=== PATIENT | female | born 1970 | race Caucasian/White ===

== ENCOUNTER → 2018-12-14 08:58 | Outpatient (CLI) | payer OTHER, SELFPAY ==
--- NOTE | 2018-12-14 08:59 | US_ITS ---
US transvaginal HISTORY: Dysfunctional uterine bleeding, heavy cycles, cervix cysts ITS.REASON: DUB ORDERING PHYSICIAN: Alvaro Rowell MD PATIENT AGE: 48 years Comparison: None Last menstrual period 11/29/2018 FINDINGS: The uterus is retroverted and enlarged at 11 x 5 x 6 cm. Combined endometrial thickness is 11 mm. Small amount of fluid is present within the endocervical canal. There is a 3 cm fibroid in the fundal portion of the uterus. There are a few small nabothian cysts. The right ovary is 3.9 x 3 cm. There is a 1.5 cm and a 1 cm right ovarian cyst.. The left ovary is 2.8 x 2.5 cm and has an unremarkable appearance. No cul-de-sac fluid is evident. IMPRESSION: 1. Enlarged retroverted uterus containing a 3 cm fibroid 2. Endometrial thickness upper limits of normal at 11 mm
== END ==
PROVIDERS: PCP Family Medicine; Visit Provider Obstetrics & Gynecology
DX: D25.9 Leiomyoma of uterus, unspecified (principal)
CPT/HCPCS: 76830

== ENCOUNTER 2021-11-22 11:23 | Emergency (ER) | payer OTHER, SELFPAY ==
[2021-11-22 11:24] VITALS: BP 149/91; PULSE 81; RESP 18; TEMP 36.7; O2SAT 96; BMI 40.2
[2021-11-22 11:36] VITALS: BP 149/91; PULSE 70; RESP 16; O2SAT 97
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
[2021-11-22 12:02] VITALS: BP 129/79; PULSE 83; RESP 16; O2SAT 99
[2021-11-22 12:34] VITALS: BMI 40.2
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
[2021-11-22 13:01] LABS: Microscopic, Urine URINE MICROSCOPIC (MICROSCOPIC)
[2021-11-22 13:08] LABS: Appearance,Urine CLEAR (Clear); Bilirubin,Urine Negative (Negative); Blood, Urine TRACE-L (Negative); Color,Urine YELLOW (Yellow); Glucose,Urine (UA) Negative (Negative); Ketones,Urine Negative (Negative); Leukocyte Esterase,Urine Negative (Negative); Nitrate,Urine Negative (Negative); Protein,Urine Negative (Negative); Urobilinogen,Urine 0.2 EU/dl (0.2)
[2021-11-22 13:10] LABS: Urine Pregnancy, HCG Qual. Negative (Negative)
[2021-11-22 13:21] LABS: Bacteria,Urine 1+ /lpf; Squamous Epithelial Cell,Urine Occasional #/hpf (0-5); WBC,Urine Occasional #/hpf (0-3)
[2021-11-22 13:52] VITALS: BP 125/78; PULSE 78; RESP 98; TEMP 36.6
[2021-11-23 10:10] LABS: Hepatitis C Antibody 1.6 s/co ratio (0.0-0.9)
[2021-11-23 21:38] LABS: Neisseria gonorrhoeae, NAA Negative (Negative)
[2021-11-25 16:11] LABS: HIV 1 RNA, Real time PCR <20 copies/mL (.)
== END 2021-11-22 13:53 | disposition home or self-care (01) ==
PROVIDERS: Emergency Provider Emergency Medicine; PCP Nurse Practitioner Family
DX: Z04.41 Encounter for examination and observation following alleged adult rape (principal); J45.909 Unspecified asthma, uncomplicated; I10 Essential (primary) hypertension; F17.210 Nicotine dependence, cigarettes, uncomplicated; Z88.0 Allergy status to penicillin; Z88.8 Allergy status to other drugs, medicaments and biological substances
CPT/HCPCS: 81001; 81025; 87380; 87491; 87536; 87591; 96372; 99282; J0696

== ENCOUNTER 2023-12-27 17:53 | Emergency (ER) | payer OTHER, SELFPAY ==
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
--- NOTE | 2023-12-27 18:09 | ED_ITS ---
Discharge Plan Disposition Patient Disposition: Home, Self-Care Prescriptions Prescriptions: New albuterol sulfate 90 mcg/actuation HFA aerosol inhaler 4 inh inhalation Q4H PRN (Reason: shortness of breath or wheezing) Qty: 8.5 0RF Rx Instructions: 4 puffs every 4 hours for 48 hours then as needed for shortness of breath or wheezing following azithromycin 250 mg tablet 250 mg PO DAILY 4 Days Qty: 4 0RF Rx Instructions: start on day 2 of therapy (day after ED visit) benzonatate 100 mg capsule 100 mg PO TID PRN (Reason: cough) 5 Days Qty: 20 0RF amoxicillin-pot clavulanate 875-125 mg tablet 1 tab PO BID 7 Days Qty: 14 0RF No Action ranitidine HCl [Zantac] 150 mg tablet 150 mg PO DAILY aspirin [Adult Low Dose Aspirin] 81 mg tablet,delayed release (DR/EC) 81 mg PO DAILY Referrals Follow up/Referrals: Provider,Referral, MD [Primary Care Provider] - See instructions Activity Restrictions/Add. Instructions Additional Instructions/Restrictions: Please return with any worsening shortness of breath or other concerns. Clinical Impressions Clinical Impression: CAP (community acquired pneumonia), Acute viral syndrome, Acute exacerbation of chronic obstructive pulmonary disease, Influenza A Discharge ED Provider: Jan Randle General Adult HPI General Chief complaint: Upper Respiratory Infection Stated complaint: SOA,runny nose , body aches Time Seen by Provider: 12/27/23 18:04 History of Present Illness HPI narrative: Patient is a 53-year-old female with a history of COPD presents today with bodyaches fever at home cough headache diarrhea. She is also nauseated. Denies any significant abdominal pain denies any chest pain. Has had increased sputum production and wheezing and is mildly short of breath. Symptoms have been ongoing for 3 days at this point. Related Data Home Medications Medication Instructions Recorded Confirmed aspirin 81 mg tablet,delayed 81 mg PO DAILY 09/27/18 11/27/18 release (Adult Low Dose Aspirin) ranitidine HCl 150 mg tablet 150 mg PO DAILY 09/27/18 11/27/18 (Zantac) Previous Rx's Medication Instructions Recorded albuterol sulfate 90 mcg/actuation 4 inh inhalation Q4H PRN shortness 12/27/23 aerosol inhaler of breath or wheezing #8.5 grams amoxicillin 875 mg-potassium 1 tab PO BID 7 days #14 tabs 12/27/23 clavulanate 125 mg tablet azithromycin 250 mg tablet 250 mg PO DAILY 4 days #4 tabs 12/27/23 benzonatate 100 mg capsule 100 mg PO TID PRN cough 5 days #20 12/27/23 caps Allergies Allergy/AdvReac Type Severity Reaction Status Date / Time lisinopril Allergy Mild Verified 12/27/23 18:16 PCN (PENICILLIN) Allergy Unknown Uncoded 11/27/18 10:08 [facility] Disclaimer: The information contained in this section may have been updated after the patient was seen, as this information can be updated by other users. Social History Smoking Status: Current every day smoker alcohol intake: never substance use type: denies use current occupational status: other Travel in the last 8 weeks: None ROS Obtained: Yes All systems reviewed & no additional complaints except as documented Physical Exam General General appearance: alert Respiratory Respiratory exam: Present other (Mildly tachypneic but no significant respiratory distress accessory muscle use etc. she is satting normally on room air has still faint wheezing and prolonged expiratory phase) Cardiovascular Cardiovascular exam: Present regular rate and normal rhythm Neurological Exam Neurological exam: Present alert Medical Decision Making Zurdo Inquiry Pt receiving controlled substance: No Vital Signs: 12/27/23 18:12 Temperature 99.3 F Temperature Source Oral Pulse Rate [Left] 91 H Respiratory Rate 20 Blood Pressure [Right Arm] 129/78 Blood Pressure Mean [Right Arm] 95 Blood Pressure Source [Right Arm] Automatic Cuff Blood Pressure Position [Right Arm] Sitting 02 Sat by Pulse Oximetry 96 Oxygen Delivery Method Room Air Lab Data Lab results reviewed: Yes I reviewed the patient's lab results. Lab Results 12/27/23 18:00: SARS-CoV-2 (PCR) Not detected, Influenza A Untype (PCR) Detected A, Influenza Type B (PCR) Not detected 12/27/23 18:18: WBC 7.2, RBC 4.66, Hgb 14.1, Hct 41.4, MCV 88.8, MCH 30.3, MCHC 34.1, RDW 13.4, Plt Count 145, MPV 7.8, Neut % (Auto) 76.3, Lymph % (Auto) 17.0, Ector % (Auto) 5.1, Eos % (Auto) 1.0, Baso % (Auto) 0.6, Neut # (Auto) 5.5, Lymph # (Auto) 1.2, Ector # (Auto) 0.4, Eos # (Auto) 0.1, Baso # (Auto) 0.0, Sodium 134 L, Potassium 3.5, Chloride 96 L, Carbon Dioxide 35 H, Anion Gap 6.5, BUN 11, Creatinine 0.60, Estimated Creat Clear 159, Estimated GFR 105, Est GFR ( Amer) 127, Glucose 103 H, Calcium 9.0, Total Bilirubin 0.4, AST 52 H, ALT 58, Alkaline Phosphatase 68, Total Protein 6.6, Albumin 3.9, Globulin 2.7, Albumin/Globulin Ratio 1.4 12/27/23 18:18 12/27/23 18:18 Orders (Tests/Meds): ED MEDICATIONS Discontinued Medications Generic Name Dose Route Start Last Admin Trade Name Freq PRN Reason Stop Dose Admin Acetaminophen 1,000 mg 12/27/23 18:07 12/27/23 18:23 Acetaminophen 1,000mg/100ml Vial IV 12/27/23 18:08 1,000 mg ONCE ONE Administration Albuterol/Ipratropium 3 ml 12/27/23 18:07 12/27/23 18:23 Ipratropium/Albuterol 3 Ml Neb IH 12/27/23 18:08 3 ml ONCE ONE Administration Amoxicillin/Clavulanate Potassium 1 each 12/27/23 18:41 12/27/23 18:55 Amoxicillin/Clavulanate Potassium 875/125mg Tablet PO 12/27/23 18:42 1 each ONCE ONE Administration Azithromycin 500 mg 12/27/23 18:41 12/27/23 18:55 Azithromycin 250mg Tablet PO 12/27/23 18:42 500 mg ONCE ONE Administration Dexamethasone Sodium Phosphate 10 mg 12/27/23 18:07 12/27/23 18:23 Dexamethasone 4mg/Ml 1ml Vial IV 12/27/23 18:08 10 mg ONCE ONE Administration Lactated Ringer's 1,000 mls @ 999 mls/hr 12/27/23 18:15 12/27/23 18:23 Lactated Ringer's 1000 Ml Bag IV 12/27/23 19:15 999 mls/hr .Q1H1M ALMA Administration Ondansetron HCl 4 mg 12/27/23 18:07 12/27/23 18:23 Ondansetron 4mg/2ml Vial IV 12/27/23 18:08 4 mg ONCE ONE Administration ORDERS Category Date Time Status CXR --portable [XR chest portable] Stat Exams 12/27/23 18:07 Completed CBC w/Auto Diff [Complete Blood Count Auto Diff] Stat Lab 12/27/23 18:18 Completed CMP [Comprehensive Metabolic Panel] Stat Lab 12/27/23 18:18 Completed Rapid PCR Covid and Flu A/B Stat Lab 12/27/23 18:00 Completed Medical Decision Narrative: 53-year-old female here with some shortness of breath cough wheezing increase pedal production consistent with COPD exacerbation she is also febrile at home I rechecked her temperature here is 100.3 will check for pneumonia with a chest x- ray. COVID and flu will be ordered as well. She is outside of the window for treatment with Tamiflu. Nebs and steroids will be administered as well. IV Tyl enol IV fluids and Zofran also be administered for symptomatic improvement. I will reassess after these initial tests are performed. X-ray performed which I first interpreted shows bibasilar consolidations concerning for possible commune acquired pneumonia. FLU a positive as stated above patient is outside of any window for treatment this was discussed with the patient. Reassessment feeling much better respiratory exam improved no distress upon being discharged. Patient was advised that she has some consolidations when of seeing his possibly atelectasis versus consolidations associated with influenza. She has not had any biphasic reaction or worsening of her symptoms I do not suspect that this is staph in nature. However given the fact that there are focal consolidations will treat for possible bacterial community-acquired pneumonia especially in the setting of COPD. Augmentin and azithromycin have been prescribed for that reason and first dose were given in the emergency depar tment. She is also given a prescription of benzonatate and albuterol to go home with return precautions emphasized patient comfortable with being discharged and will return with any worsening symptoms. Critical Care Critical Care Time Critical Care Time: Yes Attestation: On 12/27/23, the high probability of a clinically significant, sudden or life threatening deterioration of the following system(s) required my full and direct attention, intervention and personal management. The time I documented below is in addition to time spent performing reported procedures but includes the following listed in this critical care notation. Total Time Total Critical Care Time: 35
[2023-12-27 18:12] VITALS: BP 129/78; PULSE 91; RESP 20; TEMP 37.4; O2SAT 96; BMI 38.3
[2023-12-27] MEDS: ONDANSETRON 4MG/2ML VIAL 4 MG IV (18:23)
[2023-12-27] MEDS: ACETAMINOPHEN 1,000MG/100ML VIAL 1000 MG IV (18:23)
[2023-12-27] MEDS: LACTATED RINGERS 1000ML 1,000 ML 999 ML IV (18:23)
[2023-12-27] MEDS: DEXAMETHASONE 4MG/ML 1ML VIAL 10 MG IV (18:23)
[2023-12-27] MEDS: IPRATROPIUM/ALBUTEROL 3 ML NEB IH (18:23)
[2023-12-27 18:28] LABS: Coronavirus 19, PCR Not Detected (NotDetected); Influenza B, PCR Not Detected (NotDetected)
[2023-12-27 18:35] LABS: Basophils % 0.6 % (0.1-2.0); Eosinophils # 0.1 K/mm3 (0.0-0.4); Hematocrit 41.4 % (37.0-47.0); Hemoglobin 14.1 g/dL (12.2-16.2); Lymphocytes # 1.2 K/mm3 (0.7-4.5); Mean Corpuscular HGB Conc 34.1 g/dL (31.8-35.4); Mean Corpuscular Hemoglobin 30.3 pg (27.0-31.2); Mean Corpuscular Volume 88.8 fl (81-99); Mean Platelet Volume 7.8 fl (7.4-10.4); Monocytes # 0.4 K/mm3 (0.1-1.0); Monocytes % 5.1 % (1.7-9.3); Neutrophils # 5.5 K/mm3 (1.8-7.8); Neutrophils % 76.3 % (37.0-80.0); Platelet Count 145 K/mm3 (142-424); Red Blood Count 4.66 M/mm3 (4.20-5.40); Red Cell Distribution Width 13.4 % (11.5-17.5); White Blood Count 7.2 K/mm3 (4.8-10.8)
[2023-12-27 18:44] LABS: Alanine Aminotransferase 58 U/L (12-78); Albumin Level 3.9 g/dl (3.5-5.0); Albumin/Globulin Ratio 1.4 (1.1-1.8); Alkaline Phosphatase 68 U/L (38-126); Anion Gap 6.5 mEq/L (5-15); Aspartate Amino Transferase 52 U/L (14-36); Bilirubin,Total 0.4 mg/dl (0.2-1.3); Blood Urea Nitrogen 11 mg/dl (7-17); Carbon Dioxide 35 mmol/L (22.0-30.0); Chloride 96 mmol/L (98-107); Creatinine Clearance Estimated 159 mL/min (50-200); Estimated Glomerular Filt Rate 105 ml/min (>60); GFR (African American) 127 ML/MIN (>60); Globulin 2.7 g/dL (1.3-3.2); Glucose 103 mg/dl (74-100); Potassium 3.5 mmoL/L (3.5-5.1); Sodium 134 mmol/L (136-145); Total Protein,Serum 6.6 g/dl (6.3-8.2)
[2023-12-27] MEDS: AZITHROMYCIN 250MG TABLET 500 MG PO (18:55)
[2023-12-27] MEDS: AMOXICILLIN/CLAVULANATE POTASSIUM 875/125MG TABLET 1 EACH PO (18:55)
[2023-12-27 19:03] LABS: Influenza A, PCR Detected (NotDetected)
[2023-12-27 19:54] VITALS: BP 108/67; PULSE 86; RESP 18; TEMP 36.9; O2SAT 96
== END 2023-12-27 19:55 | disposition home or self-care (01) ==
PROVIDERS: Emergency Provider Student in an Organized Health Care Education/Training Program
DX: J44.1 Chronic obstructive pulmonary disease with (acute) exacerbation (principal); J18.9 Pneumonia, unspecified organism; J10.1 Influenza due to other identified influenza virus with other respiratory manifestations; J10.2 Influenza due to other identified influenza virus with gastrointestinal manifestations; R50.9 Fever, unspecified; R05.9 Cough, unspecified; R51.9 Headache, unspecified; R19.7 Diarrhea, unspecified; R11.0 Nausea; F17.200 Nicotine dependence, unspecified, uncomplicated
CPT/HCPCS: 71045; 80053; 85025; 87636; 96361; 96374; 96375; 99285; J0131; J2405

== ENCOUNTER 2024-02-25 21:30 | Emergency (ER) | payer OTHER, SELFPAY ==
[2024-02-25 21:35] VITALS: BP 126/75; PULSE 101; O2SAT 95
--- NOTE | 2024-02-25 21:40 | ED_ITS ---
<Statement entered by Jan Randle MD - 02/25/24 23:00> I was consulted by the GALA, and we discussed the complexity of the problems being addressed. I approved the treatment and management plan for this patient's care in the emergency department, thus performing a substantive portion of the medical decision making. Jan Randle MD, JOHNNIE, FACEP Discharge Plan Disposition Patient Disposition: Home, Self-Care Condition: Good Prescriptions Prescriptions: New prednisone 50 mg tablet 50 mg PO DAILY 5 Days Qty: 5 0RF doxycycline hyclate 100 mg capsule 100 mg PO BID 10 Days Qty: 20 0RF albuterol sulfate 0.63 mg/3 mL solution for nebulization 0.63 mg inhalation Q4H PRN (Reason: bronchospasm) Qty: 90 0RF No Action ranitidine HCl [Zantac] 150 mg tablet 150 mg PO DAILY aspirin [Adult Low Dose Aspirin] 81 mg tablet,delayed release (DR/EC) 81 mg PO DAILY albuterol sulfate 90 mcg/actuation HFA aerosol inhaler 4 inh inhalation Q4H PRN (Reason: shortness of breath or wheezing) Qty: 8.5 0RF Rx Instructions: 4 puffs every 4 hours for 48 hours then as needed for shortness of breath or wheezing following azithromycin 250 mg tablet 250 mg PO DAILY 4 Days Qty: 4 0RF Rx Instructions: start on day 2 of therapy (day after ED visit) benzonatate 100 mg capsule 100 mg PO TID PRN (Reason: cough) 5 Days Qty: 20 0RF amoxicillin-pot clavulanate 875-125 mg tablet 1 tab PO BID 7 Days Qty: 14 0RF Referrals Follow up/Referrals: Shaun Guzman APRN [Primary Care Provider] - See instructions Activity Restrictions/Add. Instructions Additional Instructions/Restrictions: Follow-up with your PCP this week for reassessment. Please take antibiotics as directed. Please consider a smoking vacation if not cessation altogether. Return to ER for any worsening signs or symptoms as needed. Clinical Impressions Clinical Impression: Acute exacerbation of chronic obstructive pulmonary disease, Acute lower respiratory tract infection Discharge ED Provider: Jan Randle [facility] <CHERI Wilder - Last Filed: 02/25/24 22:54> General Chief Complaint: Shortness of Breath/Dyspnea Stated Complaint: SOA, cough, painful breathing Time Seen by Provider: 02/25/24 21:36 History of Present Illness HPI narrative: Patient presents for evaluation of chest pain and shortness of breath. Patient reports constitutional symptoms for 3 days of cough increasing wheezing and malaise runny nose. However today patient reports that she began having chest pain that occurred with her coughing and she states that the pain radiates to her mid back. Patient currently rates her pain a 5 out of 10. She does have a history of COPD and ongoing tobaccoism but does not require oxygen at baseline. Patient does have a rescue inhaler and has used it 3 times a day with no improvement in her symptoms. Denies nausea vomiting chills hemoptysis hematochezia melena. Related Data Home Medications Medication Instructions Recorded Confirmed aspirin 81 mg tablet,delayed 81 mg PO DAILY 09/27/18 11/27/18 release (Adult Low Dose Aspirin) ranitidine HCl 150 mg tablet 150 mg PO DAILY 09/27/18 11/27/18 (Zantac) Previous Rx's Medication Instructions Recorded albuterol sulfate 90 mcg/actuation 4 inh inhalation Q4H PRN shortness 12/27/23 aerosol inhaler of breath or wheezing #8.5 grams amoxicillin 875 mg-potassium 1 tab PO BID 7 days #14 tabs 12/27/23 clavulanate 125 mg tablet azithromycin 250 mg tablet 250 mg PO DAILY 4 days #4 tabs 12/27/23 benzonatate 100 mg capsule 100 mg PO TID PRN cough 5 days #20 12/27/23 caps albuterol sulfate 0.63 mg/3 mL 0.63 mg (3 mL) inhalation Q4H PRN 02/25/24 solution for nebulization bronchospasm #90 mL doxycycline hyclate 100 mg capsule 100 mg PO BID 10 days #20 caps 02/25/24 prednisone 50 mg tablet 50 mg PO DAILY 5 days #5 tabs 02/25/24 Allergies Allergy/AdvReac Type Severity Reaction Status Date / Time lisinopril Allergy Mild Verified 12/27/23 18:16 PCN (PENICILLIN) Allergy Unknown Uncoded 11/27/18 10:08 [facility] <CHERI Wilder - Last Filed: 02/25/24 22:54> [facility] Disclaimer: The information contained in this section may have been updated after the patient was seen, as this information can be updated by other users. Social History (Updated 12/27/23 @ 19:41 by Jan Randle MD) Smoking Status: Current every day smoker alcohol intake: never substance use type: denies use current occupational status: other Travel in the last 8 weeks: None <CHERI Wilder - Last Filed: 02/25/24 22:54> ROS Obtained: Yes Systems reviewed as appropriate & no additional complaints except as documented Physical Exam <CHERI Wilder - Last Filed: 02/25/24 22:54> General General appearance: alert and in no apparent distress Head Head exam: atraumatic and normal inspection Eye Eye exam: Present normal appearance and PERRL ENT ENT exam: Present normal exam, normal oropharynx and mucous membranes moist Chest Chest inspection: Present normal inspection and symmetric chest wall rise Respiratory Respiratory exam: Present wheezes (Patient has bilateral end expiratory wheezes in all 4 ann); Absent respiratory distress, stridor or accessory muscle use Cardiovascular Cardiovascular exam: Present regular rate, normal rhythm and normal heart sounds Extremities Exam Extremities exam: Present normal inspection and full ROM Neurological Exam Neurological exam: Present alert, oriented X3 and CN II-XII intact Psychiatric Psychiatric exam: Present normal affect and normal mood Skin Skin exam: Present warm, dry and normal color Lymphatic Lymphatic Findings: no adenopathy HEART Score <CHERI Wilder Last Filed: 02/25/24 22:54> HEART Score HEART Score assessment performed?: Yes History (anamnesis): Slightly suspicious ECG: Normal Age: 45-65 years Risk factors: 1-2 risk factors Troponin: </= normal limit HEART Score: 2 Critical Care <CHERI Wilder Last Filed: 02/25/24 22:54> Critical Care Time Critical Care Time: No Medical Decision Making <CHERI Wilder Last Filed: 02/25/24 22:54> Medical Records Medical records reviewed: Yes I reviewed the patient's medical records. [place] Inquiry Pt receiving controlled substance: No Vital Signs Vital Signs: 02/25/24 21:35 02/25/24 21:43 02/25/24 22:00 Temperature 98.8 F Temperature Source Oral Pulse Rate 101 H 86 Pulse Rate [Left Radial] 92 H Respiratory Rate 22 Blood Pressure 126/75 102/69 L Blood Pressure [Right Arm] 126/75 Blood Pressure Mean [Right Arm] 92 Blood Pressure Source [Right Arm] Automatic Cuff 02 Sat by Pulse Oximetry 95 90 L 97 Oxygen Delivery Method Room Air 02/25/24 22:42 Temperature Temperature Source Pulse Rate 93 H Pulse Rate [Left Radial] Respiratory Rate Blood Pressure Blood Pressure [Right Arm] Blood Pressure Mean [Right Arm] Blood Pressure Source [Right Arm] 02 Sat by Pulse Oximetry Oxygen Delivery Method Lab Data Lab results reviewed: Yes I reviewed the patient's lab results. Labs: Lab Results 02/25/24 21:40: VBG pH 7.34, VBG pCO2 56.7 H, VBG pO2 36.0, VBG HCO3 30.2 H, VBG Total CO2 31.9 H, VBG O2 Saturation 69.7, VBG Base Excess 4.5 H, VBG Lactic Acid 1.5 02/25/24 21:44: WBC 5.8, RBC 5.34, Hgb 15.9, Hct 48.5 H, MCV 90.9, MCH 29.9, MCHC 32.9, RDW 14.0, Plt Count 197, MPV 7.9, Neut % (Auto) 69.6, Lymph % (Auto) 17.3, [place] % (Auto) 8.3, Eos % (Auto) 2.3, Baso % (Auto) 2.4 H, Neut # (Auto) 4.0, Lymph # (Auto) 1.0, [place] # (Auto) 0.5, Eos # (Auto) 0.1, Baso # (Auto) 0.1, D-Dimer 0.39, Sodium 139, Potassium 3.6, Chloride 99, Carbon Dioxide 34 H, Anion Gap 9.6, BUN 20 H, Creatinine 0.60, Estimated Creat Clear 157, Estimated GFR 105, Est GFR ( Amer) 127, Glucose 84, Calcium 9.9, Magnesium 2.0, Total Bilirubin 0.5, AST 44 H, ALT 34, Alkaline Phosphatase 64, Troponin I < 0.01, NT-Pro-B Natriuret Pep < 20.0, Total Protein 7.6, Albumin 4.5, Globulin 3.1, Albumin/Globulin Ratio 1.5 02/25/24 22:00: SARS-CoV-2 (PCR) Not detected, Influenza A Untype (PCR) Not detected, Influenza Type B (PCR) Not detected 02/25/24 21:44 02/25/24 21:44 Response Orders (Tests/Meds): ED MEDICATIONS Discontinued Medications Generic Name Dose Route Start Last Admin Trade Name Barb PRN Reason Stop Dose Admin Acetaminophen 1,000 mg 02/25/24 21:40 02/25/24 21:59 Acetaminophen 1,000mg/100ml Vial IV 02/25/24 21:41 1,000 mg ONCE ONE Administration Albuterol/Ipratropium 3 ml 02/25/24 21:40 02/25/24 21:41 Ipratropium/Albuterol 3 Ml Neb IH 02/25/24 21:41 3 ml ONCE ONE Administration Dexamethasone Sodium Phosphate 10 mg 02/25/24 21:40 02/25/24 22:00 Dexamethasone 4mg/Ml 1ml Vial IV 02/25/24 21:41 10 mg ONCE ONE Administration Ketorolac Tromethamine 15 mg 02/25/24 21:40 02/25/24 21:59 Ketorolac 30mg/Ml Vial IV 02/25/24 21:41 15 mg ONCE ONE Administration ORDERS Category Date Time Status Chest XR -- portable [XR chest portable] Stat Exams 02/25/24 21:41 Taken BNP [NT Pro Brain Natriuretic Pep.] Stat Lab 02/25/24 21:44 Completed CBC w/Auto Diff [Complete Blood Count Auto Diff] Stat Lab 02/25/24 21:44 Completed CMP [Comprehensive Metabolic Panel] Stat Lab 02/25/24 21:44 Completed D-Dimer Stat Lab 02/25/24 21:44 Completed Magnesium Stat Lab 02/25/24 21:44 Completed Rapid PCR Covid and Flu A/B Stat Lab 02/25/24 22:00 Completed Trop I [Troponin I] Stat Lab 02/25/24 21:44 Completed Troponin I Q3H Lab 02/26/24 00:45 Ordered Troponin I Q3H Lab 02/26/24 03:45 Ordered Venous Blood Gas Stat RT 02/25/24 21:40 Completed MDM Narrative Medical Decision Narrative: In summary patient is a 4-year-old female who presents to the emergency department for evaluation of redness of breath and chest pain. Patient is hemodynamically stable upon arrival, afebrile. Physical exam is remarkable for end expiratory wheezes in all 4 ann but breath sounds heard to the bases in all 4 ann. Patient has no pain with palpation. EKG appears to be normal sinus rhythm on the bedside monitor.. Differential diagnosis includes COPD exacerbation versus pneumonia versus ACS versus PE etc. Initial workup will be conducted with lead EKG plain film chest x-ray hematologic labs. Initial interventions include DuoNeb, Decadron, Toradol Tylenol. Initial workup reviewed by me shows her labs are nonactionable including negative dimer negative troponin -12 EKG and nonactionable other hematologic labs. Upon repeat evaluation is no longer wheezing still has a nonproductive cough but feels no chest pain either. Given this appropriate for discharge with close follow-up with her PCP and a prescription for prednisone and doxycycline called into her pharmacy <Jan Randle MD - Last Filed: 02/25/24 21:45> Vital Signs Vital Signs: 02/25/24 21:35 02/25/24 21:43 02/25/24 22:00 Temperature 98.8 F Temperature Source Oral Pulse Rate 101 H 86 Pulse Rate [Left Radial] 92 H Respiratory Rate 22 Blood Pressure 126/75 102/69 L Blood Pressure [Right Arm] 126/75 Blood Pressure Mean [Right Arm] 92 Blood Pressure Source [Right Arm] Automatic Cuff 02 Sat by Pulse Oximetry 95 90 L 97 Oxygen Delivery Method Room Air 02/25/24 22:42 Temperature Temperature Source Pulse Rate 93 H Pulse Rate [Left Radial] Respiratory Rate Blood Pressure Blood Pressure [Right Arm] Blood Pressure Mean [Right Arm] Blood Pressure Source [Right Arm] 02 Sat by Pulse Oximetry Oxygen Delivery Method Lab Data Labs: Lab Results 02/25/24 21:40: VBG pH 7.34, VBG pCO2 56.7 H, VBG pO2 36.0, VBG HCO3 30.2 H, VBG Total CO2 31.9 H, VBG O2 Saturation 69.7, VBG Base Excess 4.5 H, VBG Lactic Acid 1.5 02/25/24 21:44: WBC 5.8, RBC 5.34, Hgb 15.9, Hct 48.5 H, MCV 90.9, MCH 29.9, MCHC 32.9, RDW 14.0, Plt Count 197, MPV 7.9, Neut % (Auto) 69.6, Lymph % (Auto) 17.3, [place] % (Auto) 8.3, Eos % (Auto) 2.3, Baso % (Auto) 2.4 H, Neut # (Auto) 4.0, Lymph # (Auto) 1.0, [place] # (Auto) 0.5, Eos # (Auto) 0.1, Baso # (Auto) 0.1, D-Dimer 0.39, Sodium 139, Potassium 3.6, Chloride 99, Carbon Dioxide 34 H, Anion Gap 9.6, BUN 20 H, Creatinine 0.60, Estimated Creat Clear 157, Estimated GFR 105, Est GFR ( Amer) 127, Glucose 84, Calcium 9.9, Magnesium 2.0, Total Bilirubin 0.5, AST 44 H, ALT 34, Alkaline Phosphatase 64, Troponin I < 0.01, NT-Pro-B Natriuret Pep < 20.0, Total Protein 7.6, Albumin 4.5, Globulin 3.1, Albumin/Globulin Ratio 1.5 02/25/24 22:00: SARS-CoV-2 (PCR) Not detected, Influenza A Untype (PCR) Not detected, Influenza Type B (PCR) Not detected Response Orders (Tests/Meds): ED MEDICATIONS Discontinued Medications Generic Name Dose Route Start Last Admin Trade Name Freq PRN Reason Stop Dose Admin Acetaminophen 1,000 mg 02/25/24 21:40 02/25/24 21:59 Acetaminophen 1,000mg/100ml Vial IV 02/25/24 21:41 1,000 mg ONCE ONE Administration Albuterol/Ipratropium 3 ml 02/25/24 21:40 02/25/24 21:41 Ipratropium/Albuterol 3 Ml [facility] 02/25/24 21:41 3 ml ONCE ONE Administration Dexamethasone Sodium Phosphate 10 mg 02/25/24 21:40 02/25/24 22:00 Dexamethasone 4mg/Ml 1ml Vial IV 02/25/24 21:41 10 mg ONCE ONE Administration Ketorolac Tromethamine 15 mg 02/25/24 21:40 02/25/24 21:59 Ketorolac 30mg/Ml Vial IV 02/25/24 21:41 15 mg ONCE ONE Administration ORDERS Category Date Time Status Chest XR -- portable [XR chest portable] Stat Exams 02/25/24 21:41 Taken BNP [NT Pro Brain Natriuretic Pep.] Stat Lab 02/25/24 21:44 Completed CBC w/Auto Diff [Complete Blood Count Auto Diff] Stat Lab 02/25/24 21:44 Completed CMP [Comprehensive Metabolic Panel] Stat Lab 02/25/24 21:44 Completed D-Dimer Stat Lab 02/25/24 21:44 Completed Magnesium Stat Lab 02/25/24 21:44 Completed Rapid PCR Covid and Flu A/B Stat Lab 02/25/24 22:00 Completed Trop I [Troponin I] Stat Lab 02/25/24 21:44 Completed Troponin I Q3H Lab 02/26/24 00:45 Ordered Troponin I Q3H Lab 02/26/24 03:45 Ordered Venous Blood Gas Stat RT 02/25/24 21:40 Completed ECG Data Tracing #1: Attestation: I reviewed this ECG and interpreted as documented below: ECG Narrative: Ventricular rate of 97 no acute ischemic changes noted there is normal axis nondiagnostic EKG
[2024-02-25] MEDS: IPRATROPIUM/ALBUTEROL 3 ML NEB IH (21:41)
--- NOTE | 2024-02-25 21:41 | XR_ITS ---
PROCEDURE INFORMATION: Exam: XR Chest Exam date and time: 02/25/2024 9:44 PM Age: 54 years old Clinical indication: Pain; Chest pressure; Additional info: Dyspnea, chest pain TECHNIQUE: Imaging protocol: Radiologic exam of the chest. Views: 1 view. COMPARISON: CR XR CHEST PORTABLE 12/27/2023 6:20 PM FINDINGS: Lungs: Unremarkable. No consolidation. Pleural spaces: Unremarkable. No pleural effusion. No pneumothorax. Heart/Mediastinum: Unremarkable. No cardiomegaly. Bones/joints: Unremarkable. IMPRESSION: No acute findings.
[2024-02-25 21:43] VITALS: BP 126/75; PULSE 92; RESP 22; TEMP 37.1; O2SAT 90; BMI 38.1
[2024-02-25 21:55] LABS: Basophils # 0.1 K/mm3 (0-0.2); Basophils % 2.4 % (0.1-2.0); Eosinophils # 0.1 K/mm3 (0.0-0.4); Eosinophils % 2.3 % (0.1-12.0); Hematocrit 48.5 % (37.0-47.0); Hemoglobin 15.9 g/dL (12.2-16.2); Lymphocytes % 17.3 % (10-50); Mean Corpuscular HGB Conc 32.9 g/dL (31.8-35.4); Mean Corpuscular Hemoglobin 29.9 pg (27.0-31.2); Mean Corpuscular Volume 90.9 fl (81-99); Mean Platelet Volume 7.9 fl (7.4-10.4); Monocytes # 0.5 K/mm3 (0.1-1.0); Monocytes % 8.3 % (1.7-9.3); Neutrophils % 69.6 % (37.0-80.0); Platelet Count 197 K/mm3 (142-424); Red Blood Count 5.34 M/mm3 (4.20-5.40); White Blood Count 5.8 K/mm3 (4.8-10.8)
--- NOTE | 2024-02-25 21:55 | ECG_ITS ---
APPROVED REPORT Exam: Resting ECG HR:97 bpm ECG Measurements Heart Rate 97 AXES VT 200 P 78 QRSd 93 QRS 88 QT 337 T 76 QTc 391 Conclusion SINUS RHYTHM POSSIBLE RIGHT VENTRICULAR CONDUCTION DELAY [RSR (QR) IN V1/V2] Electronically signed by : ALLISON AKBAR, 02/26/2024 07:14:12
[2024-02-25] MEDS: ACETAMINOPHEN 1,000MG/100ML VIAL 1000 MG IV (21:59)
[2024-02-25] MEDS: KETOROLAC 30MG/ML VIAL 15 MG IV (21:59)
[2024-02-25 22:00] VITALS: BP 102/69; PULSE 86; O2SAT 97
[2024-02-25] MEDS: DEXAMETHASONE 4MG/ML 1ML VIAL 10 MG IV (22:00)
[2024-02-25 22:01] LABS: Lactate Venous 1.5 mmol/L (0.4-2.0); VBG Base Excess 4.5 mmol/L (-2.4-2.3); VBG HCO3 30.2 mmol/L (23-30); VBG Oxygen Saturation 69.7 % (50-70); VBG PH 7.34 mmol/L (7.31-7.41); VBG Total CO2 31.9 mmol/L (23-27)
[2024-02-25 22:02] LABS: VBG PCO2 56.7 mmol/L (35-51)
[2024-02-25 22:05] LABS: Alanine Aminotransferase 34 U/L (12-78); Albumin Level 4.5 g/dl (3.5-5.0); Albumin/Globulin Ratio 1.5 (1.1-1.8); Alkaline Phosphatase 64 U/L (38-126); Anion Gap 9.6 mEq/L (5-15); Aspartate Amino Transferase 44 U/L (14-36); Bilirubin,Total 0.5 mg/dl (0.2-1.3); Blood Urea Nitrogen 20 mg/dl (7-17); Calcium 9.9 mg/dl (8.4-10.2); Carbon Dioxide 34 mmol/L (22.0-30.0); Chloride 99 mmol/L (98-107); Creatinine Clearance Estimated 157 mL/min (50-200); Estimated Glomerular Filt Rate 105 ml/min (>60); GFR (African American) 127 ML/MIN (>60); Globulin 3.1 g/dL (1.3-3.2); Glucose 84 mg/dl (74-100); Potassium 3.6 mmoL/L (3.5-5.1); Sodium 139 mmol/L (136-145); Total Protein,Serum 7.6 g/dl (6.3-8.2)
[2024-02-25 22:11] LABS: D-Dimer 0.39 ug/mL (0.0-0.5)
--- NOTE | 2024-02-25 22:15 | PC.NURSE ---
covid/flu swab sent to lab
[2024-02-25 22:17] LABS: NT Pro Brain Natriuretic Pep. < 20.0 pg/mL (0-125)
[2024-02-25 22:20] LABS: Coronavirus 19, PCR Not Detected (NotDetected); Influenza A, PCR Not Detected (NotDetected); Influenza B, PCR Not Detected (NotDetected)
[2024-02-25 22:20] LABS: Troponin I < 0.01 ng/ml (0.00-0.034)
--- NOTE | 2024-02-25 22:20 | PC.NURSE ---
pt got duoneb per RT
[2024-02-25 22:42] VITALS: PULSE 93
[2024-02-25 23:00] VITALS: BP 117/63; PULSE 79; RESP 20; TEMP 36.7; O2SAT 90
== END 2024-02-25 23:08 | disposition home or self-care (01) ==
PROVIDERS: Physician Assistant; Emergency Provider Student in an Organized Health Care Education/Training Program; PCP Nurse Practitioner Family
DX: J44.1 Chronic obstructive pulmonary disease with (acute) exacerbation (principal); R07.1 Chest pain on breathing; R05.9 Cough, unspecified; F17.210 Nicotine dependence, cigarettes, uncomplicated
CPT/HCPCS: 71045; 80053; 82803; 83735; 83880; 84484; 85025; 85378; 87636; 93005; 96374; 96375; 99285; J0131

== ENCOUNTER 2025-02-22 01:25 | Emergency (ER) | payer OTHER, SELFPAY ==
[2025-02-22] VITALS (12 sets, daily range): BP systolic 118–146; BP diastolic 71–91; PULSE 94–114; RESP 16–20; TEMP 37.2–37.6; O2SAT 90–97; BMI 39.9
[2025-02-22 01:40] LABS: Bilirubin,Urine Negative (Negative); Blood, Urine Negative (Negative)
[2025-02-22 01:41] LABS: Appearance,Urine Cloudy (Clear); Color,Urine Orange (Yellow); Glucose,Urine (UA) 1+ (Negative); Ketones,Urine TRACE (Negative); Nitrate,Urine POSITIVE (Negative); Protein,Urine 3+ (Negative)
[2025-02-22 01:42] LABS: Leukocyte Esterase,Urine 1+ (Negative); Microscopic, Urine URINE MICROSCOPIC (MICROSCOPIC); Urobilinogen,Urine >=8.0 EU/dl (0.2)
[2025-02-22 01:43] LABS: Urine Pregnancy, HCG Qual. Negative (Negative)
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
[2025-02-22 01:51] LABS: Bacteria,Urine 1+ /lpf; Mucus,Urine Trace /lpf
--- NOTE | 2025-02-22 01:57 | CT_ITS ---
PROCEDURE INFORMATION: Exam: CT Abdomen And Pelvis With Contrast Exam date and time: 02/22/2025 2:24 AM Age: 55 years old Clinical indication: Abdominal pain; Generalized; Additional info: Low abd pain, urinary discomfort, ua equivocal TECHNIQUE: Imaging protocol: Computed tomography of the abdomen and pelvis with contrast. Radiation optimization: All CT scans at this facility use at least one of these dose optimization techniques: automated exposure control; mA and/or kV adjustment per patient size (includes targeted exams where dose is matched to clinical indication); or iterative reconstruction. Contrast material: ISOVUE; Contrast volume: 75 ml; Contrast route: IV; COMPARISON: TRANVAG US transvaginal 12/14/2018 9:01 AM FINDINGS: Liver: Mild fatty infiltration. No mass. Gallbladder and biliary ducts: Gallstones without wall thickening. Pancreas: Normal. No ductal dilation. Spleen: Normal. No splenomegaly. Adrenal glands: Normal. No mass. Kidneys and ureters: Normal. No hydronephrosis. Stomach and bowel: Mid to distal sigmoid colonic wall thickening with pericolonic fat stranding in segment with diverticula. Tiny, contained extraluminal fluid collection measuring 1.9 x 2.2 cm. Nonobstructive pattern. Appendix: No evidence of appendicitis. Intraperitoneal space: No free fluid. No free air. Vasculature: Unremarkable. No abdominal aortic aneurysm. Lymph nodes: Shotty reactive retroperitoneal/mesenteric lymph nodes without lymphadenopathy. Urinary bladder: Unremarkable as visualized. Reproductive: Unremarkable as visualized. Bones/joints: Unremarkable. No acute fracture. Soft tissues: Unremarkable. IMPRESSION: 1. Mid to distal acute sigmoid colonic diverticulitis with contained diverticular micro perforation. 2. Cholelithiasis. 3. Mild fatty liver infiltration.
[2025-02-22 02:15] LABS: Basophils % 0.3 % (0.1-2.0); Eosinophils # 0.1 K/mm3 (0.0-0.4); Eosinophils % 0.7 % (0.1-12.0); Hematocrit 46.4 % (37.0-47.0); Hemoglobin 15.2 g/dL (12.2-16.2); Lymphocytes # 1.3 K/mm3 (0.7-4.5); Lymphocytes % 8.5 % (10-50); Mean Corpuscular HGB Conc 32.8 g/dL (31.8-35.4); Mean Corpuscular Hemoglobin 28.6 pg (27.0-31.2); Mean Corpuscular Volume 87.4 fl (81-99); Mean Platelet Volume 9.6 fl (7.4-10.4); Monocytes # 1.3 K/mm3 (0.1-1.0); Monocytes % 8.7 % (1.7-9.3); Neutrophils # 11.9 K/mm3 (1.8-7.8); Neutrophils % 81.3 % (37.0-80.0); Platelet Count 225 K/mm3 (142-424); Red Blood Count 5.31 M/mm3 (4.20-5.40); Red Cell Distribution Width 14.2 % (11.5-17.5); White Blood Count 14.7 K/mm3 (4.8-10.8)
[2025-02-22 02:21] LABS: Alanine Aminotransferase 67 U/L (12-78); Albumin Level 4.1 g/dl (3.5-5.0); Albumin/Globulin Ratio 1.2 (1.1-1.8); Alkaline Phosphatase 101 U/L (38-126); Anion Gap 8.6 mEq/L (5-15); Aspartate Amino Transferase 54 U/L (14-36); Bilirubin,Total 0.9 mg/dl (0.2-1.3); Blood Urea Nitrogen 21 mg/dl (7-17); Carbon Dioxide 35 mmol/L (22.0-30.0); Chloride 94 mmol/L (98-107); Creatinine Clearance Estimated 139 mL/min (50-200); Estimated Glomerular Filt Rate 87 ml/min (>60); GFR (African American) 106 ML/MIN (>60); Globulin 3.5 g/dL (1.3-3.2); Glucose 133 mg/dl (74-100); Potassium 3.6 mmoL/L (3.5-5.1); Sodium 134 mmol/L (136-145); Total Protein,Serum 7.6 g/dl (6.3-8.2)
[2025-02-22] MEDS: LACTATED RINGERS 1000ML 1,000 ML 999 ML IV ×2 (02:26→04:24)
[2025-02-22] MEDS: ACETAMINOPHEN 500MG TAB 1000 MG PO (02:26)
[2025-02-22] MEDS: IOPAMIDOL-370 (76%);100ML BOTTLE 75 ML IV (02:31)
[2025-02-22] MEDS: SODIUM CHLORIDE 0.9% 10ML SYR (RAD ONLY) 10 ML IV (02:31)
[2025-02-22] MEDS: PIPERACILLIN/TAZO 4.5 GM in 0.9 % SODIUM CHLORIDE 100 ML IV (04:11)
--- OUTSIDE RECORDS SUMMARY | 2025-02-27 19:45 | XMS_ITS | Data Portability ---
Author Organization [facility] and [facility] [place] Address [address] [place] [address] Care Team Providers Care Lemon Grower Name Role Phone KATALINA VICTOR Primary Care Provider Assessment No assessment recorded. Plan of Treatment Reminders Order Date Submit Date Provider Last Modified By Organization Details Last Modified Time Details Appointments HFU 30 2024 12:00P Monae VICTOR NP Not available Not available Not available Lab influenza virus A + B + SARS-CoV- 2 (COVID19) Ag panel, rapid IA, upper respirato ry specimen 2024 025 [facility], [address] [place], [address], 12/27/2024 17:05:03 HbA1c (hemoglob in A1c), blood 2023 024 [facility] ([facility]atory[facility] [place], [address], 10/15/2024 13:11:54 CMP, serum or plasma 2023 024 [facility] [place], [address], 10/15/2024 13:15:11 TSH + free T4, serum 2023 024 [facility] (Laboratory), [place], [address], 10/22/2024 07:57:12 TSH + free T4, serum 2023 024 [email or web address] [facility] (Laboratory), [address] [place], [address], 06/17/2024 08:15:54 CMP, serum or plasma 2023 024 [facility]), [address] [place], [address], 06/10/2024 17:09:39 HbA1c (hemoglob in A1c), blood 2023 024 [facility]), [address] [place], [address], 06/10/2024 16:51:59 Referral None recorded. Procedures None recorded. Surgeries None recorded. Imaging XR, chest, 2 view 2024 025 [facility] (Scheduling), [address] [place], [address], 2025 14:26:25 MAMMO, diagnosti c, digital, bilateral [address] [place] [address] (Scheduling), [address] [place], [address], 2025 12:28:29 US, breast, bilateral [address] [place] [address] (Scheduling), [address] [place], [address], 2025 12:28:30 XR, chest, 2 view [address] [place] [address] (Scheduling), [address] [place], [address], 2025 12:28:30 LDCT, chest, for lung cancer screening 2024 025 [email or web address] [facility] ([facility]), [address] , [place], [address], 01/17/2025 08:24:11 Medication Orders prednison e 5 mg tablets in a dose pack 2024 [facility][id number], [address], [place], [id number], 2025 12:01:58 doxycycli ne hyclate 100 mg capsule 2024 025 [facility] #15925, [address], [place], [id number], 2025 12:01:56 Ventolin HFA 90 mcg/actua tion aerosol inhaler 2023 024 [facility] #49001, [address], [place], [id number], 10/15/2024 11:09:19 Medrol (Adam) 4 mg tablets in a dose pack 2023 025 [facility] #51785, [address], [place], [id number], 12/27/2024 15:53:49 azithromy mulu 250 mg tablet 2023 025 [facility] #61815, [address], [place], [id number], 12/27/2024 15:53:37 losartan 100 mg-hydroc hlorothia zide 25 mg tablet 2023 024 [facility] #85722, [address], [place], [id number], 10/15/2024 11:09:20 metoprolo l succinate ER 50 mg tablet,ex tended release 24 hr 2023 024 [facility] #89068, [address] [place], [id number], 10/15/2024 11:09:20 Vraylar 1.5 mg capsule 2023 024 [facility]15578, [address], [id number], 10/15/2024 11:09:22 azithromy mulu 250 mg tablet 2023 024 [email or web address]44809, [address], [id number], 12/27/2024 15:53:06 Patient TargetsNo targets recorded. Patient Instructions Encounter Date Encounter Id Patient Instructions Last Modified By Organization Details Last Modified Time 12/27/2024 [id number] complete PFT w/ post bronchodilator spirometry* [email or web address] Not available 01/24/2025 08:15:57 Reason for Referral None Reported. Results Created Date Observation Date Name Description Value Unit Range Abnormal Flag Note LastModifiedBy Organization Detail LastModifiedTime 05/01/20 24 05/01/2024 B-TYP E NATRI URETI C PEPTI DE BNP B-type natriuretic peptide BNP <5.0 pg/mL 0.0-10 0 Non-C HF: Less than 100 pg/mL Class I: Great er than 100 pg/mL - Patie nts have no limit ation s of physi quinton activ ity and have no sympt oms with ordin nathan physi quinton activ ity. Class II: Great er than 221 pg/mL - Patie nts have a sligh t limit ation of physi quinton activ ity and have sympt oms with ordin nathan physi quinton activ ity. Class III: Great er than 459 pg/mL - Patie nts have a marke d limit ation of physi quinton activ ity and have sympt oms with less than ordin nathan physi quinton activ ity, but not at rest. Class IV : Great er than 1006 pg/mL -Niharika ents are unabl e to perfo rm any physi quinton activ ity witho ut disco mfort . Not Available [facility] (Lab Registration) [address] [place], [address], 05/01/2024 13:27:20 05/01/20 24 05/01/2024 B-TYP E NATRI URETI C PEPTI DE BNP note Unles s other george noted testi ng perfo rmed at: [facility] [address] [place] [address] [phone] Deandre villegas MD CLIA: [id number] Not Available [facility] (Lab Registration) [address] [place], [address], 05/01/2024 13:27:20 05/01/20 24 05/01/2024 THYRO ID STIMU LATIN G HORMO NE thyroid stimulating hormone 3.67 mIU/m L 0.34-4 .80 Not Available [facility] (Lab Registration) [address] [place], [address], 05/01/2024 13:36:24 05/01/20 24 05/01/2024 THYRO ID STIMU LATIN G HORMO NE note Unles s other george noted testi ng perfo rmed at: [facility] [address] [place] [address] [phone] Deandre villegas MD CLIA: [id number] Not Available [facility] (Lab Registration) [address] [place], [address], 05/01/2024 13:36:24 05/01/20 24 05/01/2024 COMP METAB OLIC PANEL sodium 139 mmol/ L 136-14 5 Not Available [facility] (Lab Registration) [address] [place], [address], 05/01/2024 13:36:26 05/01/20 24 05/01/2024 COMP METAB OLIC PANEL potassium 4.1 mmol/ L 3.5-5. 1 Not Available [facility] (Lab Registration) [address] [place], [address], 05/01/2024 13:36:26 05/01/20 24 05/01/2024 COMP METAB OLIC PANEL chloride 101 mmol/ L 98-107 Not Available [facility] (Lab Registration) [address] [place], [address], 05/01/2024 13:36:26 05/01/20 24 05/01/2024 COMP METAB OLIC PANEL carbon dioxide 32 mmol/ L 21-32 Not Available [facility] (Lab Registration) [address] [place], [address], 05/01/2024 13:36:26 05/01/20 24 05/01/2024 COMP METAB OLIC PANEL anion gap 6.0 Not Available [facility] (Lab Registration) [address] [place], [address], 05/01/2024 13:36:26 05/01/20 24 05/01/2024 COMP METAB OLIC PANEL glucose 104 mg/dL 70-110 Not Available [facility] (Lab Registration) [address] [place], [address], 05/01/2024 13:36:26 05/01/20 24 05/01/2024 COMP METAB OLIC PANEL blood urea nitrogen 24 mg/dL 7-18 high Not Available [facility] (Lab Registration) [address] [place], [address], 05/01/2024 13:36:26 05/01/20 24 05/01/2024 COMP METAB OLIC PANEL creatinine 0.8 mg/dL 0.6-1. 0 Not Available [facility] (Lab Registration) [address] [place], [address], 05/01/2024 13:36:26 05/01/20 24 05/01/2024 COMP METAB OLIC PANEL BUN/creatini ne ratio 30.0 ratio 9-21 high Not Available [facility] (Lab Registration) [address] [place], [address], 05/01/2024 13:36:26 05/01/20 24 05/01/2024 COMP METAB OLIC PANEL estimated glom filtration rate 88 mL/mi n >60- Not Available [facility] (Lab Registration) [address] [place], [address], 05/01/2024 13:36:26 05/01/20 24 05/01/2024 COMP METAB OLIC PANEL total protein 7.2 g/dL 6.4-8. 2 Not Available [facility] (Lab Registration) [address] [place], [address], 05/01/2024 13:36:26 05/01/20 24 05/01/2024 COMP METAB OLIC PANEL albumin 3.9 g/dL 3.4-5. 0 Not Available [facility] (Lab Registration) [address] [place], [address], 05/01/2024 13:36:26 05/01/20 24 05/01/2024 COMP METAB OLIC PANEL calcium 9.7 mg/dL 8.5-10 .1 Not Available [facility] (Lab Registration) [address] [place], [address], 05/01/2024 13:36:26 05/01/20 24 05/01/2024 COMP METAB OLIC PANEL corrected calcium 9.8 mg/dL 8.5-10 .1 Not Available [facility] (Lab Registration) [address] [place], [address], 05/01/2024 13:36:26 05/01/20 24 05/01/2024 COMP METAB OLIC PANEL bilirubin total 0.4 mg/dL 0.4-1. 5 Not Available [facility] (Lab Registration) [address] [place], [address], 05/01/2024 13:36:26 05/01/20 24 05/01/2024 COMP METAB OLIC PANEL AST (SGOT) 15 U/L 15-37 Not Available [facility] (Lab Registration) [address] [place], [address], 05/01/2024 13:36:26 05/01/20 24 05/01/2024 COMP METAB OLIC PANEL ALT (SGPT) 42 U/L 12-78 Not Available [facility] (Lab Registration) [address] [place], [address], 05/01/2024 13:36:26 05/01/20 24 05/01/2024 COMP METAB OLIC PANEL alk phosphatase 83 U/L 50-120 Not Available [facility] (Lab Registration) [address] [place], [address], 05/01/2024 13:36:26 05/01/20 24 05/01/2024 COMP METAB OLIC PANEL note Unles s other george noted testi ng perfo rmed at: [facility] [place] [place] [address] [phone] Deandre villegas MD CLIA: [id number] Not Available [facility] (Lab Registration) [address] [place], [address], 05/01/2024 13:36:26 05/01/20 24 05/01/2024 LIPID PANEL triglyceride 85 mg/dL 20-200 The [employer] [employer] (NCEP ) has set the follo wing guide lines for Fasti ng Trigl yceri guillermo: EDIE L: <150 mg/dL BORDE RLINE HIGH: 150 - 199 mg/dL HIGH: 200 - 499 mg/dL VERY HIGH: > or =500 mg/dL Not Available [facility] (Lab Registration) [address] [place], [address], 05/01/2024 13:36:28 05/01/20 24 05/01/2024 LIPID PANEL cholesterol 178 mg/dL 0-200 [facility] [employer] [facility] [employer] am (NCEP ) has set the follo wing guide lines for Fasti ng Brenda stero l: CECIL ABLE: <200 mg/dL BORDE RLINE HIGH: 200 - 239 mg/dL HIGH: > or =240 mg/dL Not Available [facility] (Lab Registration) [address], [place], [address], 05/01/2024 13:36:28 05/01/20 24 05/01/2024 LIPID PANEL HDL cholesterol 65 mg/dL 60- The [employer] am (IAEP ) has set the follo wing guide lines for Fasti ng HDL Brenda stero l: LOW HDL: <40 mg/dL EDIE L: 40 - 60 mg/dL CECIL ABLE: >60 mg/dL Not Available [facility] (Lab Registration) [address] [place], [address], 05/01/2024 13:36:28 05/01/20 24 05/01/2024 LIPID PANEL LDL calculated 96 mg/dL 100- low [facility] [employer] am ([facility] ) has set the follo wing guide lines for Fasti ng LDL Brenda stero l: OPTIM AL: < 100 mg/dL LOW RISK: 100 - 129 mg/dL BORDE RLINE HIGH: 130 - 159 mg/dL HIGH: 160 - 189 mg/dL VERY HIGH: > or = 190 mg/dL Not Available [facility] (Lab Registration) [address], [place], [address], 05/01/2024 13:36:28 05/01/20 24 05/01/2024 LIPID PANEL chol/HDL ratio 3 ratio -5 Not Available [facility] (Lab Registration) [address] [place], [address], 05/01/2024 13:36:28 05/01/20 24 05/01/2024 LIPID PANEL note Unles s other george noted testi ng perfo rmed at: [facility] [address] [place] [address] [phone] Deandre villegas MD CLIA: [id number] Not Available [facility] (Lab Registration) [address], [place], [address], 05/01/2024 13:36:28 06/10/20 24 06/10/2024 HEMOG LOBIN A1C glycosylated hemoglobin A1C 5.8 % 4.5-6. 2 Not Available [facility] (Lab Registration) [address] [place], [address], 06/10/2024 16:51:59 06/10/20 24 06/10/2024 HEMOG LOBIN A1C estimated average glucose 120 mg/dL 82-131 Not Available [facility] (Lab Registration) [address], [place], [address], 06/10/2024 16:51:59 06/10/20 24 06/10/2024 HEMOG LOBIN A1C note Renee malone george noted testi ng perfo rmed at: [facility] [address] [place] [phone] Deandre villegas MD CLIA: [id number] Not Available [facility] (Lab Registration) [address] [place], [address], 06/10/2024 16:51:59 06/10/20 24 06/10/2024 THYRO ID STIMU LATIN G HORMO NE thyroid stimulating hormone 6.29 mIU/m L 0.34-4 .80 high Not Available [facility] (Lab Registration) [address] [place], [address], 06/10/2024 17:09:37 06/10/20 24 06/10/2024 THYRO ID STIMU LATIN G HORMO NE note Renee malone george noted testi ng perfo rmed at: [facility] [address] [place] [phone] Deandre villegas MD CLIA: [id number] Not Available [facility] (Lab Registration) [address] [place], [address], 06/10/2024 17:09:37 06/10/20 24 06/10/2024 T4 FREE T4,free 0.94 NG/dL 0.76-1 .46 Effec tive today 013 new Refer ence Range . Not Available [facility] (Lab Registration) [address], [place], [address], 06/10/2024 17:09:38 06/10/20 24 06/10/2024 T4 FREE note Unles s other george noted testi ng perfo rmed at: [facility] [address] [facility] [place] [address] [phone] Deandre villegas MD CLIA: [id number] Not Available [facility] (Lab Registration) [address] [place], [address], 06/10/2024 17:09:38 06/10/20 24 06/10/2024 COMP METAB OLIC PANEL sodium 143 mmol/ L 136-14 5 Not Available [facility] (Lab Registration) [address] [place], [address], 06/10/2024 17:09:39 06/10/20 24 06/10/2024 COMP METAB OLIC PANEL potassium 4.1 mmol/ L 3.5-5. 1 Not Available [facility] (Lab Registration) [address] [place], [address], 06/10/2024 17:09:39 06/10/20 24 06/10/2024 COMP METAB OLIC PANEL chloride 104 mmol/ L 98-107 Not Available [facility] (Lab Registration) [address] [place], [address], 06/10/2024 17:09:39 06/10/20 24 06/10/2024 COMP METAB OLIC PANEL carbon dioxide 35 mmol/ L 21-32 high Not Available [facility] (Lab Registration) [address] [place], [address], 06/10/2024 17:09:39 06/10/20 24 06/10/2024 COMP METAB OLIC PANEL anion gap 4.0 Not Available [facility] (Lab Registration) [address] [place], [address], 06/10/2024 17:09:39 06/10/20 24 06/10/2024 COMP METAB OLIC PANEL glucose 85 mg/dL 70-110 Not Available [facility] (Lab Registration) [address] [place], [address], 06/10/2024 17:09:39 06/10/20 24 06/10/2024 COMP METAB OLIC PANEL blood urea nitrogen 17 mg/dL 7-18 Not Available [facility] (Lab Registration) [address] [place], [address], 06/10/2024 17:09:39 06/10/20 24 06/10/2024 COMP METAB OLIC PANEL creatinine 0.9 mg/dL 0.6-1. 0 Not Available [facility] (Lab Registration) [address] [place], [address], 06/10/2024 17:09:39 06/10/20 24 06/10/2024 COMP METAB OLIC PANEL BUN/creatini ne ratio 18.9 ratio 9-21 Not Available [facility] (Lab Registration) [address] [place], [address], 06/10/2024 17:09:39 06/10/20 24 06/10/2024 COMP METAB OLIC PANEL estimated glom filtration rate 76 mL/mi n >60- Not Available [facility] (Lab Registration) [address] [place], [address], 06/10/2024 17:09:39 06/10/20 24 06/10/2024 COMP METAB OLIC PANEL total protein 6.6 g/dL 6.4-8. 2 Not Available [facility] (Lab Registration) [address] [place], [address], 06/10/2024 17:09:39 06/10/20 24 06/10/2024 COMP METAB OLIC PANEL albumin 3.7 g/dL 3.4-5. 0 Not Available [facility] (Lab Registration) [address] [place], [address], 06/10/2024 17:09:39 06/10/20 24 06/10/2024 COMP METAB OLIC PANEL calcium 9.6 mg/dL 8.5-10 .1 Not Available [facility] (Lab Registration) [address] [place], [address], 06/10/2024 17:09:39 06/10/20 24 06/10/2024 COMP METAB OLIC PANEL corrected calcium 9.8 mg/dL 8.5-10 .1 Not Available [facility] (Lab Registration) [address] [place], [address], 06/10/2024 17:09:39 06/10/20 24 06/10/2024 COMP METAB OLIC PANEL bilirubin total 0.3 mg/dL 0.4-1. 5 low Not Available [facility] (Lab Registration) [address] [place], [address], 06/10/2024 17:09:39 06/10/20 24 06/10/2024 COMP METAB OLIC PANEL AST (SGOT) 18 U/L 15-37 Not Available [facility] (Lab Registration) [address] [place], [address], 06/10/2024 17:09:39 06/10/20 24 06/10/2024 COMP METAB OLIC PANEL ALT (SGPT) 34 U/L 12-78 Not Available [facility] (Lab Registration) [address] [place], [address], 06/10/2024 17:09:39 06/10/20 24 06/10/2024 COMP METAB OLIC PANEL alk phosphatase 83 U/L 50-120 Not Available [facility] (Lab Registration) [address] [place], [address], 06/10/2024 17:09:39 06/10/20 24 06/10/2024 COMP METAB OLIC PANEL note Unles s other george noted testi ng perfo rmed at: [facility] [address] [place] [address] [phone] Deandre villegas MD CLIA: [id number] Not Available [facility] (Lab Registration) [address] [place], [address], 06/10/2024 17:09:39 10/15/20 24 10/15/2024 HEMOG LOBIN A1C glycosylated hemoglobin A1C 5.6 % 4.5-6. 2 Not Available [facility] (Lab Registration) [address] [place], [address], 10/15/2024 13:11:53 10/15/20 24 10/15/2024 HEMOG LOBIN A1C estimated average glucose 114 mg/dL 82-131 Not Available [facility] (Lab Registration) [address] [place], [address], 10/15/2024 13:11:53 10/15/20 24 10/15/2024 HEMOG LOBIN A1C note Unles s other george noted testi ng perfo rmed at: [facility] [address] [place] [address] [phone] Deandre villegas MD CLIA: [id number] Not Available [facility] (Lab Registration) [address] [place], [address], 10/15/2024 13:11:53 10/15/20 24 10/15/2024 THYRO ID STIMU LATIN G HORMO NE thyroid stimulating hormone 4.22 mIU/m L 0.34-4 .80 Not Available [facility] (Lab Registration) [address], [place], [address], 10/15/2024 13:15:08 10/15/20 24 10/15/2024 THYRO ID STIMU LATIN G HORMO NE note Unles s other george noted testi ng perfo rmed at: [facility] [address] [place] [address] [phone] Deandre villegas MD CLIA: [id number] Not Available [facility] (Lab Registration) [address] [place], [address], 10/15/2024 13:15:08 10/15/20 24 10/15/2024 T4 FREE T4,free 0.92 NG/dL 0.76-1 .46 Effec tive today 013 new Refer ence Range . Not Available [facility] (Lab Registration) [address], [place], [address], 10/15/2024 13:15:10 10/15/20 24 10/15/2024 T4 FREE note Unles s other george noted testi ng perfo rmed at: [facility] [address] [place] [address] [phone] Deandre villegas MD CLIA: [id number] Not Available [facility] (Lab Registration) [address] [place], [address], 10/15/2024 13:15:10 10/15/20 24 10/15/2024 COMP METAB OLIC PANEL sodium 142 mmol/ L 136-14 5 Not Available [facility] (Lab Registration) [address] [place], [address], 10/15/2024 13:15:11 10/15/20 24 10/15/2024 COMP METAB OLIC PANEL potassium 3.9 mmol/ L 3.5-5. 1 Not Available [facility] (Lab Registration) [address] [place], [address], 10/15/2024 13:15:11 10/15/20 24 10/15/2024 COMP METAB OLIC PANEL chloride 102 mmol/ L 98-107 Not Available [facility] (Lab Registration) [address] [place], [address], 10/15/2024 13:15:11 10/15/20 24 10/15/2024 COMP METAB OLIC PANEL carbon dioxide 32 mmol/ L 21-32 Not Available [facility] (Lab Registration) [address] [place], [address], 10/15/2024 13:15:11 10/15/20 24 10/15/2024 COMP METAB OLIC PANEL anion gap 8.0 Not Available [facility] (Lab Registration) [address] [place], [address], 10/15/2024 13:15:11 10/15/20 24 10/15/2024 COMP METAB OLIC PANEL glucose 95 mg/dL 70-110 Not Available [facility] (Lab Registration) [address] [place], [address], 10/15/2024 13:15:11 10/15/20 24 10/15/2024 COMP METAB OLIC PANEL blood urea nitrogen 20 mg/dL 7-18 high Not Available [facility] (Lab Registration) [address] [place], [address], 10/15/2024 13:15:11 10/15/20 24 10/15/2024 COMP METAB OLIC PANEL creatinine 0.9 mg/dL 0.6-1. 0 Not Available [facility] (Lab Registration) [address] [place], [address], 10/15/2024 13:15:11 10/15/20 24 10/15/2024 COMP METAB OLIC PANEL BUN/creatini ne ratio 22.2 9-21 high Not Available [facility] (Lab Registration) [address] [place], [address], 10/15/2024 13:15:11 10/15/20 24 10/15/2024 COMP METAB OLIC PANEL estimated glom filtration rate 76 mL/mi n >60- GFR LIMIT ATION : The eGFR equat ion CKD-E PI 2020 is not appli cable for pedia tric patie nts or great er than 90 years of age. The follo wing condi tions may alter the GFR resul t: extre mes in body size, malnu triti on or obesi ty, skele janae muscl e disea se, parap legia or quadr ipleg ia, veget bhavesh diet or rapid ly staley ing kiney funct ion. Not Available [facility] (Lab Registration) [address], [place], [address], 10/15/2024 13:15:11 10/15/20 24 10/15/2024 COMP METAB OLIC PANEL total protein 7.3 g/dL 6.4-8. 2 Not Available [facility] (Lab Registration) [address] [place], [address], 10/15/2024 13:15:11 10/15/20 24 10/15/2024 COMP METAB OLIC PANEL albumin 3.9 g/dL 3.4-5. 0 Not Available [facility] (Lab Registration) [address] [place], [address], 10/15/2024 13:15:11 10/15/20 24 10/15/2024 COMP METAB OLIC PANEL calcium 9.9 mg/dL 8.5-10 .1 Not Available [facility] (Lab Registration) [address] [place], [address], 10/15/2024 13:15:11 10/15/20 24 10/15/2024 COMP METAB OLIC PANEL corrected calcium 10.0 mg/dL 8.5-10 .1 Not Available [facility] (Lab Registration) [address] [place], [address], 10/15/2024 13:15:11 10/15/20 24 10/15/2024 COMP METAB OLIC PANEL bilirubin total 0.4 mg/dL 0.4-1. 5 Not Available [facility] (Lab Registration) [address] [place], [address], 10/15/2024 13:15:11 10/15/20 24 10/15/2024 COMP METAB OLIC PANEL AST (SGOT) 21 U/L 15-37 Not Available [facility] (Lab Registration) [address] [place], [address], 10/15/2024 13:15:11 10/15/20 24 10/15/2024 COMP METAB OLIC PANEL ALT (SGPT) 33 U/L 12-78 Not Available [facility] (Lab Registration) [address] [place], [address], 10/15/2024 13:15:11 10/15/20 24 10/15/2024 COMP METAB OLIC PANEL alk phosphatase 93 U/L 50-120 Not Available [facility] (Lab Registration) [address] [place], [address], 10/15/2024 13:15:11 10/15/20 24 10/15/2024 COMP METAB OLIC PANEL note Unles s other george noted testi ng perfo [facility]: [facility] [address] [place] [address] [phone] Deandre villegas MD CLIA: [id number] Not Available [facility] (Lab Registration) [address] [place], [address], 10/15/2024 13:15:11 12/27/19 25 12/27/2024 influ ki virus A + B + SARS- CoV-2 (COVI D19) Ag panel , rapid IA, upper respi rator y speci men FLU A negati ve Not Available [facility] [address] [facility], [address], 12/27/2024 15:52:29 12/27/19 25 12/27/2024 influ ki virus A + B + SARS- CoV-2 (COVI D19) Ag panel , rapid IA, upper respi rator y speci men FLU B negati ve Not Available [address] [place], [address], 12/27/2024 15:52:29 12/27/19 25 12/27/2024 influ ki virus A + B + SARS- CoV-2 (COVI D19) Ag panel , rapid IA, upper respi rator y speci men SARS COV + SARS OV 2 negati ve Not Available [address] [place], [address], 12/27/2024 15:52:29 04/26/20 24 04/26/2024 elect rocar diogr am No observ ation record ed. [address] [place], [place], [address], 04/26/2024 08:44:48 04/26/20 24 04/22/2024 elect rocar diogr am No observ ation record ed. [address] [place], [place], [address], 04/26/2024 08:44:17 05/01/20 24 05/01/2024 US, jean x, ethan s, [facility] mity, compl ete [facility] [place] [address] Phone: Fax: Name: STEVAN CORTES Exam Date: 024 : 971 Age 54 years Gender : F Access ion: [id number] Physic hilda: ABENA LUCAS ty: [facility] Facili ty HSV: Outpat ient Exam: VENOUS DUPLEX LOWER BILATE RAL DUPLEX VENOUS SONOGR APHY OF THE LEFT LOWER EXTREM ITY HISTOR Y: Left leg pain and swelli ng FINDIN GS: Multip le transv erse and longit udinal scans were perfor med of the femoro poplit eal deep venous system , with augmen tation and compre ssion maneuv ers. Normal phasic flow was noted in the visual ized deep venous system . No intral uminal increa sed echoge nicity is noted to sugges t thromb us. There is normal compre ssion and augmen tation of the venous struct ures. No abnorm al venous collat erals are seen. IMPRES PALMIRA: No eviden ce of deep venous thromb osis of the left lower extrem ity. DUPLEX VENOUS SONOGR APHY OF THE RIGHT LOWER EXTREM ITY HISTOR Y: Right leg pain and swelli ng FINDIN GS: Multip le transv erse and longit udinal scans were perfor med of the femoro poplit eal deep venous system , with augmen tation and compre ssion maneuv ers. Normal phasic flow was noted in the visual ized deep venous system . No intral uminal increa sed echoge nicity is noted to sugges t thromb us. There is normal compre ssion and augmen tation of the venous struct ures. No abnorm al venous collat erals are seen. IMPRES PALMIRA: No eviden ce of deep venous thromb osis of the right lower extrem ity. Dictat ed By: Erum torres Transc ribed By: Erum torres Transc ribed On: 9:22 AM Electr onical ly signed by: Erum torres 024 Thank you for referr ing STEVAN CORTES IE to [facility] Hospit [facility]. Legall y authen ticate d by CAMPBELL Lau MD 2023-05-01 09:22: 23 CC'ed Logic: Orderi ng Provid er: CAMPBELL CARRINGTON Attend ing Provid er: TEVIN Stephenson Referr ing Provid er: TEVIN Stephenson Admitt ing Provid er: TEVIN [facility]son [facility] [address] [place], [address], 05/06/2024 11:12:06 05/01/20 24 05/01/2024 vein extre m lwr bilat duplx [facility] [address] [place] [address] Phone: Fax: Name: STEVAN CORTES Exam Date: 024 : 971 Age 54 years Gender : F Access ion: [id number] Physic hilda: ABENA LUCAS Facili ty: [facility] Facili ty HSV: Outpat ient Exam: VENOUS DUPLEX LOWER BILATE RAL DUPLEX VENOUS SONOGR APHY OF THE LEFT LOWER EXTREM ITY HISTOR Y: Left leg pain and swelli ng FINDIN GS: Multip le transv erse and longit udinal scans were perfor med of the femoro poplit eal deep venous system , with augmen tation and compre ssion maneuv ers. Normal phasic flow was noted in the visual ized deep venous system . No intral uminal increa sed echoge nicity is noted to sugges t thromb us. There is normal compre ssion and augmen tation of the venous struct ures. No abnorm al venous collat erals are seen. IMPRES PALMIRA: No eviden ce of deep venous thromb osis of the left lower extrem ity. DUPLEX VENOUS SONOGR APHY OF THE RIGHT LOWER EXTREM ITY HISTOR Y: Right leg pain and swelli ng FINDIN GS: Multip le transv erse and longit udinal scans were perfor med of the femoro poplit eal deep venous system , with augmen tation and compre ssion maneuv ers. Normal phasic flow was noted in the visual ized deep venous system . No intral uminal increa sed echoge nicity is noted to sugges t thromb us. There is normal compre ssion and augmen tation of the venous struct ures. No abnorm al venous collat erals are seen. IMPRES PALMIRA: No eviden ce of deep venous thromb osis of the right lower extrem ity. Dictat ed By: Erum torres Transc ribed By: Erum torres Transc ribed On: 024 9:22 AM Electr onical ly signed by: Erum torres 024 [facility] you [facility] Legall y authen ticate d by CAMPBELL Lau MD 05-01 09:22: 23 CC'ed Logic: Orderi ng Provid er: TEVIN Stephenson CC Provid er: AMBURG NII SWIFT Y Attend ing Provid er: TEVIN Stephenson Referr ing Provid er: TEVIN Stephenson Admitt ing Provid er: TEVIN Stephenson [email or web address] [facility] (Radiology) [address] [place], [address], 05/03/2024 09:26:32 05/21/20 24 05/20/2024 US, echoc ardio gram, trans thora cic, compl ete, w/ color flow [facility] mi 9 [facility] [place] [place] [address] Phone: Fax: Name: STEVAN CORTES Exam Date: 05/20/20 24 : 9[birth year] Age 54 years Gender : F Access ion: [id number] Physic hilda: ABENA LUCAS Facili ty: [facility] Facili ty HSV: Outpat ient Exam: ECHOCA RDIOGR AM Conclu sions: 1. Normal LV size and functi on. 2. Normal left ventri cular systol ic functi on. 3. Estima aidan left ventri cular ejecti on fracti on is 60-65% . 4. Normal left ventri cular diasto lic functi on. 5. There is no signif icant valvul ar stenos is or regurg itatio n by Dopple r flow analys is. Findin gs: Left Ventri demetria:No rmal LV size and functi on. Normal left ventri cular dimens ion. Normal left ventri cular systol ic functi on. Normal global wall motion . No region al wall motion abnorm alitie s. Normal left ventri cular diasto lic functi on. Right Ventri demetria:Angel rderli ne right ventri cular dilata tion. Left Atrium :Edie l left atrial size. Right Atrium :Edie l right atrial size. Mitral Valve: Normal mitral valve struct ure and functi on. Trace mitral valve regurg itatio n. Tricus pid Valve: There is physio logic tricus pid valve regurg itatio n. Normal tricus pid valve struct ure and functi on. Aortic Valve: Normal aortic valve struct ure and functi on. No aortic valve stenos is. No aortic valve regurg itatio n. Pulmon ic Valve: The pulmon ic valve is poorly seen. Perica rdium: No perica rdial effusi on. Normal perica rdium. Electr onical ly signed ABENA DAUGHERTY MD 05/20/24 8:54 PM Study Data 2D Measur ements RVIDd: 2.47 (1.9-2 .6) cm LVIDd: 4.69 (4.2-5 .9) cm LVIDs: 2.81 (2.1-4 .0) cm IVSDd: 0.76 (0.6-1 .0) cm LVPWd: 1.1 (0.6-1 .0) cm EF:70. 59 (>=55) % FS:39. 96 (25-43 ) % SV:71. 78 (70-10 0) ml EDV:10 1.69 (67-15 5) ml ESV:29 .91 (22-58 ) ml LA Volume :39.7 (18-58 ) ml LVOT Diam:1 .94 (1.8-2 .4) cm M-MODE Measur ements Aortic Root:3 .44 (2.0-3 .7) cm LA/AR Ratio: 1.04 Mitral Valve Peak E:0.89 (0.6-1 .3) m/s Peak A:0.83 (<=.7) m/s E/A Ratio: 1.08 (.75-1 .5) PHT:66 .25 ms MVA by PHT:3. 32 (4-6) cm2 DS:390 .68 cm/s2 DT:228 .45 (<=200 ) ms Tricus pid Valve Legall y authen ticate d by TEVIN Stephenson MD 05-21 06:32: 09 Aortic Valve Peak:1 .44 (<=2.5 ) m/s Peak Grad:8 .27 (<=16) mmHg Mean:0 .89 m/s Mean Grad:3 .8 (<=5) mmHg AV VTI:34 .72 cm LVOT PV:1.3 (0.7-1 .1) m/s LVOT P.7 7 mmHg Pulmon ic Valve Report for STEVAN Zhou [id number] on 05/20/24 Dictat ed By: ABENA LUCAS Transc ribed By: Michelle Moore Transc ribed On: 05/21/20 6:29 AM Electr onical ly signed by: ABENA LUCAS 05/21/20 Thank you for referr STEVAN Farmer to [facility]y Hospit al. Legall y authen ticate d by TEVIN Stephenson MD 05-21 06:32: 09 CC'ed Logic: Orderi ng Provid er: TEVIN Stephenson CC Provid er: MAURICIO SWIFT Y Attend ing Provid er: TEVIN Stephenson Referr ing Provid er: TEVIN Stephenson Admitt ing Provid er: TEVIN Stephenson [facility] ([facility]) [address] [place], [address], 05/21/2024 12:33:35 05/22/20 24 05/20/2024 pharm acolo gic nucle ar stres s test [facility] [address] [place] 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 INDICA TION: The bernadine zhou is a 54-yea r-old female with a past medica l histor y of hypert ension , chroni c smoker , sent for evalua tion of chest pain at rest. She had a heart rate of 72 beats per minute . Restin g EKG was normal sinus rhythm . Restin g blood pressu re was 156/98 mmHg. At rest, her O2 satura tion was 96%. At rest, she receiv ed 10.42 millic uries IV inject ion of Cardio lite, and then 40 minute s later, the rest images were done. Then, the bernadine zhou receiv ed 0.4 mg IV inject ion of Lexisc an over 10 second s and 20 second s later was follow ed by 35 millic uries IV inject ion of Cardio lite, and then 40 minute s later, the stress and gated images with the polar maps were done. After the Lexisc an inject ion, the bernadine zhou was monito red up to 10 minute s. Her restin g heart rate of 72 beats per minute raheem to a maximu m heart rate of 93 beats per minute that repres ents approp riate respon se of the heart rate to Lexisc an inject ion. Her restin g blood pressu re of 156/98 mmHg went up to 164/96 mmHg during the monito ring. The patien t did not have any ST or T-wave change s sugges tive of ischem ia. There was no arrhyt hmia. She denied any chest pain or shortn ess of breath , and at the end of monito ring period , her hemody namics return ed back to her [facility]. Test was comple aidan. No compli cation . The patien t tolera aidan the stress test well. FINDIN GS: Showed that the qualit y of the study was good. There was no signif icant attenu ation artifa ct. LV cavity during stress was normal . TID was 1.04. Right ventri demetria was also normal . No lung activi ty seen. SPECT images showed normal homoge neous tracer distri bution throug hout the myocar dium with no fixed or revers ible defect s seen. No ischem ia demons trated . Summed differ ence score was 2. Gated SPECT images showed normal wall thicke thuy and motion throug hout the myocar dium with a calcul ated ejecti on fracti on of 66% which is normal . In conclu palmira, normal Lexisc an nuclea r stress test. No Lexisc an induce d ischem ia demons trated on the perfus ion imagin g. Normal ejecti on fracti on. Legall y authen ticate d by TEVIN Stephenson MD 05-22 07:58: 01 DICTAT ED BY: ABENA DAUGHERTY MD Dictat ed By: ABENA LUCAS Transc ribed By: KEI BENAVIDES Transc ribed On: 05/22/20 7:57 AM Electr onical ly signed by: ABENA LUCAS 05/22/20 Thank you for referr STEVAN Farmer to [facility]. Legall y authen ticate d by TEVIN Stephenson MD 05-22 07:58: 01 CC'ed Logic: Orderi ng Provid er: TEVIN Stephenson CC Provid er: AMBURG EY TAFFAN Y Attend ing Provid er: TEVIN Stephenson Referr ing Provid er: TEVIN Stephenson Admitt ing Provid er: TEVIN Stephenson [facility] ([facility]) [address] [place], [address], 05/22/2024 13:14:29 06/18/20 24 06/18/2024 US, thyro id [place] [facility] [place] [address] Phone: Fax: Name: STEVAN CORTES IE Exam Date: 024 : 971 Age 54 years Gender : F Access ion: [id number] Physic hilda: AMBURG EY, TAFFAN Y Facili ty: [facility] Facili ty HSV: Outpat ient Exam: US THYROI D PROCED URE: US THYROI D. HISTOR Y: Bernadine zhou is a 54 year old female with goiter . Weight gain. Abnorm al thyroi d labs. COMPAR AMARIS: None availa ble. TECHNI QUE: Two-di mensio nal graysc amada ultras ound imagin g of the thyroi d and adjace nt soft tissue s was perfor med. Color flow imagin g was also perfor med. FINDIN GS: The right lobe of the thyroi d measur es 4.0 x 1.6 x 1.3 cm and demons trates a homoge neous echote xture. The left lobe of the thyroi d measur es 4.0 x 1.3 x 1.3 cm and demons trates a homoge neous echote xture. The isthmu s measur es 0.3 cm. There is a subcen timete r nodule identi fied within the right lobe. IMPRES PALMIRA: Solita ry subcen timete r thyroi d nodule within the right lobe requir es no furthe r follow -up based on ACR criter ia. Thank you for debbiei lauren us to assist in the care of this bernadine lyn Electr onical ly signed by: Joel Lima MD 2023 11:14 PM EDT RP Workst ation: [id number] Dictat ed By: Joel Lima Transc ribed By: Transc ribed On: 3:06 PM Electr onical ly signed by: Joel Lima Thank you for referr ing STEVAN CORTES IE to [facility]. Legall y authen ticate d by SYDNIE MAC MD 06-18 15:06: 59 CC'ed Logic: Orderi ng Provid er: AMBURG EY TAFFAN Y CC Provid er: AMBURG EY TAFFAN Y Attend ing Provid er: AMBURG EY TAFFAN Y Referr ing Provid er: AMBURG EY TAFFAN Y Admitt ing Provid er: AMBURG EY TAFFAN Y [facility] (Radiology) [address] [place], [address], 06/24/2024 08:47:27 01/14/20 25 2025 XR, chest , 2 view [facility] [address] [facility] [place] [address] Phone: Fax: Name: STEVAN CORTES Exam Date: : 971 Age 55 years Gender : F Access ion: [id number] Physic hilda: AMBURG EY, TAFFAN Y Facili ty: [facility] Facili ty HSV: Outpat ient Exam: CHEST PA ^ LAT XR CHEST 2 VIEWS Reason For Study: . Cough COMPAR AMARIS:C T chest 05/22/20 23, 022, 06/22/20 20 TECHNI QUE: PA and latera l views of the chest were obtain ed. FINDIN GS PA and latera l views of the chest demons trate clear lungs. The heart size is normal . The bony thorax is intact . Mild DJD in spine. Mild chroni c inters titial change . 5 mm granul mauricio left base. COPD. IMPRES PALMIRA: No acute cardio pulmon nathan proces s. Electr onical ly signed by: Pablo Wilson MD 2024 02:21 PM EST RP Workst ation: [id number] Dictat ed By: PABLO WILSON Transc ribed By: Transc ribed On: 025 12:50 PM Electr onical ly signed by: PABLO WILSON 025 Thank you for referr ing STEVAN CORTES IE to [facility] Hospit al. Legall y authen ticate d by GURPREET SHAH MD 01-14 12:50: 00 CC'ed Logic: Orderi ng Provid er: AMBURG EY TAFFAN Y CC Provid er: AMBURG EY TAFFAN Y Attend ing Provid er: AMBURG EY TAFFAN Y Referr ing Provid er: AMBURG EY TAFFAN Y Admitt ing Provid er: AMBURG EY TAFFAN Y [email or web address] [facility] (Radiology) [address] [place], [address], 01/16/2025 09:39:56 01/23/20 25 01/22/2025 US, breantoni t, unila teral , limit ed [facility] Hospit [facility] 9 [facility] [place] [place] [address] Phone: Fax: Name: DENICE Zhou STEVAN TRIMBLE Exam Date: 01/23/20 : 9[birth year] Age 55 years Gender : F Access ion: [id number] Physic hilda: AMBURG EY, TAFFAN Y Facili ty: [facility] Facili ty HSV: Outpat ient Exam: US BREAST LIMITE D RT Exam: 1.Bila teral 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 Compar amaris: Exams to 2008 TECHNI QUE: Diagno stic Bilate ral 2D mammog jeffrey and 3D (tomos ynthes is) imagin g were perfor med.Ta rgeted ultras ound assess ing concepcion-s naa and color flow perfor med. BREAST DENSIT Y:Ther e are scatte red areas of fibrog landul ar densit y. FINDIN GS: Mammog jeffrey: A radiop aque marker denote s the area of palpab le concer n in the centra l inner right breast . Subjac ent to the marker , there is no suspic ious adjace nt findin gs. No suspic ious masses or calcif icatio ns bilate rally Ultras ound: Right breast , 3:00, 4 cm from nipple in the area of concer n is benign tissue IMPRES PALMIRA: No suspic ious findin gs in the area of concer n in the right breast . No eviden ce of breast malign elsy Recomm endati on: Routin e screen ing recomm ended in one year The result s of this report will be report ed to the patien t by letter in layman 's terms. ACR BI-RAD S:1- Negati ve Mammog gloria Mammog jeffrey does not detect approx imatel y 10-15% of breast cancer s. A normal mammog gloria does not exclud e breast cancer in a patien t with palpab le mass or abnorm al findin gs on physic al examin ation. These patien ts may need biopsi es and when clinic ally indica aidan a biopsy should not be postpo chauncey becaus e of a normal mammog gloria. If the patien t has breast surger y or biopsy , FDA/MQ [place] Regula tory Guidel ric mandat e that this facili ty receiv e pathol ogic result s for follow -up correl ation. Electr onical ly signed by: Stevan Dunn MD 2024 02:37 PM EST RP Workst ation: [id number] Dictat ed By: Stevan Dunn Transc ribed By: Transc ribed On: 01/23/20 2:30 PM Legall y authen ticate d by ROSE MEDINA MD 01-22 14:30: 00 Electr onical ly signed by: Stevan Dunn 01/23/20 Thank you for referr STEVAN Farmer to [facility] Hospit al. Legall y authen ticate d by ROSE MEDINA MD 01-22 14:30: 00 CC'ed Logic: Orderi ng Provid er: AMBURG EY TAFFAN Y CC Provid er: AMBURG EY TAFFAN Y Attend ing Provid er: AMBURG EY TAFFAN Y Referr ing Provid er: AMBURG EY TAFFAN Y Admitt ing Provid er: AMBURG EY TAFFAN Y [id number] [facility] (Radiology) [address] [place], [address], 01/23/2025 12:13:44 01/23/2001/22/2025 MAMMO , diagn ostic , digit al, bilat eral [facility] [place] [address] Phone: Fax: Name: STEVAN CORTES Exam Date: 01/23/20 : 9[birth year] Age 55 years Gender : F Access ion: [id number] Physic hilda: AMBURG EY, TAFFAN Y Facili ty: [facility] Facili ty HSV: Outpat ient Exam: RAYO DIAG MAMMO W CAD BILAT Exam: 1.Bila teral 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 Compar amaris: Exams to 2008 TECHNI QUE: Diagno stic Bilate ral 2D mammog jeffrey and 3D (tomos ynthes is) imagin g were perfor med.Ta rgeted ultras ound assess ing concepcion-s naa and color flow perfor med. BREAST DENSIT Y:Ther e are scatte red areas of fibrog landul ar densit y. FINDIN GS: Mammog jeffrey: A radiop aque marker denote s the area of palpab le concer n in the centra l inner right breast . Subjac ent to the marker , there is no suspic ious adjace nt findin gs. No suspic ious masses or calcif icatio ns bilate rally Ultras ound: Right breast , 3:00, 4 cm from nipple in the area of concer n is benign tissue IMPRES PALMIRA: No suspic ious findin gs in the area of concer n in the right breast . No eviden ce of breast malign elsy Recomm endati on: Routin e screen ing recomm ended in one year The result s of this report will be report ed to the patien t by letter in layman 's terms. ACR BI-RAD S:1- Negati ve Mammog gloria Mammog jeffrey does not detect approx imatel y 10-15% of breast cancer s. A normal mammog gloria does not exclud e breast cancer in a patien t with palpab le mass or abnorm al findin gs on physic al examin ation. These patien ts may need biopsi es and when clinic ally indica aidan a biopsy should not be postpo chauncey becaus e of a normal mammog gloria. If the patien t has breast surger y or biopsy , FDA/ [place] Regula tory Guidel ric mandat e that this facili ty receiv e pathol ogic result s for follow -up correl ation. Electr onical ly signed by: Stevan Dunn MD 2024 02:37 PM EST RP Workst ation: [id number] Dictat ed By: Stevan Dunn Transc ribed By: Transc ribed On: 01/23/20 1:55 PM Legall y authen ticate d by ROSE MEDINA MD 01-22 13:55: 00 Electr onical ly signed by: Stevan Dunn 01/23/20 Thank you for referr ing STEVAN CORTES to [facility] Hospit al. Legall y authen ticate d by ROSE MEDINA MD 01-22 13:55: 00 CC'ed Logic: Orderi ng Provid er: AMBURG EY TAFFAN Y CC Provid er: AMBURG EY TAFFAN Y Attend ing Provid er: AMBURG EY TAFFAN Y Referr ing Provid er: AMBURG EY TAFFAN Y Admitt ing Provid er: AMBURG EY TAFFAN Y [id number] [facility] (Radiology) [address], [place], [address], 01/23/2025 12:13:38 01/23/20 25 01/22/2025 XR, chest , 2 view [facility] [address] [place] [address] Phone: Fax: Name: SLADESTEVAN DOUGLAS IE Exam Date: 01/23/20 : 9[birth year] Age 55 years Gender : F Access ion: [id number] Physic hilda: AMBURG EY, TAFFAN Y Facili ty: [facility] Facili ty HSV: Outpat ient Exam: CHEST PA ^ LAT EXAM DESCRI PTION: CHEST PA ^ LAT CLINIC AL HISTOR Y: 55 years Female , . COMPAR AMARIS: 025 TECHNI QUE: 2 views FINDIN GS: The cardia c medias tinal silhou ette and pulmon nathan vascul ature are unrema rkable . Pulmon nathan calcif icatio ns consis tent with old granul omatou s diseas e. No lung consol idatio n or pleura l diseas e is seen. IMPRES PALMIRA: No acute cardio pulmon nathan proces s identi fied. Electr onical ly signed by: Neelam Randle MD 2024 03:44 PM EST RP Workst ation: [id number] Dictat ed By: Neelam Randle Transc ribed By: Transc ribed On: 01/23/20 2:49 PM Electr onical ly signed by: Neelam Randle as 01/23/20 Thank you for referr ing STEVAN CORTES IE [facility] Legall y authen ticate d by THONY DUENAS MD 01-22 14:49: 00 CC'ed Logic: Orderi ng Provid er: AMBURG EY TAFFAN Y CC Provid er: AMBURG EY TAFFAN Y Attend ing Provid er: AMBURG EY TAFFAN Y Referr ing Provid er: AMBURG EY TAFFAN Y Admitt ing Provid er: AMBURG EY TAFFAN Y [id number] [facility] (Radiology) [address] [place], [address], 01/23/2025 12:13:38 01/24/20 25 01/22/2025 LDCT, chest , [facility] lung [facility]ce r [facility] Hospit mi 9 [facility] [place] [address] Phone: Fax: Name: STEVAN CORTES IE Exam Date: 01/23/20 : 9[birth year] Age 55 years Gender : F Access ion: [id number] Physic hilda: MAURICIO BALES, TAFLONDON Y Facili ty: [facility] Facili ty HSV: Outpat ient Exam: CT CHEST LOW DOSE CT CHEST WITHOU T IV CONTRA [facility] AL: 55-yea r-old Female patien t curren tly meetin g criter ia for enroll ment into the low-do se lung cancer CT screen ing progra m. COMPAR AMARIS: 05/22/20 23 TECHNI QUE: Contig uous unenha nced axial imagin g of the thorax was perfor med with the patien t in the supine positi on utiliz ing the low-do se lung cancer CT screen ing protoc ol. Akhtar l and sagitt al two-di mensio nal maximu m intens ity and multip lanar image recons tructi on was perfor med. All CT studie s perfor med at this facili ty are perfor med using dose optimi zation techni que as approp riate includ ing at least one of the follow ing: - Automa aidan exposu re contro l - Adjust ment of the kV and/or mA accord ing to patien t size - Use of iterat tramaine recons tructi on techni que FINDIN GS: There is a 7 mm calcif ied left lower lobe pulmon nathan nodule , benign . Subseg mental atelec tasis and/or scarri ng is presen t in both lung bases. Calcif icatio n is presen t at the left hilum, within the medias tinum, and in the spleen , consis tent with old granul omatou s diseas e. No lung consol idatio n or pleura l diseas e is identi fied. A limite d view of the extrem e upper abdome n shows no additi onal signif icant abnorm ality. Bone window s show thorac ic degene rative disc diseas e. IMPRES PALMIRA: Lung-R ADS Catego ry / Lung-R ADS Manage ment: * Lung-R ADS Catego ry 1 (Negat tramaine). * Manage ment: Contin ued screen ing LDCT in 12 months . * No suspic ious pulmon nathan nodule or mass. Electr onical ly signed by: Neelam Randle MD 2024 08:41 AM EST RP Workst ation: [id number] Dictat ed By: Neelam Randle Transc ribed By: Transc ribed On: 01/23/20 2:21 PM Electr onical ly signed by: Neelam Randle as 01/23/20 Thank you for referr ing STEVAN CORTES IE to [facility]. Legall y authen ticate d by THONY DUENAS MD 01-22 14:21: 06 CC'ed Logic: Orderi ng Provid er: AMBURG EY TAFFAN Y CC Provid er: AMBURG EY TAFFAN Y Attend ing Provid er: AMBURG EY TAFFAN Y Referr ing Provid er: AMBURG EY TAFFAN Y Admitt ing Provid er: AMBURG EY TAFFAN Y tpardini [facility] (Radiology) [address] [place], [address], 01/24/2025 14:51:37 02/05/20 25 01/22/2025 compl ete PFT w/ post [facility] [place] hodil ator ventura metry * No observ ation record ed. [facility] (Sleep Lab) [address] [place], [address], 02/04/2025 16:50:57 02/23/20 25 02/22/2025 imagi ng inter preta tion No observ ation record ed. [email or web address] [facility] [address], [place], [address], 02/24/2025 08:26:14 02/23/20 25 02/22/2025 imagi ng inter preta tion No observ ation record ed. [address], [place], [address], 02/24/2025 08:26:03 02/23/20 25 02/22/2025 imagi ng inter preta tion No observ ation record ed. [address], [place], [address], 02/24/2025 08:26:00 Result Notes None recorded. Problems Name Problem SNOMED Code Status Onset Date Resolution Date Notes Provider Name and Address Organization Details Recorded Time Essential hypertension 67754101 Active 2021 Caesar Gurrola null, [place] - [facility] - [place] 4 15:37:50 Drug abuse 57495140 Active 2021 Caesar Gurrola [place] [facility] [place] 4 15:37:47 Asthma 957477705 Active 2021 Caesar Gurrola null, [place] [facility] [place] 4 15:37:43 Heart murmur 98697727 Active 2021 Caesar Gurrola null, [place] [facility] [place] 4 15:37:52 Problem Notes None recorded. Procedures Surgical History Date Name Laterality Status Provider Name and Address Organization Details Recorded Time 02/12/20 24 Feces-based colorectal cancer DNA screening completed Nadia Garcia [place] [facility] [place] 08/05/2024 13:24:58 07/05/20 23 Date of Last Pap Smear completed Jerry Navarro [place] - [facility] [place] 10/18/2023 15:23:12 01/25/20 23 completed KATALINA VICTOR NP [address] [place] [address], [address], [place] [facility] [place] 06/21/2023 14:24:27 11/20/18 75 Tonsillectomy/ Adenoidectomy completed KATALINA VICTOR NP [address] [facility], [place], [address], [place] [facility] [place] 06/21/2023 14:24:34 Cancer Surgery completed KATALINA VICTOR NP [address] [facility], [place], [address], [place] [facility] [place] 03/28/2023 10:33:23 section completed Caroline Hebert [place] - [facility] & [place] 09/07/2022 07:13:02 Imaging Results Imaging Date Name Status LastModified by Organization Details LastModified Time 04/26/2024 electrocardiogram completed [facility] [address], [place], [address], 04/26/2024 08:44:48 04/22/2024 electrocardiogram completed [facility] [address], [place], [address], 04/26/2024 08:44:17 05/01/2024 US, duplex, venous, lower extremity, complete completed [facility] (Scheduling) [address] [place], [address], 05/06/2024 11:12:06 05/01/2024 vein extrem lwr bilat duplx US completed [email or web address] (Radiology) [address] [place], [address], 05/03/2024 09:26:32 05/20/2024 US, echocardiogram, transthoracic, complete, w/ color flow completed [facility] (Scheduling) [address] [place], [address], 05/21/2024 12:33:35 05/20/2024 pharmacologic nuclear stress test active [facility] (Scheduling) [address] [place], [address], 05/22/2024 13:14:29 06/18/2024 US, thyroid completed [facility] (Radiology) [address] [place], [address], 06/24/2024 08:47:27 2025 XR, chest, 2 view completed [address] (Radiology) [address] [place], [address], 01/16/2025 09:39:56 01/22/2025 US, breast, unilateral, limited completed [address] (Radiology) [address] [place], [address], 01/23/2025 12:13:44 01/22/2025 MAMMO, diagnostic, digital, bilateral completed [address] (Radiology) [address] [place], [address], 01/23/2025 12:13:38 01/22/2025 XR, chest, [address] view completed [address] (Radiology) [address] [place], [address], 01/23/2025 12:13:38 01/22/2025 LDCT, chest, for lung cancer screening completed [facility] (Radiology) [address] [place], [address], 01/24/2025 14:51:37 01/22/2025 complete PFT w/ post bronchodilator spirometry* completed [facility] (Sleep Lab) [address] [place], [address], 02/04/2025 16:50:57 02/22/2025 imaging interpretation completed [address], [place], [address], 02/24/2025 08:26:14 02/22/2025 imaging interpretation completed [address], [place], [address], 02/24/2025 08:26:03 02/22/2025 imaging interpretation completed [email or web address] [facility] [address], [place], [address], 02/24/2025 08:26:00 Procedure Notes None recorded. Medical Equipment None Reported. Allergies Allergen ID Allergen Name Allergen Category Reaction Reaction Severity Criticality Documentation Date Start Date Code Code System Note Provider Name and Address Organization Details Recorded Time 71031 Product containin g penicilli n (product) medicatio n rash Not available Not available 09/07/2022 35239 8001 SNOMED Caroline Emilee taylor [facility] & [place] 2 07:11:27 78896 lisinopri l medicatio n swelling Not available Not available 09/07/2022 39131 RxNorm Caroline taylor [facility] & [place] 2 07:11:37 17427 penicilli n G Not available flushing rash moderate moderate Not available 09/10/2022 7980 RxNorm KATALINA VICTOR NP [address] [place] [address], [phone] [place] [address] & [place] 2 22:12:08 Medications Name Sig Start Date Stop Date Status Note LastModified by Organization Details LastModified Time losartan 50 mg tablet Take 1 tablet every day by oral route for 90 days. 03/28 completed Not Available Not Available Not Available methocarbam ol 500 mg tablet TAKE 1 TABLET BY MOUTH TWICE DAILY NEEDED 10/15 completed Not Available Not Available Not Available albuterol sulfate 0.63 mg/3 mL solution for nebulizatio n 03/20 completed Not Available Not Available Not Available nystatin 100,000 unit/mL oral suspension 10/22 completed Not Available Not Available Not Available doxycycline hyclate 100 mg capsule Take 1 capsule twice a day by oral route for 7 days. 01/14 completed Not Available Not Available Not Available nicotine 14 mg/24 hr daily transdermal patch APPLY 1 PATCH TOPICALLY TO THE SKIN EVERY DAY 01/25 completed Not Available Not Available Not Available albuterol sulfate 2.5 mg/3 mL (0.083 %) solution for nebulizatio n Inhale 3 mL 3 times a day by nebulizat ion route as needed for 10 days. 03/20 completed Not Available Not Available Not Available cetirizine 10 mg tablet TAKE 1 TABLET BY MOUTH EVERY DAY 03/20 completed Not Available Not Available Not Available azithromyci n 250 mg tablet TAKE 2 TABLETS (500 MG) BY ORAL ROUTE ONCE DAILY FOR 1 DAY THEN 1 TABLET (250 MG) BY ORAL ROUTE ONCE DAILY FOR 4 DAYS 12/27 completed Not Available Not Available Not Available ibuprofen 800 mg tablet TAKE 1 TABLET BY MOUTH EVERY DAY WITH FOOD OR MILK NEEDED 03/28 completed Not Available Not Available Not Available fluconazole 150 mg tablet 10/22 completed Not Available Not Available Not Available metoprolol succinate ER 50 mg tablet,exte nded release 24 hr TAKE 1 TABLET BY MOUTH EVERY DAY active Not Available Not Available No t Available meloxicam 15 mg tablet 10/25 completed Not Available Not Available Not Available metronidazo le 500 mg tablet TAKE ONE TABLET BY MOUTH THREE TIMES DAILY FOR 3 DAYS -- FINISH ALL MEDICINE -- --AVOID ANY PRODUCT(S ) CONTAININ G ALCOHOL WHILE TAKING THIS MEDICATIO N-- active Not Available Not Available No t Available doxycycline monohydrate 100 mg tablet 10/15 completed Not Available Not Available Not Available Kenalog 40 mg/mL suspension for injection 40 mg injected today in clinic IM 03/28 completed Not Available Not Available Not Available losartan 100 mg-hydrochl orothiazide 25 mg tablet Take 1 tablet every day by oral route for 90 days. active Not Available Not Available No t Available famotidine 20 mg tablet TAKE 1 TABLET BY MOUTH EVERY DAY AT BEDTIME NEEDED 10/15 completed Not Available Not Available Not Available trazodone 100 mg tablet TAKE 1 TABLET BY MOUTH EVERY DAY AT BEDTIME active Not Available Not Available No t Available dicyclomine 20 mg tablet 10/22 completed Not Available Not Available Not Available benzonatate 100 mg capsule Take 1 capsule every day by oral route as needed for 3 days, for cough. 04/22 completed Not Available Not Available Not Available pantoprazol e 40 mg tablet,gabriel sheehand release 10/22 completed Not Available Not Available Not Available oseltamivir 75 mg capsule Take 1 capsule twice a day by oral route. 03/20 completed Not Available Not Available Not Available prednisone 50 mg tablet 03/20 completed Not Available Not Available Not Available bupropion HCl 75 mg tablet TAKE 1 TABLET BY MOUTH TWICE DAILY 04/14 completed Not Available Not Available Not Available nicotine 21 mg/24 hr daily transdermal patch 10/25 completed Not Available Not Available Not Available diclofenac sodium 75 mg tablet,gabriel yed release Take 1 tablet twice a day by oral route for 90 days. 06/18 completed Not Available Not Available Not Available montelukast 10 mg tablet TAKE 1 TABLET BY MOUTH EVERY DAY AT BEDTIME 10/15 completed Not Available Not Available Not Available hydrochloro thiazide 25 mg tablet TAKE 1 TABLET BY MOUTH EVERY DAY IN THE MORNING 01/22 completed Not Available Not Available Not Available dexamethaso ne sodium phosphate 4 mg/mL injection solution 4 mg injected today in clinic IM 03/28 completed Not Available Not Available Not Available prednisone 5 mg tablets in a dose pack per pack 01/14 completed Not Available Not Available Not Available levofloxaci n 750 mg tablet TAKE ONE TABLET BY MOUTH ONCE DAILY AT 1100am FOR 3 DAYS -- FINISH ALL MEDICINE -- active Not Available Not Available No t Available methylpredn isolone 4 mg tablets in a dose pack Take by oral route per pack 12/27 completed Not Available Not Available Not Available albuterol sulfate HFA 90 mcg/actuati on aerosol inhaler Inhale 2 puffs every 4 hours by inhalatio n route as needed for 90 days. 2024 active Not Available Not Available Not Avai lable ferrous sulfate 325 mg (65 mg iron) tablet,gabriel yed release 10/22 completed Not Available Not Available Not Available losartan 50 mg-hydrochl orothiazide 12.5 mg tablet TAKE 1 TABLET BY MOUTH EVERY DAY IN THE MORNING 06/18 completed Not Available Not Available Not Available cefdinir 300 mg capsule 10/22 completed Not Available Not Available Not Available amoxicillin 875 mg-potassiu m clavulanate 125 mg tablet 01/09 completed Not Available Not Available Not Available nicotine 7 mg/24 hr daily transdermal patch APPLY 1 PATCH TOPICALLY TO THE SKIN EVERY DAY 01/25 completed Not Available Not Available Not Available melatonin 5 mg every evening 10/25 completed Not Available Not Available Not Available levocetiriz ine 5 mg tablet TAKE 1 TABLET BY MOUTH EVERY DAY IN THE EVENING 10/15 completed Not Available Not Available Not Available levocetiriz ine 10/18 completed Not Available Not Available Not Available melatonin 5 mg tablet TAKE 1 TABLET BY MOUTH EVERY EVENING active Not Available Not Available No t Available cholecalcif cheri (vitamin D3) 50 mcg (2,000 unit) capsule Take 1 capsule every day by oral route for 90 days. 02/09 completed Not Available Not Available Not Available buprenorphi ne 4 mg-naloxone 1 mg sublingual film DISSOLVE 1-2 films UNDER THE TONGUE EVERY DAY DIRECTED active Not Available Not Available No t Available fluticasone furoate 100 mcg-vilante rol 25 mcg/dose inhalation powder INHALE 1 PUFF BY MOUTH EVERY DAY 10/31 completed Not Available Not Available Not Available Vraylar 1.5 mg capsule TAKE 1 CAPSULE BY MOUTH EVERY DAY active Not Available Not Available No t Available Trelegy Ellipta 100 mcg-62.5 mcg-25 mcg powder for inhalation 2024 active Not Available Not Available Not Vinod Richardson COVID-19 Ag Self Test kit 10/25 completed Not Available Not Available Not Available Vitals Date Recorded Body height Body mass index (BMI) Body weight Oxygen saturation Oxygen saturation in Arterial blood by Pulse oximetry Heart rate Systolic blood pressure Diastolic blood pressure Provider Name and Address Organization Details Last Updated DateTime 4 154.94 cm 40.3 kg/m2 26255.8 9 g 95 % 95 % 91 /min 108 mm[Hg] 72 mm[Hg] Tosha KELLY [facility] & [place] 4 14:55:42 Date Recorded Body height Body mass index (BMI) Body weight Body temperature Oxygen saturation Oxygen saturation in Arterial blood by Pulse oximetry Heart rate Systolic blood pressure Diastolic blood pressure Provider Name and Address Organization Details Last Updated DateTime 4 154.94 cm 41.4 kg/m2 94358.7 3 g 97.5 [degF] 91 % 91 % 79 /min 105 mm[Hg] 55 mm[Hg] Jerrycasimiro Benavidez flavia [place] [facility] & [place] 4 15:00:06 Date Recorded Body height Body mass index (BMI) Body weight Body temperature Oxygen saturation Oxygen saturation in Arterial blood by Pulse oximetry Heart rate Respiratory rate Systolic blood pressure Diastolic blood pressure Provider Name and Address Organization Details Last Updated DateTime 4 154.94 cm 40.4 kg/m2 40551.7 7 g 97.1 [degF] 95 % 95 % 85 /min 18 /min 115 mm[Hg] 82 mm[Hg] Caesar Gurrola [place] [facility] & [place] 4 10:53:46 Date Recorded Body height Body mass index (BMI) Body weight Body temperature Oxygen saturation Oxygen saturation in Arterial blood by Pulse oximetry Heart rate Respiratory rate Systolic blood pressure Diastolic blood pressure Provider Name and Address Organization Details Last Updated DateTime 5 154.94 cm 39.5 kg/m2 52581.8 1 g 98.3 [degF] 93 % 93 % 104 /min 18 /min 122 mm[Hg] 81 mm[Hg] Caesar Gurrola [place] [facility] & [place] 5 15:52:36 Date Recorded Body height Body mass index (BMI) Body weight Body temperature Oxygen saturation Oxygen saturation in Arterial blood by Pulse oximetry Heart rate Systolic blood pressure Diastolic blood pressure Provider Name and Address Organization Details Last Updated DateTime 5 154.94 cm 39.7 kg/m2 01298.4 g 97.2 [degF] 93 % 93 % 71 /min 126 mm[Hg] 82 mm[Hg] Jerry Benavidez flavia [place] [facility]man [facility] & [place] 5 12:01:24 Social History Question Answer Notes LastModified by Organizat ion Details LastModified Time Tobacco Smoking Status Current Every Day Smoker KATALINA VICTOR NP [address] [place] [address], [phone] [place] 09/10/2022 22:12:22 Do You Have An Advance Directive? Yes Information not available 03/28/2023 What Is Your Level Of Alcohol Consumption? Occasional Information not available 06/21/2023 Do You Wear A Helmet When Biking? Yes [email or web address] Information not available 04/16/2024 Are You Blind Or Do You Have Difficulty Seeing? Yes Information not available 09/10/2022 What Is Your Level Of Caffeine Consumption? Moderate [email or web address] Information not available 01/09/2024 In The 14 Days Before Symptom Onset, Have You Had Close Contact With A Laboratory-confir med COVID-19 While That Case Was Ill? No [email or web address] Information not available 04/16/2024 In The 14 Days Before Symptom Onset, Have You Had Close Contact With A Person Who Is Under Investigation For COVID-19 While That Person Was Ill? No [email or web address] Information not available 04/16/2024 Have You Been To An Area Known To Be High Risk For COVID-19? No [email or web address] Information not available 04/16/2024 Are You Currently Employed? Yes [email or web address] Information not available 04/16/2024 Are You Deaf Or Do You Have Serious Difficulty Hearing? No [email or web address] Information not available 04/16/2024 What Type Of Diet Are You Following? REGULAR [email or web address] Information not available 10/15/2024 Have You Processed Blood Or Body Fluids From An Ebola Virus Disease Patient Without Appropriate PPE? No [email or web address] Information not available 04/16/2024 Do You Reside In Or Have You Traveled To An Area Where Ebola Virus Transmission Is Active? No [email or web address] Information not available 04/16/2024 Do You Or Have You Ever Used E-cigarettes Or Vape? 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 No [email or web address] Information no t available 04/16/2024 What Is The Fluoride Status Of Your Home? Unknown Information not available 04/16/2024 Are There Any Guns Present In Your Home? No [email or web address] Information not available 04/16/2024 Have You Recently Or Are You Planning To Travel To An Area With Zika Virus? No [email or web address] Information not available 04/16/2024 Do You Use Insect Repellent Routinely? Yes [email or web address] Information not available 04/16/2024 Do You Feel Safe At Home? Yes [email or web address] Information not available 04/16/2024 Do You Have A Medical Power Of Rn Procedure? Yes [email or web address] Information not available 04/16/2024 What Was The Date Of Your Most Recent Tobacco Screening? 2025 [email or web address] Information not available 2025 Do You Have Any Pets? No [email or web address] Information not available 04/16/2024 Do You Use Your Seat Belt Or Car Seat Routinely? Yes Information not available 04/16/2024 Do You Have Smoke And Carbon Monoxide Detectors In Your Home? Yes [email or web address] Information not available 04/16/2024 At What Age Did You Start Smoking Tobacco? 19 Information not available 01/09/2024 Are You Passively Exposed To Smoke? Yes Information no t available 09/10/2022 Do You Or Have You Ever Used Smokeless Tobacco? Never Used Smokeless Tobacco Information not available 09/10/2022 How Much Tobacco Do You Smoke? 1 PPD Information not available 03/28/2023 Do You Feel Stressed (tense, Restless, Nervous, Or Anxious, Or Unable To Sleep At Night)? [id number] [email or web address] Information not available 10/18/2023 Do You Use Any Illicit Or Recreational Drugs? No Information not available 09/07/2022 Do You Use Sunscreen Routinely? Yes [email or web address] Information not available 04/16/2024 Has Tobacco Cessation Counseling Been Provided? Yes [email or web address] Information not available 04/16/2024 On What Date Was Tobacco Cessation Counseling Provided? 2025 [email or web address] Information not available 2025 How Many Years Have You Smoked Tobacco? 35 Information not available 03/28/2023 Are You Currently In School? No [email or web address] Information not available 04/16/2024 Do You Or Have You Ever Used Any Other Forms Of Tobacco Or Nicotine? Yes [email or web address] Information not available 01/09/2024 Sex: Female Functional Status Question Answer Note LastModified by Organizat ion Details LastModified Time Do you have difficulty walking or climbing stairs? No [email or web address] Information not available 04/16/2024 Do you have transportation difficulties? No [email or web address] Information not available 04/16/2024 Are you able to walk? YESWOREST [email or web address] Information not available 04/16/2024 Do you have difficulty doing errands alone? No [email or web address] Information not available 04/16/2024 Are you able to care for yourself? Yes [email or web address] Information n ot available 04/16/2024 Do you have difficulty dressing or bathing? No [email or web address] Information not available 04/16/2024 What is your exercise level? Occasional Information not available 01/25/2023 Mental Status Question Answer Note LastModified by Organization D etails LastModified Time Do you have difficulty concentrating, remembering or making decisions? No [email or web address] Information no t available 04/16/2024 Family History Relationship Description Onset Age of this Age Resolved Age Notes LastModified by Organization Details LastModified Time Mother Chronic obstructive pulmonary disease pt. added direct ly (10/22) [email or web address] Not available 10/22/2022 17:05:55 Mother Hypertensive disorder pt. added direct ly (01/22) [email or web address] Not available 01/22/2023 14:45:54 Mother Allergy pt. added direct ly (01/22) [email or web address] Not available 01/22/2023 14:46:43 Mother Autoimmune disease pt. added direct ly (01/22) [email or web address] Not available 01/22/2023 14:46:58 Brother Chronic obstructive pulmonary disease pt. added direct ly (10/22) [email or web address] Not available 10/22/2022 17:05:55 Brother Hypertensive disorder pt. added direct ly (01/22) [email or web address] Not available 01/22/2023 14:45:54 Brother Allergy pt. added direct ly (01/22) [email or web address] Not available 01/22/2023 14:46:43 Father Hypertensive disorder pt. added direct ly (01/22) [email or web address] Not available 01/22/2023 14:45:54 Father Heart disease pt. added direct ly (01/22) [email or web address] Not available 01/22/2023 14:46:31 Paternal Grandfather Hypertensive disorder pt. added direct ly (01/22) [email or web address] Not available 01/22/2023 14:45:54 Paternal Aunt Hypertensive disorder pt. added direct ly (01/22) [email or web address] Not available 01/22/2023 14:45:54 Maternal Uncle Hypertensive disorder pt. added direct ly (01/22) [email or web address] Not available 01/22/2023 14:45:54 Maternal Aunt Heart disease lsidwell Not available 2023 15:06:47 Medical History Condition Response Obesity Y Vision or Eye Problems Y Arthritis Y Ear or Hearing Problems Y Back Problems Y COPD Y Asthma Y Substance Abuse Y Anemia Y Reflux/GERD Y Obstructive Sleep Apnea Y Hypertension Y Gynecological History Statement/Question Response Abnormal Pap N 01/24/2023 Flow Heavy Date of LMP 02/06/2022 Sexually Active? Y Menses Monthly N Duration of Flow (days) 7-10 days Date of Last Pap Smear 07/05/2023 Current Control Method Tubal Ligat ion Age at Menarche 52 Obstetrics History GPAL:G 0 P 0 0 0 0 Immunizations Vaccine Type Date Status Note Provider Nam e and Address Organization Details Recorded Time COVID-19, mRNA, LNP-S, PF, 100 mcg/0.5mL dose or 50 mcg/0.25mL dose 1 yuri VICTOR NP [address] [place] [address], [phone], [facility] - [facility] & [place] 09/10/2022 22:12:32 Td (adult), 2 Lf tetanus toxoid, preservative free, adsorbed 1 completed KATALINA VICTOR NP [address] [place] [address], [phone], [place] - [facility] & [place] 09/10/2022 22:12:32 Hep A, adult 8 completed KATALINA VICTOR NP [address] [place] [address], [phone], [facility] - [facility]NT [facility] & [place] 09/10/2022 22:12:32 COVID-19, mRNA, LNP-S, PF, 100 mcg/0.5mL dose or 50 mcg/0.25mL dose 1 completed KATALINA VICTOR NP [address] [facility], [place], [address], [place] [facility] - [place] & [place] 09/10/2022 22:12:32 Hep A, adult 9 completed KATALINA VICTOR NP [address] [place], [place], [address] [place] [address], [place] [facility] [place] 09/10/2022 22:12:32 COVID-19, mRNA, LNP-S, PF, 100 mcg/0.5mL dose or 50 mcg/0.25mL dose 1 completed KATALINA VICTOR NP [address] [place] [address], [address] [place] [address], [place] [facility] - [place] & [place] 09/10/2022 22:12:32 Past Encounters Encounter ID Performer Location Encounter Start Date Encounter Closed Date Diagnosis/Indication Diagnosis SNOMED-CT Code Diagnosis ICD10 Code Diagnosis Note [id number] [place] [id number] 1 09/07/2022 09:29:54 09/07/2022 11:20:31 Cough 01374156 R05.1 J45.21 medication s as prescribed stay well hydratedf/ u if symptoms persistER if any urgent signs or symptoms arise Essential hypertension 63940098 I10 educated on goal of less than 130/90advi sed low sodium diet, healthy lifestyle including exercise as ablecontin ue current medication regimenER if any symptoms such as chest pain, shortness of breath Asthma 880698521 J45.90 9 Cobalamin deficiency 190 612972 E53.8 recheck today Anemia [id number] D64.9 recheck lab work today Prediabetes 189779062 R7 3.03 awaiting tpft6lghag forced diet and lifestyle changes Mixed hyperlipidemia 267 496749 E78.2 [id number] [address] 10/25/2022 11:15:32 10/25/2022 11:52:45 Essential hypertension 09598539 I10 educated on goal of less than 130/90advi sed low sodium diet, healthy lifestyle including exercise as ablecontin ue current medication regimenER if any symptoms such as chest pain, shortness of breath Spasm of back muscles 20 5875194 M62.830 discussed limited use of NSAIDSpt requested refills Chronic ob structive pulmonary disease 75652951 J44.9 step up from breorinse mouth out after usesmoking cessation [id number] EVELINE MARINELLIz[address] [address] 01/25/2023 10:25:47 01/25/2023 17:00:39 Essential hypertension 08858466 I10 has been taking current RX twice a day so will increaseed ucated on goal of less than 130/90heal thy lifestyle including exercise as ablecontin ue current medication regimenER if any symptoms such as chest pain, shortness of breath Multiple joint pain 3567 8005 M25.50 awaiting lab work given today Crying ass ociated with mood 495337438 R45.89 continue with meseret ies alcohol or drug usedenies SI/HIverba lizes understand ing of making appt with therapist jessi [id number] EVELINE MARINELLIz[address] [address] 03/28/2023 10:14:18 03/28/2023 10:53:09 Essential hypertension 34313395 I10 educated on goal of less than 130/90meet in goaladvise d low sodium diet, healthy lifestyle including exercise as ablecontin ue current medication regimenER if any symptoms such as chest pain, shortness of breath Osteoarthritis 516556296 M19.90 avoid use of motrin, ibuprophen , aleve, naproxen with medication prescribed exercisewe ight Screening for malignant neoplasm of breast 691914239 Z12.39 Screening for malignant neoplasm of colon 376420154 Z12.11 [id number] KATALINA VICTOR NP [facility] [address] [facility] [place] [address] 06/21/2023 12:17:01 06/21/2023 15:09:16 Screening for malignant neoplasm of colon 424366975 Z12.11 Adult heal th examination 957880997 Z00.00 Patient presented to office today for their Annual Wellness Visit. Education was provided on healthy nutrition, including a diet rich in fruits and vegetables , minimizing simple carbohydra lizeth, salt, and saturated fats. Encouraged regular cardiovasc ular exercise such as walking at least 30 minutes daily, 5 times per week. Emphasized preventive health measures and educated pt on fall prevention and community- based lifestyle interventi ons to help reduce health risks and promote healthy living. Anemia 495136323 D64.9 recheck lab work todayfatig ue- sleep hygiene education Body mass index 30+ - obesity 514796955 Z68.30 lipid panel checked 08/2022 normal Essential hypertension 61490300 I10 educated on goal of less than 130/90meet ing goaladvise d low sodium diet, healthy lifestyle including exercise as ablecontin ue current medication regimenER if any symptoms such as chest pain, shortness of breath Hyperglycemia 51873765 R 73.9 awaiting gzyu6ybfwe forced diet and lifestyle changes Osteoarthritis 935486158 M19.90 diclofenac made sick Fatigue 76804107 R53.83 Advised good sleep habits and patterns to include: 1. Setting a goal for at least 7 to 8 hours of sleep time per day. 2. Using the bed mainly for sleep and to go to bed only when tired. If unable to fall asleep after 30 minutes, patient should get out of bed but should not engage in any activity that requires sustained mental alertness. 3. Maintainin g a regular bedtime and wake-up time even on weekends or days off of work. 4. Avoiding excessive naps during the daytime. If a nap is necessary, limit it to no more than 30minutes. 5. Minimizing environmen janae noise, bright lights, and extremes in bedroom temperatur e. 6. Avoiding alcohol, caffeinate d beverages, and nicotine products for at least 6 hours prior to bedtime. 7. Avoiding strenuous exercise and large meals for at least 4 hours prior to bedtime. Screening for malignant neoplasm of cervix 578474803 Z12.4 Vaginitis 87873227 N76.0 [id number] KATALINA VICTOR NP [facility] [address] [place] [address] 10/18/2023 15:05:32 10/18/2023 15:53:28 Fatigue 74319310 R53.83 awaiting lab worksleep hygienerec ommend therapylif estyle changes Mood disorder 25225804 F 40 denies SI/HIrecom mend therapy Mixed anxi ety and depressive disorder 750711900 F41.8 denies SI/HIstart wellbutrin to adjunct vraylar therapyver balizes understand ing of starting with twice daily then moving into extended release version if tolerates wellf/u in 4 weeks [id number] Dale Skinner MD [address] [place] [address] 10/31/2023 11:56:29 10/31/2023 12:31:32 Respiratory tract congestion and cough 825986091 R05.1 Influenza caused by Influenza B virus 30312013 J10.1 patient tested positive for influenza type B. Will treat with Tamiflu. I have discussed symptomati c relief. Patient expresses understand ing. [id number] KATALINA VICTOR NP [address] [place] [address] 01/09/2024 15:26:05 01/09/2024 15:54:28 Screening for malignant neoplasm of colon 415650850 Z12.11 Decreased renal function 93441832 R94.4 recheck lab work today, avoid NSAIDs, stay hydrated Weight gain 0992145 R63. 5 awaiting lab workreinfo rced lifestyle changes Body mass index 30+ - obesity 801473755 Z68.30 reinforced lifestyle changesdue to drug use, heart murmur not candidate for phentermin e Apnea 4711407 R06.81 witnessed apnea per her [id number] KATALINA VICTOR NP [address] [place] [address] 02/12/2024 15:25:25 02/12/2024 16:03:17 Allergic rhinitis 66044129 J30.9 Controlled refill provided Decreased renal function 52433937 R94.4 avoid NSAIDs, stay hydrated Body mass index 30+ - obesity 404679549 Z68.39 reinforced lifestyle changesdue to drug use, heart murmur not candidate for phentermin e [id number] SIMON HANCOCK DO [facility] [place] - [address] [place] [address], [address] [place] [address] 03/20/2024 14:31:33 03/20/2024 15:07:35 Cholelithiasis without obstruction 65219274 K80.80 - Discussed signs and symptoms of symptomati c cholelithi asis, acute cholecysti tis, and choledocho lithiasis- patient is currently asymptomat ic from her gallstones - discussed indication s for surgical interventi on- discussed signs and symptoms worsening gallbladde r disease and when to present to the emergency department or back to the office-pat ient would like to defer surgical interventi on at this time as she is asymptomat ic. [id number] KATALINA VICTOR NP [facility] [address] [place] [address] 04/16/2024 15:30:27 04/16/2024 15:46:57 Dyspnea on exertion 35191287 R06.09 awaiting chest xrayER if any changes/ur gent signs or symptoms arise Heart murmur 02117285 R0 1.1 referral to cardiology has been at least 2 yrs since seen by cardiologi Acute exac erbation of chronic obstructive pulmonary disease 983531694 J44.1 smoking cessationr escue vs maintenanc e inhaler educationu se of inhalers Swelling o f bilateral lower limbs 409477650 M79.89 comes and goescompre ssion sockseleva tionsalt intake discussedt aking HCTZ [id number] Daja Norton MD [address] [place] [address] 04/22/2024 14:57:36 04/22/2024 15:25:26 Swelling of bilateral lower limbs 486069408 M79.89 worsening for the last two weeks, follow up venous US of the lower extremitie s and echocardio gram with blood work. she is on HCTZ, will switch to Lasix after the work up if needed. Dyspnea on exertion 6084 5006 R06.09 follow up echocardio grma. Likely COPD. Cigarette smoker 5953568 7 F17.210 strongly encouraged to quit. and offered help. Hyperlipid emia screening 623090916 Z13.220 follow up fasting lipid profile. Chest discomfort 5173441 09 R07.89 chest discomfort with exertion in patient with mutliple risk factors, follow up stress test. Obesity 866560214 E66.9 BMI Sleep apnea 53379953 G47 .30 on CPAP. [id number] KATALINA VICTOR NP [address] [place] [address] 05/01/2024 09:15:11 05/03/2024 03:56:43 Mixed hyperlipidemia 966037365 E78.2 [id number] Daja Norton MD [address] [place] [address] 05/07/2024 14:48:31 05/07/2024 15:24:49 Swelling of bilateral lower limbs 640016179 M79.89 Improved since the last visit venous ultrasound showed no DVT. Blood work was discussed with the patient. We will continue same medical treatment for now.Follow up echocardio gram. Dyspnea on exertion 6084 5006 R06.09 follow up echocardio graphy. Likely COPD. Cigarette smoker 3776448 7 F17.210 strongly encouraged to quit. and offered help. Hyperlipid emia screening 362025515 Z13.220 Controlled continue medication s. Chest discomfort 6264154 09 R07.89 chest discomfort with exertion in patient with mutliple risk factors, follow up stress test. Obesity 597255590 E66.9 BMI 40.3. Recommend weight loss. Sleep apnea 71883837 G47 .30 on CPAP. [id number] KATALINA VICTOR NP [address] [place] [address] 06/10/2024 14:49:21 06/10/2024 16:47:44 Prediabetes 432528583 R73.03 awaiting irpz1cpkme forced diet and lifestyle changes Weight gain 0542379 R63. 5 awaiting lab workreinfo rced lifestyle changes Acute pharyngitis 313952 003 J02.9 warm salt water garglescha nge toothbrush hydrations ymptomatic management f/u if symptoms persist or worsen [id number] KATALINA VICTOR NP [address] [place] [address] 10/15/2024 10:46:33 10/15/2024 12:28:23 Thyroid stimulating hormone level above reference range 178262378 R94.6 Repeat thyroid lab work today Prediabetes 618767845 R7 3.03 awaiting oanq0ywfgp forced diet and lifestyle changes Essential hypertension 28526058 I10 educated on goal of less than 130/90meet ing goaladvise d low sodium diet, healthy lifestyle including exercise as ablecontin ue current medication regimenER if any symptoms such as chest pain, shortness of breathrefi lls provided Acute exac erbation of chronic obstructive pulmonary disease 446779781 J44.1 smoking cessationr escue vs maintenanc e inhaler educationu se of inhalers Moderate r ecurrent major depression 48267340 F33.1 denies SI/ HI, controlled Mood disorder 42645922 F 39 denies SI/HIrecom mend therapy [id number] KATALINA VICTOR NP [facility] [address] [facility] [place] [address] 12/27/2024 15:34:46 01/10/2025 09:04:53 Cough 00239400 R05.1 medication s as prescribed stay well hydratedf/ u if symptoms persistER if any urgent signs or symptoms arise Wheeze - rhonchi 0907890 1 R09.89 Discuss chest x-ray medication s as prescribed , ER if any urgent signs or symptoms arise. When symptoms are improved she needs updated pulmonary function test and low-dose CT screening Mastodynia of bilateral breasts 7898826805 4050871 N64.4 awaiting imaging Mild inter mittent asthma 268294101 J45.20 needs updated PFT; no current maintenanc e inhaleruse s rescue inhaler as needed, usually doesnt have to use unless sick; has been increased use over the past 2 weeks Tobacco de pendence caused by cigarettes 8350056551 2039256 F17.750 [id number] KATALINA VICTOR NP [facility] [address] [place] [address] 2025 11:56:03 2025 12:27:31 Dyspnea on exertion 76459666 R06.09 awaiting chest xrayER if any changes/ur gent signs or symptoms arise Asthma 091078687 J45.90 9 Poor historian, last office visit pulmonary function test was ordered to get more accurate diagnosis of asthma versus COPD, smoking sensation, has albuterol inhaler, likely needs pulmonary referral, make sure she gets imaging done that was sent last office visit Health Concerns Section Related Observation LastModified by Organization Detai ls LastModified Time None Recorded Concern Status LastModified by Organization Details LastModified Time None Recorded Advance Directives Directive Y: Payers Encounter Date Sequence Insurance Name Policy Number Policy Natarajan Covered Member ID Natarajan Member ID Guarantor Name 05/07/2024 1 [employer] [place]AC[place] - [place]) Angella Dony [id number] Angella Dony 06/10/2024 1 [employer] [place] Angella Dony [id number] Angella Dony 10/15/2024 1 [employer] [place] - [place]) Angella Dony [id number] Angella Dony 12/27/2024 1 [employer] [place] - [place]) Angella Dony [id number] Angella Dony 2025 1 [employer] [place] - [place]) Angella Dony [id number] Angella Dony Notes Date Note Type Note Provider Name and Address Organization Details Recorded Time 05/07/2024 text/html 54 year old femshai rangel with past medical history significant for hypertension, chronic smoker, COPD, sleep apnea, on CPAP, Obesity.Patient was sent for cardiovascular consultation for worsening bilateral leg swelling that has been bothering her for few months, but became worse in the last two weeks, and worse at the end of the day, she denied orthopnea, or PND, but has exertional shortness of breath on mild exertion with chest discomfort. patient complains of cough and sputum no hemoptysis.EKG done today and results were discussed with the patient. I reviewed and discussed with the patient the results of blood work done December 2023 including A1c, TSH, CMP.Patient came today to follow up the results of the blood work on venous ultrasound that we ordered in the last visit. Her stress test and echocardiogram still not done. Results of the blood work on venous ultrasound were discussed with the patient. She notes significant improvement in her leg swelling. EK04/22/24 Normal sinus rhythm, incomplete RBBB. borderline EKG. Daja Norton MD [address] [place], [address], [facility] & [place] 05/08/2024 10:30:57 06/10/2024 text/html 54-year-old bertram rangel who presents with complaints of persistent weight gain. Has decreased what she is eating but continues to gain weight. 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 He also complains of sore throat. Denies any fever, chills, nausea, vomiting. Sore throat started within the past couple days. Denies any known exposure to illness. KATALINA VICTOR NP [address] [place], [address], [facility] & [place] 06/10/2024 15:23:52 10/15/2024 text/html 53-year-old bertram rangel who presents for follow-up on lab work. Needs to have her thyroid recheck today. Denies any hair loss. Denies any constipation. Reports mood is controlled with her Vraylar therapy. Blood pressure is controlled. Denies any chest pain shortness of breath or swelling. She has had a cough and wheezing the past 2 nights she has had to use her nebulizer. Has not had any fevers chills. No known exposure to illness. KATALINA VICTOR NP [address] [place], [address], [facility] [place] 10/16/2024 19:18:43 12/27/2024 text/html 54-year-old bertram rangel who presents for follow-up reports breast lump need repeat imaging. Has been having left lung congestion for approximately 2 weeks. She also has fatigue no appetite possible fever. She reports cough is tight, some wheezing, unable to really get productive mucus. KATALINA VICTOR NP [address] [place], [address], [facility] [place] 01/10/2025 09:00:16 2025 text/html 55-year-old bertram rangel who presents for follow-up. Has not completed imaging or pulmonary function test that was sent with last office visit. Reports wheezing and coughing often. She uses Ventolin inhaler. Taking all of her medications as prescribed. Reports mood is controlled. Blood pressure is normal. She does smoke. Cigarettes. KATALINA VICTOR NP [address] [facility], [place], [address], [facility] & [place] 01/16/2025 09:58:51 OBGyn Episode No OBEpisode recorded.
--- OUTSIDE RECORDS SUMMARY | 2025-02-27 19:45 | XMS_ITS | Continuity of Care Document ---
Author Organization [facility] Address [address] [place] [address] Care Team Providers Care Child Attendant Name Role Phone KATALINA VICTOR Primary Care Provider [phone] Assessment No assessment recorded. Plan of Treatment Reminders Order Date Submit Date Provider Last Modified By Organization Details Last Modified Time Details Appointments HFU 30 12:00PM KATALINA VICTOR NP Not available Not available Not available Lab None record ed. Referral None record ed. Procedures None record ed. Surgeries None record ed. Imaging XR, chest, 2 view 01/14/20 [facility] ([facility]), [address] [place], [address], 2025 14:26:25 Medication Orders None record ed. Patient TargetsNo targets recorded. Patient InstructionsNo instructions recorded. Reason for Referral None Reported. Results Created Date Observation Date Name Description Value Unit Range Abnormal Flag Note LastModifiedBy Organization Detail LastModifiedTime 01/14/2001/14/2025 XR, chest , 2 view [facility] [address] [place] [address] Phone: Fax: Name: STEVAN CORTES IE Exam Date: : 971 Age 55 years Gender : F Access ion: [id number] Physic hilda: JAMISON ESPAÑA Facili ty: [facility] Facili ty HSV: Outpat ient Exam: CHEST PA ^ LAT XR CHEST 2 VIEWS Reason For Study: . Cough COMPAR LIZZETH:C T chest 05/22/20 23, 022, 06/22/20 20 [...] mm granul mauricio left base. COPD. IMPRES PRIYA: No acute cardio pulmon nathan proces s. Electr onical ly signed by: Pablo Wilson MD 2024 02:21 PM EST RP Workst ation: [id number] Dictat ed By: PABLO WILSON Transc ribed By: Transc ribed On: 12:50 PM Electr onical ly signed by: PABLO WILSON Thank you for referr ing STEVAN CORTES to [facility]. Legall y authen ticate d by GURPREET SHAH MD 01-14 12:50: 00 CC'ed Logic: Orderi ng Provid er: MAURICIO SWIFT Y CC Provid er: MAURICIO SWIFT Y Attend ing Provid er: MAURICIO SWIFT Y Referr ing Provid er: MAURICIO SWIFT Y Admitt ing Provid er: MAURICIO SWIFT Y [email or web address] [place] [address] (Radiology) [address] [place], [address], 01/16/2025 09:39:56 01/23/20 25 01/22/2025 US, alex bang , limit ed [facility] [address] [place] 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 Compar lizzeth: Exams to 2008 TECHNI QUE: Diagno stic [...] of concer n is benign tissue IMPRES PRIYA: No suspic ious findin gs in the [...] for referr ing STEVAN CORTES IE to [facility]. Legall y authen ticate d by ROSE MEDINA MD 01-22 14:30: 00 CC'ed Logic: Orderi ng Provid er: AMBURG EY TAFFAN Y CC Provid er: AMBURG EY TAFFAN Y Attend ing Provid er: AMBURG EY TAFFAN Y Referr ing Provid er: AMBURG EY TAFFAN Y Admitt ing Provid er: AMBURG EY TAFFAN Y [email or web address] [facility] (Radiology) [address] [place], [address], 01/23/2025 12:13:44 01/23/2001/22/2025 MAMMO , diagn ostic , digit al, bilat eral [facility] [address] [place] [address] [place] [address] Phone: Fax: Name: DENICE Lyons STEVAN TRIMBLE Exam Date: 01/23/20 : 9[birth year] Age 55 years Gender : F Access ion: [id number] Physic hilda: AMBURG EY, TAFFAN Y Facili ty[place] Fac[place] ty HSV: Outpat ient Exam: RAYO DIAG MAMMO W CAD BILAT Exam: 1.Bila teral 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 Compar lizzeth: Exams to 2008 TECHNI QUE: Diagno stic [...] of concer n is benign tissue IMPRES PRIYA: No suspic ious findin gs in the [...] authen ticate d by ROSE MEDINA MD 2024-01-22 13:55: 00 Electr onical ly signed by: Stevan Dunn 01/23/20 Thank you for referr STEVAN Farmer to [facility]. Legall y authen ticate d by ROSE MEDINA MD 01-22 13:55: 00 CC'ed Logic: Orderi ng Provid er: AMBURG EY TAFFAN Y CC Provid er: AMBURG EY TAFFAN Y Attend ing Provid er: AMBURG EY TAFFAN Y Referr ing Provid er: AMBURG EY TAFFAN Y Admitt ing Provid er: AMBURG EY TAFFAN Y [facility] (Radiology) [address] [place], [address], 01/23/2025 12:13:38 01/23/2001/22/2025 XR, chest , 2 view [facility] [address] [facility] [place] [address] Phone: Fax: Name: STEVAN CORTES Exam Date: 01/23/20 : [birth year] Age 55 years Gender : F Access ion: [id number] Physic hilda: AMBURG EY, TAFFAN Y Facili ty: [facility] Facili ty HSV: Outpat ient Exam: CHEST PA ^ LAT EXAM DESCRI PTION: CHEST PA ^ LAT CLINIC AL HISTOR Y: 55 years Female , . COMPAR LIZZETH: 025 TECHNI QUE: 2 views FINDIN GS: The cardia c medias tinal silhou ette and pulmon nathan vascul ature are unrema rkable . Pulmon nathan calcif icatio ns consis tent with old granul omatou s diseas e. No lung consol idatio n or pleura l diseas e is seen. IMPRES PRIYA: No acute cardio pulmon nathan proces s identi fied. Electr onical ly signed by: Neelam Randle MD 2024 03:44 PM EST RP Workst ation: [id number] Dictat ed By: Neelam Randle Transc ribed By: Transc ribed On: 01/23/20 2:49 PM Electr onical ly signed by: Neelam Randle 01/23/20 Thank you [facility] Legall y authen ticate d by THONY DUENAS MD 01-22 14:49: 00 CC'ed Logic: Orderi ng Provid er: AMBURG EY TAFFAN Y CC Provid er: AMBURG EY TAFFAN Y Attend ing Provid er: AMBURG EY TAFFAN Y Referr ing Provid er: AMBURG EY TAFFAN Y Admitt ing Provid er: AMBURG EY TAFFAN Y [email or web address] [facility] (Radiology) [address] [place], [address], 01/23/2025 12:13:38 01/24/2001/22/2025 LDCT, chest , for lung cance r ady daley [facility] fl [address] [facility] [place] [address] Phone: Fax: Name: STEVAN CORTES Exam Date: 01/23/20 : 9[birth year] Age 55 years Gender : F Access ion: [id number] Physic hilda: JAMISON ESPAÑA Y Facili ty: [facility] Facili ty HSV: Outpat ient Exam: CT CHEST LOW DOSE CT CHEST WITHOU T IV CONTRA [facility] AL: 55-yea r-old Female patien t curren tly meetin g criter ia for enroll ment into the low-do se lung cancer CT screen ing progra m. COMPAR LIZZETH: 05/22/20 23 TECHNI QUE: Contig uous unenha [...] ic degene rative disc diseas e. IMPRES PRIYA: Lung-R ADS Catego ry / Lung-R ADS Manage ment: * Lung-R ADS Catego ry 1 (Negat tramaine). * Manage ment: Contin ued screen ing LDCT in 12 months . * No suspic ious pulmon nathan nodule or mass. Electr onical ly signed by: Neelam Randle MD 2024 08:41 AM EST RP Workst ation: [id number] Dictat ed By: Neelam Randle Transc ribed By: Transc ribed On: 01/23/20 2:21 PM Electr onical ly signed by: Neelam Randle as 01/23/20 Thank you for referr ing STEVAN CORTES IE to [facility]. Legall y authen ticate d by THONY DUENAS MD 2024-01-22 14:21: 06 CC'ed Logic: Orderi ng Provid er: AMBURG EY TAFFAN Y CC Provid er: AMBURG EY TAFFAN Y Attend ing Provid er: AMBURG EY TAFFAN Y Referr ing Provid er: AMBURG EY TAFFAN Y Admitt ing Provid er: AMBURG EY TAFFAN Y tpardini [facility] (Radiology) [address], [place], [address], 01/24/2025 14:51:37 02/05/20 25 01/22/2025 compl ete PFT w/ post [facility] hodil ator ventura metry * No observ ation record ed. [facility] (Sleep Lab) [address] [place], [address], 02/04/2025 16:50:57 02/23/20 25 02/22/2025 imagi ng inter preta tion No observ ation record ed. [address], [place], [address], 02/24/2025 08:26:14 02/23/20 25 02/22/2025 imagi ng inter preta tion No observ ation record ed. [address], [place], [address], 02/24/2025 08:26:03 02/23/20 25 02/22/2025 imagi ng inter preta tion No observ ation record ed. [address], [place], [address], 02/24/2025 08:26:00 Result Notes None recorded. Problems Name Problem SNOMED Code Status Onset Date Resolution Date Notes Provider Name and Address Organization Details Recorded Time Essential hypertension 32591536 Active 2021 Caesar Gurrol[place], [place] [facility] [place] 15:37:50 Drug abuse 05954357 Active 2021 Caesar [place] [facility] [place] 15:37:47 Asthma 154595160 Active 2021 Caesar [place] [facility] [place] 4 15:37:43 Heart murmur 24178981 Active 2021 Caesar Gurrol[place] [facility] [place] 4 15:37:52 Problem Notes None recorded. Procedures Surgical History Date Name Laterality Status Provider Name and Address Organization Details Recorded Time 02/12/20 24 Feces-based colorectal cancer DNA screening completed Nadia KELLY - [facility] & [place] 08/05/2024 13:24:58 07/05/20 23 Date of Last Pap Smear completed Jerry KELLY - [facility] & [place] 10/18/2023 15:23:12 01/25/20 23 completed KATALINA VICTOR NP [address], [place], [address] [place] [address], [place] [facility] & [place] 06/21/2023 14:24:27 11/20/18 75 Tonsillectomy/ Adenoidectomy completed KATALINA VICTOR NP [address], [place], [address] [place] [address], [place] [facility] [place] 06/21/2023 14:24:34 Cancer Surgery completed KATALINA VICTOR NP [address], [place], [address] [place] [address], [place] - [facility] & [place] 03/28/2023 10:33:23 section completed Caroline Hebert [place] - [facility] & [place] 09/07/2022 07:13:02 Imaging Results None recorded. Procedure Notes None recorded. Medical Equipment None Reported. Allergies Allergen ID Allergen Name Allergen Category Reaction Reaction Severity Criticality Documentation Date Start Date Code Code System Note Provider Name and Address Organization Details Recorded Time 12357 Product containin g penicilli n (product) medicatio n rash Not available Not available 09/07/2022 19569 8001 SNOMED Caroline taylor [place] - [facility] & [place] 2 07:11:27 76899 lisinopri l medicatio n swelling Not available Not available 09/07/2022 96317 RxNorm Caroline taylor [place] - [facility] & [place] 2 07:11:37 69223 penicilli n G Not available flushing rash moderate moderate Not available 09/10/2022 7980 RxNorm KATALINA VICTOR NP [address], [place], [address] [place] [address], [place] [facility] & [place] 2 22:12:08 Medications Name Sig Start Date [...] Not Available pantoprazol e 40 mg tablet,gabriel yed release 10/22 completed Not Available [...] Not Available Not Available Not Avai lable BinaxNOW COVID-19 Ag Self Test kit 10/25 completed Not Available Not Available Not Available Vitals Date Recorded Body height Body mass index (BMI) Body weight Body temperature Oxygen saturation Oxygen saturation in Arterial blood by Pulse oximetry Heart rate Systolic blood pressure Diastolic blood pressure Provider Name and Address Organization Details Last Updated DateTime 5 154.94 cm 39.7 kg/m2 91463.4 g 97.2 [degF] 93 % 93 % 71 /min 126 mm[Hg] 82 mm[Hg] Jerry alejandro [facility] & [place] 5 12:01:24 Social History Question Answer Notes LastModified by Organizat ion Details LastModified Time Tobacco Smoking Status Current Every Day Smoker KATALINA VICTOR NP [address] [place] [address], [address] & [place] 09/10/2022 22:12:22 Do You Have An Advance Directive? Yes Information not available 03/28/2023 What Is Your Level Of Alcohol Consumption? Occasional Information not available 06/21/2023 Do You Wear A Helmet When Biking? Yes [email or web address] Information not available 04/16/2024 Are You Blind Or Do You Have Difficulty Seeing? Yes Information not available 09/10/2022 What Is Your Level Of Caffeine Consumption? Moderate [email or web address] Information not available 01/09/2024 In The 14 Days Before Symptom Onset, Have You Had Close Contact With A Laboratory-confir med COVID-19 While That Case Was Ill? No [email or web address] Information not available 04/16/2024 In The 14 Days Before Symptom Onset, Have You Had Close Contact With A Person Who Is Under Investigation For COVID-19 While That Person Was Ill? No [email or web address] Information not available 04/16/2024 Have You Been To An Area Known To Be High Risk For COVID-19? No [email or web address] Information not available 04/16/2024 Are You Currently Employed? Yes Information not available 04/16/2024 Are You Deaf Or Do You Have Serious Difficulty Hearing? No [email or web address] Information not available 04/16/2024 What Type Of Diet Are You Following? REGULAR Information not available 10/15/2024 Have You Processed Blood Or Body Fluids From An Ebola Virus Disease Patient Without Appropriate PPE? No [email or web address] Information not available 04/16/2024 Do You Reside In Or Have You Traveled To An Area Where Ebola Virus Transmission Is Active? No [email or web address] Information not available 04/16/2024 Do You Or Have You Ever Used E-cigarettes Or Vape? 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 No [email or web address] Information no t available 04/16/2024 What Is The Fluoride Status Of Your Home? Unknown Information not available 04/16/2024 Are There Any Guns Present In Your Home? No [email or web address] Information not available 04/16/2024 Have You Recently Or Are You Planning To Travel To An Area With Zika Virus? No [email or web address] Information not available 04/16/2024 Do You Use Insect Repellent Routinely? Yes [email or web address] Information not available 04/16/2024 Do You Feel Safe At Home? Yes Information not available 04/16/2024 Do You Have A Medical Power Of Carder Blankets? Yes [email or web address] Information not available 04/16/2024 What Was The Date Of Your Most Recent Tobacco Screening? 2025 [email or web address] Information not available 2025 Do You Have Any Pets? No [email or web address] Information not available 04/16/2024 Do You Use Your Seat Belt Or Car Seat Routinely? Yes [email or web address] Information not available 04/16/2024 Do You Have Smoke And Carbon Monoxide Detectors In Your Home? Yes [email or web address] Information not available 04/16/2024 At What Age Did You Start Smoking Tobacco? 19 [email or web address] Information not available 01/09/2024 Are You Passively Exposed To Smoke? Yes Information no t available 09/10/2022 Do You Or Have You Ever Used Smokeless Tobacco? Never Used Smokeless Tobacco Information not available 09/10/2022 How Much Tobacco Do You Smoke? 1 PPD Information not available 03/28/2023 Do You Feel Stressed (tense, Restless, Nervous, Or Anxious, Or Unable To Sleep At Night)? [id number] [email or web address] Information not available 10/18/2023 Do You Use Any Illicit Or Recreational Drugs? No Information not available 09/07/2022 Do You Use Sunscreen Routinely? Yes [email or web address] Information not available 04/16/2024 Has Tobacco Cessation Counseling Been Provided? Yes [email or web address] Information not available 04/16/2024 On What Date Was Tobacco Cessation Counseling Provided? 2025 [email or web address] Information not available 2025 How Many Years Have You Smoked Tobacco? 35 Information not available 03/28/2023 Are You Currently In School? No [email or web address] Information not available 04/16/2024 Do You Or Have You Ever Used Any Other Forms Of Tobacco Or Nicotine? Yes [email or web address] Information not available 01/09/2024 Sex: Female Functional Status Question Answer Note LastModified by Organizat ion Details LastModified Time Do you have difficulty walking or climbing stairs? No [email or web address] Information not available 04/16/2024 Do you have transportation difficulties? No [email or web address] Information not available 04/16/2024 Are you able to walk? YESWOREST [email or web address] Information not available 04/16/2024 Do you have difficulty doing errands alone? No Information not available 04/16/2024 Are you able to care for yourself? Yes [email or web address] Information n ot available 04/16/2024 Do you have difficulty dressing or bathing? No [email or web address] Information not available 04/16/2024 What is your exercise level? Occasional Information not available 01/25/2023 Mental Status Question Answer Note LastModified by Organization D etails LastModified Time Do you have difficulty concentrating, remembering or making decisions? No [email or web address] Information no t available 04/16/2024 Family History [...] available 2023 15:06:47 Medical History Condition Response COPD Y Obstructive Sleep Apnea Y Obesity Y Vision or Eye Problems Y Arthritis Y Ear or Hearing Problems Y Anemia Y Back Problems Y Asthma Y Substance Abuse Y Reflux/GERD Y Hypertension Y Gynecological History Statement/Question Response [...] mcg/0.25mL dose 1 completed KATALINA VICTOR NP [address] [place] [address], [address], [place] [facility] [place] 09/10/2022 22:12:32 Td (adult), 2 Lf tetanus toxoid, preservative free, adsorbed 1 completed KATALINA VICTOR NP [address] [place] [address], [place] [facility] [place] 09/10/2022 22:12:32 Hep A, adult 8 completed KATALINA VICTOR NP [address] [place] [address], [place] [facility] & [place] 09/10/2022 22:12:32 COVID-19, mRNA, LNP-S, PF, 100 mcg/0.5mL dose or 50 mcg/0.25mL dose 1 yuri VICTOR NP [address] [place] [address], [address], [place] [facility] [place] 09/10/2022 22:12:32 Hep A, adult 9 completed KATALINA VICTOR NP [address] [place] [address], [address], [place] [facility] & [place] 09/10/2022 22:12:32 COVID-19, mRNA, LNP-S, PF, 100 mcg/0.5mL dose or 50 mcg/0.25mL dose 1 yuri VICTOR NP [address] [place] [address], [address], [place] [facility] & [place] 09/10/2022 22:12:32 Past Encounters Encounter ID Performer Location Encounter Start Date Encounter Closed Date Diagnosis/Indication Diagnosis SNOMED-CT Code Diagnosis ICD10 Code Diagnosis Note [id number] KATALINA VICTOR NP [facility] [address] [facility] [place] [address] 12/27/2024 15:34:46 01/10/2025 09:04:53 Cough 80571490 R05.1 medication s as prescribed stay well hydratedf/ u if symptoms persistER if any urgent signs or symptoms arise Wheeze - rhonchi 8152108 1 R09.89 Discuss chest x-ray medication s as prescribed , ER if any urgent signs or symptoms arise. When symptoms are improved she needs updated pulmonary function test and low-dose CT screening Mastodynia of bilateral breasts [id number] 6176791 N64.4 awaiting imaging Mild inter mittent asthma 790799236 J45.20 needs updated PFT; no current maintenanc e inhaleruse s rescue inhaler as needed, usually doesnt have to use unless sick; has been increased use over the past 2 weeks Tobacco de pendence caused by cigarettes [id number] 8709165 F17.849 [id number] KATALINA VICTOR NP [facility] [address] [facility] [place] [address] 2025 11:56:03 2025 12:27:31 Dyspnea on exertion 59479924 R06.09 awaiting chest xrayER if any changes/ur gent signs or symptoms arise Asthma 986054676 J45.90 9 Poor historian, last office visit [...] by Organization Details LastModified Time None Recorded Payers Encounter Date Sequence Insurance Name Policy Number Policy Natarajan Covered Member ID Natarajan Member ID Guarantor Name [id number] 1 [facility] (MEDICAID REPLACEMENT - HMO) Angella Napoles [id number] Angella Napoles Notes Date Note Type Note Provider Name and Address Organization Details Recorded Time 2025 text/html 55-year-old bertram rangel who presents for follow-up. Has not completed imaging or pulmonary function test that was sent with last office visit. Reports wheezing and coughing often. She uses Ventolin inhaler. Taking all of her medications as prescribed. Reports mood is controlled. Blood pressure is normal. She does smoke. Cigarettes. KATALINA VICTOR NP [address] [facility], [place], [address], [facility] & [place] 01/16/2025 09:58:51 OBGyn Episode No OBEpisode recorded.
== END 2025-02-22 05:37 | disposition left against medical advice (07) ==
PROVIDERS: Emergency Provider Emergency Medicine; PCP Nurse Practitioner Family
DX: A41.9 Sepsis, unspecified organism (principal); K57.20 Diverticulitis of large intestine with perforation and abscess without bleeding; R10.30 Lower abdominal pain, unspecified; R33.9 Retention of urine, unspecified; R30.9 Painful micturition, unspecified; R35.0 Frequency of micturition; R10.2 Pelvic and perineal pain; F19.20 Other psychoactive substance dependence, uncomplicated; E66.01 Morbid (severe) obesity due to excess calories; I10 Essential (primary) hypertension; J44.9 Chronic obstructive pulmonary disease, unspecified; Z72.0 Tobacco use; Z53.20 Procedure and treatment not carried out because of patient's decision for unspecified reasons
CPT/HCPCS: 74177; 80053; 81001; 81025; 85025; 87040; 87086; 96361; 96365; 99291; J2543; J7120; Q9967

== ENCOUNTER 2025-02-22 18:22 | Inpatient (IN) | payer OTHER, SELFPAY ==
[2025-02-22] VITALS (7 sets, daily range): BP systolic 88–124; BP diastolic 57–73; PULSE 84–114; RESP 18; TEMP 36.9–37.2; O2SAT 95–97; BMI 39.9; BMI 40.1
[2025-02-22 19:04] LABS: Basophils % 0.3 % (0.1-2.0); Eosinophils # 0.1 K/mm3 (0.0-0.4); Eosinophils % 0.3 % (0.1-12.0); Hematocrit 43.8 % (37.0-47.0); Hemoglobin 14.2 g/dL (12.2-16.2); Lymphocytes # 1.5 K/mm3 (0.7-4.5); Lymphocytes % 10.1 % (10-50); Mean Corpuscular HGB Conc 32.4 g/dL (31.8-35.4); Mean Corpuscular Hemoglobin 28.2 pg (27.0-31.2); Mean Corpuscular Volume 87.1 fl (81-99); Mean Platelet Volume 9.7 fl (7.4-10.4); Monocytes # 0.7 K/mm3 (0.1-1.0); Monocytes % 4.6 % (1.7-9.3); Neutrophils # 12.1 K/mm3 (1.8-7.8); Neutrophils % 84.2 % (37.0-80.0); Platelet Count 237 K/mm3 (142-424); Red Blood Count 5.03 M/mm3 (4.20-5.40); Red Cell Distribution Width 14.1 % (11.5-17.5); White Blood Count 14.4 K/mm3 (4.8-10.8)
[2025-02-22 19:12] LABS: Lactate Venous 1.6 mmol/L (0.4-2.0); VBG Base Excess 6.1 mmol/L (-2.4-2.3); VBG HCO3 31.9 mmol/L (23-30); VBG Oxygen Saturation 70.9 % (50-70); VBG PH 7.34 mmol/L (7.31-7.41); VBG PO2 33.2 mmol/L (28-40); VBG Total CO2 33.7 mmol/L (23-27)
[2025-02-22 19:15] LABS: VBG PCO2 60.7 mmol/L (35-51)
[2025-02-22 19:16] LABS: Albumin Level 3.8 g/dl (3.5-5.0); Chloride 95 mmol/L (98-107); Potassium 3.4 mmoL/L (3.5-5.1); Sodium 134 mmol/L (136-145)
--- NOTE | 2025-02-22 19:16 | ED_ITS ---
Discharge Plan Disposition Patient Disposition: Admitted Chief Complaint: Abdominal Pain Clinical Impressions Clinical Impression: Diverticulitis of colon with perforation Discharge ED Provider: Efren Santos General Adult HPI General Chief complaint: Abdominal Pain Stated complaint: diverticulitis w/torn colon Time Seen by Provider: 02/22/25 18:32 Mode of Arrival: Ambulatory Description of Symptoms (Recalled from ER Triage Doc. by RN): PT REPORTS LOWER ABDOMINAL PAIN THAT PT PRESENTED TO ED LAST NIGHT FOR URINARY SYMPTOMS. DIAGNOSED WITH DIVERTICULITIS, PERFORATION AND SEPSIS. PT LEFT AMA. RETURNED TODAY FOR TREATMENT. REPORTS POSSIBLE FEVER, DENIES BM TODAY. PT REPORTS USING COCAINE AND SNORTING PERCOCET TODAY History of Present Illness HPI narrative: Please note that above description of symptoms, in this electronic medical record under categorization of recalled from ER triage doctor by RN are reflective of an initial nursing assessment, however, is not reflective of my full history and physical exam that was personally taken and clarified. Consequentially, this preceding description of symptoms, which may include the patient's categorized chief complaint in the EMR, do not reflect my personal clinical impression, and the ultimate description of history of present illness and patient stated complaints should be deferred to this section of the note. Unless stated otherwise or congruent with this section of the note, additional signs, symptoms, or incongruence should be interpreted as inaccurate with my clinical impression. Related Data Home Medications ?Medication ?Instructions ?Recorded ?Confirmed aspirin 81 mg tablet,delayed 81 mg PO DAILY 09/27/18 11/27/18 release (Adult Low Dose Aspirin) ranitidine HCl 150 mg tablet 150 mg PO DAILY 09/27/18 11/27/18 (Zantac) Previous Rx's ?Medication ?Instructions ?Recorded albuterol sulfate 90 mcg/actuation 4 inh inhalation Q4H PRN shortness 12/27/23 aerosol inhaler of breath or wheezing #8.5 grams amoxicillin 875 mg-potassium 1 tab PO BID 7 days #14 tabs 12/27/23 clavulanate 125 mg tablet azithromycin 250 mg tablet 250 mg PO DAILY 4 days #4 tabs 12/27/23 benzonatate 100 mg capsule 100 mg PO TID PRN cough 5 days #20 12/27/23 caps albuterol sulfate 0.63 mg/3 mL 0.63 mg (3 mL) inhalation Q4H PRN 02/25/24 solution for nebulization bronchospasm #90 mL doxycycline hyclate 100 mg capsule 100 mg PO BID 10 days #20 caps 02/25/24 prednisone 50 mg tablet 50 mg PO DAILY 5 days #5 tabs 02/25/24 amoxicillin 875 mg-potassium 1 tab PO BID #20 tabs 02/22/25 clavulanate 125 mg tablet Allergies Allergy/AdvReac Type Severity Reaction Status Date / Time lisinopril Allergy Mild Verified 12/27/23 18:16 PCN (PENICILLIN) Allergy Unknown Uncoded 11/27/18 10:08 [facility] Disclaimer: The information contained in this section may have been updated after the patient was seen, as this information can be updated by other users. Social History (Updated 12/27/23 @ 19:41 by Jan Randle MD) Smoking Status: Current every day smoker alcohol intake: never substance use type: denies use current occupational status: other Travel in the last 8 weeks: None Have you lived/traveled outside [place] in past 30 days?: No Contact w/someone who lives/traveled outside US past 30 days?: No Exposure to someone with infectious disease in past 14 days?: No Do you have a fever (greater than 100.4 F or 38 C)?: No Have you tested positive for COVID-19: No Exposed to someone with COVID-19 in past 14 days?: No Do you have a sore throat?: No Do you have a cough?: No Do you have any weakness?: No Do you have any diarrhea?: No Are you experiencing any unusual bleeding?: No Do you have any muscle aches/pain?: No Do you have any abdominal pain?: No Are you experiencing loss of taste or smell?: No Other Medical History Have you received the Flu Vaccine for this season: No Have you received the Pneumonia Vaccine: No ROS Obtained: Yes All systems reviewed & no additional complaints except as documented Physical Exam General General appearance: alert Head Head exam: atraumatic and normocephalic Eye Eye exam: Present normal appearance, PERRL and EOMI Neck Neck exam: Present normal inspection, full ROM and trachea midline Respiratory Respiratory exam: Absent respiratory distress, wheezes, stridor, accessory muscle use or prolonged expiratory phase Cardiovascular Cardiovascular exam: Present normal rhythm, tachycardia and other (Pulses equal symmetric in upper and lower extremities) Abdominal Exam Abdominal exam: Present soft and tenderness; Absent distention, guarding, rebound, rigidity or pulsatile mass Abdominal tenderness: Present LLQ, suprapubic and mild Extremities Exam Extremities exam: Absent edema Neurological Exam Neurological exam: Present alert, oriented X3 and CN II-XII intact; Absent motor sensory deficit Skin Skin exam: Present warm and dry; Absent diaphoresis or erythema Medical Decision Making Medical Records Medical records reviewed: Yes I reviewed the patient's medical records. Screening: Per USPSTF and CDC recommendations, given the prevalence of disease in our region, it is our hospital?s policy to screen for HIV and viral Hepatitis for all patients aged 18 and over and those with ongoing risk factors. [place] Inquiry Pt receiving controlled substance: No [place] was queried for this patient: No Vital Signs: 02/22/25 18:30 02/22/25 18:34 02/22/25 19:01 Temperature 99.0 F Temperature Source Oral Pulse Rate 102 H 111 H Pulse Rate [Radial] 114 H Respiratory Rate 18 Blood Pressure 124/65 88/60 L Blood Pressure [Right Arm] 124/65 Blood Pressure Mean [Right Arm] 84 Blood Pressure Source [Right Arm] Automatic Cuff Blood Pressure Position [Right Arm] Sitting 02 Sat by Pulse Oximetry 95 95 97 Oxygen Delivery Method Room Air Room Air 02/22/25 20:48 02/22/25 21:00 Temperature Temperature Source Pulse Rate 106 H 84 Pulse Rate [Radial] Respiratory Rate Blood Pressure 110/61 112/57 L Blood Pressure [Right Arm] Blood Pressure Mean [Right Arm] Blood Pressure Source [Right Arm] Blood Pressure Position [Right Arm] 02 Sat by Pulse Oximetry 95 95 Oxygen Delivery Method Lab Data Lab Results 02/22/25 18:41: WBC 14.4 H, RBC 5.03, Hgb 14.2, Hct 43.8, MCV 87.1, MCH 28.2, MCHC 32.4, RDW 14.1, Plt Count 237, MPV 9.7, Neut % (Auto) 84.2 H, Lymph % (Auto) 10.1, [place] % (Auto) 4.6, Eos % (Auto) 0.3, Baso % (Auto) 0.3, Neut # (Auto) 12.1 H, Lymph # (Auto) 1.5, [place] # (Auto) 0.7, Eos # (Auto) 0.1, Baso # (Auto) 0.0, Sodium 134 L, Potassium 3.4 L, Chloride 95 L, Carbon Dioxide 35 H, Anion Gap 7.4, BUN 15 D, Creatinine 0.60, Estimated Creat Clear 162, Estimated GFR 104, Est GFR ( Amer) 126, Glucose 156 H, Calcium 9.4, Total Bilirubin 0.9, AST 66 H, ALT 78, Alkaline Phosphatase 120, Total Protein 7.0, Albumin 3.8, Globulin 3.2, Albumin/Globulin Ratio 1.2 02/22/25 18:54: VBG pH 7.34, VBG pCO2 60.7 H, VBG pO2 33.2, VBG HCO3 31.9 H, VBG Total CO2 33.7 H, VBG O2 Saturation 70.9 H, VBG Base Excess 6.1 H, VBG Lactic Acid 1.6 02/22/25 19:29: Urine Color [place], Urine Appearance Slightly cloudy, Urine pH 5.5, Ur Specific [place] 1.025, Urine Protein 2+ A, Urine Glucose (UA) Negative, Urine Ketones Trace, Urine Blood Negative, Urine Nitrate Positive A, Urine Bilirubin 3+ A, Urine Urobilinogen 2.0, Ur Leukocyte Esterase Negative, Urine RBC None, Urine WBC 5-10, Ur Squamous Epith Cells 5-10, Urine Bacteria 2+, Urine Mucus Trace 02/22/25 18:41 02/22/25 18:41 Orders (Tests/Meds): ED MEDICATIONS Generic Name Dose Route Start Last Admin Trade Name Freq PRN Reason Stop Dose Admin Acetaminophen 650 mg 02/22/25 21:55 Acetaminophen 325mg Tab PO 03/24/25 21:54 Q4HP PRN Fever or Mild Pain (1-3) Sodium Chloride 1,000 mls @ 125 mls/hr 02/22/25 22:00 Sod Chlor 0.9% 1000ml Bag IV 02/23/25 05:59 .Q8H ALMA Cefepime HCl 2 gm/ Sodium 100 mls @ 200 mls/hr 02/23/25 10:00 Chloride IV 03/05/25 09:59 Q12H ALMA Metronidazole 500 mg in 100 mls @ 100 mls/hr 02/23/25 09:00 Flagyl 500mg/100ml Ivpb IV 03/05/25 08:59 Q12 ALMA Morphine Sulfate 2 mg 02/22/25 21:55 Morphine 2mg/Ml Syringe IV 03/24/25 21:54 Q4HP PRN Severe Pain (7-10) Sodium Chloride 10 ml 02/22/25 20:40 02/22/25 20:41 Sodium Chloride 0.9% 10ml Syr (Rad Only) IV 03/24/25 20:39 10 ml NEEDED PRN Administration Maintain IV Site Sodium Chloride 10 ml 02/22/25 21:55 Sodium Chloride 0.9% 10ml Flush Syringe IV 03/24/25 21:54 NEEDED PRN Maintain IV Site Discontinued Medications Generic Name Dose Route Start Last Admin Trade Name Freq PRN Reason Stop Dose Admin Sodium Chloride 1,430 mls @ 715 mls/hr 02/22/25 18:54 02/22/25 19:29 Sod Chlor 0.9% 1000ml Bag 30 ml/kg infuse over 2 hr (1430 ml) 02/22/25 20:53 715 mls/hr IV Administration .Q2H ONE Cefepime HCl 2 gm/ Sodium 100 mls @ 200 mls/hr 02/22/25 18:54 02/22/25 19:29 Chloride IV 02/22/25 19:23 200 mls/hr ONCE ONE Administration Metronidazole 500 mg in 100 mls @ 100 mls/hr 02/22/25 18:54 02/22/25 19:28 Flagyl 500mg/100ml Ivpb IV 02/22/25 19:53 100 mls/hr ONCE ONE Administration Iopamidol 75 ml 02/22/25 20:40 02/22/25 20:41 Iopamidol-370 (76%);100ml Bottle IV 02/22/25 20:41 75 ml ONCE ONE Administration ORDERS Category Date Time Status CT abdomen pelvis w con Stat Cat Scan 02/22/25 20:17 Completed Consult Rug Touch Up Painter [CONS] Routine Cons 02/22/25 18:43 Active General Surgery Consult [Consult to General Surgery] [ Cons 02/22/25 21:30 Ordered CONS] Stat CBC w/Auto Diff [Complete Blood Count Auto Diff] Stat Lab 02/22/25 18:41 Completed CMP [Comprehensive Metabolic Panel] Stat Lab 02/22/25 18:41 Completed UA [Urinalysis and Microscopic] Stat Lab 02/22/25 19:29 Completed Blood Culture Stat Micro 02/22/25 19:20 Received VBG [Venous Blood Gas] Stat RT 02/22/25 18:54 Completed Medical Decision Narrative: 55-year-old female presenting with abdominal pain. She was here yesterday evening and saw information strategist. Patient had perforated diverticulitis, but left AMA. She states she had things to do at home and came back for further evaluation because she is now having worsening pain. No fevers, vomiting, diarrhea, urinary symptoms, etc. Pain is currently moderate in intensity, suprapubic, does not radiate history was obtained via conversation with patient. On arrival, patient hemodynamically stable, alert, oriented x4, appropriate, GCS 15, moving all extremities spontaneously, pupils equal and reactive to light. Full physical exam performed and significant for sleeping on initial evaluation. Tachycardic. Abdomen is soft, minimally tender in the lower abdomen and suprapubic and left lower quadrant. No flank tenderness. No overlying skin changes. No signs of peritonitis. Differential includes perforation, intra- abdominal sepsis, bacteremia, among others. Patient placed on continuous cardiac monitoring and continuous pulse ox with initial blood pressure 124/65, heart rate 102, saturation 95% on room air. Patient was given fluid sepsis bolus and empiric antibiotics with cefepime and Flagyl for symptomatic management and correction of underlying abnormalities. Workup independently interpreted and significant for leukocytosis stable from yesterday, lactate negative. Urinalysis with urinary tract infection and nonactionable chemistry. On independent interpretation of imaging, patient has worsening phlegmon versus abscess with microperforation in the abdomen at the sigmoid:. See radiology read for full review of final results. On reevaluation, patient's pain minimal and she is actually sleeping on my evaluation. Tissue perfusion reassessment performed within 3 hours, patient mentating, following commands, good capillary refill and hemodynamically stable. General surgery was contacted and case was discussed at length and formal consultation, will see patient in the morning, agreeable to hospitalist admission. Hospitalist was contacted and case was discussed at length, agreeable to admission given patient presentation, workup, history, this most likely represents microperforation of diverticulum of the sigmoid colon with localized phlegmon. Because patient high risk for clinical decompensation, deemed appropriate for inpatient admission. Results were relayed to patient who voiced understanding and patient was agreeable to inpatient admission and management. Patient was admitted to the hospital for further definitive management. Chemical Supervisor disclaimer Much of this encounter note is an electronic fingerprint clerk spoken language to printed text. Electronic fingerprint clerk of the spoken language may permit errors. Although I have reviewed the note, some errors may still exist. Critical Care Critical Care Time Critical Care Time: Yes (GI) Attestation: On 02/22/25, the high probability of a clinically significant, sudden or life threatening deterioration of the following system(s) required my full and direct attention, intervention and personal management. The time I documented below is in addition to time spent performing reported procedures but includes the following listed in this critical care notation. Total Time Total Critical Care Time: 35
[2025-02-22 19:18] LABS: Blood Urea Nitrogen 15 mg/dl (7-17); Creatinine Clearance Estimated 162 mL/min (50-200); Estimated Glomerular Filt Rate 104 ml/min (>60); GFR (African American) 126 ML/MIN (>60)
--- NOTE | 2025-02-22 19:18 | PC.NURSE ---
VBG citical called aware
[2025-02-22 19:19] LABS: Alanine Aminotransferase 78 U/L (12-78); Albumin/Globulin Ratio 1.2 (1.1-1.8); Alkaline Phosphatase 120 U/L (38-126); Anion Gap 7.4 mEq/L (5-15); Aspartate Amino Transferase 66 U/L (14-36); Bilirubin,Total 0.9 mg/dl (0.2-1.3); Calcium 9.4 mg/dl (8.4-10.2); Carbon Dioxide 35 mmol/L (22.0-30.0); Globulin 3.2 g/dL (1.3-3.2); Glucose 156 mg/dl (74-100)
[2025-02-22] MEDS: METRONIDAZ/SOD CHL 500 MG/100 ML PIGGYBACK 100 MG IV (19:28)
[2025-02-22] MEDS: 0.9 % SODIUM CHLORIDE 1000ML 1,430 ML 715 ML IV (19:29)
[2025-02-22] MEDS: CEFEPIME HCL 2 GM in 0.9 % SODIUM CHLORIDE 100 ML IV (19:29)
[2025-02-22 19:38] LABS: Microscopic, Urine URINE MICROSCOPIC (MICROSCOPIC)
[2025-02-22 19:39] LABS: Blood, Urine Negative (Negative); Glucose,Urine (UA) Negative (Negative); Ketones,Urine TRACE (Negative); Leukocyte Esterase,Urine Negative (Negative); Nitrate,Urine POSITIVE (Negative); PH,Urine 5.5 (5.0-8.5); Protein,Urine 2+ (Negative); Specific Gravity, Urine 1.025 (1.005-1.030)
[2025-02-22 19:43] LABS: Appearance,Urine Slightly Cloudy (Clear); Bilirubin,Urine 3+ (Negative); Color,Urine Orange (Yellow)
[2025-02-22 19:51] LABS: Bacteria,Urine 2+ /lpf; Mucus,Urine Trace /lpf
--- NOTE | 2025-02-22 20:17 | CT_ITS ---
PROCEDURE INFORMATION: Exam: CT Abdomen And Pelvis With Contrast Exam date and time: 02/22/2025 8:37 PM Age: 55 years old Clinical indication: Abdominal pain; Additional info: Recent perf and left ama TECHNIQUE: Imaging protocol: Computed tomography of the abdomen and pelvis with contrast. Radiation optimization: All CT scans at this facility use at least one of these dose optimization techniques: automated exposure control; mA and/or kV adjustment per patient size (includes targeted exams where dose is matched to clinical indication); or iterative reconstruction. Contrast material: ISOVUE; Contrast volume: 75 ml; Contrast route: IV; COMPARISON: CT ABDOMEN PELVIS W CON 02/22/2025 2:24 AM FINDINGS: Lungs: Left lung calcified granuloma is benign. Linear atelectasis in the lung bases. Liver: Liver is enlarged measuring 18 cm. Diffuse decrease in hepatic parenchymal density, consistent with fatty infiltration. The liver is otherwise unremarkable. Gallbladder and biliary ducts: Multiple calcified gallstones are present. There is no wall thickening or pericholecystic fluid to suggest cholecystitis. There is no evidence of biliary ductal dilation. Pancreas: The pancreas is normal. Spleen: The spleen demonstrates punctate calcifications, consistent with remote granulomatous organism exposure. The spleen is otherwise unremarkable. Adrenal glands: Adrenal glands are normal. Kidneys and ureters: Stable chronic appearing mild right pelviectasis. Consider nonemergent follow-up ultrasound. Bilateral extrarenal pelvises, normal variant. The kidneys are otherwise unremarkable. No hydroureter. Stomach and bowel: Diffuse colonic diverticulosis. Severe constipation. Known contained perforation due to severe sigmoid diverticulitis has slightly enlarged and I am concerned that it has begun to loculate into a non drainable collection/early phlegmon with intraluminal air foci which currently measures 5 x 3.3 cm. The volume of pericolonic inflammatory changes at the contained perforation site has also slightly increased. No new bowel wall thickening. No bowel obstruction. The stomach is normal. Duodenum is unremarkable. Appendix: A normal appendix is identified. Intraperitoneal space: There is no free intraperitoneal air. Vasculature: Mild atherosclerotic calcification of the arterial vasculature. No aortic aneurysm. Portal venous system is patent. Lymph nodes: There is no evidence of lymphadenopathy. Urinary bladder: Bladder is decompressed and difficult to evaluate. Reproductive: Reproductive organs are unremarkable as visualized. Bones/joints: Mild multilevel degenerative changes of the spine. No acute skeletal abnormality or aggressive osseous lesion. Soft tissues: No acute soft tissue findings. IMPRESSION: 1. Known contained perforation due to severe sigmoid diverticulitis has slightly enlarged and I am concerned that it has begun to loculate into a non drainable collection/early phlegmon with intraluminal air foci which currently measures 5 x 3.3 cm. Previously, the area of perforation did not seen as well-defined. Very close follow-up is recommended. 2. The volume of pericolonic inflammatory changes at the contained perforation site has also slightly increased.
[2025-02-22] MEDS: SODIUM CHLORIDE 0.9% 10ML SYR (RAD ONLY) 10 ML IV (20:41)
[2025-02-22] MEDS: IOPAMIDOL-370 (76%);100ML BOTTLE 75 ML IV (20:41)
--- NOTE | 2025-02-22 21:19 | PC.NURSE ---
administered 3 L NC on pt
--- NOTE | 2025-02-22 22:11 | P.HP_ITS ---
<Statement entered by Joel Stewart MD - 02/23/25 07:56> Rounded on patient after nurse practitioner. Personally examined and interviewed patient. Agree with exam findings and care plan as documented. History of Present Illness *Admission Date: 02/22/25 *Reason for visit:: Abdominal pain *History of present illness: This is a 55-year-old female with a past medical history of significant substance abuse, chronic obstructive pulmonary disease who is a return ER patient for abdominal pain. Patient presented the emergency department last night for abdominal pain. Stated that her pain was lower in her abdomen and felt it was her bladder. States that she has had difficulty with urination for approximately 1 week. She denies any fever, nausea, vomiting or diarrhea. Workup yesterday noted mild to distal acute diverticulitis with contained microperforation. She had a white count of 14 yesterday. She ultimately signed out AMA due to life stressors at home despite ER's adamant attempts to admit her to the hospital. She presents back today with similar complaints. States that she has had continued pressure. On arrival today she was noted to be hypotensive and tachycardic. White count stable at 14. Repeat imaging today notable for contained perforation due to severe sigmoid diverticulitis within large area that could be loculated drainable collection, not present on prior CT. Slightly increased pericolonic inflammation noted as well. Urinalysis also notable for nitrite positive urine with white cells and +2 bacteria. Today patient is in agreements with hospitalization. White count is stable at 14. Blood pressure and heart rate improved with IV fluid administration. Case was discussed with Dr. Dong by ER provider and will see patient in AM given patient's stable condition. Continue to treat with broad-spectrum coverage, clear liquid diet IV fluids and sepsis protocol. [facility] Disclaimer: The information contained in this section may have been updated after the patient was seen, as this information can be updated by other users. Social History (Updated 12/27/23 @ 19:41 by Jan Randle MD) Smoking Status: Current every day smoker alcohol intake: never substance use type: denies use current occupational status: other Travel in the last 8 weeks: None Have you lived/traveled outside US in past 30 days?: No Contact w/someone who lives/traveled outside US past 30 days?: No Exposure to someone with infectious disease in past 14 days?: No Do you have a fever (greater than 100.4 F or 38 C)?: No Have you tested positive for COVID-19: No Exposed to someone with COVID-19 in past 14 days?: No Do you have a sore throat?: No Do you have a cough?: No Do you have any weakness?: No Do you have any diarrhea?: No Are you experiencing any unusual bleeding?: No Do you have any muscle aches/pain?: No Do you have any abdominal pain?: No Are you experiencing loss of taste or smell?: No Other Medical History Have you received the Flu Vaccine for this season: No Have you received the Pneumonia Vaccine: No Review of Systems Review of Systems Review of systems:: pertinent systems reviewed and negative unless documented below Review of systems (narrative): Negative except for HPI Meds Home Medications and Allergies Home Medications ?Medication ?Instructions ?Recorded ?Confirmed ?Type aspirin 81 mg tablet,delayed 81 mg PO DAILY 09/27/18 11/27/18 History release (Adult Low Dose Aspirin) ranitidine HCl 150 mg tablet 150 mg PO DAILY 09/27/18 11/27/18 History (Zantac) albuterol sulfate 90 mcg/actuation 4 inh inhalation Q4H PRN shortness 12/27/23 Rx aerosol inhaler of breath or wheezing #8.5 grams amoxicillin 875 mg-potassium 1 tab PO BID 7 days #14 tabs 12/27/23 Rx clavulanate 125 mg tablet azithromycin 250 mg tablet 250 mg PO DAILY 4 days #4 tabs 12/27/23 Rx benzonatate 100 mg capsule 100 mg PO TID PRN cough 5 days #20 12/27/23 Rx caps albuterol sulfate 0.63 mg/3 mL 0.63 mg (3 mL) inhalation Q4H PRN 02/25/24 Rx solution for nebulization bronchospasm #90 mL doxycycline hyclate 100 mg capsule 100 mg PO BID 10 days #20 caps 02/25/24 Rx prednisone 50 mg tablet 50 mg PO DAILY 5 days #5 tabs 02/25/24 Rx amoxicillin 875 mg-potassium 1 tab PO BID #20 tabs 02/22/25 Rx clavulanate 125 mg tablet New Prescriptions to Start Prescriptions: Allergies Allergy/AdvReac Type Severity Reaction Status Date / Time lisinopril Allergy Mild Verified 12/27/23 18:16 PCN (PENICILLIN) Allergy Unknown Uncoded 11/27/18 10:08 Exam Data for Last 24 hours Vital signs and Labs for Last 24 Hours: Temp Pulse Resp BP Pulse Ox O2 Del Method 99.0 F 84 18 112/57 L 95 Room Air 02/22/25 18:34 02/22/25 21:00 02/22/25 18:34 02/22/25 21:00 02/22/25 21:00 02/22/25 18:34 Laboratory Results - last 24 hr 02/22/25 18:41: WBC 14.4 H, RBC 5.03, Hgb 14.2, Hct 43.8, MCV 87.1, MCH 28.2, MCHC 32.4, RDW 14.1, Plt Count 237, MPV 9.7, Neut % (Auto) 84.2 H, Lymph % (Auto) 10.1, [place] % (Auto) 4.6, Eos % (Auto) 0.3, Baso % (Auto) 0.3, Neut # (Auto) 12.1 H, Lymph # (Auto) 1.5, [place] # (Auto) 0.7, Eos # (Auto) 0.1, Baso # (Auto) 0.0, Sodium 134 L, Potassium 3.4 L, Chloride 95 L, Carbon Dioxide 35 H, Anion Gap 7.4, BUN 15 D, Creatinine 0.60, Estimated Creat Clear 162, Estimated GFR 104, Est GFR ( Amer) 126, Glucose 156 H, Calcium 9.4, Total Bilirubin 0.9, AST 66 H, ALT 78, Alkaline Phosphatase 120, Total Protein 7.0, Albumin 3.8, Globulin 3.2, Albumin/Globulin Ratio 1.2 02/22/25 18:54: VBG pH 7.34, VBG pCO2 60.7 H, VBG pO2 33.2, VBG HCO3 31.9 H, VBG Total CO2 33.7 H, VBG O2 Saturation 70.9 H, VBG Base Excess 6.1 H, VBG Lactic Acid 1.6 02/22/25 19:29: Urine Color [place], Urine Appearance Slightly cloudy, Urine pH 5.5, Ur Specific [place] 1.025, Urine Protein 2+ A, Urine Glucose (UA) Negative, Urine Ketones Trace, Urine Blood Negative, Urine Nitrate Positive A, Urine Bilirubin 3+ A, Urine Urobilinogen 2.0, Ur Leukocyte Esterase Negative, Urine RBC None, Urine WBC 5-10, Ur Squamous Epith Cells 5-10, Urine Bacteria 2+, Urine Mucus Trace I & O for Last 24 hours: Intake & Output 02/19/25 02/20/25 02/21/25 02/22/25 23:59 23:59 23:59 23:59 Weight 95.708 kg Constitutional Constitutional: no acute distress *Routine HEENT Exam Head: Present normocephalic Eye: Present EOMI and PERRL ENT: Present mucous membranes moist *Routine Neck Exam Neck: Present supple; Absent lymphadenopathy *Routine Respiratory Exam Respiratory: Present CTA bilaterally *Routine Cardiovascular Exam Cardiovascular: Present RRR *Routine Abdominal Exam Abdominal: Present tenderness Comments: Hypoactive bowel sounds noted throughout all 4 quadrants. Abdomen mildly distended but compressible. *Routine Rectal Exam Rectal:: deferred *Routine Genitalia Exam Genitalia:: deferred *Routine Extremities Exam Extremities: Absent cyanosis, clubbing or edema *Routine Skin Exam Skin: Present warm; Absent rash *Routine Neurological Exam Neurological: Present alert and oriented X3 Assessment and Plan *Assessment and plan (1) Diverticulitis of colon with perforation: Status: Acute Category: Medical Code(s): K57.20 - Diverticulitis of large intestine with perforation and abscess without bleeding (2) Sepsis: Status: Acute Category: Medical Code(s): A41.9 - Sepsis, unspecified organism (3) Acute cystitis: Status: Acute Category: Medical Code(s): N30.00 - Acute cystitis without hematuria Plan #Sepsis without septic shock Meets criteria for tachycardia, initial hypotension and leukocytosis with known acute abdomen Also has positive urinalysis Responded well to 30 mg/kg of IV fluid bolus. Hemodynamically stable at this time. Will continue broad-spectrum antibiotic coverage with cefepime and Flagyl Follow-up blood cultures Follow-up urine culture #Diverticulitis of colon with perforation Dr. Kaufman consulted and will see patient in AM. Per his direction, can continue clear liquid diet Continue abdominal exam Continue maintenance IV fluids and broad-spectrum antibiotic coverage with cefepime and Flagyl #Toxic encephalopathy Patient is slow to respond to questions likely secondary to chronic drug use including snorting Percocet pills. Maintaining airway, will wake up and answer questions Continue to monitor neurostatus #Substance abuse Patient admits to multiple different types of substance abuse including snorting Percocet 30 mg daily as well as crack cocaine. Hold all sedating meds except for as needed pain medication for acute abdomen
[2025-02-22] MEDS: 0.9 % SODIUM CHLORIDE 1000ML 1,000 ML 125 ML IV (23:08)
[2025-02-22] MEDS: NICOTINE 21MG/24HR PATCH 21 MG TD (23:34)
[2025-02-23] VITALS (12 sets, daily range): BP systolic 135–172; BP diastolic 60–90; PULSE 88–117; RESP 16–31; TEMP 36.5–37.8; O2SAT 90–98; BMI 40.1
[2025-02-23] MEDS: ACETAMINOPHEN 1,000MG/100ML VIAL 1000 MG IV (02:04)
--- NOTE | 2025-02-23 04:25 | PC.NURSE ---
Pt. was admitted overnight from the ED with Diverticulitis with contained microperferation. Pt. is alert and orientated x4. Pt. c/o difficulty with urination for about 1 week, alco c/o low abd. pain. Pt. was seen in the ED 02/21/25 with Dx. Diverticulitits and signed out AMA. Returned to ED 03/24/25 with continued symptoms of low abd. pain and bladder pressure. When pt. returned to ED she was hypotensive and tachycardic. Sepsis criteria met and was initiated. When awake pt. was on room air. when she fell asleep her O2 sats were 90%, 2 liters of N/C oxygen was placed on patient. Repeat CT of abd. done in the ED with some changes from yesterday. Dr. Dong was consulted and will see her today. Pt. has had no c/o pain except when voiding. C/o burning with urine. Pt. has a chronic history of drug abuse. Pt. did have a temp of 100.1. and was hypertensive and tachycardia. Tylenol IV was given. Post Tylenol temp. decreased , BP and HR improved. Pt. on a clear liquid diet, tolerating well. Personal items and call marcano in reach.
--- NOTE | 2025-02-23 04:39 | EXP.SEPSISRE ---
H Tissue Perfusion Eval Sepsis Re-Evaluation Performed: Yes Date Performed: 02/23/25 Time Performed: 02:00
[2025-02-23 07:54] LABS: Basophils % 0.3 % (0.1-2.0); Eosinophils # 0.1 K/mm3 (0.0-0.4); Eosinophils % 0.9 % (0.1-12.0); Hematocrit 44.3 % (37.0-47.0); Lymphocytes # 1.4 K/mm3 (0.7-4.5); Mean Corpuscular HGB Conc 31.6 g/dL (31.8-35.4); Mean Corpuscular Hemoglobin 28.1 pg (27.0-31.2); Mean Platelet Volume 9.8 fl (7.4-10.4); Monocytes # 1.2 K/mm3 (0.1-1.0); Monocytes % 10.3 % (1.7-9.3); Neutrophils % 76.1 % (37.0-80.0); Platelet Count 216 K/mm3 (142-424); Red Blood Count 4.98 M/mm3 (4.20-5.40); Red Cell Distribution Width 14.2 % (11.5-17.5); White Blood Count 11.8 K/mm3 (4.8-10.8)
[2025-02-23 08:10] LABS: Chloride 103 mmol/L (98-107); Potassium 3.3 mmoL/L (3.5-5.1); Sodium 141 mmol/L (136-145)
[2025-02-23 08:13] LABS: Anion Gap 6.3 mEq/L (5-15); Blood Urea Nitrogen 7 mg/dl (7-17); Calcium 9.3 mg/dl (8.4-10.2); Carbon Dioxide 35 mmol/L (22.0-30.0); Creatinine Clearance Estimated 196 mL/min (50-200); Estimated Glomerular Filt Rate 129 ml/min (>60); GFR (African American) 156 ML/MIN (>60); Glucose 110 mg/dl (74-100)
--- NOTE | 2025-02-23 08:22 | EXP.SURG.CON ---
History of Present Illness *Admission Date: 02/22/25 *Reason for visit:: Diverticulitis *History of present illness: This is a 55-year-old female seen in consultation from the primary service after presenting to the emergency department with increasing abdominal pain. Emergency department evaluation reviewed Admission H&P reviewed (HPI forwarded below) She states that she does not really hurt right now . She is very upset about being in the hospital and very upset about not being able to smoke . Forwarded from admission H&P: This is a 55-year-old female with a past medical history of significant substance abuse, chronic obstructive pulmonary disease who is a return ER patient for abdominal pain. Patient presented the emergency department last night for abdominal pain. Stated that her pain was lower in her abdomen and felt it was her bladder. States that she has had difficulty with urination for approximately 1 week. She denies any fever, nausea, vomiting or diarrhea. Workup yesterday noted mild to distal acute diverticulitis with contained microperforation. She had a white count of 14 yesterday. She ultimately signed out AMA due to life stressors at home despite ER's adamant attempts to admit her to the hospital. She presents back today with similar complaints. States that she has had continued pressure. On arrival today she was noted to be hypotensive and tachycardic. White count stable at 14. Repeat imaging today notable for contained perforation due to severe sigmoid diverticulitis within large area that could be loculated drainable collection, not present on prior CT. Slightly increased pericolonic inflammation noted as well. Urinalysis also notable for nitrite positive urine with white cells and +2 bacteria. Today patient is in agreements with hospitalization. White count is stable at 14. Blood pressure and heart rate improved with IV fluid administration. Case was discussed with Dr. Dong by ER provider and will see patient in AM given patient's stable condition. Continue to treat with broad-spectrum coverage, clear liquid diet IV fluids and sepsis protocol. [facility] Disclaimer: The information contained in this section may have been updated after the patient was seen, as this information can be updated by other users. Social History (Updated 02/22/25 @ 22:43 by Aletha Huynh RN) Smoking Status: Current every day smoker alcohol intake: never substance use type: denies use current occupational status: other Travel in the last 8 weeks: None Have you lived/traveled outside US in past 30 days?: No Contact w/someone who lives/traveled outside US past 30 days?: No Exposure to someone with infectious disease in past 14 days?: No Do you have a fever (greater than 100.4 F or 38 C)?: No Have you tested positive for COVID-19: No Exposed to someone with COVID-19 in past 14 days?: No Do you have a sore throat?: No Do you have a cough?: No Do you have any weakness?: No Are you experiencing any nausea/vomitting?: No Do you have any diarrhea?: No Are you experiencing any unusual bleeding?: No Do you have any muscle aches/pain?: No Do you have any abdominal pain?: No Are you experiencing loss of taste or smell?: No Meds Home Medications and Allergies Home Medications ?Medication ?Instructions ?Recorded ?Confirmed ?Type albuterol sulfate 90 mcg/actuation 4 inh inhalation Q4H PRN shortness 12/27/23 02/22/25 Rx aerosol inhaler of breath or wheezing #8.5 grams cariprazine 1.5 mg capsule 1.5 mg PO DAILY 02/22/25 02/22/25 History (Vraylar) losartan 100 1 tab PO DAILY 02/22/25 02/22/25 History mg-hydrochlorothiazide 25 mg tablet melatonin 5 mg tablet 5 mg PO HS PRN Sleep 02/22/25 02/22/25 History metoprolol succinate 50 mg 50 mg PO DAILY 02/22/25 02/22/25 History tablet,extended release 24 hr trazodone 100 mg tablet 100 mg PO HS 02/22/25 02/22/25 History New Prescriptions to Start Prescriptions: Allergies Allergy/AdvReac Type Severity Reaction Status Date / Time lisinopril Allergy Mild Verified 12/27/23 18:16 PCN (PENICILLIN) Allergy Unknown Uncoded 11/27/18 10:08 Exam (Inpt) Vital signs and Labs for Last 24 Hours: Temp Pulse Resp BP Pulse Ox O2 Del Method O2 Flow Rate 97.7 F 98 H 24 150/80 H 94 L Room Air 2 02/23/25 04:00 02/23/25 04:00 02/23/25 04:00 02/23/25 04:00 02/23/25 04:00 02/23/25 06:42 02/23/25 04:00 Laboratory Results - last 24 hr 02/22/25 18:41: WBC 14.4 H, RBC 5.03, Hgb 14.2, Hct 43.8, MCV 87.1, MCH 28.2, MCHC 32.4, RDW 14.1, Plt Count 237, MPV 9.7, Neut % (Auto) 84.2 H, Lymph % (Auto) 10.1, [place] % (Auto) 4.6, Eos % (Auto) 0.3, Baso % (Auto) 0.3, Neut # (Auto) 12.1 H, Lymph # (Auto) 1.5, [place] # (Auto) 0.7, Eos # (Auto) 0.1, Baso # (Auto) 0.0, Sodium 134 L, Potassium 3.4 L, Chloride 95 L, Carbon Dioxide 35 H, Anion Gap 7.4, BUN 15 D, Creatinine 0.60, Estimated Creat Clear 162, Estimated GFR 104, Est GFR ( Amer) 126, Glucose 156 H, Calcium 9.4, Total Bilirubin 0.9, AST 66 H, ALT 78, Alkaline Phosphatase 120, Total Protein 7.0, Albumin 3.8, Globulin 3.2, Albumin/Globulin Ratio 1.2 02/22/25 18:54: VBG pH 7.34, VBG pCO2 60.7 H, VBG pO2 33.2, VBG HCO3 31.9 H, VBG Total CO2 33.7 H, VBG O2 Saturation 70.9 H, VBG Base Excess 6.1 H, VBG Lactic Acid 1.6 02/22/25 19:29: Urine Color [place], Urine Appearance Slightly cloudy, Urine pH 5.5, Ur Specific [place] 1.025, Urine Protein 2+ A, Urine Glucose (UA) Negative, Urine Ketones Trace, Urine Blood Negative, Urine Nitrate Positive A, Urine Bilirubin 3+ A, Urine Urobilinogen 2.0, Ur Leukocyte Esterase Negative, Urine RBC None, Urine WBC 5-10, Ur Squamous Epith Cells 5-10, Urine Bacteria 2+, Urine Mucus Trace 02/23/25 07:00: WBC 11.8 H, RBC 4.98, Hgb 14.0, Hct 44.3, MCV 89.0, MCH 28.1, MCHC 31.6 L, RDW 14.2, Plt Count 216, MPV 9.8, Neut % (Auto) 76.1, Lymph % (Auto) 12.0, [place] % (Auto) 10.3 H, Eos % (Auto) 0.9, Baso % (Auto) 0.3, Neut # (Auto) 9.0 H, Lymph # (Auto) 1.4, [place] # (Auto) 1.2 H, Eos # (Auto) 0.1, Baso # (Auto) 0.0, Sodium 141, Potassium 3.3 L, Chloride 103, Carbon Dioxide 35 H, Anion Gap 6.3, BUN 7 D, Creatinine 0.50 L, Estimated Creat Clear 196, Estimated GFR 129, Est GFR ( Amer) 156 D, Glucose 110 H D, Calcium 9.3 I & O for Labs for Last 24 Hours: Intake & Output 02/20/25 02/21/25 02/22/25 02/23/25 11:59 11:59 11:59 11:59 Intake Total 2747 / 2747 Output Total 0 / 0 Balance 2747 / 2747 Weight 212 lb 4.812 oz Constitutional: agitated Respiratory: Absent respiratory distress Cardiac: Present Tachycardia (Minimal) GI: Present soft Results Labs 02/23/25 07:00 02/23/25 07:00 Labs: Laboratory Results - last 24 hr 02/22/25 18:41: WBC 14.4 H, RBC 5.03, Hgb 14.2, Hct 43.8, MCV 87.1, MCH 28.2, MCHC 32.4, RDW 14.1, Plt Count 237, MPV 9.7, Neut % (Auto) 84.2 H, Lymph % (Auto) 10.1, [place] % (Auto) 4.6, Eos % (Auto) 0.3, Baso % (Auto) 0.3, Neut # (Auto) 12.1 H, Lymph # (Auto) 1.5, [place] # (Auto) 0.7, Eos # (Auto) 0.1, Baso # (Auto) 0.0, Sodium 134 L, Potassium 3.4 L, Chloride 95 L, Carbon Dioxide 35 H, Anion Gap 7.4, BUN 15 D, Creatinine 0.60, Estimated Creat Clear 162, Estimated GFR 104, Est GFR ( Amer) 126, Glucose 156 H, Calcium 9.4, Total Bilirubin 0.9, AST 66 H, ALT 78, Alkaline Phosphatase 120, Total Protein 7.0, Albumin 3.8, Globulin 3.2, Albumin/Globulin Ratio 1.2 02/22/25 18:54: VBG pH 7.34, VBG pCO2 60.7 H, VBG pO2 33.2, VBG HCO3 31.9 H, VBG Total CO2 33.7 H, VBG O2 Saturation 70.9 H, VBG Base Excess 6.1 H, VBG Lactic Acid 1.6 02/22/25 19:29: Urine Color [place], Urine Appearance Slightly cloudy, Urine pH 5.5, Ur Specific [place] 1.025, Urine Protein 2+ A, Urine Glucose (UA) Negative, Urine Ketones Trace, Urine Blood Negative, Urine Nitrate Positive A, Urine Bilirubin 3+ A, Urine Urobilinogen 2.0, Ur Leukocyte Esterase Negative, Urine RBC None, Urine WBC 5-10, Ur Squamous Epith Cells 5-10, Urine Bacteria 2+, Urine Mucus Trace 02/23/25 07:00: WBC 11.8 H, RBC 4.98, Hgb 14.0, Hct 44.3, MCV 89.0, MCH 28.1, MCHC 31.6 L, RDW 14.2, Plt Count 216, MPV 9.8, Neut % (Auto) 76.1, Lymph % (Auto) 12.0, [place] % (Auto) 10.3 H, Eos % (Auto) 0.9, Baso % (Auto) 0.3, Neut # (Auto) 9.0 H, Lymph # (Auto) 1.4, [place] # (Auto) 1.2 H, Eos # (Auto) 0.1, Baso # (Auto) 0.0, Sodium 141, Potassium 3.3 L, Chloride 103, Carbon Dioxide 35 H, Anion Gap 6.3, BUN 7 D, Creatinine 0.50 L, Estimated Creat Clear 196, Estimated GFR 129, Est GFR ( Amer) 156 D, Glucose 110 H D, Calcium 9.[address] scan - abdomen: report reviewed and image reviewed CT scan - pelvis: report reviewed and image reviewed Assessment and Plan *Assessment and plan (1) Diverticulitis of colon with perforation: Status: Acute Category: Medical Code(s): K57.20 - Diverticulitis of large intestine with perforation and abscess without bleeding Plan: Likely contained perforation with appropriate initial response to antibiotics. I have had a long conversation with the patient concerning their importance of close ongoing evaluation/IV antibiotics. Continue overall medical management (additional comorbid medical conditions, psychosocial aspects, etc.) as per the primary service Continue IV antibiotics Continue serial abdominal exams
[2025-02-23] MEDS: METRONIDAZ/SOD CHL 500 MG/100 ML PIGGYBACK 100 MG IV ×2 (09:39→20:55)
--- NOTE | 2025-02-23 09:48 | HMH.PHAINT1 ---
Pharmacy Intervention Comments: MEDICATION RECONCILIATION COMPLETE USING EXTERNAL PHARMACY FILL HISTORY.
[2025-02-23] MEDS: NICOTINE 21MG/24HR PATCH 21 MG TD (10:17)
--- NOTE | 2025-02-23 10:34 | PC.NURSE ---
patient able to walk to bathroom then to the window before walking back to bed
[2025-02-23] MEDS: CEFEPIME HCL 2 GM in 0.9 % SODIUM CHLORIDE 100 ML IV ×2 (10:40→21:33)
[2025-02-23] MEDS: KETOROLAC 30MG/ML VIAL 30 MG IV ×2 (11:13→17:30)
[2025-02-23] MEDS: VRAYLAR 1.5 MG 1 EACH PO (14:51)
--- NOTE | 2025-02-23 16:18 | EXP.ACUTE.PN ---
Subjective *Date: 02/23/25 *Time: 18:37 Interval history: Patient irritable this morning on rounds. Very tearful about life stressors. Complaining of lower abdominal pain. No nausea or vomiting. Is quite fatigued. Pupils pinpoint. Concern for oversedated however when I discussed potentially needing to give her Narcan, she woke up and was very adamant that she did not need Narcan. Answered questions appropriately. States she has not taken anything since yesterday. Takes meth and Percocets daily. Is fatigued because she does not have her drugs. Stable on room air at time of evaluation. Afebrile. Medical Exam Vital signs and Labs for Last 24 Hours: Vital Signs Temp Pulse Pulse Resp BP BP Pulse Ox 02/23/25 14:00 02/23/25 13:00 02/23/25 12:00 90 02/23/25 12:00 98 H 22 161/84 H 90 L 02/23/25 11:00 88 28 H 154/90 H 96 02/23/25 11:00 02/23/25 09:00 02/23/25 08:00 100 H 02/23/25 08:00 98 F 111 H 18 155/86 H 96 02/23/25 06:42 02/23/25 05:00 02/23/25 04:00 100 H 02/23/25 04:00 97.7 F 98 H 24 150/80 H 94 L 02/23/25 03:00 02/23/25 01:00 110 H 02/23/25 01:00 02/23/25 00:00 100.1 F H 106 H 16 172/81 H 90 L 02/22/25 23:05 98.5 F 103 H 18 120/73 96 02/22/25 23:00 02/22/25 23:00 02/22/25 22:14 99.0 F 84 18 112/57 L 02/22/25 21:00 84 112/57 L 95 02/22/25 20:48 106 H 110/61 95 02/22/25 19:01 111 H 88/60 L 97 02/22/25 18:34 99.0 F 114 H 18 124/65 95 02/22/25 18:30 102 H 124/65 95 O2 Del Method O2 Flow Rate 02/23/25 14:00 Nasal Cannula 1 02/23/25 13:00 Room Air 02/23/25 12:00 02/23/25 12:00 Nasal Cannula 1 02/23/25 11:00 Nasal Cannula 1 02/23/25 11:00 Nasal Cannula 1 02/23/25 09:00 Nasal Cannula 2 02/23/25 08:00 02/23/25 08:00 Room Air 02/23/25 06:42 Room Air 02/23/25 05:00 Room Air 02/23/25 04:00 02/23/25 04:00 Nasal Cannula 2 02/23/25 03:00 Nasal Cannula 2 02/23/25 01:00 02/23/25 01:00 Nasal Cannula 2 02/23/25 00:00 Room Air 02/22/25 23:05 Room Air 02/22/25 23:00 Room Air 02/22/25 23:00 Room Air 02/22/25 22:14 Nasal Cannula 2 02/22/25 21:00 02/22/25 20:48 02/22/25 19:01 02/22/25 18:34 Room Air 02/22/25 18:30 Room Air Intake and Output 02/23/25 02/23/25 02/23/25 07:59 15:59 23:59 Intake Total 2747 / 2847 100 / 2847 Output Total 0 / 250 250 / 250 Balance 2747 / 2597 -150 / 2597 Intake: Intake, Total IV Amount 2747 / 2847 100 / 2847 0.9 % Sodium Chloride 1000ML 1, 1117 / 1117 000 ml @ 125 mls/hr IV .Q8H [facility] Rx#:[id number] 0.9 % Sodium Chloride 1000ML 1, 1430 / 1430 430 ml @ 715 mls/hr IV .Q2H [facility] Rx#:[id number] Cefepime HCl 2 gm In 0.9 % 100 / 100 Sodium Chloride 100 ml @ 200 mls/hr IV ONCE ONE Rx#:[id number] Cefepime HCl 2 gm In 0.9 % 0 / 0 Sodium Chloride 100 ml @ 200 mls/hr IV Q12H [facility] Rx#:[id number] Metronidaz/Sod Chl 500 mg In 100 / 100 100 ml @ 100 mls/hr IV ONCE ONE Rx#:[id number] Metronidaz/Sod Chl 500 mg In 0 / 100 100 / 100 100 ml @ 100 mls/hr IV Q12 [facility] Rx#:[id number] Output: Output, Urine Amount 0 / 250 250 / 250 Other: Number of Unmeasured Voids 1 1 Weight 96.298 kg Patient Weight 02/23/25 23:59 Weight 96.298 kg Laboratory Results - last 24 hr 02/22/25 18:41: WBC 14.4 H, RBC 5.03, Hgb 14.2, Hct 43.8, MCV 87.1, MCH 28.2, MCHC 32.4, RDW 14.1, Plt Count 237, MPV 9.7, Neut % (Auto) 84.2 H, Lymph % (Auto) 10.1, [place] % (Auto) 4.6, Eos % (Auto) 0.3, Baso % (Auto) 0.3, Neut # (Auto) 12.1 H, Lymph # (Auto) 1.5, [place] # (Auto) 0.7, Eos # (Auto) 0.1, Baso # (Auto) 0.0, Sodium 134 L, Potassium 3.4 L, Chloride 95 L, Carbon Dioxide 35 H, Anion Gap 7.4, BUN 15 D, Creatinine 0.60, Estimated Creat Clear 162, Estimated GFR 104, Est GFR ( Amer) 126, Glucose 156 H, Calcium 9.4, Total Bilirubin 0.9, AST 66 H, ALT 78, Alkaline Phosphatase 120, Total Protein 7.0, Albumin 3.8, Globulin 3.2, Albumin/Globulin Ratio 1.2 02/22/25 18:54: VBG pH 7.34, VBG pCO2 60.7 H, VBG pO2 33.2, VBG HCO3 31.9 H, VBG Total CO2 33.7 H, VBG O2 Saturation 70.9 H, VBG Base Excess 6.1 H, VBG Lactic Acid 1.6 02/22/25 19:29: Urine Color [place], Urine Appearance Slightly cloudy, Urine pH 5.5, Ur Specific [place] 1.025, Urine Protein 2+ A, Urine Glucose (UA) Negative, Urine Ketones Trace, Urine Blood Negative, Urine Nitrate Positive A, Urine Bilirubin 3+ A, Urine Urobilinogen 2.0, Ur Leukocyte Esterase Negative, Urine RBC None, Urine WBC 5-10, Ur Squamous Epith Cells 5-10, Urine Bacteria 2+, Urine Mucus Trace 02/23/25 07:00: WBC 11.8 H, RBC 4.98, Hgb 14.0, Hct 44.3, MCV 89.0, MCH 28.1, MCHC 31.6 L, RDW 14.2, Plt Count 216, MPV 9.8, Neut % (Auto) 76.1, Lymph % (Auto) 12.0, [place] % (Auto) 10.3 H, Eos % (Auto) 0.9, Baso % (Auto) 0.3, Neut # (Auto) 9.0 H, Lymph # (Auto) 1.4, [place] # (Auto) 1.2 H, Eos # (Auto) 0.1, Baso # (Auto) 0.0, Sodium 141, Potassium 3.3 L, Chloride 103, Carbon Dioxide 35 H, Anion Gap 6.3, BUN 7 D, Creatinine 0.50 L, Estimated Creat Clear 196, Estimated GFR 129, Est GFR ( Amer) 156 D, Glucose 110 H D, Calcium 9.3 I & O for Labs for Last 24 Hours: Intake & Output 02/20/25 02/21/25 02/22/25 02/23/25 23:59 23:59 23:59 23:59 Intake Total 2847 / 2847 Output Total 250 / 250 Balance 2597 / 2597 Weight 96.298 kg 96.298 kg Constitutional: Present no acute distress, morbidly obese, chronically ill appearing and agitated Head: Present atraumatic and normocephalic ENT: Present normal exam Comment:: Pupils pinpoint Respiratory: Present normal respiratory effort; Absent rhonchi, wheezes or crackles Cardiac: Present Reg Rate and Rhythm GI: Present soft, tenderness (Lower abdomen) and normal bowel sounds; Absent distention, guarding or rebound Extremities: Present normal inspection and full ROM Skin: Present intact; Absent erythema Neuro: Present Grossly Intact, alert, awake, oriented x 3 and moves all extremities Comment:: Falls asleep easily, awoke to answer questions however. Assessment and Plan *Assessment and plan (1) Diverticulitis of colon with perforation: Status: Acute Category: Medical Code(s): K57.20 - Diverticulitis of large intestine with perforation and abscess without bleeding (2) Sepsis: Status: Acute Category: Medical Code(s): A41.9 - Sepsis, unspecified organism (3) Acute cystitis: Status: Acute Category: Medical Code(s): N30.00 - Acute cystitis without hematuria (4) Morbid obesity: Status: Acute Category: Medical Code(s): E66.01 - Morbid (severe) obesity due to excess calories (5) Substance dependence: Status: Acute Category: Medical Code(s): F19.20 - Other psychoactive substance dependence, uncomplicated Plan 55-year-old female who initially presented with abdominal pain, was diagnosed with perforated diverticulum. Left the ER AMA. Repossessed due to worsening symptoms. Case discussed with ER physician, request admission for management of sepsis and perforated diverticulitis. Medicine agreed to admit. Initiated on broad-spectrum antibiotics. Surgery assisting with care. Medically managing for now. Seeing some improvement in labs with decrease in white count. Continues to require patient management. Problems addressed as follows: #Sepsis without septic shock #Diverticulitis of colon with perforation -CT per my review with small perforation of diverticulum. Inflammation around the colon consistent with diverticulitis. Continue broad-spectrum antibiotics with cefepime and Flagyl IV due to penicillin allergy -Surgery consulted, discussed case this morning. Continue with serial exams and IV antibiotics. Monitor for need for possible intervention over the coming days if symptoms worsen. No daniel peritonitis at this time. -Okay to continue with clear liquid diet for now. -Due to patient's substance dependence, with difficulty with pain control. Morphine 4 mg IV every 4 hours as needed for severe breakthrough pain, monitor for toxicity as well as opiate withdrawal given patient's Percocet use illicitly. Continue Toradol 30 mg IV every 6 hours for moderate to severe pain. #Toxic encephalopathy Patient is slow to respond to questions likely secondary to chronic drug use including snorting Percocet pills. Maintaining airway, will wake up and answer questions Continue to monitor neurostatus #Substance abuse Patient admits to multiple different types of substance abuse including snorting Percocet 30 mg daily as well as crack cocaine. Hold all sedating meds except for as needed pain medication for acute abdomen COPD: Continue home Trelegy. Will consider DuoNebs every 6 hours as needed if develops respiratory symptoms Hypertension: Irbesartan 150mg HS as formulary conversion. Continue metoprolol succinate 50 mg daily Mood disorder: Continue Vraylar 1.5 mg daily Obesity complicates all aspects of her care Full code Clear liquid diet Holding anticoagulation in anticipation of potential surgery
[2025-02-23] MEDS: IRBESARTAN 150MG TAB 150 MG PO (20:54)
[2025-02-24] VITALS (15 sets, daily range): BP systolic 124–164; BP diastolic 65–90; PULSE 77–120; RESP 16–27; TEMP 36.9–38.1; O2SAT 93–100; BMI 39.6
[2025-02-24] MEDS: MORPHINE 2MG/ML SYRINGE 4 MG IV ×2 (00:06→08:25)
[2025-02-24] MEDS: ACETAMINOPHEN 325MG TAB 650 MG PO (00:11)
[2025-02-24 06:03] LABS: Basophils % 0.2 % (0.1-2.0); Eosinophils # 0.1 K/mm3 (0.0-0.4); Eosinophils % 1.3 % (0.1-12.0); Hematocrit 43.6 % (37.0-47.0); Hemoglobin 13.9 g/dL (12.2-16.2); Lymphocytes # 1.2 K/mm3 (0.7-4.5); Lymphocytes % 10.5 % (10-50); Mean Corpuscular HGB Conc 31.9 g/dL (31.8-35.4); Mean Corpuscular Hemoglobin 28.1 pg (27.0-31.2); Mean Corpuscular Volume 88.1 fl (81-99); Mean Platelet Volume 9.7 fl (7.4-10.4); Monocytes # 1.1 K/mm3 (0.1-1.0); Monocytes % 9.9 % (1.7-9.3); Neutrophils # 8.6 K/mm3 (1.8-7.8); Neutrophils % 77.6 % (37.0-80.0); Platelet Count 206 K/mm3 (142-424); Red Blood Count 4.95 M/mm3 (4.20-5.40); Red Cell Distribution Width 13.6 % (11.5-17.5); White Blood Count 11.1 K/mm3 (4.8-10.8)
[2025-02-24 06:09] LABS: Albumin Level 3.1 g/dl (3.5-5.0); Chloride 103 mmol/L (98-107); Potassium 3.5 mmoL/L (3.5-5.1); Sodium 140 mmol/L (136-145)
[2025-02-24 06:12] LABS: Alanine Aminotransferase 53 U/L (12-78); Alkaline Phosphatase 123 U/L (38-126); Anion Gap 6.5 mEq/L (5-15); Aspartate Amino Transferase 34 U/L (14-36); Bilirubin,Total 0.6 mg/dl (0.2-1.3); Blood Urea Nitrogen 6 mg/dl (7-17); Calcium 9.3 mg/dl (8.4-10.2); Carbon Dioxide 34 mmol/L (22.0-30.0); Creatinine Clearance Estimated 242 mL/min (50-200); Estimated Glomerular Filt Rate 166 ml/min (>60); GFR (African American) 201 ML/MIN (>60); Glucose 108 mg/dl (74-100); Total Protein,Serum 6.1 g/dl (6.3-8.2)
--- NOTE | 2025-02-24 08:00 | P.PN_ITS ---
Subjective Patient reports: diarrhea Narrative: She reports crampy abdominal pain and loose stools. She states that she is not tender to palpation. Exam Data for Last 24 hours Vital signs and Labs for Last 24 Hours: Temp Pulse Resp BP Pulse Ox O2 Del Method O2 Flow Rate 100.6 F H 77 18 157/74 H 96 Room Air 2 02/24/25 00:38 02/24/25 06:41 02/24/25 06:41 02/24/25 06:41 02/24/25 07:54 02/24/25 07:54 02/24/25 06:41 Laboratory Results - last 24 hr 02/23/25 07:00: Sodium 141, Potassium 3.3 L, Chloride 103, Carbon Dioxide 35 H, Anion Gap 6.3, BUN 7 D, Creatinine 0.50 L, Estimated Creat Clear 196, Estimated GFR 129, Est GFR ( Amer) 156 D, Glucose 110 H D, Calcium 9.3 02/24/25 05:24: WBC 11.1 H, RBC 4.95, Hgb 13.9, Hct 43.6, MCV 88.1, MCH 28.1, MCHC 31.9, RDW 13.6, Plt Count 206, MPV 9.7, Neut % (Auto) 77.6, Lymph % (Auto) 10.5, [place] % (Auto) 9.9 H, Eos % (Auto) 1.3, Baso % (Auto) 0.2, Neut # (Auto) 8 .6 H, Lymph # (Auto) 1.2, [place] # (Auto) 1.1 H, Eos # (Auto) 0.1, Baso # (Auto) 0.0, Sodium 140, Potassium 3.5, Chloride 103, Carbon Dioxide 34 H, Anion Gap 6.5, BUN 6 L, Creatinine 0.40 L, Estimated Creat Clear 242, Estimated GFR 166, Est GFR ( Amer) 201 D, Glucose 108 H, Calcium 9.3, Magnesium 2.0, Total Bilirubin 0.6, AST 34 D, ALT 53 D, Alkaline Phosphatase 123, Total Protein 6.1 L, Albumin 3.1 L D, Globulin 3.0, Albumin/Globulin Ratio 1.0 L I & O for Last 24 hours: Intake & Output 02/21/25 02/22/25 02/23/25 02/24/25 11:59 11:59 11:59 11:59 Intake Total 2847 / 2847 210 / 210 Output Total 250 / 250 200 / 200 Balance 2597 / 2597 Weight 212 lb 4.812 oz 209 lb 14.081 oz Microbiology Reports for the Last 24 Hours: Microbiology 02/22/25 19:20 Blood Blood Culture - Preliminary NO GROWTH AFTER 24 HOURS 02/22/25 19:12 Blood Blood Culture - Preliminary NO GROWTH AFTER 24 HOURS Constitutional Constitutional: no acute distress *Routine Respiratory Exam Respiratory: Absent respiratory distress *Routine Abdominal Exam Abdominal: Present soft Comments: No significant tenderness to mild/moderate palpation. Progress Note: A&P Assessment and plan (1) Diverticulitis of colon with perforation: Status: Acute Assessment and plan: Improving on antibiotics. Continuing IV antibiotics for course completion is not likely a viable option secondary to psychosocial factors. Okay from surgical standpoint to convert to PO Levaquin/Flagyl with close ongoing observation Repeat CBC in a.m. (2) Acute cystitis: Status: Acute (3) Substance dependence: Status: Acute
[2025-02-24] MEDS: NICOTINE 21MG/24HR PATCH 21 MG TD (08:25)
[2025-02-24] MEDS: ENOXAPARIN 40MG/0.4ML SYRINGE 40 MG SUBCUT (08:25)
[2025-02-24] MEDS: VRAYLAR 1.5 MG 1 EACH PO (08:26)
[2025-02-24] MEDS: metroNIDAZOLE 500 MG TABLET PO ×3 (08:38→20:10)
[2025-02-24] MEDS: METOPROLOL SUCCINATE XL 50MG TABLET 50 MG PO (08:41)
--- NOTE | 2025-02-24 09:00 | P.PN_ITS ---
Subjective *Date: 02/24/25 *Time: 21:53 Interval history: Having some improvement in her pain this morning. Denies chest pain or shortness of breath. Did have some diarrhea overnight. No nausea or vomiting. Stable on room air, Afebrile Medical Exam Vital signs and Labs for Last 24 Hours: Vital Signs Temp Pulse Pulse Resp BP Pulse Ox O2 Del Method 02/24/25 08:52 Room Air 02/24/25 08:00 98.4 F 117 H 20 156/74 H 93 L Room Air 02/24/25 07:54 96 Room Air 02/24/25 06:41 77 18 157/74 H 98 Nasal Cannula 02/24/25 06:05 Nasal Cannula 02/24/25 06:00 103 H 16 153/80 H 99 Nasal Cannula 02/24/25 05:04 99 H 27 H 164/90 H 100 Nasal Cannula 02/24/25 04:11 Nasal Cannula 02/24/25 04:00 100 H 02/24/25 03:52 102 H 23 142/83 H 99 Nasal Cannula 02/24/25 03:00 Nasal Cannula 02/24/25 02:47 98 H 25 H 129/65 98 Nasal Cannula 02/24/25 02:00 Nasal Cannula 02/24/25 00:38 100.6 F H 110 H 20 124/70 97 Nasal Cannula 02/24/25 00:27 Nasal Cannula 02/24/25 00:00 102 H 02/23/25 23:23 117 H 29 H 171/90 H 94 L Nasal Cannula 02/23/25 21:59 Nasal Cannula 02/23/25 21:44 98.6 F 98 H 31 H 155/87 H 96 Nasal Cannula 02/23/25 20:04 Room Air 02/23/25 20:00 100 H 02/23/25 20:00 96 Nasal Cannula 02/23/25 19:58 91 H 30 H 141/60 H 95 Room Air 02/23/25 18:40 Nasal Cannula 02/23/25 18:00 109 H 26 H 135/67 98 Nasal Cannula 02/23/25 17:00 Nasal Cannula 02/23/25 16:00 97 H 22 163/83 H 96 Nasal Cannula 02/23/25 16:00 90 02/23/25 15:00 Nasal Cannula 02/23/25 14:00 Nasal Cannula 02/23/25 13:00 Room Air 02/23/25 12:00 90 02/23/25 12:00 98 H 22 161/84 H 90 L Nasal Cannula 02/23/25 11:00 88 28 H 154/90 H 96 Nasal Cannula 02/23/25 11:00 Nasal Cannula O2 Flow Rate 02/24/25 08:52 02/24/25 08:00 02/24/25 07:54 02/24/25 06:41 2 02/24/25 06:05 2 02/24/25 06:00 2 02/24/25 05:04 2.0 02/24/25 04:11 2 02/24/25 04:00 02/24/25 03:52 2 02/24/25 03:00 2.5 02/24/25 02:47 2.5 02/24/25 02:00 2.5 02/24/25 00:38 2.5 02/24/25 00:27 2.5 02/24/25 00:00 02/23/25 23:23 2.5 02/23/25 21:59 2 02/23/25 21:44 2 02/23/25 20:04 02/23/25 20:00 02/23/25 20:00 2 02/23/25 19:58 02/23/25 18:40 2 02/23/25 18:00 2 02/23/25 17:00 2 02/23/25 16:00 2 02/23/25 16:00 02/23/25 15:00 2 02/23/25 14:00 1 02/23/25 13:00 02/23/25 12:00 02/23/25 12:00 1 02/23/25 11:00 1 02/23/25 11:00 1 Intake and Output 02/23/25 02/24/25 02/24/25 23:59 07:59 15:59 Intake Total 210 / 3057 335 / 335 Output Total 0 / 250 200 / 500 300 / 500 Balance 210 / 2807 -200 / -165 35 / -165 Intake: Intake, Oral Amount 335 / 335 Intake, Total IV Amount 200 / 3047 Cefepime HCl 2 gm In 0.9 % 100 / 100 Sodium Chloride 100 ml @ 200 mls/hr IV Q12H [facility] Rx#:[id number] Metronidaz/Sod Chl 500 mg In 100 / 200 100 ml @ 100 mls/hr IV Q12 [facility] Rx#:[id number] Output: Output, Urine Amount 0 / 250 200 / 500 300 / 500 Other: Number of Voids 1 Number of Unmeasured Voids 1 1 Number of Bowel Movements 1 1 Weight 95.2 kg Patient Weight 02/24/25 23:59 Weight 95.2 kg Laboratory Results - last 24 hr 02/24/25 05:24: WBC 11.1 H, RBC 4.95, Hgb 13.9, Hct 43.6, MCV 88.1, MCH 28.1, MCHC 31.9, RDW 13.6, Plt Count 206, MPV 9.7, Neut % (Auto) 77.6, Lymph % (Auto) 10.5, [place] % (Auto) 9.9 H, Eos % (Auto) 1.3, Baso % (Auto) 0.2, Neut # (Auto) 8.6 H, Lymph # (Auto) 1.2, [place] # (Auto) 1.1 H, Eos # (Auto) 0.1, Baso # (Auto) 0.0, Sodium 140, Potassium 3.5, Chloride 103, Carbon Dioxide 34 H, Anion Gap 6.5, BUN 6 L, Creatinine 0.40 L, Estimated Creat Clear 242, Estimated GFR 166, Est GFR ( Amer) 201 D, Glucose 108 H, Calcium 9.3, Magnesium 2.0, Total Bilirubin 0.6, AST 34 D, ALT 53 D, Alkaline Phosphatase 123, Total Protein 6.1 L, Albumin 3.1 L D, Globulin 3.0, Albumin/Globulin Ratio 1.0 L I & O for Labs for Last 24 Hours: Intake & Output 02/21/25 02/22/25 02/23/25 02/24/25 23:59 23:59 23:59 23:59 Intake Total 3057 / 3057 335 / 335 Output Total 250 / 250 500 / 500 Balance 2807 / 2807 -165 / -165 Weight 96.298 kg 96.298 kg 95.2 kg Microbiology Reports for the Last 24 Hours: Microbiology 02/22/25 19:20 Blood Blood Culture - Preliminary NO GROWTH AFTER 24 HOURS 02/22/25 19:12 Blood Blood Culture - Preliminary NO GROWTH AFTER 24 HOURS Constitutional: Present no acute distress, morbidly obese, chronically ill appe aring and agitated Head: Present atraumatic and normocephalic ENT: Present normal exam Respiratory: Present normal respiratory effort; Absent rhonchi, wheezes or crackles Cardiac: Present Reg Rate and Rhythm GI: Present soft, tenderness (Improved, minimal in lower abdomen) and normal bowel sounds; Absent distention, guarding or rebound Extremities: Present normal inspection and full ROM Skin: Present intact; Absent erythema Neuro: Present Grossly Intact, alert, awake, oriented x 3 and moves all extremities Comment:: Falls asleep easily, awoke to answer questions however. Assessment and Plan *Assessment and plan (1) Diverticulitis of colon with perforation: Status: Acute Category: Medical Code(s): K57.20 - Diverticulitis of large intestine with perforation and abscess without bleeding (2) Sepsis: Status: Acute Category: Medical Code(s): A41.9 - Sepsis, unspecified organism (3) Acute cystitis: Status: Acute Category: Medical Code(s): N30.00 - Acute cystitis without hematuria (4) Morbid obesity: Status: Acute Category: Medical Code(s): E66.01 - Morbid (severe) obesity due to excess calories (5) Substance dependence: Status: Acute Category: Medical Code(s): F19.20 - Other psychoactive substance dependence, uncomplicated Plan 55-year-old female who initially presented with abdominal pain, was diagnosed with perforated diverticulum. Left the ER AMA. Repossessed due to worsening symptoms. Case discussed with ER physician, request admission for management of sepsis and perforated diverticulitis. Medicine agreed to admit. Initiated on broad-spectrum antibiotics. Surgery assisting with care. Medically managing for now. Seeing some improvement in labs with decrease in white count. Continues to require patient management. Problems addressed as follows: #Sepsis without septic shock #Diverticulitis of colon with perforation -Improvement on exam today. Transition to oral antibiotics after discussion with surgery. Will initiate Levaquin 750 mg daily and continue Flagyl 500 mg p.o. 3 times a day. If abdomen doing better in the morning, anticipate discharge home with close management/follow-up as an outpatient. -White count improved to 11. Repeat CBC, CMP, magnesium ordered for the morning -Kidney function stable with BUN 6, creatinine 0.4. Potassium 3.5 with magnesium 2.0 -Continue with full liquid diet -Due to patient's substance dependence, with difficulty with pain control. Morphine 4 mg IV every 4 hours as needed for severe breakthrough pain, monitor for toxicity as well as opiate withdrawal given patient's Percocet use illicitly. Continue Toradol 30 mg IV every 6 hours for moderate to severe pain. #Toxic encephalopathy -Improved today. Monitoring after she has visitors #Substance abuse Patient admits to multiple different types of substance abuse including snorting Percocet 30 mg daily as well as crack cocaine. Hold all sedating meds except for as needed pain medication for acute abdomen COPD: Continue home Trelegy. Will consider DuoNebs every 6 hours as needed if d evelops respiratory symptoms Hypertension: Irbesartan 150mg HS as formulary conversion. Continue metoprolol succinate 50 mg daily Mood disorder: Continue Vraylar 1.5 mg daily Obesity complicates all aspects of her care Full code Full liquid diet Prophylaxis Lovenox 40 mg daily
[2025-02-24] MEDS: FLUTICASONE/UMECLIDIN/VILANTER 100/62.5/25MCG INHALER 1 PUFF IH (10:52)
[2025-02-24] MEDS: levoFLOXacin 750 MG TABLET PO (11:21)
--- NOTE | 2025-02-24 16:49 | PC.NURSE ---
No acute events. Pt independent w/ ADL's. Showered and received linen change. Peer support has been to visit w/ pt multiple times throughout shift. Pt perceptive and pleasant. C/o pain once this shift, medicated per JAN w/ favorable results. Ambulated in hallway w/ standby assist of staff, no safety concerns. Call marcano w/in reach. POC ongoing.
--- NOTE | 2025-02-24 17:10 | PEERSUPPORT ---
Peer Support Note Patient Information Patient Information: DOS: 02/24/2025 ? Drug(s) of Choice: Cocaine (crack) , Percocet, Meth ? Use Hx: Began using at 19, THC that led to harder drugs: opiates, cocaine, crack cocaine. Legal and family consequences from drug use. ? Previous MAT/MOUD: None ? Current MAT/MOUD: None ? Desire for MAT/MOUD: Pt is interested in inpatient treatment ? Previous Treatment: No treatment, she had a plan to go to inpatient treatment at one time by choice of her own, did not end up going. ? Longest Length of Sobriety: ?3 years while incarcerated 6 [address] on [address] streets after being released. ? Support System: Son, father ?? ? Legal Issues: Court dates coming up March 12, civil charges. ? Current stressors: -Beeping noises of the monitors -Restlessness but tired -Concerns of her dogs at her home ? Potential Barriers: -Lack of connection to recovery support or treatment -Lack of education of Substance use disorder and underlying issues -Pets to care for at her home without anyone reliable to help. ? Harm reduction: -Connection to [facility] peer support -Awareness to treatment available -Treatment options ? ? Motivation for Change: Pt stated she has never been offered treatment through the court system when she would have any drug charges in the past. She felt as if they saw her only fit for [facility] or long-term. She stated she would go to treatment but not from the hospital, as she has two dogs at home she loves and would need to arrange some where they can go. ? Pt is receptive to ps, and agrees to follow ups. ? Plan of Action: -Focus on physical wellbeing while admitted without leaving AMA. -Rest, allowing others to care for her medically. -Healthy communication
[2025-02-24] MEDS: IRBESARTAN 150MG TAB 150 MG PO (20:10)
--- NOTE | 2025-02-25 03:55 | PC.NURSE ---
Patient is alert and oriented x4. She was observed to have eyes closed, respirations even/unlabored on room air, and no apparent distress throughout the majority of the night. She has not had any complaints of abdominal pain this shift. Abdomen was soft, non-tender, and non-distended upon palpation. Bowel sounds active. Upon auscultation of her lungs, expiratory wheezing was heard in both bases, and diminished sounds were heard bilaterally throughout. Heart rate has been slightly elevated (100s bpm) this shift. Patient has been tolerating a full liquid diet well; vanilla pudding cups and chicken broth were given at bedtime. Scheduled medications administered as appropriately per JAN. She ambulates independently in her room/to the bathroom without difficulties. At this time, the patient is resting in bed without any further complaints. Smoking policy reiterated to the patient. No acute changes noted thus far. Call light within reach.
[2025-02-25 04:00] VITALS: BP 154/77; PULSE 97; RESP 16; TEMP 36.1; O2SAT 96; BMI 40.5
[2025-02-25] MEDS: FLUTICASONE/UMECLIDIN/VILANTER 100/62.5/25MCG INHALER 1 PUFF IH (05:58)
[2025-02-25 06:49] LABS: Eosinophils # 0.1 K/mm3 (0.0-0.4); Eosinophils % 0.8 % (0.1-12.0); Lymphocytes # 1.8 K/mm3 (0.7-4.5); Mean Corpuscular HGB Conc 32.7 g/dL (31.8-35.4); Mean Corpuscular Hemoglobin 27.8 pg (27.0-31.2); Mean Platelet Volume 9.5 fl (7.4-10.4); Monocytes # 0.9 K/mm3 (0.1-1.0); Neutrophils # 7.7 K/mm3 (1.8-7.8); Red Cell Distribution Width 13.5 % (11.5-17.5); White Blood Count 10.6 K/mm3 (4.8-10.8)
[2025-02-25 07:03] LABS: Albumin Level 3.3 g/dl (3.5-5.0); Chloride 104 mmol/L (98-107)
[2025-02-25 07:04] LABS: Potassium 3.3 mmoL/L (3.5-5.1); Sodium 138 mmol/L (136-145)
[2025-02-25 07:06] LABS: Blood Urea Nitrogen 4 mg/dl (7-17); Creatinine Clearance Estimated 193 mL/min (50-200); Estimated Glomerular Filt Rate 129 ml/min (>60); GFR (African American) 156 ML/MIN (>60)
[2025-02-25 07:07] LABS: Alanine Aminotransferase 37 U/L (12-78); Alkaline Phosphatase 115 U/L (38-126); Anion Gap 9.3 mEq/L (5-15); Aspartate Amino Transferase 21 U/L (14-36); Bilirubin,Total 0.5 mg/dl (0.2-1.3); Calcium 9.4 mg/dl (8.4-10.2); Carbon Dioxide 28 mmol/L (22.0-30.0); Globulin 3.2 g/dL (1.3-3.2); Glucose 107 mg/dl (74-100); Total Protein,Serum 6.5 g/dl (6.3-8.2)
[2025-02-25 07:08] LABS: Basophils % 0.4 % (0.1-2.0); Hematocrit 42.5 % (37.0-47.0); Hemoglobin 13.9 g/dL (12.2-16.2); Monocytes % 8.7 % (1.7-9.3); Neutrophils % 72.5 % (37.0-80.0); Platelet Count 259 K/mm3 (142-424)
--- NOTE | 2025-02-25 07:08 | EXP.SURG.PN ---
Subjective Narrative: She states that she feels better overall . She is hopeful that she will be discharged later today. She does have some crampiness . She states that her pain is otherwise gone . Exam Data for Last 24 hours Vital signs and Labs for Last 24 Hours: Temp Pulse Resp BP Pulse Ox O2 Del Method O2 Flow Rate 97 F L 97 H 16 154/77 H 96 Room Air 2 02/25/25 04:00 02/25/25 04:00 02/25/25 04:00 02/25/25 04:00 02/25/25 04:00 02/25/25 06:35 02/24/25 06:41 I & O for Last 24 hours: Intake & Output 02/22/25 02/23/25 02/24/25 02/25/25 11:59 11:59 11:59 11:59 Intake Total 2847 / 2847 545 / 545 1338 / 1338 Output Total 250 / 250 500 / 500 0 / 0 Balance 2597 / 2597 45 / 45 1338 / 1338 Weight 212 lb 4.812 oz 209 lb 14.081 oz 209 lb 5 oz Microbiology Reports for the Last 24 Hours: Microbiology 02/22/25 19:20 Blood Blood Culture - Preliminary NO GROWTH AFTER 48 HOURS 02/22/25 19:12 Blood Blood Culture - Preliminary NO GROWTH AFTER 48 HOURS Constitutional Constitutional: no acute distress *Routine Respiratory Exam Respiratory: Absent respiratory distress *Routine Abdominal Exam Abdominal: Present soft Comments: No significant tenderness to mild/moderate palpation. Progress Note: A&P Assessment and plan (1) Diverticulitis of colon with perforation: Status: Acute Assessment and plan: Improving on antibiotics. Currently on PO antibiotics. IV antibiotics for course completion is not likely a viable option secondary to psychosocial factors. Follow-up a.m. labs Possible discharge home with plan to complete course of antibiotics Close outpatient follow-up (2) Sepsis: Status: Acute (3) Acute cystitis: Status: Acute (4) Morbid obesity: Status: Acute (5) Substance dependence: Status: Acute
[2025-02-25 07:55] LABS: Magnesium 1.8 mg/dl (1.6-2.3)
[2025-02-25 08:00] VITALS: BP 155/93; PULSE 107; RESP 20; TEMP 36.8; O2SAT 97
[2025-02-25 08:45] VITALS: PULSE 107; RESP 18; O2SAT 97
[2025-02-25] MEDS: METOPROLOL SUCCINATE XL 50MG TABLET 50 MG PO (08:47)
[2025-02-25] MEDS: metroNIDAZOLE 500 MG TABLET PO ×2 (08:47→12:07)
[2025-02-25] MEDS: VRAYLAR 1.5 MG 1 EACH PO (08:47)
[2025-02-25] MEDS: NICOTINE 21MG/24HR PATCH 21 MG TD (08:47)
[2025-02-25] MEDS: ENOXAPARIN 40MG/0.4ML SYRINGE 40 MG SUBCUT (08:47)
[2025-02-25 12:00] VITALS: BP 130/98; PULSE 108; RESP 20; TEMP 36.4; O2SAT 97
[2025-02-25] MEDS: levoFLOXacin 750 MG TABLET PO (12:07)
--- NOTE | 2025-02-25 12:52 | EXP.DC.SUM ---
General Admission date:: 02/22/25 HPI HPI HPI: This is a 55-year-old female seen in consultation from the primary service after presenting to the emergency department with increasing abdominal pain. Emergency department evaluation reviewed Admission H&P reviewed (HPI forwarded below) She states that she does not really hurt right now . She is very upset about being in the hospital and very upset about not being able to smoke . Forwarded from admission H&P: This is a 55-year-old female with a past medical history of significant substance abuse, chronic obstructive pulmonary disease who is a return ER patient for abdominal pain. Patient presented the emergency department last night for abdominal pain. Stated that her pain was lower in her abdomen and felt it was her bladder. States that she has had difficulty with urination for approximately 1 week. She denies any fever, nausea, vomiting or diarrhea. Workup yesterday noted mild to distal acute diverticulitis with contained microperforation. She had a white count of 14 yesterday. She ultimately signed out AMA due to life stressors at home despite ER's adamant attempts to admit her to the hospital. She presents back today with similar complaints. States that she has had continued pressure. On arrival today she was noted to be hypotensive and tachycardic. White count stable at 14. Repeat imaging today notable for contained perforation due to severe sigmoid diverticulitis within large area that could be loculated drainable collection, not present on prior CT. Slightly increased pericolonic inflammation noted as well. Urinalysis also notable for nitrite positive urine with white cells and +2 bacteria. Today patient is in agreements with hospitalization. White count is stable at 14. Blood pressure and heart rate improved with IV fluid administration. Case was discussed with Dr. Dong by ER provider and will see patient in AM given patient's stable condition. Continue to treat with broad-spectrum coverage, clear liquid diet IV fluids and sepsis protocol. Hospital Course Hospital Course Hospital Course: Ofelia Napoles is a 55-year-old female who initially presented with abdominal pain, was diagnosed with perforated diverticulum. Left the ER AMA. Returned due to worsening symptoms. Case discussed with ER physician, request admission for management of sepsis and perforated diverticulitis. Medicine agreed to admit. Initiated on broad-spectrum antibiotics. Surgery assisting with care. Medically managed. #Sepsis without septic shock #Diverticulitis of colon with perforation ? CT abdomen/pelvis revealed diverticulitis with perforation. Initial WBC 14.7, improved to 10.6. ? General Surgery consulted, clinically improved with IV Zosyn.transitioned to levofloxacin 750 mg and metronidazole 500 mg 3 times daily for 3 more days. ? Advanced diet to low residue, tolerated well without nausea/vomiting/abdominal pain. Having bowel movements. ? Advised to follow-up with general surgery within 1 week. #Opioid use disorder #Substance use disorder ? Patient admits to multiple different types of substance abuse including snorting Percocet 30 mg daily as well as crack cocaine. ? Patient tearful on exam, very motivated to detox. Has had 3 family passing's in the last year. ? Discussed with firearms specialist Leonarda, patient will follow-up with [facility] detox clinic within 1 week. Discharged with Suboxone 8/2 mg daily. COPD: Continue home Trelegy. Hypertension: Continue losartan, hydrochlorothiazide. Mood disorder: Continue Vraylar 1.5 mg daily Obesity complicates all aspects of her care Total time spent on discharge: 40 minutes on chart review, counseling, documentation, and direct care with patient. Exam Data for Last 24 hours Vital signs and Labs for Last 24 Hours: Temp Pulse Resp BP Pulse Ox O2 Del Method O2 Flow Rate 98.2 F 107 H 18 155/93 H 97 Room Air 2 02/25/25 08:00 02/25/25 08:45 02/25/25 08:45 02/25/25 08:00 02/25/25 08:45 02/25/25 11:12 02/24/25 06:41 Laboratory Results - last 24 hr 02/25/25 06:12: WBC 10.6, RBC 5.00, Hgb 13.9, Hct 42.5, MCV 85.0, MCH 27.8, MCHC 32.7, RDW 13.5, Plt Count 259 D, MPV 9.5, Neut % (Auto) 72.5, Lymph % (Auto) 17.0, [place] % (Auto) 8.7, Eos % (Auto) 0.8, Baso % (Auto) 0.4, Neut # (Auto) 7.7, Lymph # (Auto) 1.8, [place] # (Auto) 0.9, Eos # (Auto) 0.1, Baso # (Auto) 0.0, Sodium 138, Potassium 3.3 L, Chloride 104, Carbon Dioxide 28, Anion Gap 9.3, BUN 4 L D, Creatinine 0.50 L D, Estimated Creat Clear 193, Estimated GFR 129, Est GFR ( Amer) 156 D, Glucose 107 H, Calcium 9.4, Magnesium 1.8, Total Bilirubin 0.5, AST 21 D, ALT 37 D, Alkaline Phosphatase 115, Total Protein 6.5, Albumin 3.3 L, Globulin 3.2, Albumin/Globulin Ratio 1.0 L I & O for Last 24 hours: Intake & Output 02/22/25 02/23/25 02/24/25 02/25/25 23:59 23:59 23:59 23:59 Intake Total 3057 / 3057 1355 / 1673 558 / 558 Output Total 250 / 250 500 / 500 Balance 2807 / 2807 855 / 1173 558 / 558 Weight 96.298 kg 96.298 kg 95.2 kg 94.943 kg Microbiology Reports for the Last 24 Hours: Microbiology 02/22/25 19:20 Blood Blood Culture - Preliminary NO GROWTH AFTER 48 HOURS 02/22/25 19:12 Blood Blood Culture - Preliminary NO GROWTH AFTER 48 HOURS Constitutional Constitutional: no acute distress and obese *Routine HEENT Exam Head: Present normocephalic Eye: Present EOMI and PERRL ENT: Present mucous membranes moist *Routine Neck Exam Neck: Present supple; Absent lymphadenopathy *Routine Respiratory Exam Respiratory: Present CTA bilaterally *Routine Cardiovascular Exam Cardiovascular: Present RRR *Routine Abdominal Exam Abdominal: Present soft and normoactive bowel sounds; Absent tenderness *Routine Extremities Exam Extremities: Absent cyanosis, clubbing or edema *Routine Skin Exam Skin: Present warm; Absent rash *Routine Neurological Exam Neurological: Present alert and oriented X3 Results Data Completed and Pending Labs on day of discharge: Labs from last 24 hours 02/25/25 06:12 WBC 10.6 RBC 5.00 Hgb 13.9 Hct 42.5 MCV 85.0 MCH 27.8 MCHC 32.7 RDW 13.5 Plt Count 259 D MPV 9.5 Neut % (Auto) 72.5 Lymph % (Auto) 17.0 [place] % (Auto) 8.7 Eos % (Auto) 0.8 Baso % (Auto) 0.4 Neut # (Auto) 7.7 Lymph # (Auto) 1.8 [place] # (Auto) 0.9 Eos # (Auto) 0.1 Baso # (Auto) 0.0 Sodium 138 Potassium 3.3 L Chloride 104 Carbon Dioxide 28 Anion Gap 9.3 BUN 4 L D Creatinine 0.50 L D Estimated Creat Clear 193 Estimated GFR 129 Est GFR ( Amer) 156 D Glucose 107 H Calcium 9.4 Magnesium 1.8 Total Bilirubin 0.5 AST 21 D ALT 37 D Alkaline Phosphatase 115 Total Protein 6.5 Albumin 3.3 L Globulin 3.2 Albumin/Globulin Ratio 1.0 L Preliminary micro results at discharge 02/22/25 19:20 Blood Culture - Preliminary Blood NO GROWTH AFTER 48 HOURS 02/22/25 19:12 Blood Culture - Preliminary Blood NO GROWTH AFTER 48 HOURS DS: Diagnosis Discharge Diagnosis (1) Diverticulitis of colon with perforation: Status: Acute Code(s): K57.20 - Diverticulitis of large intestine with perforation and abscess without bleeding (2) Sepsis: Status: Acute Code(s): A41.9 - Sepsis, unspecified organism (3) Acute cystitis: Status: Acute Code(s): N30.00 - Acute cystitis without hematuria (4) Morbid obesity: Status: Acute Code(s): E66.01 - Morbid (severe) obesity due to excess calories (5) Substance dependence: Status: Acute Code(s): F19.20 - Other psychoactive substance dependence, uncomplicated Meds Home Medications and Allergies Home Medications ?Medication ?Instructions ?Recorded ?Confirmed ?Type cariprazine 1.5 mg capsule 1.5 mg PO DAILY 02/22/25 02/23/25 History (Vraylar) losartan 100 1 tab PO DAILY 02/22/25 02/23/25 History mg-hydrochlorothiazide 25 mg tablet melatonin 5 mg tablet 5 mg PO HSP PRN Sleep 02/22/25 02/23/25 History metoprolol succinate 50 mg 50 mg PO DAILY 02/22/25 02/23/25 History tablet,extended release 24 hr albuterol sulfate 90 mcg/actuation 4 inh inhalation Q4HP PRN 02/23/25 02/23/25 History aerosol inhaler shortness of breath or wheezing fluticasone fur. 100 mcg-umeclid 1 inh inhalation DAILY 02/23/25 02/23/25 History 62.5 mcg-vilant 25 mcg inhalat.powder (Trelegy Ellipta) buprenorphine 4 mg-naloxone 1 mg See Rx Instructions .Route 02/25/25 Rx sublingual film (Suboxone) .COMPLEX #20 ea levofloxacin 750 mg tablet 750 mg PO 1100 3 days #3 tabs 02/25/25 Rx metronidazole 500 mg tablet 500 mg PO TID 3 days #9 tabs 02/25/25 Rx New Prescriptions to Start Prescriptions: buprenorphine-naloxone [Suboxone] Samm Rivas levofloxacin Samm Rivas metronidazole Samm Rivas Allergies Allergy/AdvReac Type Severity Reaction Status Date / Time lisinopril Allergy Mild Verified 12/27/23 18:16 PCN (PENICILLIN) Allergy Unknown Uncoded 11/27/18 10:08 Discharge Plan Disposition Patient Disposition: Home, Self-Care Condition: Fair Discharge Order Discharge Orders: Discharge Order (Routine); Ordered 02/25/25 Ordered By: Samm Rivas Follow up Plan Follow up with: Shaun Guzman APRN [Primary Care Provider] - Enter time for follow up Musa Kaufman MD [Staff Physician] - 03/05/25 2:00 pm Prescriptions/Medication Reconciliation: New metronidazole 500 mg Tablet 500 mg PO TID 3 Days Qty: 9 0RF levofloxacin 750 mg Tablet 750 mg PO 1100 3 Days Qty: 3 0RF buprenorphine-naloxone [Suboxone] 4-1 mg film See Rx Instructions .ROUTE .COMPLEX Qty: 20 0RF Rx Instructions: place 1-2 strip/tab under (each) side of tongue Continued metoprolol succinate 50 mg tablet extended release 24 hr 50 mg PO DAILY losartan-hydrochlorothiazide 100-25 mg tablet 1 tab PO DAILY melatonin 5 mg tablet 5 mg PO HSP PRN (Reason: Sleep) Vraylar 1.5 mg capsule 1.5 mg PO DAILY Trelegy Ellipta 100-62.5-25 mcg blister with device 1 inh INHALATION DAILY albuterol sulfate 90 mcg/actuation HFA aerosol inhaler 4 inh inhalation Q4HP PRN (Reason: shortness of breath or wheezing) Problem Reconciliation Problems Reviewed?: Yes Patient Discharge Instructions Patient Instructions: DI for Acute Cystitis, DI for Sepsis -- Adult, DI for Colon Perforation Print Language: Thai Providers Primary Care Provider: Shaun Guzman Admit Provider: Joel Stewart Attending Provider: Joel Stewart
[2025-02-25] MEDS: BUPRENORPHINE/NALOXONE 8MG/2MG ODT 1 EACH SL (13:01)
--- NOTE | 2025-02-26 10:08 | SW/DCPLANNER ---
Spoke with patient on the phone. Patient stated that she is doing well. Patient stated that she is aware of her upcoming appointments. Patient stated that she was able to car pick up driver her new medicine from clinic pharmacy. Patient had a question of her urine being dark yellow and having a a dulce maria her belly about the size of a pea. Patient stated that the dulce maria isnt tender or sore when she pushes on it. I suggested that the patient follow up with her primary care provider and that if things get worse to follow up in the er. Tiara Jacob
== END 2025-02-25 13:42 | disposition home or self-care (01) | DRG 391 ==
LOC: ER 18:35 → 2ND 22:05
PROVIDERS: Nurse Practitioner Acute Care; Surgery; Admitting Provider Internal Medicine Adolescent Medicine; Emergency Provider Emergency Medicine; PCP Nurse Practitioner Family; Visit Provider Internal Medicine Adolescent Medicine
DX: K57.20 Diverticulitis of large intestine with perforation and abscess without bleeding (principal); A41.9 Sepsis, unspecified organism; Z68.41 Body mass index [BMI] 40.0-44.9, adult; F11.20 Opioid dependence, uncomplicated; I95.9 Hypotension, unspecified; F17.210 Nicotine dependence, cigarettes, uncomplicated; D72.829 Elevated white blood cell count, unspecified; J44.9 Chronic obstructive pulmonary disease, unspecified; R00.0 Tachycardia, unspecified; R19.7 Diarrhea, unspecified; F15.10 Other stimulant abuse, uncomplicated; F39 Unspecified mood [affective] disorder; E66.01 Morbid (severe) obesity due to excess calories; R10.30 Lower abdominal pain, unspecified; F14.10 Cocaine abuse, uncomplicated; Z88.0 Allergy status to penicillin; Z88.8 Allergy status to other drugs, medicaments and biological substances; Z79.51 Long term (current) use of inhaled steroids; Z79.899 Other long term (current) drug therapy; Z79.82 Long term (current) use of aspirin; Z71.51 Drug abuse counseling and surveillance of drug abuser
CPT/HCPCS: 36415; 74177; 80048; 80053; 81001; 82803; 83735; 85025; 87040; 87086; 94640; 99291; G0378; J0131; J0574; J1650; J1885; J2270; J7030; Q9967

== ENCOUNTER 2025-03-05 14:32 | Outpatient (CLI) | payer OTHER, SELFPAY ==
--- OUTSIDE RECORDS SUMMARY | 2025-03-05 14:35 | XMS_ITS | Data Portability ---
Author Organization [facility] [place] Address [address] [place] [address] Care Team Providers Care Crystal Grinder Name Role Phone KATALINA VICTOR Primary Care Provider Assessment No assessment recorded. Plan of Treatment Reminders Order Date Submit Date Provider Last Modified By Organization Details Last Modified Time Details Appointments FOLLOW UP 30 2024 03:00P Monae VICTOR NP Not available Not available Not available Lab culture, urine 2024 025 [facility] (Laboratory), [address] [place], [address], 03/04/2025 07:03:40 urinalysi s, dipstick [address] [facility], [address] [place], [address], 03/03/2025 09:47:00 CBC w/ auto diff 2024 025 [facility] (Laboratory), [address] [place], [address], 03/03/2025 13:24:46 CMP, serum or plasma 2024 025 [facility] (Laboratory), [address] [place], [address], 03/03/2025 13:32:14 influenza virus A + B + SARS-CoV- 2 (COVID19) Ag panel, rapid IA, upper respirato ry specimen 2024 025 [facility], [address] [place], [address], 12/27/2024 17:05:03 HbA1c (hemoglob in A1c), blood 2023 024 [facility] (Laboratory), [address] [place], [address], 10/15/2024 13:11:54 CMP, serum or plasma 2023 024 [facility] (Laboratory), [address] [place], [address], 10/15/2024 13:15:11 TSH + free T4, serum 2023 024 [email or web address] [facility] (Laboratory), [address] [place], [address], 10/22/2024 07:57:12 TSH + free T4, serum 2023 024 [email or web address] [facility] (Laboratory), [address] [place], [address], 06/17/2024 08:15:54 CMP, serum or plasma 2023 024 [facility] (Laboratory), [address] [place], [address], 06/10/2024 17:09:39 HbA1c (hemoglob in A1c), blood 2023 024 [facility] (Laboratory), [address] [place], [address], 06/10/2024 16:51:59 Referral None recorded. Procedures None recorded. Surgeries None recorded. Imaging CT, abdomen + pelvis, w/o contrast 2024 025 [facility] [place] [address] (Scheduling), [address] [place], [address], 03/05/2025 09:15:35 XR, chest, 2 view 2024 [facility] (Scheduling), [address] [place], [address], 2025 14:26:25 MAMMO, diagnosti c, digital, bilateral [address] [place] [address] (Scheduling), [address] [place], [address], 2025 12:28:29 US, breast, bilateral [address] [place] [address] (Scheduling), [address] [place], [address], 2025 12:28:30 XR, chest, 2 view [address] [place] [address] (Scheduling), [address] [place], [address], 2025 12:28:30 LDCT, chest, for lung cancer screening [address] [place] [address] (Scheduling), [address] [place], [address], 01/17/2025 08:24:11 Medication Orders Miralax 17 gram/dose oral powder 2024 [facility]98219, [address], [place], [id number], 03/03/2025 09:41:32 Citrucel [address] [facility]86756, [address], [place], [id number], 03/03/2025 09:41:33 senna 8.6 mg capsule 2024 [facility] #41986, [address], [place], [id number], 03/03/2025 09:41:31 prednison e 5 mg tablets in a dose pack 2024 025 [facility] #80213, [address] [place], [id number], 2025 12:01:58 doxycycli ne hyclate 100 mg capsule 2024 025 [facility] #50315, [address], [place], [id number], 2025 12:01:56 Ventolin HFA 90 mcg/actua tion aerosol inhaler 2023 024 [facility] #86374, [address] [place], [id number], 10/15/2024 11:09:19 Medrol (Adam) 4 mg tablets in a dose pack 2023 025 [facility] #03240, [address] [place], [id number], 12/27/2024 15:53:49 azithromy mulu 250 mg tablet 2023 025 [facility] #16047, [address] [place], [id number], 12/27/2024 15:53:37 losartan 100 mg-hydroc hlorothia zide 25 mg tablet 2023 024 [facility] #83114, [address] [place], [id number], 10/15/2024 11:09:20 metoprolo l succinate ER 50 mg tablet,ex tended release 24 hr 2023 024 [facility] #91073, [address] [place], [id number], 10/15/2024 11:09:20 Vraylar 1.5 mg capsule 2023 024 [facility] #66772, [address] [place], [id number], 10/15/2024 11:09:22 azithromy mulu 250 mg tablet 2023 024 [email or web address] [facility] #48754, [address], [id number], 12/27/2024 15:53:06 Patient TargetsNo targets recorded. Patient Instructions Encounter Date Encounter Id Patient Instructions Last Modified By Organization Details Last Modified Time 12/27/2024 [id number] complete PFT w/ post bronchodilator spirometry* [email or web address] Not available 01/24/2025 08:15:57 Reason for Referral None Reported. Results Created Date Observation Date Name Description Value Unit Range Abnormal Flag Note LastModifiedBy Organization Detail LastModifiedTime 06/10/20 24 06/10/2024 HEMOG LOBIN A1C glycosylated hemoglobin A1C 5.8 % 4.5-6. 2 Not Available [facility] (Lab Registration) [address], [place], [address], 06/10/2024 16:51:59 06/10/20 24 06/10/2024 HEMOG LOBIN A1C estimated average glucose 120 mg/dL 82-131 Not Available [facility] (Lab Registration) [address] [place], [address], 06/10/2024 16:51:59 06/10/20 24 06/10/2024 HEMOG LOBIN A1C note Renee s other george noted testi ng perfo rmed at: [facility] [address] [place] [address] [phone] Deandre villegas MD CLIA: [id number] Not Available [facility] (Lab Registration) [address], [place], [address], 06/10/2024 16:51:59 06/10/20 24 06/10/2024 THYRO ID STIMU LATIN G HORMO NE thyroid stimulating hormone 6.29 mIU/m L 0.34-4 .80 high Not Available [facility] (Lab Registration) [address] [place], [address], 06/10/2024 17:09:37 06/10/20 24 06/10/2024 THYRO ID STIMU LATIN G HORMO NE note Unles s other george noted testi ng perfo rmed at: [facility] [address] [facility] [place] [address] [phone] Deandre villegas MD CLIA: [id number] Not Available [facility] (Lab Registration) [address] [place], [address], 06/10/2024 17:09:37 06/10/20 24 06/10/2024 T4 FREE T4,free 0.94 NG/dL 0.76-1 .46 Effec tive today 013 new Refer ence Range . Not Available [facility] (Lab Registration) [address] [place], [address], 06/10/2024 17:09:38 06/10/20 24 06/10/2024 T4 FREE note Unles s other george noted testi ng perfo rmed at: [facility] [address] [place] [address] [phone] Deandre villegas MD CLIA: [id number] Not Available [facility] (Lab Registration) [address] [place], [address], 06/10/2024 17:09:38 06/10/20 24 06/10/2024 COMP METAB OLIC PANEL sodium 143 mmol/ L 136-14 5 Not Available [facility] (Lab Registration) [address] [place], [address], 06/10/2024 17:09:39 06/10/20 24 06/10/2024 COMP METAB OLIC PANEL potassium 4.1 mmol/ L 3.5-5. 1 Not Available [facility] (Lab Registration) [address] [place], [address], 06/10/2024 17:09:39 06/10/20 24 06/10/2024 COMP METAB OLIC PANEL chloride 104 mmol/ L 98-107 Not Available [facility] (Lab Registration) [address] [place], [address], 06/10/2024 17:09:39 06/10/20 24 06/10/2024 COMP METAB OLIC PANEL carbon dioxide 35 mmol/ L 21-32 high Not Available [facility] (Lab Registration) [address] [place], [address], 06/10/2024 17:09:39 06/10/20 24 06/10/2024 COMP METAB OLIC PANEL anion gap 4.0 Not Available [facility] (Lab Registration) [address] [place], [address], 06/10/2024 17:09:39 06/10/20 24 06/10/2024 COMP METAB OLIC PANEL glucose 85 mg/dL 70-110 Not Available [facility] (Lab Registration) [address] [place], [address], 06/10/2024 17:09:39 06/10/20 24 06/10/2024 COMP METAB OLIC PANEL blood urea nitrogen 17 mg/dL 7-18 Not Available [facility] (Lab Registration) [address] [place], [address], 06/10/2024 17:09:39 06/10/20 24 06/10/2024 COMP METAB OLIC PANEL creatinine 0.9 mg/dL 0.6-1. 0 Not Available [facility] (Lab Registration) [address] [place], [address], 06/10/2024 17:09:39 06/10/20 24 06/10/2024 COMP METAB OLIC PANEL BUN/creatini ne ratio 18.9 ratio 9-21 Not Available [facility] (Lab Registration) [address] [place], [address], 06/10/2024 17:09:39 06/10/20 24 06/10/2024 COMP METAB OLIC PANEL estimated glom filtration rate 76 mL/mi n >60- Not Available [facility] (Lab Registration) [address] [place], [address], 06/10/2024 17:09:39 06/10/20 24 06/10/2024 COMP METAB OLIC PANEL total protein 6.6 g/dL 6.4-8. 2 Not Available [facility] (Lab Registration) [address] [place], [address], 06/10/2024 17:09:39 06/10/20 24 06/10/2024 COMP METAB OLIC PANEL albumin 3.7 g/dL 3.4-5. 0 Not Available [facility] (Lab Registration) [address] [place], [address], 06/10/2024 17:09:39 06/10/20 24 06/10/2024 COMP METAB OLIC PANEL calcium 9.6 mg/dL 8.5-10 .1 Not Available [facility] (Lab Registration) [address] [place], [address], 06/10/2024 17:09:39 06/10/20 24 06/10/2024 COMP METAB OLIC PANEL corrected calcium 9.8 mg/dL 8.5-10 .1 Not Available [facility] (Lab Registration) [address] [place], [address], 06/10/2024 17:09:39 06/10/20 24 06/10/2024 COMP METAB OLIC PANEL bilirubin total 0.3 mg/dL 0.4-1. 5 low Not Available [facility] (Lab Registration) [address] [place], [address], 06/10/2024 17:09:39 06/10/20 24 06/10/2024 COMP METAB OLIC PANEL AST (SGOT) 18 U/L 15-37 Not Available [facility] (Lab Registration) [address] [place], [address], 06/10/2024 17:09:39 06/10/20 24 06/10/2024 COMP METAB OLIC PANEL ALT (SGPT) 34 U/L 12-78 Not Available [facility] (Lab Registration) [address] [place], [address], 06/10/2024 17:09:39 06/10/20 24 06/10/2024 COMP METAB OLIC PANEL alk phosphatase 83 U/L 50-120 Not Available [facility] (Lab Registration) [address] [place], [address], 06/10/2024 17:09:39 06/10/20 24 06/10/2024 COMP METAB OLIC PANEL note Unles s other george noted testi ng perfo rmed at: [facility] [address] [place] [address] [phone] Deandre villegas MD CLIA: [id number] Not Available [facility] (Lab Registration) [address] [place], [address], 06/10/2024 17:09:39 10/15/20 24 10/15/2024 HEMOG LOBIN A1C glycosylated hemoglobin A1C 5.6 % 4.5-6. 2 Not Available [facility] (Lab Registration) [address] [place], [address], 10/15/2024 13:11:53 10/15/20 24 10/15/2024 HEMOG LOBIN A1C estimated average glucose 114 mg/dL 82-131 Not Available [facility] (Lab Registration) [address] [place], [address], 10/15/2024 13:11:53 10/15/20 24 10/15/2024 HEMOG LOBIN A1C note Renee malone george noted testi ng perfo rmed at: [facility] [address] [place] [address] [phone] Deandre villegas MD CLIA: [id number] Not Available [facility] (Lab Registration) [address] [place], [address], 10/15/2024 13:11:53 10/15/20 24 10/15/2024 THYRO ID STIMU LATIN G HORMO NE thyroid stimulating hormone 4.22 mIU/m L 0.34-4 .80 Not Available [facility] (Lab Registration) [address] [place], [address], 10/15/2024 13:15:08 10/15/20 24 10/15/2024 THYRO ID STIMU LATIN G HORMO NE note Renee george noted testi ng perfo rmed at: [facility] [address] [place] [address] [phone] Deandre villegas MD CLIA: [id number] Not Available [facility] (Lab Registration) [address] [place], [address], 10/15/2024 13:15:08 10/15/20 24 10/15/2024 T4 FREE T4,free 0.92 NG/dL 0.76-1 .46 Effec tive today 013 new Refer ence Range . Not Available [facility] (Lab Registration) [address] [place], [address], 10/15/2024 13:15:10 10/15/20 24 10/15/2024 T4 FREE note Renee malone george noted testi ng perfo rmed at: [facility] [address] [place] [address] [phone] Deandre villegas MD CLIA: [id number] Not Available [facility] (Lab Registration) [address], [place], [address], 10/15/2024 13:15:10 10/15/20 24 10/15/2024 COMP METAB OLIC PANEL sodium 142 mmol/ L 136-14 5 Not Available [facility] (Lab Registration) [address] [place], [address], 10/15/2024 13:15:11 10/15/2010/15/2024 COMP METAB OLIC PANEL potassium 3.9 mmol/ L 3.5-5. 1 Not Available [facility] (Lab Registration) [address] [place], [address], 10/15/2024 13:15:11 10/15/20 24 10/15/2024 COMP METAB OLIC PANEL chloride 102 mmol/ L 98-107 Not Available [facility] (Lab Registration) [address] [place], [address], 10/15/2024 13:15:11 10/15/20 24 10/15/2024 COMP METAB OLIC PANEL carbon dioxide 32 mmol/ L 21-32 Not Available [facility] (Lab Registration) [address] [place], [address], 10/15/2024 13:15:11 10/15/20 24 10/15/2024 COMP METAB OLIC PANEL anion gap 8.0 Not Available [facility] (Lab Registration) [address] [place], [address], 10/15/2024 13:15:11 10/15/20 24 10/15/2024 COMP METAB OLIC PANEL glucose 95 mg/dL 70-110 Not Available [facility] (Lab Registration) [address] [place], [address], 10/15/2024 13:15:11 10/15/20 24 10/15/2024 COMP METAB OLIC PANEL blood urea nitrogen 20 mg/dL 7-18 high Not Available [facility] (Lab Registration) [address], [place], [address], 10/15/2024 13:15:11 10/15/20 24 10/15/2024 COMP METAB OLIC PANEL creatinine 0.9 mg/dL 0.6-1. 0 Not Available [facility] (Lab Registration) [address], [place], [address], 10/15/2024 13:15:11 10/15/2010/15/2024 COMP METAB OLIC PANEL BUN/creatini ne ratio 22.2 9-21 high Not Available [facility] (Lab Registration) [address], [place], [address], 10/15/2024 13:15:11 10/15/20 24 10/15/2024 COMP METAB [...] staley ing kiney funct ion. Not Available [facility] (Lab Registration) [address] [place], [address], 10/15/2024 13:15:11 10/15/20 24 10/15/2024 COMP METAB OLIC PANEL total protein 7.3 g/dL 6.4-8. 2 Not Available [facility] (Lab Registration) [address] [place], [address], 10/15/2024 13:15:11 10/15/20 24 10/15/2024 COMP METAB OLIC PANEL albumin 3.9 g/dL 3.4-5. 0 Not Available [facility] (Lab Registration) [address] [place], [address], 10/15/2024 13:15:11 10/15/2010/15/2024 COMP METAB OLIC PANEL calcium 9.9 mg/dL 8.5-10 .1 Not Available [facility] (Lab Registration) [address] [place], [address], 10/15/2024 13:15:11 10/15/20 24 10/15/2024 COMP METAB OLIC PANEL corrected calcium 10.0 mg/dL 8.5-10 .1 Not Available [facility] (Lab Registration) [address] [place], [address], 10/15/2024 13:15:11 10/15/20 24 10/15/2024 COMP METAB OLIC PANEL bilirubin total 0.4 mg/dL 0.4-1. 5 Not Available [facility] (Lab Registration) [address] [place], [address], 10/15/2024 13:15:11 10/15/20 24 10/15/2024 COMP METAB OLIC PANEL AST (SGOT) 21 U/L 15-37 Not Available [facility] (Lab Registration) [address] [place], [address], 10/15/2024 13:15:11 10/15/20 24 10/15/2024 COMP METAB OLIC PANEL ALT (SGPT) 33 U/L 12-78 Not Available [facility] (Lab Registration) [address] [place], [address], 10/15/2024 13:15:11 10/15/20 24 10/15/2024 COMP METAB OLIC PANEL alk phosphatase 93 U/L 50-120 Not Available [facility] (Lab Registration) [address] [place], [address], 10/15/2024 13:15:11 10/15/20 24 10/15/2024 COMP METAB OLIC PANEL note Unles s other george noted testi ng perfo rmed at: [facility] [address] [place] [address] [phone] Deandre villegas MD CLIA: [id number] Not Available [facility] (Lab Registration) [address] [place], [address], 10/15/2024 13:15:11 12/27/19 25 12/27/2024 influ ki virus A + B + SARS- CoV-2 (COVI D19) Ag panel , rapid IA, upper respi rator y speci men FLU A negati ve Not Available [address] [place], [address], 12/27/2024 15:52:29 12/27/19 25 12/27/2024 influ ki virus A + B + SARS- CoV-2 (COVI D19) Ag panel , rapid IA, upper respi rator y speci men FLU B negati ve Not Available [address] [place], [address], 12/27/2024 15:52:29 12/27/19 25 12/27/2024 influ ki virus A + B + SARS- CoV-2 (COVI D19) Ag panel , rapid IA, upper respi rator y speci men SARS COV + SARS OV 2 negati ve Not Available [place] [address] [place], [address], 12/27/2024 15:52:29 03/03/20 25 03/03/2025 CBC AUTO W DIFF WBC 13.5 10 4.5-11 .5 high Not Available [facility] (Lab Registration) [address] [place], [address], 03/03/2025 13:24:46 03/03/20 25 03/03/2025 CBC AUTO W DIFF RBC 5.44 10 4.25-5 .57 Not Available [facility] (Lab Registration) [address] [place], [address], 03/03/2025 13:24:46 03/03/20 25 03/03/2025 CBC AUTO W DIFF HGB 15.2 g/dL 12.0-1 5.7 Not Available [facility] (Lab Registration) [address] [place], [address], 03/03/2025 13:24:46 03/03/20 25 03/03/2025 CBC AUTO W DIFF HCT 47.8 % 36.0-4 7.0 high Not Available [facility] (Lab Registration) [address] [place], [address], 03/03/2025 13:24:46 03/03/20 25 03/03/2025 CBC AUTO W DIFF MCV 87.9 fL 80-95 Not Available [facility] (Lab Registration) [address] [place], [address], 03/03/2025 13:24:46 03/03/20 25 03/03/2025 CBC AUTO W DIFF MCH 27.9 pg 27.0-3 4.0 Not Available [facility] (Lab Registration) [address] [place], [address], 03/03/2025 13:24:46 03/03/20 25 03/03/2025 CBC AUTO W DIFF MCHC 31.8 g/dL 32.0-3 6.0 low Not Available [facility] (Lab Registration) [address] [place], [address], 03/03/2025 13:24:46 03/03/20 25 03/03/2025 CBC AUTO W DIFF platelet count 348 10 150-45 0 Not Available [facility] (Lab Registration) [address] [place], [address], 03/03/2025 13:24:46 03/03/20 25 03/03/2025 CBC AUTO W DIFF RDW 14.0 % 12.3-1 5.1 Not Available [facility] (Lab Registration) [address] [place], [address], 03/03/2025 13:24:46 03/03/20 25 03/03/2025 CBC AUTO W DIFF MPV 9.5 fL 7.4-10 .4 Not Available [facility] (Lab Registration) [address] [place], [address], 03/03/2025 13:24:46 03/03/20 25 03/03/2025 CBC AUTO W DIFF granulocyte% 70.5 % 40-75 Not Available [facility] (Lab Registration) [address] [place], [address], 03/03/2025 13:24:46 03/03/20 25 03/03/2025 CBC AUTO W DIFF lymphocyte% 19.9 % 15-57 Not Available [facility] (Lab Registration) [address] [place], [address], 03/03/2025 13:24:46 03/03/20 25 03/03/2025 CBC AUTO W DIFF monocyte% 7.2 % 4.0-12 .0 Not Available [facility] (Lab Registration) [address] [place], [address], 03/03/2025 13:24:46 03/03/20 25 03/03/2025 CBC AUTO W DIFF eosinophil% 1.2 % 0.0-4. 0 Not Available [facility] (Lab Registration) [address] [place], [address], 03/03/2025 13:24:46 03/03/20 25 03/03/2025 CBC AUTO W DIFF basophil% 0.2 % 0.0-1. 0 Not Available [facility] (Lab Registration) [address] [place], [address], 03/03/2025 13:24:46 03/03/20 25 03/03/2025 CBC AUTO W DIFF immature granulocytes % 1.0 % 0.0-0. 8 high Not Available [facility] (Lab Registration) [address], [place], [address], 03/03/2025 13:24:46 03/03/20 25 03/03/2025 CBC AUTO W DIFF granulocyte# 9.52 10 Not Available [facility] (Lab Registration) [address], [place], [address], 03/03/2025 13:24:46 03/03/20 25 03/03/2025 CBC AUTO W DIFF lymphocyte# 2.69 10 Not Available [facility] (Lab Registration) [address] [place], [address], 03/03/2025 13:24:46 03/03/20 25 03/03/2025 CBC AUTO W DIFF monocyte# 0.97 10 Not Available [facility] (Lab Registration) [address] [place], [address], 03/03/2025 13:24:46 03/03/20 25 03/03/2025 CBC AUTO W DIFF eosinophil# 0.16 10 Not Available [facility] (Lab Registration) [address] [place], [address], 03/03/2025 13:24:46 03/03/20 25 03/03/2025 CBC AUTO W DIFF basophil# 0.03 10 Not Available [facility] (Lab Registration) [address] [place], [address], 03/03/2025 13:24:46 03/03/20 25 03/03/2025 CBC AUTO W DIFF immature granulocytes # 0.13 10 Not Available [facility] (Lab Registration) [address] [place], [address], 03/03/2025 13:24:46 03/03/20 25 03/03/2025 CBC AUTO W DIFF manual differential NO Not Available [facility] (Lab Registration) [address], [place], [address], 03/03/2025 13:24:46 03/03/20 25 03/03/2025 CBC AUTO W DIFF note Unles s other george noted testi ng perfo rmed at: [facility] [address] [place] [address] [phone] Deandre villegas MD CLIA: [id number] Not Available [facility] (Lab Registration) [address], [place], [address], 03/03/2025 13:24:46 03/03/20 25 03/03/2025 COMP METAB OLIC PANEL sodium 133 mmol/ L 136-14 5 low Not Available [facility] (Lab Registration) [address] [place], [address], 03/03/2025 13:32:14 03/03/20 25 03/03/2025 COMP METAB OLIC PANEL potassium 4.3 mmol/ L 3.5-5. 1 Not Available [facility] (Lab Registration) [address], [place], [address], 03/03/2025 13:32:14 03/03/20 25 03/03/2025 COMP METAB OLIC PANEL chloride 95 mmol/ L 98-107 low Not Available [facility] (Lab Registration) [address] [place], [address], 03/03/2025 13:32:14 03/03/20 25 03/03/2025 COMP METAB OLIC PANEL carbon dioxide 31 mmol/ L 21-32 Not Available [facility] (Lab Registration) [address] [place], [address], 03/03/2025 13:32:14 03/03/20 25 03/03/2025 COMP METAB OLIC PANEL anion gap 7.0 Not Available [facility] (Lab Registration) [address], [place], [address], 03/03/2025 13:32:14 03/03/20 25 03/03/2025 COMP METAB OLIC PANEL glucose 85 mg/dL 70-110 Not Available [facility] (Lab Registration) [address], [place], [address], 03/03/2025 13:32:14 03/03/20 25 03/03/2025 COMP METAB OLIC PANEL blood urea nitrogen 19 mg/dL 7-18 high Not Available [facility] (Lab Registration) [address], [place], [address], 03/03/2025 13:32:14 03/03/20 25 03/03/2025 COMP METAB OLIC PANEL creatinine 0.6 mg/dL 0.6-1. 0 Not Available [facility] (Lab Registration) [address], [place], [address], 03/03/2025 13:32:14 03/03/20 25 03/03/2025 COMP METAB OLIC PANEL BUN/creatini ne ratio 31.7 9-21 high Not Available [facility] (Lab Registration) [address], [place], [address], 03/03/2025 13:32:14 03/03/20 25 03/03/2025 COMP METAB OLIC PANEL estimated glom filtration rate 107 mL/mi n >60- GFR LIMIT ATION : [...] staley ing kiney funct ion. Not Available [facility] (Lab Registration) [address], [place], [place], [address], 03/03/2025 13:32:14 03/03/20 25 03/03/2025 COMP METAB OLIC PANEL osmolality (calculated) 279 mOsm/ kg 275-30 1 OSMOL ALITY IS A CALCU LATIO N UTILI ZING THE SERUM /PLAS MA SODIU M, GLUCO SE AND UREA NITRO GEN (BUN) LEVEL S. FOR THE MOST ACCUR ATE RESUL T A MEASU RED SERUM OSMOL ALITY IS SUGGE STED. Not Available [facility] (Lab Registration) [address], [place], [address], 03/03/2025 13:32:14 03/03/20 25 03/03/2025 COMP METAB OLIC PANEL total protein 7.0 g/dL 6.4-8. 2 Not Available [facility] (Lab Registration) [address], [place], [address], 03/03/2025 13:32:14 03/03/20 25 03/03/2025 COMP METAB OLIC PANEL albumin 3.5 g/dL 3.4-5. 0 Not Available [facility] (Lab Registration) [address], [place], [address], 03/03/2025 13:32:14 03/03/20 25 03/03/2025 COMP METAB OLIC PANEL calcium 10.1 mg/dL 8.5-10 .1 Not Available [facility] (Lab Registration) [address], [place], [address], 03/03/2025 13:32:14 03/03/20 25 03/03/2025 COMP METAB OLIC PANEL corrected calcium 10.5 mg/dL 8.5-10 .1 high Not Available [facility] (Lab Registration) [address], [place], [address], 03/03/2025 13:32:14 03/03/20 25 03/03/2025 COMP METAB OLIC PANEL bilirubin total 0.1 mg/dL 0.4-1. 5 low Not Available [facility] (Lab Registration) [address], [place], [address], 03/03/2025 13:32:14 03/03/20 25 03/03/2025 COMP METAB OLIC PANEL AST (SGOT) 34 U/L 15-37 Not Available [facility] (Lab Registration) [address] [place], [address], 03/03/2025 13:32:14 03/03/20 25 03/03/2025 COMP METAB OLIC PANEL ALT (SGPT) 75 U/L 12-78 Not Available [facility] (Lab Registration) [address] [place], [address], 03/03/2025 13:32:14 03/03/20 25 03/03/2025 COMP METAB OLIC PANEL alk phosphatase 109 U/L 50-120 Not Available [facility] (Lab Registration) [address] [place], [address], 03/03/2025 13:32:14 03/03/20 25 03/03/2025 COMP METAB OLIC PANEL note Unles s other george noted testi ng perfo rmed at: [facility] [address] [place] [address] [phone] Deandre villegas MD CLIA: [id number] Not Available [facility] (Lab Registration) [address] [place], [address], 03/03/2025 13:32:14 03/03/20 25 03/03/2025 urina lysis , dipst ick Leukocytes (reference range) negati ve Not Available [address] [place], [address], 03/03/2025 09:37:42 03/03/20 25 03/03/2025 urina lysis , dipst ick Nitrite (reference range:) negati ve Not Available [address] [place], [address], 03/03/2025 09:37:42 03/03/20 25 03/03/2025 urina lysis , dipst ick Urobilinogen (reference range) 0.2 Not Available [address] [place], [address], 03/03/2025 09:37:42 03/03/20 25 03/03/2025 urina lysis , dipst ick Protein (reference range) negati ve Not Available [address] [place], [address], 03/03/2025 09:37:42 03/03/20 25 03/03/2025 urina lysis , dipst ick pH (reference range 5-8.5) 6.0 Not Available [address] [place], [address], 03/03/2025 09:37:42 03/03/20 25 03/03/2025 urina lysis , dipst ick Blood (reference range:) non-He molyze d: Trace Not Available [address] [place], [address], 03/03/2025 09:37:42 03/03/20 25 03/03/2025 urina lysis , dipst ick Specific [place] (reference range) 1.025 Not Available [address] [place], [address], 03/03/2025 09:37:42 03/03/20 25 03/03/2025 urina lysis , dipst ick Ketone (reference range) negati ve Not Available [address] [place], [address], 03/03/2025 09:37:42 03/03/20 25 03/03/2025 urina lysis , dipst ick Bilirubin (reference range) negati ve Not Available [address] [place], [address], 03/03/2025 09:37:42 03/03/20 25 03/03/2025 urina lysis , dipst ick Glucose (reference range) negati ve Not Available [address] [place], [address], 03/03/2025 09:37:42 03/03/20 25 03/03/2025 urina lysis , dipst ick Color (reference range: yellow-brown ) Yellow Not Available [address] [place], [address], 03/03/2025 09:37:42 05/21/20 24 05/20/2024 US, echoc ardio gram, trans thora cic, compl ete, w/ color flow [facility] [address] [place] [address] Phone: Fax: Name: STEVAN CORTES IE Exam Date: 05/20/20 24 : 9[birth year] Age 54 years Gender : F Access ion: [id number] Physic hilda: ABENA LUCAS Facili ty: [facility] Facili ty HSV: Outpat ient Exam: ECHOCA [...] Pulmon ic Valve Report for STEVAN Zhou [id number] on 05/20/24 Dictat ed By: ABENA LUCAS Transc ribed By: [facility] Michelle ibrahim Transc ribed On: 05/21/20 6:29 AM Electr onical ly signed by: ABENA LUCAS 05/21/20 Thank you for referr ing STEVAN CORTES IE to [facility]. Legall y authen ticate d by TEVIN Stephenson MD 05-21 06:32: 09 CC'ed Logic: Orderi ng Provid er: TEVIN Stephenson CC Provid er: AMBURG NII SWIFT Y Attend ing Provid er: TEVIN Stephenosn Referr ing Provid er: TEVIN Stephenson Admitt ing Provid er: TEVIN Stephenson [facility]) [address] [place], [address], 05/21/2024 12:33:35 05/22/20 24 05/20/2024 pharm acolo gic nucle ar stres s test [facility] [address] [place] 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 The bernadine zhou did not have any ST or T-wave change s sugges tive of ischem ia. There was no arrhyt hmia. She denied any chest pain or shortn ess of breath , and at the end of monito ring period , her hemody namics return ed back to her baseli ne. Test was comple aidan. No compli cation [...] ABENA LUCAS 05/22/20 Thank you for referr ing STEVAN CORTES IE to [facility]. Legall y authen ticate d by TEVIN Stephenson MD 05-22 07:58: 01 CC'ed Logic: Orderi ng Provid er: TEVIN Stephenson CC Provid er: MAURICIO SWIFT Y Attend ing Provid er: TEVIN Stephenson Referr ing Provid er: TEVIN Stephenson Admitt ing Provid er: TEVIN Stephenson [facility] ([facility]) [address] [place] [address] , [place], [address], 05/22/2024 13:14:29 06/18/20 24 06/18/2024 US, thyro id [facility] [address] [place], [place] [address] Phone: Fax: Name: STEVAN CORTES Exam Date: : [birth year] Age 54 years Gender : F Access ion: [id number] Physic hilda: AMBURG EY, TAFFAN Y [facility]ili [facility] Facili ty HSV: Outpat ient Exam: US [...] on ACR criter ia. Thank you for allowi ng us to assist in the care of this bernadine zhou. Electr onical ly signed by: Joel Lima MD 2023 11:14 PM EDT RP Workst ation: [id number] Dictat ed By: Joel Lima Transc ribed By: Transc ribed On: 3:06 PM Electr onical ly signed by: Joel Lima 7/30/2 024 Thank you for referr ing [facility] Legall y authen ticate d by SYDNIE MAC MD 06-18 15:06: 59 CC'ed Logic: Orderi ng Provid er: AMBURG EY JAMISON Y CC Provid er: AMBURG EY JAMISON Y Attend ing Provid er: AMBURG EY TAFLONDON Y Referr ing Provid er: AMBURG EY JAMISON Y Admitt ing Provid er: AMBURG EY TAFFAN Y [facility] (Radiology) [address] [place], [address], 06/24/2024 08:47:27 01/14/2001/14/2025 XR, chest , 2 view [facility] [place] [address] Phone: Fax: Name: STEVAN CORTES NAI Exam Date: : [birth year] Age 55 years Gender : F Access ion: [id number] Physic hilda: JAMISON ESPAÑA Y Facili ty: [facility] Facili ty HSV: Outpat ient Exam: [...] Electr onical ly signed by: PABLO WILSON 2/25/2 025 Thank you for referr ing [facility] Legall y authen ticate d by GURPREET SHAH MD 01-14 12:50: 00 CC'ed Logic: Orderi ng Provid er: AMBURG EY TAFLONDON Y CC Provid er: AMBURG EY TAFFAN Y Attend ing Provid er: AMBURG EY TAFFAN Y Referr ing Provid er: AMBURG EY TAFFAN Y Admitt ing Provid er: AMBURG EY TAFFAN Y [id number] [facility] (Radiology) [address] [place], [address], 01/16/2025 09:39:56 01/23/2001/22/2025 US, alex bang , limit ed [facility] [address] [facility] [place] [address] Phone: Fax: Name: DENICE Serena STEVAN TRIMBLE Exam Date: 01/23/20 : [birth year] Age 55 years Gender : F Access ion: [id number] Physic hilda: JAMISON ESPAÑA Y Facili ty: [facility] Facili ty HSV: Outpat ient Exam: US [...] 14:30: 00 Electr onical ly signed by: tSevan Dunn 01/23/20 Thank you for referr ing [facility] Legall y authen ticate d by ROSE MEDINA MD 01-22 14:30: 00 CC'ed Logic: Orderi ng Provid er: AMBURG EY TAFFAN Y CC Provid er: AMBURG EY TAFFAN Y Attend ing Provid er: AMBURG EY TAFFAN Y Referr ing Provid er: AMBURG EY TAFFAN Y Admitt ing Provid er: AMBURG EY TAFFAN Y [email or web address] [facility] (Radiology) [address] [place], [address], 01/23/2025 12:13:44 01/23/20 25 01/22/2025 MAMMO , diagn ostic , digit al, bilat eral [facility] 9 [facility] [place] [address] Phone: Fax: Name: STEVAN CORTES IE Exam Date: 01/23/20 : [birth year] Age 55 years Gender : F Access ion: [id number] Physic hilda: AMBJAMISON ABDULLAHI Y Facili ty: [facility] Facili ty HSV: Outpat ient Exam: RAYO [...] you for referr ing STEVAN CORTES to [facility]. Legall y authen ticate d by ROSE MEDINA MD 01-22 13:55: 00 CC'ed Logic: Orderi ng Provid er: AMBURG EY TAFFAN Y CC Provid er: AMBURG EY TAFFAN Y Attend ing Provid er: AMBURG EY TAFFAN Y Referr ing Provid er: AMBURG EY TAFFAN Y Admitt ing Provid er: AMBURG EY TAFFAN Y [email or web address] [facility] (Radiology) [address] [place], [address], 01/23/2025 12:13:38 01/23/20 25 01/22/2025 XR, chest , 2 view [facility] [address] [place] [address] Phone: Fax: Name: STEVAN CORTES Exam Date: 01/23/20 : 9[birth year] Age 55 years Gender : F Access ion: [id number] Physic hilda: MAURICIO BALES JAMISON Y Facili ty: [facility] Facili ty HSV: Outpat ient Exam: [...] 03:44 PM EST RP Workst ation: [id number] Dictat ed By: Neelam Randle Transc ribed By: Transc ribed On: 01/23/20 2:49 PM Electr onical ly signed by: Neelam Randle as 01/23/20 Thank you for referr ing STEVAN CORTES IE to [facility]. Legall y authen ticate d by THONY DUENAS MD 2024-0 01-22 14:49: 00 CC'ed Logic: Orderi ng Provid er: MAURICIO SWIFT Y CC Provid er: MAURICIO SWIFT Y Attend ing Provid er: MAURICIO NII JAMISON Y Referr ing Provid er: AMBURG EY JAMISON Y Admitt ing Provid er: MAURICIO SWIFT Y [email or web address] [facility] (Radiology) [address] [place], [address], 01/23/2025 12:13:38 01/24/20 25 01/22/2025 LDCT, chest , for lung cance r scree thuy [facility] [address] [place], [place] [address] [place] [address] Phone: Fax: Name: STEVAN CORTES IE Exam Date: 01/23/20 : [birth year] Age 55 years Gender : F Access ion: [id number] Physic hilda: AMBURG EY, TAFFAN Y Facili ty: [place] Facili ty HSV: Outpat ient Exam: CT CHEST LOW DOSE CT CHEST WITHOU T IV CONTRA [facility] AL: 55-yea r-old Female patien t curren [...] months . * No suspic ious pulmon ntahan nodule or mass. Electr onical ly signed by: Neelam Randle MD 2024 08:41 AM EST RP Workst ation: [id number] Dictat ed By: Neelam Randle Transc ribed By: Transc ribed On: 01/23/20 2:21 PM Electr onical ly signed by: Neelam Randle 01/23/20 Thank you for referr ing STEVAN CORTES IE to [facility]. Legall y authen ticate d by THONY DUENAS MD 2024-0 01-22 14:21: 06 CC'ed Logic: Orderi ng Provid er: AMBURG EY TAFFAN Y CC Provid er: AMBURG EY TAFFAN Y Attend ing Provid er: AMBURG EY TAFFAN Y Referr ing Provid er: AMBURG EY TAFFAN Y Admitt ing Provid er: AMBURG EY TAFFAN Y tpardini [facility] (Radiology) [address] , [place], [address], 01/24/2025 14:51:37 02/05/20 25 01/22/2025 compl ete PFT w/ post [facility] hodil ator ventura metry * No observ ation record ed. [facility] (Sleep Lab) [address] , [place], [address], 02/04/2025 16:50:57 02/23/20 25 02/22/2025 imagi ng inter preta tion No observ ation record ed. [email or web address], [place], [address], 02/24/2025 08:26:14 02/23/20 25 02/22/2025 imagi ng inter preta tion No observ ation record ed. [email or web address] [facility] [address], [place], [address], 02/24/2025 08:26:03 02/23/20 25 02/22/2025 imagi ng inter preta tion No observ ation record ed. [email or web address] [facility] [address], [place], [address], 02/24/2025 08:26:00 Result Notes None recorded. Problems Name Problem SNOMED Code Status Onset Date Resolution Date Notes Provider Name and Address Organization Details Recorded Time Essential hypertension 07620821 Active 2021 Caesar Gurrola null, [place] [facility] [place] [facility] [place] 4 15:37:50 Drug abuse 95813071 Active 2021 Caesar Gurrol[place] [facility] [place] [facility] [place] 4 15:37:47 Asthma 402156619 Active 2021 Caesar Gurrol[place] [facility] [place] [facility] [place] 4 15:37:43 Heart murmur 65818097 Active 2021 Caesar Gurrola [place] [facility] [place] [facility] [place] 4 15:37:52 Problem Notes None recorded. Procedures Surgical History Date Name Laterality Status Provider Name and Address Organization Details Recorded Time 02/12/20 24 Feces-based colorectal cancer DNA screening completed Nadia Garcia [place] [facility] [place] [facility] [place] 08/05/2024 13:24:58 07/05/20 23 Date of Last Pap Smear completed Jerry Navarro [place] [facility] [place] [facility] [place] 10/18/2023 15:23:12 01/25/20 23 completed KATALINA VICTOR NP [address] [place] [address], [address], [place] [facility] [place] 06/21/2023 14:24:27 11/20/18 75 Tonsillectomy/ Adenoidectomy completed KATALINA VICTOR NP [address] [place], [address], [place] [facility] [place] [facility] [place] 06/21/2023 14:24:34 Cancer Surgery completed KATALINA VICTOR NP [address] [place], [address], [place] [facility] [place] 03/28/2023 10:33:23 section completed Caroline Hebert [place] [facility] & [place] 09/07/2022 07:13:02 Imaging Results Imaging Date Name Status LastModified by Organization Details LastModified Time 05/20/2024 US, echocardiogram, transthoracic, complete, w/ color flow completed [facility] (Scheduling) [address] [place], [address], 05/21/2024 12:33:35 05/20/2024 pharmacologic nuclear stress test active [facility] (Scheduling) [address] [place], [address], 05/22/2024 13:14:29 06/18/2024 US, thyroid completed [facility] (Radiology) [address] [place], [address], 06/24/2024 08:47:27 2025 XR, chest, 2 view completed [address] (Radiology) [address] [place], [address], 01/16/2025 09:39:56 01/22/2025 US, breast, unilateral, limited completed [address] (Radiology) [address] [place], [address], 01/23/2025 12:13:44 01/22/2025 MAMMO, diagnostic, digital, bilateral completed [address] (Radiology) [address] [place], [address], 01/23/2025 12:13:38 01/22/2025 XR, chest, 2 view completed [address] (Radiology) [address] [place], [address], 01/23/2025 12:13:38 01/22/2025 LDCT, chest, for lung cancer screening completed [facility] (Radiology) [address] [place], [address], 01/24/2025 14:51:37 01/22/2025 complete PFT w/ post bronchodilator spirometry* completed [facility] (Sleep Lab) [address] [place], [address], 02/04/2025 16:50:57 02/22/2025 imaging interpretation completed [email or web address] [place] [address], [place], [address], 02/24/2025 08:26:14 02/22/2025 imaging interpretation completed [email or web address], [place], [address], 02/24/2025 08:26:03 02/22/2025 imaging interpretation completed [email or web address], [place], [address], 02/24/2025 08:26:00 Procedure Notes None recorded. Medical Equipment None Reported. Allergies Allergen ID Allergen Name Allergen Category Reaction Reaction Severity Criticality Documentation Date Start Date Code Code System Note Provider Name and Address Organization Details Recorded Time 966352 penicilli n V Not available rash Not available Not available 03/03/2025 7984 RxNorm Caesar taylor [facility] & [place] 5 09:24:21 25508 Product containin g penicilli n (product) medicatio n rash Not available Not available 09/07/2022 00476 8001 SNOMED Caroline taylor [facility] & [place] 2 07:11:27 85370 lisinopri l medicatio n Not available Not available Not available 09/07/2022 10928 RxNorm Other react ions and sever ities : 'Adve rse react ion to subst ance' . Caesar taylor [facility] & [place] 5 09:24:21 16240 penicilli n G Not available flushing rash moderate moderate Not available 09/10/2022 7980 RxNorm KATALINA VICTOR NP 22 [facility], [place], [address] [facility] [place] 22:12:08 Medications Name Sig Start Date Stop Date Status Note LastModified by Organization Details LastModified Time losartan 50 mg tablet Take 1 tablet every day by oral route for 90 days. 03/28 completed Not Available Not Available Not Available Miralax 17 gram/dose oral powder 1 capful in full beverage once daily in the morning with fiber 2024 active Not Available Not Available Not Avai lable methocarbam ol 500 mg tablet TAKE 1 [...] day by oral route for 90 days. 2024 active Not Available Not Available Not Avai lable famotidine 20 mg tablet TAKE 1 TABLET [...] completed Not Available Not Available Not Available Citrucel 500 mg tablet Take 2 tablets every day by oral route in the morning for 30 days, for with miralax. 2024 active Not Available Not Available Not Avai lable bupropion HCl 75 mg tablet TAKE 1 [...] completed Not Available Not Available Not Available senna 8.6 mg capsule Take 2 capsules every day by oral route in the evening for 90 days. 2024 active Not Available Not Available Not Avai lable melatonin 5 mg every evening 10/25 completed [...] 100 mcg-62.5 mcg-25 mcg powder for inhalation Inhale 1 puff every day by inhalatio n route for 90 days. 02/28 completed Not Available Not Available Not Available BinaxNOW COVID-19 Ag Self Test kit 10/25 completed Not Available Not Available Not Available Vitals Date Recorded Body height Body mass index (BMI) Body weight Body temperature Oxygen saturation Oxygen saturation in Arterial blood by Pulse oximetry Heart rate Systolic blood pressure Diastolic blood pressure Provider Name and Address Organization Details Last Updated DateTime 4 154.94 cm 41.4 kg/m2 16240.7 3 g 97.5 [degF] 91 % 91 % 79 /min 105 mm[Hg] 55 mm[Hg] Jerry alejandro [place] - [facility] 4 15:00:06 Date Recorded Body height Body mass index (BMI) Body weight Body temperature Oxygen saturation Oxygen saturation in Arterial blood by Pulse oximetry Heart rate Respiratory rate Systolic blood pressure Diastolic blood pressure Provider Name and Address Organization Details Last Updated DateTime 4 154.94 cm 40.4 kg/m2 20386.7 7 g 97.1 [degF] 95 % 95 % 85 /min 18 /min 115 mm[Hg] 82 mm[Hg] Caesar Gurrola [place] [facility] & [place] 4 10:53:46 Date Recorded Body height Body mass index (BMI) Body weight Body temperature Oxygen saturation Oxygen saturation in Arterial blood by Pulse oximetry Heart rate Respiratory rate Systolic blood pressure Diastolic blood pressure Provider Name and Address Organization Details Last Updated DateTime 5 154.94 cm 39.5 kg/m2 96573.8 1 g 98.3 [degF] 93 % 93 % 104 /min 18 /min 122 mm[Hg] 81 mm[Hg] Caesar Gurrola [facility] [place] 5 15:52:36 Date Recorded Body height Body mass index (BMI) Body weight Body temperature Oxygen saturation Oxygen saturation in Arterial blood by Pulse oximetry Heart rate Systolic blood pressure Diastolic blood pressure Provider Name and Address Organization Details Last Updated DateTime 5 154.94 cm 39.7 kg/m2 67991.4 g 97.2 [degF] 93 % 93 % 71 /min 126 mm[Hg] 82 mm[Hg] Jerry Benavidez flavia [facility] [place] 5 12:01:24 Date Recorded Body height Body mass index (BMI) Body weight Body temperature Oxygen saturation Oxygen saturation in Arterial blood by Pulse oximetry Heart rate Respiratory rate Systolic blood pressure Diastolic blood pressure Provider Name and Address Organization Details Last Updated DateTime 5 154.94 cm 39.7 kg/m2 90794.4 g 98.2 [degF] 94 % 94 % 82 /min 18 /min 117 mm[Hg] 83 mm[Hg] Caesar Gurrola [facility] & [place] 5 09:24:03 Social History Question Answer Notes LastModified by Organizat ion Details LastModified Time Tobacco Smoking Status Current Every Day Smoker KATALINA VICTOR NP [address] [place] [address], [address] & [place] 09/10/2022 22:12:22 Do You Have An Advance Directive? Yes Information not available 03/28/2023 What Is Your Level Of Alcohol Consumption? Occasional Information not available 06/21/2023 Do You Wear A Helmet When Biking? Yes [email or web address] Information not available 04/16/2024 Are You Blind Or Do You Have Difficulty Seeing? Yes Information not available 09/10/2022 What Is Your Level Of Caffeine Consumption? Moderate [email or web address] Information not available 01/09/2024 In The 14 Days Before Symptom Onset, Have You Had Close Contact With A Laboratory-confir med COVID-19 While That Case Was Ill? No [email or web address] Information not available 04/16/2024 In The 14 Days Before Symptom Onset, Have You Had Close Contact With A Person Who Is Under Investigation For COVID-19 While That Person Was Ill? No [email or web address] Information not available 04/16/2024 Have You Been To An Area Known To Be High Risk For COVID-19? No [email or web address] Information not available 04/16/2024 Are You Currently Employed? Yes [email or web address] Information not available 04/16/2024 Are You Deaf Or Do You Have Serious Difficulty Hearing? No [email or web address] Information not available 04/16/2024 What Type Of Diet Are You Following? REGULAR [email or web address] Information not available 10/15/2024 Have You Processed Blood Or Body Fluids From An Ebola Virus Disease Patient Without Appropriate PPE? No [email or web address] Information not available 04/16/2024 Do You Reside In Or Have You Traveled To An Area Where Ebola Virus Transmission Is Active? No [email or web address] Information not available 04/16/2024 Do You Or Have You Ever Used E-cigarettes Or Vape? 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 No Information no t available 04/16/2024 What Is The Fluoride Status Of Your Home? Unknown [email or web address] Information not available 04/16/2024 Are There Any Guns Present In Your Home? No [email or web address] Information not available 04/16/2024 Have You Recently Or Are You Planning To Travel To An Area With Zika Virus? No [email or web address] Information not available 04/16/2024 Do You Use Insect Repellent Routinely? Yes [email or web address] Information not available 04/16/2024 Do You Feel Safe At Home? Yes [email or web address] Information not available 04/16/2024 Do You Have A Medical Power Of Transmission Inspector? Yes [email or web address] Information not available 04/16/2024 What Was The Date Of Your Most Recent Tobacco Screening? 2025 [email or web address] Information not available 2025 Do You Have Any Pets? No [email or web address] Information not available 04/16/2024 Do You Use Your Seat Belt Or Car Seat Routinely? Yes [email or web address] Information not available 04/16/2024 Do You Have Smoke And Carbon Monoxide Detectors In Your Home? Yes [email or web address] Information not available 04/16/2024 At What Age [...] Anxious, Or Unable To Sleep At Night)? [id number] [email or web address] Information not available 10/18/2023 Do You Use Any Illicit Or Recreational Drugs? No Information not available 09/07/2022 Do You Use Sunscreen Routinely? Yes [email or web address] Information not available 04/16/2024 Has Tobacco Cessation Counseling Been Provided? Yes [email or web address] Information not available 04/16/2024 On What Date Was Tobacco Cessation Counseling Provided? 2025 [email or web address] Information not available 2025 How Many Years Have You Smoked Tobacco? 35 Information not available 03/28/2023 Are You Currently In School? No [email or web address] Information not available 04/16/2024 Do You Or Have You Ever Used Any Other Forms Of Tobacco Or Nicotine? Yes [email or web address] Information not available 01/09/2024 Sex: Female Functional Status Question Answer Note LastModified by Organizat ion Details LastModified Time Do you have difficulty walking or climbing stairs? No [email or web address] Information not available 04/16/2024 Do you have transportation difficulties? No [email or web address] Information not available 04/16/2024 Are you able to walk? YESWOREST [email or web address] Information not available 04/16/2024 Do you have difficulty doing errands alone? No [email or web address] Information not available 04/16/2024 Are you able to care for yourself? Yes [email or web address] Information n ot available 04/16/2024 Do you have difficulty dressing or bathing? No [email or web address] Information not available 04/16/2024 What is your exercise level? Occasional Information not available 01/25/2023 Mental Status Question Answer Note LastModified by Organization D etails LastModified Time Do you have difficulty concentrating, remembering or making decisions? No [email or web address] Information no t available 04/16/2024 Family History [...] mcg/0.25mL dose 1 completed KATALINA VICTOR NP [address] [place] [address], [address], [place] - [facility] [place] 09/10/2022 22:12:32 Td (adult), 2 Lf tetanus toxoid, preservative free, adsorbed 1 completed KATALINA VICTOR NP [address] [place], [place] [address], [place] - [facility] [place] 09/10/2022 22:12:32 Hep A, adult 8 completed KATALINA VICTOR NP [address] [place] [address], [address], [place] [facility] [place] 09/10/2022 22:12:32 COVID-19, mRNA, LNP-S, PF, 100 mcg/0.5mL dose or 50 mcg/0.25mL dose 1 yuri VICTOR NP [address] [place] [address], [address], [place] - [facility] [place] 09/10/2022 22:12:32 Hep A, adult 9 completed KATALINA VICTOR NP [address] [place] [address], [place] - [facility] [place] 09/10/2022 22:12:32 COVID-19, mRNA, LNP-S, PF, 100 mcg/0.5mL dose or 50 mcg/0.25mL dose 1 completed KATALINA VICTOR NP [address] [place] [address], [address], [facility] [place] 09/10/2022 22:12:32 Past Encounters Encounter ID Performer Location Encounter Start Date Encounter Closed Date Diagnosis/Indication Diagnosis SNOMED-CT Code Diagnosis ICD10 Code Diagnosis Note [id number] [address] 09/07/2022 09:29:54 09/07/2022 11:20:31 Cough 38147306 R05.1 J45.21 medication s as prescribed stay well hydratedf/ u if symptoms persistER if any urgent signs or symptoms arise Essential hypertension 72810171 I10 educated on goal of less than 130/90advi sed low sodium diet, healthy lifestyle including exercise as ablecontin ue current medication regimenER if any symptoms such as chest pain, shortness of breath Asthma 786154962 J45.90 9 Cobalamin deficiency 190 083644 E53.8 recheck today Anemia 568681799 D64.9 recheck lab work today Prediabetes 132884795 R7 3.03 awaiting uvwj9telhf forced diet and lifestyle changes Mixed hyperlipidemia 267 882516 E78.2 [id number] [address] 10/25/2022 11:15:32 10/25/2022 11:52:45 Essential hypertension 51098368 I10 educated on goal of less than 130/90advi sed low sodium diet, healthy lifestyle including exercise as ablecontin ue current medication regimenER if any symptoms such as chest pain, shortness of breath Spasm of back muscles 20 1798718 M62.830 discussed limited use of NSAIDSpt requested refills Chronic ob structive pulmonary disease 87454994 J44.9 step up from breorinse mouth out after usesmoking cessation [id number] EVELINE MARINELLI[address] [place] [address] 01/25/2023 10:25:47 01/25/2023 17:00:39 Essential hypertension 64087131 I10 has been taking current RX twice a day so will increaseed ucated on goal of less than 130/90heal thy lifestyle including exercise as ablecontin ue current medication regimenER if any symptoms such as chest pain, shortness of breath Multiple joint pain 3567 8005 M25.50 awaiting lab work given today Crying ass ociated with mood 519223625 R45.89 continue with vraylarden ies alcohol or drug usedenies SI/HIverba lizes understand ing of making appt with therapist jessi [id number] KATALINA VICTOR NP [facility] [address] [address] 03/28/2023 10:14:18 03/28/2023 10:53:09 Essential hypertension 13111713 I10 educated on goal of less than 130/90meet in goaladvise d low sodium diet, healthy lifestyle including exercise as ablecontin ue current medication regimenER if any symptoms such as chest pain, shortness of breath Osteoarthritis 826172048 M19.90 avoid use of motrin, ibuprophen , aleve, naproxen with medication prescribed exercisewe ight Screening for malignant neoplasm of breast 306449545 Z12.39 Screening for malignant neoplasm of colon 130456344 Z12.11 [id number] KATALINA VICTOR NP [facility] [address] [facility] [place] [address] 06/21/2023 12:17:01 06/21/2023 15:09:16 Screening for malignant neoplasm of colon 881402311 Z12.11 Adult heal th examination 617914960 Z00.00 Patient presented to office today for [...] health risks and promote healthy living. Anemia 070184319 D64.9 recheck lab work todayfatig ue- sleep hygiene education Body mass index 30+ - obesity 081528888 Z68.30 lipid panel checked 08/2022 normal Essential hypertension 26963222 I10 educated on goal of less than 130/90meet ing goaladvise d low sodium diet, healthy lifestyle including exercise as ablecontin ue current medication regimenER if any symptoms such as chest pain, shortness of breath Hyperglycemia 02962400 R 73.9 awaiting fuan6vvfpt forced diet and lifestyle changes Osteoarthritis 659588357 M19.90 diclofenac made sick Fatigue 76236031 R53.83 Advised good sleep habits and patterns [...] bedtime. Screening for malignant neoplasm of cervix 927415177 Z12.4 Vaginitis 04500789 N76.0 [id number] KATALINA VICTOR NP [facility] [address] [place], [place] [address] 10/18/2023 15:05:32 10/18/2023 15:53:28 Fatigue 21683641 R53.83 awaiting lab worksleep hygienerec ommend therapylif estyle changes Mood disorder 92228708 F 40 denies SI/HIrecom mend therapy Mixed anxi ety and depressive disorder 376713596 F41.8 denies SI/HIstart wellbutrin to adjunct vraylar therapyver balizes understand ing of starting with twice daily then moving into extended release version if tolerates wellf/u in 4 weeks [id number] Dale Skinner MD [address] [place] [address] 10/31/2023 11:56:29 10/31/2023 12:31:32 Respiratory tract congestion and cough 487881571 R05.1 Influenza caused by Influenza B virus 81313891 J10.1 patient tested positive for influenza type B. Will treat with Tamiflu. I have discussed symptomati c relief. Patient expresses understand ing. [id number] KATALINA VICTOR NP [address] [place] [address] 01/09/2024 15:26:05 01/09/2024 15:54:28 Screening for malignant neoplasm of colon 982697013 Z12.11 Decreased renal function 46848687 R94.4 recheck lab work today, avoid NSAIDs, stay hydrated Weight gain 3016067 R63. 5 awaiting lab workreinfo rced lifestyle changes Body mass index 30+ - obesity 730167440 Z68.30 reinforced lifestyle changesdue to drug use, heart murmur not candidate for phentermin e Apnea 8152054 R06.81 witnessed apnea per her [id number] KATALINA VICTOR NP [address] [place] [address] 02/12/2024 15:25:25 02/12/2024 16:03:17 Allergic rhinitis 35556104 J30.9 Controlled refill provided Decreased renal function 33285711 R94.4 avoid NSAIDs, stay hydrated Body mass index 30+ - obesity 526583648 Z68.39 reinforced lifestyle changesdue to drug use, heart murmur not candidate for phentermin e [id number] DO Mihir MEDELLIN [facility] [place] - [address], [address] [place] [address] 03/20/2024 14:31:33 03/20/2024 15:07:35 Cholelithiasis without obstruction 51350834 K80.80 - Discussed signs and symptoms of [...] this time as she is asymptomat ic. [id number] KATALINA VICTOR NP [facility] [address] [place] [address] 04/16/2024 15:30:27 04/16/2024 15:46:57 Dyspnea on exertion 31086928 R06.09 awaiting chest xrayER if any changes/ur gent signs or symptoms arise Heart murmur 46332404 R0 1.1 referral to cardiology has been at least 2 yrs since seen by cardiologi Acute exac erbation of chronic obstructive pulmonary disease 701587922 J44.1 smoking cessationr escue vs maintenanc e inhaler educationu se of inhalers Swelling o f bilateral lower limbs 366529841 M79.89 comes and goescompre ssion sockseleva tionsalt intake discussedt aking HCTZ [id number] Daja Norton MD [address] [place] [address] 04/22/2024 14:57:36 04/22/2024 15:25:26 Swelling of bilateral lower limbs 177885853 M79.89 worsening for the last two weeks, follow up venous US of the lower extremitie s and echocardio gram with blood work. she is on HCTZ, will switch to Lasix after the work up if needed. Dyspnea on exertion 6084 5006 R06.09 follow up echocardio grma. Likely COPD. Cigarette smoker 1553762 7 F17.210 strongly encouraged to quit. and offered help. Hyperlipid emia screening 616491787 Z13.220 follow up fasting lipid profile. Chest discomfort 5835193 09 R07.89 chest discomfort with exertion in patient with mutliple risk factors, follow up stress test. Obesity 898658725 E66.9 BMI Sleep apnea 38940269 G47 .30 on CPAP. [id number] KATALINA VICTOR NP [facility] [address] [place] [address] 05/01/2024 09:15:11 05/03/2024 03:56:43 Mixed hyperlipidemia 828695521 E78.2 [id number] Daja Norton MD [facility] [address] [place] [address] 05/07/2024 14:48:31 05/07/2024 15:24:49 Swelling of bilateral lower limbs 457415337 M79.89 Improved since the last visit venous ultrasound showed no DVT. Blood work was discussed with the patient. We will continue same medical treatment for now.Follow up echocardio gram. Dyspnea on exertion 6084 5006 R06.09 follow up echocardio graphy. Likely COPD. Cigarette smoker 9453586 7 F17.210 strongly encouraged to quit. and offered help. Hyperlipid emia screening 408532741 Z13.220 Controlled continue medication s. Chest discomfort 6143734 09 R07.89 chest discomfort with exertion in patient with mutliple risk factors, follow up stress test. Obesity 796032089 E66.9 BMI 40.3. Recommend weight loss. Sleep apnea 52578392 G47 .30 on CPAP. [id number] KATALINA VICTOR NP [facility] [address] [facility] [place] [address] 06/10/2024 14:49:21 06/10/2024 16:47:44 Prediabetes 922217209 R73.03 awaiting bgpf5lvalx forced diet and lifestyle changes Weight gain 2834092 R63. 5 awaiting lab workreinfo rced lifestyle changes Acute pharyngitis 625992 003 J02.9 warm salt water garglescha nge toothbrush hydrations ymptomatic management f/u if symptoms persist or worsen [id number] KATALINA VICTOR NP [facility] [address] [facility] [place] [address] 10/15/2024 10:46:33 10/15/2024 12:28:23 Thyroid stimulating hormone level above reference range 562857178 R94.6 Repeat thyroid lab work today Prediabetes 878402356 R7 3.03 awaiting duyz6bxlpz forced diet and lifestyle changes Essential hypertension 94681250 I10 educated on goal of less than 130/90meet ing goaladvise d low sodium diet, healthy lifestyle including exercise as ablecontin ue current medication regimenER if any symptoms such as chest pain, shortness of breathrefi lls provided Acute exac erbation of chronic obstructive pulmonary disease 113370917 J44.1 smoking cessationr escue vs maintenanc e inhaler educationu se of inhalers Moderate r ecurrent major depression 10689326 F33.1 denies SI/ HI, controlled Mood disorder 39495476 F 40 denies SI/HIrecom mend therapy [id number] KATALINA VICTOR NP [address] [place] [address] 12/27/2024 15:34:46 01/10/2025 09:04:53 Cough 56320847 R05.1 medication s as prescribed stay well hydratedf/ u if symptoms persistER if any urgent signs or symptoms arise Wheeze - rhonchi 9101257 1 R09.89 Discuss chest x-ray medication s as prescribed , ER if any urgent signs or symptoms arise. When symptoms are improved she needs updated pulmonary function test and low-dose CT screening Mastodynia of bilateral breasts 7400528621 3802842 N64.4 awaiting imaging Mild inter mittent asthma 577216460 J45.20 needs updated PFT; no current maintenanc e inhaleruse s rescue inhaler as needed, usually doesnt have to use unless sick; has been increased use over the past 2 weeks Tobacco de pendence caused by cigarettes 8363549357 2024270 F17.087 [id number] KATALINA VICTOR NP [address] [place] [address] 2025 11:56:03 2025 12:27:31 Dyspnea on exertion 52600338 R06.09 awaiting chest xrayER if any changes/ur gent signs or symptoms arise Asthma 510512996 J45.90 9 Poor historian, last office visit pulmonary function test was ordered to get more accurate diagnosis of asthma versus COPD, smoking sensation, has albuterol inhaler, likely needs pulmonary referral, make sure she gets imaging done that was sent last office visit [id number] [address] [place] [address] 03/03/2025 09:15:48 03/03/2025 10:39:40 Diverticular disease 485798213 K57.90 awaiting ER records to review her lab work and imagingdis cussed diverticul ar disease and what that meansrecom zaira MiraLax, fiber in a.m., discussed dosing and had to take and senna in PMShe has an appointmen t with GI on the .Advis ed ER if any urgent signs or symptoms ariseshe was prescribed levofloxac in and metronidaz ole during ER visit and she completed both of thoseshe is wearing jeans that her tight-fitt ing around her abdomen leaving sykes today, discussed wearing loose clothing, liquid diet today start medication s, CT scan ordered Dysuria 87921661 R30.0 urine sent for culture and office will call after culture received. Take all medicines prescribed for you for the allotted time period. Push fluids especially water. If no better in 48-72 hours or if you develop abdominal or back pain, with fever chills nausea or vomiting come back or go to the emergency room immediatel y Health Concerns Section Related Observation LastModified by Organization Detai ls LastModified Time None Recorded Concern Status LastModified by Organization Details LastModified Time None Recorded Advance Directives Directive Y: Payers Encounter Date Sequence Insurance Name Policy Number Policy Natarajan Covered Member ID Natarajan Member ID Guarantor Name 06/10/2024 1 [employer] [place]ICA[place]AC[place] - [place]) Angella Napoles [id number] Angella Napoles 10/15/2024 1 [employer] [place] - [place]) Angella Napoles [id number] Angella Dony 12/27/2024 1 [employer] [place] - [place]) Angella Napoles [id number] Angella Salinasgett 2025 1 [employer] [place]AC[place] - HMO) Angella Salinasgett [id number] Angella Salinasgett 03/03/2025 1 [employer] [place]AC[place] - HMO) Angella Napoels [id number] Angella Napoles Notes Date Note Type Note Provider Name and Address Organization Details Recorded Time 06/10/2024 text/html 54-year-old bertram rangel who presents with complaints of persistent weight gain. Has decreased what she is eating but continues to gain weight. 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 He also complains of sore throat. Denies any fever, chills, nausea, vomiting. Sore throat started within the past couple days. Denies any known exposure to illness. KATALINA VICTOR NP [address] [place], [address], [facility] 06/10/2024 15:23:52 10/15/2024 text/html 53-year-old bertram rangel [...] exposure to illness. KATALINA VICTOR NP [address] [place], [address], [facility] 10/16/2024 19:18:43 12/27/2024 text/html 54-year-old bertram rangel who presents for follow-up reports breast lump need repeat imaging. Has been having left lung congestion for approximately 2 weeks. She also has fatigue no appetite possible fever. She reports cough is tight, some wheezing, unable to really get productive mucus. KATALINA VICTOR NP [address] [place], [address], [facility] 01/10/2025 09:00:16 2025 text/html 55-year-old bertram rangel who presents for follow-up. Has not completed imaging or pulmonary function test that was sent with last office visit. Reports wheezing and coughing often. She uses Ventolin inhaler. Taking all of her medications as prescribed. Reports mood is controlled. Blood pressure is normal. She does smoke. Cigarettes. KATALINA VICTOR NP [address] [place], [address], [facility] 01/16/2025 09:58:51 03/03/2025 text/html 55-year-old bertram rangel who presents for ER follow-up. She went to the ER on the and was diagnosed with diverticulitis. She was prescribed levofloxacin and metronidazole. She originally went in for abdominal pain. She was not passing gas at the time. Reports she never has constipation. Has daily formed bowel movements. Denies any blood or mucus in stool. She finished her antibiotics. Has follow-up with GI on the . She does continue to have pain present mainly of lower abdomen KATALINA VICTOR NP [address] [facility], [place], [address], [facility] 03/03/2025 09:47:23 OBGyn Episode No OBEpisode recorded.
[2025-03-05 14:57] LABS: Basophils % 0.3 % (0.1-2.0); Eosinophils # 0.1 K/mm3 (0.0-0.4); Eosinophils % 1.1 % (0.1-12.0); Hematocrit 47.5 % (37.0-47.0); Hemoglobin 15.4 g/dL (12.2-16.2); Lymphocytes # 1.9 K/mm3 (0.7-4.5); Lymphocytes % 21.5 % (10-50); Mean Corpuscular HGB Conc 32.4 g/dL (31.8-35.4); Mean Corpuscular Hemoglobin 27.9 pg (27.0-31.2); Mean Corpuscular Volume 86.1 fl (81-99); Monocytes # 0.5 K/mm3 (0.1-1.0); Neutrophils # 6.3 K/mm3 (1.8-7.8); Neutrophils % 70.3 % (37.0-80.0); Nucleated Red Blood Cells # 0 10^3/uL; Nucleated Red Blood Cells % 0 %; Platelet Count 348 K/mm3 (142-424); Red Blood Count 5.52 M/mm3 (4.20-5.40); Red Cell Distribution Width 14.4 % (11.5-17.5); Red Cell Distribution Width-SD 45.5 fL; White Blood Count 8.9 K/mm3 (4.8-10.8)
== END 2025-03-05 23:59 | disposition home or self-care (01) ==
LOC: LAB 14:32
PROVIDERS: PCP Nurse Practitioner Family; Visit Provider Surgery
DX: N30.90 Cystitis, unspecified without hematuria (principal)
CPT/HCPCS: 36415; 85025

== ENCOUNTER 2025-03-19 14:18 | Outpatient (CLI) | payer MEDICAID, SELFPAY ==
--- OUTSIDE RECORDS SUMMARY | 2025-03-19 14:21 | XMS_ITS | Data Portability ---
Author Organization [facility] [place] Address [address] [place] [address] Care Team Providers Care Acute Coordinator Name Role Phone KATALINA VICTOR Primary Care Provider Assessment No assessment recorded. Plan of Treatment Reminders Order Date Submit Date Provider Last Modified By Organization Details Last Modified Time Details Appointments FOLLOW UP 30 2024 03:00P Monae VICTOR NP Not available Not available Not available Lab culture, urine 2024 025 [facility] (Laboratory), [address] [place], [address], 03/04/2025 07:03:40 urinalysi s, dipstick 2024 025 [facility], [address] [place], [address], 03/03/2025 09:47:00 CBC w/ auto diff 2024 025 [facility] (Laboratory), [address] [place], [address], 03/03/2025 13:24:46 CMP, serum or plasma 2024 025 [facility] (Laboratory), [address] [place], [address], 03/03/2025 13:32:14 influenza virus A + B + SARS-CoV- 2 (COVID19) Ag panel, rapid IA, upper respirato ry specimen 2024 025 [facility], [address] [place], [address], 12/27/2024 17:05:03 HbA1c (hemoglob in A1c), blood 2023 024 [facility] (Laboratory), [address] [place], [address], 10/15/2024 13:11:54 CMP, serum or plasma 2023 024 [facility] (Laboratory), [address] [place], [address], 10/15/2024 13:15:11 TSH + free T4, serum 2023 024 [facility] (Laboratory), [address] [place], [address], 10/22/2024 07:57:12 TSH + free T4, serum [address] [place] [address] (Laboratory), [address] [place], [address], 06/17/2024 08:15:54 CMP, serum or plasma 2023 024 [facility] (Laboratory), [address] [place], [address], 06/10/2024 17:09:39 HbA1c (hemoglob in A1c), blood 2023 024 [facility] (Laboratory), [address] [place], [address], 06/10/2024 16:51:59 Referral None recorded. Procedures None recorded. Surgeries None recorded. Imaging CT, abdomen + pelvis, w/o contrast 2024 025 [facility] (Scheduling), [address] [place], [address], 03/10/2025 16:58:14 XR, chest, 2 view 2024 [facility] (Scheduling), [address] [place], [address], 2025 14:26:25 MAMMO, diagnosti c, digital, bilateral [address] [place] [address] (Scheduling), [address] [place], [address], 2025 12:28:29 US, breast, bilateral [address] [place] [address] (Scheduling), [address] [place], [address], 2025 12:28:30 XR, chest, 2 view [address] [place] [address] (Scheduling), [address] [place], [address], 2025 12:28:30 LDCT, chest, for lung cancer screening [address] [place] [address] (Scheduling), [address] [place], [address], 01/17/2025 08:24:11 Medication Orders Miralax 17 gram/dose oral powder 2024 [facility], [address], [place], [id number], 03/03/2025 09:41:32 Citrucel 500 mg tablet 2024 [facility] #77958, [address], [place], [id number], 03/03/2025 09:41:33 senna 8.6 mg capsule 2024 [facility] #16586, [address], [place], [id number], 03/03/2025 09:41:31 prednison e 5 mg tablets in a dose pack 2024 [facility] #26483, [address], [place], [id number], 2025 12:01:58 doxycycli ne hyclate 100 mg capsule 2024 025 [facility] #76865, [address], [place], [id number], 2025 12:01:56 Ventolin HFA 90 mcg/actua tion aerosol inhaler 2023 024 [facility] #79368, [address], [place], [id number], 10/15/2024 11:09:19 Medrol (Adam) 4 mg tablets in a dose pack 2023 025 [facility] #66502, [address], [place], [id number], 12/27/2024 15:53:49 azithromy mulu 250 mg tablet 2023 025 [facility] #63402, [address] [place], [id number], 12/27/2024 15:53:37 losartan 100 mg-hydroc hlorothia zide 25 mg tablet 2023 024 [facility] #97933, [address] [place], [id number], 10/15/2024 11:09:20 metoprolo l succinate ER 50 mg tablet,ex tended release 24 hr 2023 024 [facility] #25894, [address], [id number], 10/15/2024 11:09:20 Vraylar 1.5 mg capsule 2023 024 [facility] #72158, [address] [place], [id number], 10/15/2024 11:09:22 azithromy mulu 250 mg tablet 2023 024 [email or web address] [facility] #13937, [address] [place], [id number], 12/27/2024 15:53:06 Patient TargetsNo targets recorded. Patient Instructions Encounter Date Encounter Id Patient Instructions Last Modified By Organization Details Last Modified Time 12/27/2024 [id number] complete PFT w/ post bronchodilator spirometry* [id number] Not available 01/24/2025 08:15:57 Reason for Referral None Reported. Results Created Date Observation Date Name Description Value Unit Range Abnormal Flag Note LastModifiedBy Organization Detail LastModifiedTime 06/10/20 24 06/10/2024 HEMOG LOBIN A1C glycosylated hemoglobin A1C 5.8 % 4.5-6. 2 Not Available [facility] (Lab Registration) [address] [place], [address], 06/10/2024 16:51:59 06/10/20 24 06/10/2024 HEMOG LOBIN A1C estimated average glucose 120 mg/dL 82-131 Not Available [facility] (Lab Registration) [address] [place], [address], 06/10/2024 16:51:59 06/10/20 24 06/10/2024 HEMOG LOBIN A1C note Unles s other george noted testi ng perfo rmed at: [facility] [address] [address] [phone] Deandre villegas MD CLIA: [id number] Not Available [facility] (Lab Registration) [address] [place], [address], 06/10/2024 16:51:59 06/10/20 24 06/10/2024 THYRO ID STIMU LATIN G HORMO NE thyroid stimulating hormone 6.29 mIU/m L 0.34-4 .80 high Not Available [facility] (Lab Registration) [address] [place], [address], 06/10/2024 17:09:37 06/10/20 24 06/10/2024 THYRO ID STIMU LATIN G HORMO NE note Unles s other george noted testi ng perfo rmed at: [facility] [address] [place] [address] [phone] Deandre villegas MD CLIA: [id number] Not Available [facility] (Lab Registration) [address], [place], [address], 06/10/2024 17:09:37 06/10/20 24 06/10/2024 T4 FREE T4,free 0.94 NG/dL 0.76-1 .46 Effec tive today 013 new Refer ence Range . Not Available [facility] (Lab Registration) [address] [place], [address], 06/10/2024 17:09:38 06/10/20 24 06/10/2024 T4 FREE note Unles s other george noted testi ng perfo rmed at: [facility] [address] [place] [address] [phone] Deandre villegas MD CLIA: [id number] Not Available [facility] (Lab Registration) [address] [place], [address], 06/10/2024 17:09:38 06/10/20 24 06/10/2024 COMP METAB OLIC PANEL sodium 143 mmol/ L 136-14 5 Not Available [facility] (Lab Registration) [address] [place], [address], 06/10/2024 17:09:39 06/10/20 24 06/10/2024 COMP METAB OLIC PANEL potassium 4.1 mmol/ L 3.5-5. 1 Not Available [facility] (Lab Registration) [address] [place], [address], 06/10/2024 17:09:39 06/10/20 24 06/10/2024 COMP METAB OLIC PANEL chloride 104 mmol/ L 98-107 Not Available [facility] (Lab Registration) [address] [place], [address], 06/10/2024 17:09:39 06/10/20 24 06/10/2024 COMP METAB OLIC PANEL carbon dioxide 35 mmol/ L 21-32 high Not Available [facility] (Lab Registration) [address] [place], [address], 06/10/2024 17:09:39 06/10/20 24 06/10/2024 COMP METAB OLIC PANEL anion gap 4.0 Not Available [facility] (Lab Registration) [address] [place], [address], 06/10/2024 17:09:39 06/10/20 24 06/10/2024 COMP METAB OLIC PANEL glucose 85 mg/dL 70-110 Not Available [facility] (Lab Registration) [address] [place], [address], 06/10/2024 17:09:39 06/10/20 24 06/10/2024 COMP METAB OLIC PANEL blood urea nitrogen 17 mg/dL 7-18 Not Available [facility] (Lab Registration) [address] [place], [address], 06/10/2024 17:09:39 06/10/20 24 06/10/2024 COMP METAB OLIC PANEL creatinine 0.9 mg/dL 0.6-1. 0 Not Available [facility] (Lab Registration) [address] [place], [address], 06/10/2024 17:09:39 06/10/20 24 06/10/2024 COMP METAB OLIC PANEL BUN/creatini ne ratio 18.9 ratio 9-21 Not Available [facility] (Lab Registration) [address] [place], [address], 06/10/2024 17:09:39 06/10/20 24 06/10/2024 COMP METAB OLIC PANEL estimated glom filtration rate 76 mL/mi n >60- Not Available [facility] (Lab Registration) [address] [place], [address], 06/10/2024 17:09:39 06/10/20 24 06/10/2024 COMP METAB OLIC PANEL total protein 6.6 g/dL 6.4-8. 2 Not Available [facility] (Lab Registration) [address] [place], [address], 06/10/2024 17:09:39 06/10/20 24 06/10/2024 COMP METAB OLIC PANEL albumin 3.7 g/dL 3.4-5. 0 Not Available [facility] (Lab Registration) [address] [place], [address], 06/10/2024 17:09:39 06/10/20 24 06/10/2024 COMP METAB OLIC PANEL calcium 9.6 mg/dL 8.5-10 .1 Not Available [facility] (Lab Registration) [address] [place], [address], 06/10/2024 17:09:39 06/10/20 24 06/10/2024 COMP METAB OLIC PANEL corrected calcium 9.8 mg/dL 8.5-10 .1 Not Available [facility] (Lab Registration) [address] [place], [address], 06/10/2024 17:09:39 06/10/20 24 06/10/2024 COMP METAB OLIC PANEL bilirubin total 0.3 mg/dL 0.4-1. 5 low Not Available [facility] (Lab Registration) [address] [place], [address], 06/10/2024 17:09:39 06/10/20 24 06/10/2024 COMP METAB OLIC PANEL AST (SGOT) 18 U/L 15-37 Not Available [facility] (Lab Registration) [address] [place], [address], 06/10/2024 17:09:39 06/10/20 24 06/10/2024 COMP METAB OLIC PANEL ALT (SGPT) 34 U/L 12-78 Not Available [facility] (Lab Registration) [address] [place], [address], 06/10/2024 17:09:39 06/10/20 24 06/10/2024 COMP METAB OLIC PANEL alk phosphatase 83 U/L 50-120 Not Available [facility] (Lab Registration) [address] [place], [address], 06/10/2024 17:09:39 06/10/20 24 06/10/2024 COMP METAB OLIC PANEL note Unles s other george noted testi ng perfo rmed at: [facility] [address] [place] [address] [phone] Deandre villegas MD CLIA: [id number] Not Available [facility] (Lab Registration) [address] [place], [address], 06/10/2024 17:09:39 10/15/20 24 10/15/2024 HEMOG LOBIN A1C glycosylated hemoglobin A1C 5.6 % 4.5-6. 2 Not Available [facility] (Lab Registration) [address] [place], [address], 10/15/2024 13:11:53 10/15/20 24 10/15/2024 HEMOG LOBIN A1C estimated average glucose 114 mg/dL 82-131 Not Available [facility] (Lab Registration) [address], [place], [address], 10/15/2024 13:11:53 10/15/20 24 10/15/2024 HEMOG LOBIN A1C note Judsones s other george noted testi ng perfo rmed at: [facility] [address] [place] [address] [phone] Deandre villegas MD CLIA: [id number] Not Available [facility] (Lab Registration) [address] [place], [address], 10/15/2024 13:11:53 10/15/20 24 10/15/2024 THYRO ID STIMU LATIN G HORMO NE thyroid stimulating hormone 4.22 mIU/m L 0.34-4 .80 Not Available [facility] (Lab Registration) [address], [place], [address], 10/15/2024 13:15:08 10/15/20 24 10/15/2024 THYRO ID STIMU LATIN G HORMO NE note Renee s other george noted testi ng perfo rmed at: [facility] [address] [place] [address] [phone] Deandre villegas MD CLIA: [id number] Not Available [facility] (Lab Registration) [address], [place], [address], 10/15/2024 13:15:08 10/15/20 24 10/15/2024 T4 FREE T4,free 0.92 NG/dL 0.76-1 .46 Effec tive today 013 new Refer ence Range . Not Available [facility] (Lab Registration) [address] [place], [address], 10/15/2024 13:15:10 10/15/20 24 10/15/2024 T4 FREE note Judsones s other george noted testi ng perfo rmed at: [facility] [address] [place] [address] [phone] Deandre villegas MD CLIA: [id number] Not Available [facility] (Lab Registration) [address], [place], [address], 10/15/2024 13:15:10 10/15/20 24 10/15/2024 COMP METAB OLIC PANEL sodium 142 mmol/ L 136-14 5 Not Available [facility] (Lab Registration) [address], [place], [address], 10/15/2024 13:15:11 10/15/2010/15/2024 COMP METAB OLIC PANEL potassium 3.9 mmol/ L 3.5-5. 1 Not Available [facility] (Lab Registration) [address] [place], [address], 10/15/2024 13:15:11 10/15/20 24 10/15/2024 COMP METAB OLIC PANEL chloride 102 mmol/ L 98-107 Not Available [facility] (Lab Registration) [address] [place], [address], 10/15/2024 13:15:11 10/15/20 24 10/15/2024 COMP METAB OLIC PANEL carbon dioxide 32 mmol/ L 21-32 Not Available [facility] (Lab Registration) [address] [place], [address], 10/15/2024 13:15:11 10/15/20 24 10/15/2024 COMP METAB OLIC PANEL anion gap 8.0 Not Available [facility] (Lab Registration) [address] [place], [address], 10/15/2024 13:15:11 10/15/20 24 10/15/2024 COMP METAB OLIC PANEL glucose 95 mg/dL 70-110 Not Available [facility] (Lab Registration) [address] [place], [address], 10/15/2024 13:15:11 10/15/20 24 10/15/2024 COMP METAB OLIC PANEL blood urea nitrogen 20 mg/dL 7-18 high Not Available [facility] (Lab Registration) [address], [place], [address], 10/15/2024 13:15:11 10/15/20 24 10/15/2024 COMP METAB OLIC PANEL creatinine 0.9 mg/dL 0.6-1. 0 Not Available [facility] (Lab Registration) [address], [place], [address], 10/15/2024 13:15:11 10/15/2010/15/2024 COMP METAB OLIC PANEL BUN/creatini ne ratio 22.2 9-21 high Not Available [facility] (Lab Registration) [address], [place], [address], 10/15/2024 13:15:11 10/15/20 24 10/15/2024 COMP METAB [...] staley ing kiney funct ion. Not Available [facility] (Lab Registration) [address], [place], [address], 10/15/2024 13:15:11 10/15/20 24 10/15/2024 COMP METAB OLIC PANEL total protein 7.3 g/dL 6.4-8. 2 Not Available [facility] (Lab Registration) [address] [place], [address], 10/15/2024 13:15:11 11/26/10/15/2024 COMP METAB OLIC PANEL albumin 3.9 g/dL 3.4-5. 0 Not Available [facility] (Lab Registration) [address] [place], [address], 10/15/2024 13:15:11 10/15/2010/15/2024 COMP METAB OLIC PANEL calcium 9.9 mg/dL 8.5-10 .1 Not Available [facility] (Lab Registration) [address] [place], [address], 10/15/2024 13:15:11 10/15/20 24 10/15/2024 COMP METAB OLIC PANEL corrected calcium 10.0 mg/dL 8.5-10 .1 Not Available [facility] (Lab Registration) [address] [place], [address], 10/15/2024 13:15:11 10/15/2010/15/2024 COMP METAB OLIC PANEL bilirubin total 0.4 mg/dL 0.4-1. 5 Not Available [facility] (Lab Registration) [address] [place], [address], 10/15/2024 13:15:11 10/15/20 24 10/15/2024 COMP METAB OLIC PANEL AST (SGOT) 21 U/L 15-37 Not Available [facility] (Lab Registration) [address] [place], [address], 10/15/2024 13:15:11 10/15/20 24 10/15/2024 COMP METAB OLIC PANEL ALT (SGPT) 33 U/L 12-78 Not Available [facility] (Lab Registration) [address] [place], [address], 10/15/2024 13:15:11 10/15/20 24 10/15/2024 COMP METAB OLIC PANEL alk phosphatase 93 U/L 50-120 Not Available [facility] (Lab Registration) [address] [place], [address], 10/15/2024 13:15:11 10/15/20 24 10/15/2024 COMP METAB OLIC PANEL note Unles s other george noted testi ng perfo rmed at: [facility] [address] [address] [phone] Deandre villegas MD CLIA: [id number] Not Available [facility] (Lab Registration) [address] [place], [address], 10/15/2024 13:15:11 12/27/19 25 12/27/2024 influ ki virus A + B + SARS- CoV-2 (COVI D19) Ag panel , rapid IA, upper respi rator y speci men FLU A negati ve Not Available [address] [place], [address], 12/27/2024 15:52:29 12/27/19 25 12/27/2024 influ ki virus A + B + SARS- CoV-2 (COVI D19) Ag panel , rapid IA, upper respi rator y speci men FLU B negati ve Not Available [address] [place], [address], 12/27/2024 15:52:29 12/27/19 25 12/27/2024 influ ki virus A + B + SARS- CoV-2 (COVI D19) Ag panel , rapid IA, upper respi rator y speci men SARS COV + SARS OV 2 negati ve Not Available [facility] [address] [place], [address], 12/27/2024 15:52:29 03/03/20 25 03/03/2025 CBC AUTO W DIFF WBC 13.5 10 4.5-11 .5 high Not Available [facility] (Lab Registration) [address] [place], [address], 03/03/2025 13:24:46 03/03/20 25 03/03/2025 CBC AUTO W DIFF RBC 5.44 10 4.25-5 .57 Not Available [facility] (Lab Registration) [address] [place], [address], 03/03/2025 13:24:46 03/03/20 25 03/03/2025 CBC AUTO W DIFF HGB 15.2 g/dL 12.0-1 5.7 Not Available [facility] (Lab Registration) [address] [place], [address], 03/03/2025 13:24:46 03/03/20 25 03/03/2025 CBC AUTO W DIFF HCT 47.8 % 36.0-4 7.0 high Not Available [facility] (Lab Registration) [address] [place], [address], 03/03/2025 13:24:46 03/03/20 25 03/03/2025 CBC AUTO W DIFF MCV 87.9 fL 80-95 Not Available [facility] (Lab Registration) [address] [place], [address], 03/03/2025 13:24:46 03/03/20 25 03/03/2025 CBC AUTO W DIFF MCH 27.9 pg 27.0-3 4.0 Not Available [facility] (Lab Registration) [address] [place], [address], 03/03/2025 13:24:46 03/03/20 25 03/03/2025 CBC AUTO W DIFF MCHC 31.8 g/dL 32.0-3 6.0 low Not Available [facility] (Lab Registration) [address] [place], [address], 03/03/2025 13:24:46 03/03/20 25 03/03/2025 CBC AUTO W DIFF platelet count 348 10 150-45 0 Not Available [facility] (Lab Registration) [address] [place], [address], 03/03/2025 13:24:46 03/03/20 25 03/03/2025 CBC AUTO W DIFF RDW 14.0 % 12.3-1 5.1 Not Available [facility] (Lab Registration) [address], [place], [address], 03/03/2025 13:24:46 03/03/20 25 03/03/2025 CBC AUTO W DIFF MPV 9.5 fL 7.4-10 .4 Not Available [facility] (Lab Registration) [address], [place], [address], 03/03/2025 13:24:46 03/03/20 25 03/03/2025 CBC AUTO W DIFF granulocyte% 70.5 % 40-75 Not Available [facility] (Lab Registration) [address] [place], [address], 03/03/2025 13:24:46 03/03/20 25 03/03/2025 CBC AUTO W DIFF lymphocyte% 19.9 % 15-57 Not Available [facility] (Lab Registration) [address] [place], [address], 03/03/2025 13:24:46 03/03/20 25 03/03/2025 CBC AUTO W DIFF monocyte% 7.2 % 4.0-12 .0 Not Available [facility] (Lab Registration) [address] [place], [address], 03/03/2025 13:24:46 03/03/20 25 03/03/2025 CBC AUTO W DIFF eosinophil% 1.2 % 0.0-4. 0 Not Available [facility] (Lab Registration) [address] [place], [address], 03/03/2025 13:24:46 03/03/20 25 03/03/2025 CBC AUTO W DIFF basophil% 0.2 % 0.0-1. 0 Not Available [facility] (Lab Registration) [address] [place], [address], 03/03/2025 13:24:46 03/03/20 25 03/03/2025 CBC AUTO W DIFF immature granulocytes % 1.0 % 0.0-0. 8 high Not Available [facility] (Lab Registration) [address], [place], [address], 03/03/2025 13:24:46 03/03/20 25 03/03/2025 CBC AUTO W DIFF granulocyte# 9.52 10 Not Available [facility] (Lab Registration) [address] [place], [address], 03/03/2025 13:24:46 03/03/20 25 03/03/2025 CBC AUTO W DIFF lymphocyte# 2.69 10 Not Available [facility] (Lab Registration) [address] [place], [address], 03/03/2025 13:24:46 03/03/20 25 03/03/2025 CBC AUTO W DIFF monocyte# 0.97 10 Not Available [facility] (Lab Registration) [address] [place], [address], 03/03/2025 13:24:46 03/03/20 25 03/03/2025 CBC AUTO W DIFF eosinophil# 0.16 10 Not Available [facility] (Lab Registration) [address] [place], [address], 03/03/2025 13:24:46 03/03/20 25 03/03/2025 CBC AUTO W DIFF basophil# 0.03 10 Not Available [facility] (Lab Registration) [address] [place], [address], 03/03/2025 13:24:46 03/03/20 25 03/03/2025 CBC AUTO W DIFF immature granulocytes # 0.13 10 Not Available [facility] (Lab Registration) [address] [place], [address], 03/03/2025 13:24:46 03/03/20 25 03/03/2025 CBC AUTO W DIFF manual differential NO Not Available [facility] (Lab Registration) [address], [place], [address], 03/03/2025 13:24:46 03/03/20 25 03/03/2025 CBC AUTO W DIFF note Unles s other george noted testi ng perfo rmed at: [facility] [address] [facility] [employer] [place] [address] [phone] Deandre villegas MD CLIA: [id number] Not Available [facility] (Lab Registration) [address], [place], [address], 03/03/2025 13:24:46 03/03/20 25 03/03/2025 COMP METAB OLIC PANEL sodium 133 mmol/ L 136-14 5 low Not Available [facility] (Lab Registration) [address] [place], [address], 03/03/2025 13:32:14 03/03/20 25 03/03/2025 COMP METAB OLIC PANEL potassium 4.3 mmol/ L 3.5-5. 1 Not Available [facility] (Lab Registration) [address], [place], [address], 03/03/2025 13:32:14 03/03/20 25 03/03/2025 COMP METAB OLIC PANEL chloride 95 mmol/ L 98-107 low Not Available [facility] (Lab Registration) [address] [place], [address], 03/03/2025 13:32:14 03/03/20 25 03/03/2025 COMP METAB OLIC PANEL carbon dioxide 31 mmol/ L 21-32 Not Available [facility] (Lab Registration) [address] [place], [address], 03/03/2025 13:32:14 03/03/20 25 03/03/2025 COMP METAB OLIC PANEL anion gap 7.0 Not Available [facility] (Lab Registration) [address], [place], [address], 03/03/2025 13:32:14 03/03/20 25 03/03/2025 COMP METAB OLIC PANEL glucose 85 mg/dL 70-110 Not Available [facility] (Lab Registration) [address], [place], [address], 03/03/2025 13:32:14 03/03/20 25 03/03/2025 COMP METAB OLIC PANEL blood urea nitrogen 19 mg/dL 7-18 high Not Available [facility] (Lab Registration) [address], [place], [address], 03/03/2025 13:32:14 03/03/20 25 03/03/2025 COMP METAB OLIC PANEL creatinine 0.6 mg/dL 0.6-1. 0 Not Available [facility] (Lab Registration) [address], [place], [address], 03/03/2025 13:32:14 03/03/20 25 03/03/2025 COMP METAB OLIC PANEL BUN/creatini ne ratio 31.7 9-21 high Not Available [facility] (Lab Registration) [address], [place], [address], 03/03/2025 13:32:14 03/03/20 25 03/03/2025 COMP METAB [...] staley ing kiney funct ion. Not Available [facility] (Lab Registration) [address], [place], [address], 03/03/2025 13:32:14 04/14/20 25 03/03/2025 COMP METAB OLIC PANEL osmolality (calculated) 279 mOsm/ kg 275-30 1 OSMOL ALITY IS A CALCU LATIO N UTILI ZING THE SERUM /PLAS MA SODIU M, GLUCO SE AND UREA NITRO GEN (BUN) LEVEL S. FOR THE MOST ACCUR ATE RESUL T A MEASU RED SERUM OSMOL ALITY IS SUGGE STED. Not Available [facility] (Lab Registration) [address], [place], [address], 03/03/2025 13:32:14 03/03/20 25 03/03/2025 COMP METAB OLIC PANEL total protein 7.0 g/dL 6.4-8. 2 Not Available [facility] (Lab Registration) [address], [place], [address], 03/03/2025 13:32:14 03/03/20 25 03/03/2025 COMP METAB OLIC PANEL albumin 3.5 g/dL 3.4-5. 0 Not Available [facility] (Lab Registration) [address], [place], [address], 03/03/2025 13:32:14 03/03/20 25 03/03/2025 COMP METAB OLIC PANEL calcium 10.1 mg/dL 8.5-10 .1 Not Available [facility] (Lab Registration) [address] [place], [address], 03/03/2025 13:32:14 03/03/20 25 03/03/2025 COMP METAB OLIC PANEL corrected calcium 10.5 mg/dL 8.5-10 .1 high Not Available [facility] (Lab Registration) [address] [place], [address], 03/03/2025 13:32:14 03/03/20 25 03/03/2025 COMP METAB OLIC PANEL bilirubin total 0.1 mg/dL 0.4-1. 5 low Not Available [facility] (Lab Registration) [address] [place], [address], 03/03/2025 13:32:14 03/03/20 25 03/03/2025 COMP METAB OLIC PANEL AST (SGOT) 34 U/L 15-37 Not Available [facility] (Lab Registration) [address], [place], [address], 03/03/2025 13:32:14 03/03/20 25 03/03/2025 COMP METAB OLIC PANEL ALT (SGPT) 75 U/L 12-78 Not Available [facility] (Lab Registration) [address] [place], [address], 03/03/2025 13:32:14 03/03/20 25 03/03/2025 COMP METAB OLIC PANEL alk phosphatase 109 U/L 50-120 Not Available [facility] (Lab Registration) [address] [place], [address], 03/03/2025 13:32:14 03/03/20 25 03/03/2025 COMP METAB OLIC PANEL note Unles s other george noted testi ng perfo rmed at: [facility] [address] [place] [address] [phone] Deandre villegas MD CLIA: [id number] Not Available [facility] (Lab Registration) [address] [place], [address], 03/03/2025 13:32:14 03/03/20 25 03/03/2025 CULTU RE URINE results [facility] 03-04 702 No Signi figan t Growt h at Day 1 [facility] 03-05 715 No Signi fican t Growt h at Day 2 Not Available [facility] (Lab Registration) [address] [place], [address], 03/05/2025 07:16:48 03/03/20 25 03/03/2025 CULTU RE URINE note Unles s other george noted testi ng perfo rmed at: [facility] [place] [address] [phone] Deandre villegas MD CLIA: [id number] Not Available [facility] (Lab Registration) [address] [place], [address], 03/05/2025 07:16:48 03/03/20 25 03/03/2025 urina lysis , dipst ick Leukocytes (reference range) negati ve Not Available [address] [place], [address], 03/03/2025 09:37:42 03/03/20 25 03/03/2025 urina lysis , dipst ick Nitrite (reference range:) negati ve Not Available [address] [place], [address], 03/03/2025 09:37:42 03/03/20 25 03/03/2025 urina lysis , dipst ick Urobilinogen (reference range) 0.2 Not Available [address] [place], [address], 03/03/2025 09:37:42 03/03/20 25 03/03/2025 urina lysis , dipst ick Protein (reference range) negati ve Not Available [address] [place], [address], 03/03/2025 09:37:42 03/03/20 25 03/03/2025 urina lysis , dipst ick pH (reference range 5-8.5) 6.0 Not Available [address] [place], [address], 03/03/2025 09:37:42 03/03/20 25 03/03/2025 urina lysis , dipst ick Blood (reference range:) non-He molyze d: Trace Not Available [address] [place], [address], 03/03/2025 09:37:42 03/03/20 25 03/03/2025 urina lysis , dipst ick Specific [place] (reference range) 1.025 Not Available [address] [place], [address], 03/03/2025 09:37:42 03/03/20 25 03/03/2025 urina lysis , dipst ick Ketone (reference range) negati ve Not Available [address] [place], [address], 03/03/2025 09:37:42 03/03/20 25 03/03/2025 urina lysis , dipst ick Bilirubin (reference range) negati ve Not Available [address] [place], [address], 03/03/2025 09:37:42 03/03/20 25 03/03/2025 urina lysis , dipst ick Glucose (reference range) negati ve Not Available [address] [place], [address], 03/03/2025 09:37:42 03/03/20 25 03/03/2025 urina lysis , dipst ick Color (reference range: yellow-brown ) Yellow Not Available [address] [place], [address], 03/03/2025 09:37:42 05/21/20 24 05/20/2024 US, echoc ardio gram, trans thora cic, compl ete, w/ color flow [facility] [address] [place] [address] Phone: Fax: Name: STEVAN CORTES NAI Exam Date: 05/20/20 24 : [birth year] Age 54 years Gender : F Access ion: [id number] Physic hilda: ABENA LUCAS Facili ty: [facility] Facili ty HSV: Outpat [...] Pulmon ic Valve Report for STEVAN Zhou [id number] on 05/20/24 Dictat ed By: ABENA LUCAS Transc ribed By: [facility] Michelle ibrahim Transc ribed On: 05/21/20 6:29 AM Electr onical ly signed by: ABENA LUCAS 05/21/20 Thank you for referr STEVAN Farmer to [facility] al. Legall y authen jey d by TEVIN Stephenson MD 05-21 06:32: 09 CC'ed Logic: Orderi ng Provid er: TEVIN Stephenson CC Provid er: AMBURG EY TAFFAN Y Attend ing Provid er: TEVIN Stephenson Referr ing Provid er: TEVIN Stephenson Admitt ing Provid er: TEVIN Stephenson [facility] ([facility]) [address] [place], [address], 05/21/2024 12:33:35 05/22/20 24 05/20/2024 pharm acolo gic nucle ar stres s test [facility] [address] [place] [address] Phone: Fax: Name: STEVAN CORTES IE Exam Date: 05/20/20 24 : 9[birth year] Age 54 years Gender : F Access ion: [id number] Physic hilda: ABENA LUCAS Facili ty: [facility] Facili ty HSV: Outpat ient Exam: NM MYOCAR D SPEC WM/EF ACTIVITIES AIDE STRESS TEST Bernadine zhou Name: STEVAN CORTES NAI D Admit Date: 2023 Date of : 1969 Accoun t#: [id number] Attend ing Physic hilda: ABENA DAUGHERTY [...] the rest images were done. Then, the patiilia t receiv ed 0.4 mg IV inject ion of Lexisc an over 10 second s and 20 second s later was follow ed by 35 millic uries IV inject ion of Cardio lite, and then 40 minute s later, the stress and gated images with the polar maps were done. After the Lexisc an inject ion, the patiilia t was monito red up to 10 minute [...] hemody namics return ed back to her [facility] [place]. Test was comple aidan. No compli cation . The patiilia t tolera aidan the stress test well. [...] authen ticate d by TEVIN Stephenson MD 4-0 05-22 07:58: 01 DICTAT ED BY: ABENA DAUGHERTY MD Dictat ed By: ABENA LUCAS Transc ribed By: KEI BENAVIDES Transc ribed On: 05/22/20 7:57 AM Electr onical ly signed by: ABENA LUCAS 05/22/20 Thank you for referr ing STEVAN CORTES IE to [facility]. Legall y authen ticate d by TEVIN Stephenson MD 05-22 07:58: 01 CC'ed Logic: Orderi ng Provid er: TEVIN Stephenson CC Provid er: MAURICIO Talbert Attend ing Provid er: TEVIN Stephenson Referr ing Provid er: TEVIN Stephenson Admitt ing Provid er: TEVIN Stephenson [facility] ([facility]) [address] [place], [address], 05/22/2024 13:14:29 06/18/20 24 06/18/2024 US, thyro id [facility] 9 [facility] [place] [address] Phone: Fax: Name: STEVAN CORTES Exam Date: 024 : 9[birth year] Age 54 years Gender : F Access ion: [id number] Physic hilda: AMBURG EY, TAFFAN Y Facili ty: [facility] Facili ty HSV: Outpat ient Exam: US THYROI D PROCED URE: US THYROI D. HISTOR Y: Patiilia zhou is a 54 year old female [...] to assist in the care of this patien t. Electr onical ly signed by: Joel Lima MD 2023 11:14 PM EDT RP Workst ation: [id number] Dictat ed By: Joel Lima Transc ribed By: Transc ribed On: 3:06 PM Electr onical ly signed by: Joel Lima Thank you for referr ing STEVAN CORTES IE to [facility]. Legall y authen ticate d by SYDNIE MAC MD 2023-06-18 15:06: 59 CC'ed Logic: Orderi ng Provid er: AMBURG EY TAFFAN Y CC Provid er: AMBURG EY TAFFAN Y Attend ing Provid er: AMBURG EY TAFFAN Y Referr ing Provid er: AMBURG EY TAFFAN Y Admitt ing Provid er: AMBALMA EY TAFFAN Y [facility] (Radiology) [address] [place], [address], 06/24/2024 08:47:27 01/14/20 25 2025 XR, chest , 2 view [facility] [address] [place] [address] Phone: Fax: Name: STEVAN CORTES Exam Date: 025 : [birth year] Age 55 years Gender : F Access ion: [id number] Physic hilda: AMBURG EY, TAFFAN Y Facili ty: [facility] Facili ty HSV: Outpat [...] for referr ing STEVAN CORTES IE to [facility]. Legall y authen ticate d by GURPREET SHAH MD 01-14 12:50: 00 CC'ed Logic: Orderi ng Provid er: AMBURG EY TAFFAN Y CC Provid er: AMBURG EY TAFFAN Y Attend ing Provid er: AMBURG EY TAFFAN Y Referr ing Provid er: AMBURG EY TAFFAN Y Admitt ing Provid er: AMBURG EY TAFFAN Y [email or web address] [place] [address] (Radiology) [address] [place], [address], 01/16/2025 09:39:56 01/23/2001/22/2025 US, alex bang , limit ed [facility] [address] [place] [address] Phone: Fax: Name: STEVAN CORTES Exam Date: 01/23/20 25 : 9[birth year] Age 55 years Gender : F Access ion: [id number] Physic hilda: AMBURG EY, TAFFAN Y Facili ty: [facility] Facili ty HSV: Outpat ient Exam: US [...] [facility] Legall y authen ticate d by ROSE MEDINA MD 01-22 14:30: 00 CC'ed Logic: Orderi ng Provid er: AMBURG EY TAFFAN Y CC Provid er: AMBURG EY TAFFAN Y Attend ing Provid er: AMBURG EY TAFFAN Y Referr ing Provid er: AMBURG EY TAFFAN Y Admitt ing Provid er: AMBURG EY TAFFAN Y [email or web address] [facility] (Radiology) [address] [place], [address], 01/23/2025 12:13:44 01/23/2001/22/2025 MAMMO , diagn ostic , digit al, bilat eral [facility] 9 [facility] [place] [address] Phone: Fax: Name: DENICE Serena STEVAN TRIMBLE Exam Date: 01/23/20 : [birth year] Age 55 years Gender : F Access ion: [id number] Physic hilda: AMBURG EY, TAFFAN Y Facili ty: [facility] Facili ty HSV: Outpat [...] Dunn 01/23/20 Thank you for referr ing SLADESTEVAN DOUGLAS IE to [facility]. Legall y authen ticate d by ROSE MEDINA MD 01-22 13:55: 00 CC'ed Logic: Orderi ng Provid er: AMBURG EY [place] Y CC Provid er: AMBURG EY TAFFAN Y Attend ing Provid er: AMBURG EY TAFFAN Y Referr ing Provid er: AMBURG EY TAFFAN Y Admitt ing Provid er: AMBURG EY TAFFAN Y [id number] [facility] (Radiology) [address] [place], [address], 01/23/2025 12:13:38 01/23/2001/22/2025 XR, chest , 2 view [facility] 9 [facility] [place] [address] Phone: Fax: Name: SLADESTEVAN DOUGLAS Exam Date: 01/23/20 : [birth year] Age 55 years Gender : F Access ion: [id number] Physic hilda: JAMISON ESPAÑA Y Facili ty: [facility] Facili ty HSV: Outpat [...] 03:44 PM EST RP Workst ation: [id number] Dictat ed By: Neelam Randle Transc ribed By: Transc ribed On: 01/23/20 2:49 PM Electr onical ly signed by: Neelam Randle as 01/23/20 Thank you for referr ing STEVAN CORTES IE to [facility]. Legall y authen ticate d by THONY DUENAS MD 01-22 14:49: 00 CC'ed Logic: Orderi ng Provid er: AMBURG EY TAFFAN Y CC Provid er: AMBURG EY TAFFAN Y Attend ing Provid er: AMBURG EY TAFFAN Y Referr ing Provid er: AMBURG EY TAFFAN Y Admitt ing Provid er: AMBURG EY TAFFAN Y [email or web address] [facility] (Radiology) [address] [place], [address], 01/23/2025 12:13:38 01/24/2001/22/2025 LDCT, chest , for lung cance r ady daley [facility] 9 [facility] [place] [address] Phone: Fax: Name: SLADESTEVAN DOUGLAS NAI Exam Date: 01/23/20 : 9[birth year] Age 55 years Gender : F Access ion: [id number] 00 Physic hilda: JAMISON ESPAÑA Y Facili ty: [facility] Facili ty HSV: Outpat ient Exam: CT CHEST LOW DOSE CT CHEST WITHOU T IV CONTRA [facility]: 55-yea r-old Female patien [...] lung cancer CT screen ing protoc ol. Chen l and sagitt al two-di mensio nal [...] 08:41 AM EST RP Workst ation: [id number] Dictat ed By: Neelam Randle Transc ribed By: Transc ribed On: 01/23/20 2:21 PM Electr onical ly signed by: Neelam Randle as 01/23/20 Thank you for referr ing STEVAN CORTES IE to [facility]. Legall y authen ticate d by THONY DUENAS MD 2024-0 01-22 14:21: 06 CC'ed Logic: Orderi ng Provid er: AMBURG NII SWIFT Y CC Provid er: AMBURG EY JAMISON Y Attend ing Provid er: AMBURG EY JAMISON Y Referr ing Provid er: AMBURG EY [place] Y Admitt ing Provid er: AMBURG EY JAMISON Y tpardini [facility] (Radiology) [address] , [place], [address], 01/24/2025 14:51:37 02/05/20 25 01/22/2025 compl ete PFT w/ [facility] hodil ator ventura metry * No observ ation record ed. [facility] (Sleep Lab) [address] [place], [address], 02/04/2025 16:50:57 02/23/20 25 02/22/2025 imagi ng inter preta tion No observ ation record ed. [address], [place], [address], 02/24/2025 08:26:14 02/23/20 25 02/22/2025 imagi ng inter preta tion No observ ation record ed. [address], [place], [place], [address], 02/24/2025 08:26:03 02/23/20 25 02/22/2025 imagi ng inter preta tion No observ ation record ed. [address], [place], [address], 02/24/2025 08:26:00 03/10/20 25 03/10/2025 CT, abdom en + pelvi s, w/o contr ast [facility] 9 [facility] [place] [address] Phone: Fax: Name: STEVAN CORTES IE Exam Date: 025 : 9[birth year] Age 55 years Gender : F Access ion: [id number] Physic hilda: AMBURG NII TAFLONDON Y Facili ty: [facility] Facili ty HSV: Outpat ient Exam: CT ABD/PE LVIS W/O PROCED URE: CT ABDOME N PELVIS WITHOU T IV CONTRA ST [facility] INDICA TION: Divert iculos is of intest ric part unspec ified withou t prefer ence or absces s withou t bleed, lower abdomi nal pain. COMPAR AMARIS: None. TECHNI QUE: Helica l CT acquis ition perfor med of the abdome n and pelvis with chen l and sagitt al reform ats. PO Contra st: None. . Compli cation s: None. FINDIN GS: Evalua tion of vessel s and solid organs limite d withou t IV contra st. Lower thorax : No focal consol idatio ns or pleura l effusi ons. Proxim ally 5 mm left lower lobe calcif ied granul mauricio. Free air: None Hepato biliar y system : No discre te lesion s. Attenu ation normal . No intra- or extrah epatic biliar y ductal dilata tion. Gallbl adder: Intral uminal stones measur ing up to approx imatel y 2 cm.. No wall thicke thuy or perich olecys tic free fluid. Spleen : Normal size. Puncta te calcif icatio ns, probab ly reflec ting prior granul omatou s diseas e. Pancre as: No focal masses . No pancre atic ductal dilata tion. No signif icant peripa ncreat ic inflam matory change s. Adrena l glands : No focal mass Kidney s and collec ting system : Normal morpho logy. No hydron ephros is or nephro lithia sis. Gastro intest inal: No eviden ce for obstru ction. Ill-de fined thicke thuy of the wall of the colon with surrou nding inflam matory fat-st randin g, in the region of sigmoi d divert iculi. Normal duoden al sweep. Append ix: Normal calibe r. No signif icant inflam matory change s. Vascul ature: Aorta normal calibe r. Few scatte red athero matous calcif icatio ns. Nodes: No signif icant lympha denopa thy. Pelvic organs : Uterus presen t. Ovarie s not reliab ly identi fied. Urinar y bladde r: Poorly disten ded. No signif icant wall thicke thuy. Free fluid: Minima l strand y free fluid in the lower pelvis . No discre te collec tions. Soft tissue s: No signif icant inflam matory change s. No eviden ce for body wall hernia . Bones: No eviden ce for fractu re. No suspic ious bone lesion . IMPRES PALMIRA: Legall y authen ticate d by BHUPINDER DAILY MD 03-10 15:37: 31 Acute sigmoi d divert iculit is. No defini te eviden ce for perfor ation or absces s. Total Exam CT Dose Index: 18.55 mGy. Total Exam Dose Length Produc t: 812.36 mGy-cm . CT Dose reduct ion techni ques were utiliz ed for this examin ation with 1 or more of the follow ing: Automa aidan exposu re contro l and/or adjust ment of the mA or kV accord ing to patien t size, and/or use of iterat tramaine recons tructi on techni que. This dictat ion was perfor med using voice recogn ition softwa re and some phonet ic and gramma tical errors may have been missed in proofr eading . Electr onical ly signed by: Kan Dejesus i, MD 2024 04:52 PM EDT RP Workst ation: [id number] Dictat ed By: Kan Dejesus i Transc ribed By: Transc ribed On: 025 3:37 PM Electr onical ly signed by: Kan Dejesus i 025 Thank you for referr ing STEVAN CORTES IE to [facility]. Legall y authen ticate d by BHUPINDER DAILY MD 03-10 15:37: 31 CC'ed Logic: Orderi ng Provid er: AMBURG EY TAFFAN Y CC Provid er: AMBURG EY TAFFAN Y Attend ing Provid er: AMBURG EY TAFFAN Y Referr ing Provid er: AMBURG EY TAFFAN Y Admitt ing Provid er: AMBURG EY TAFFAN Y [facility] (Radiology) [address] , [place], [address], 03/16/2025 14:58:31 Result Notes None recorded. Problems Name Problem SNOMED Code Status Onset Date Resolution Date Notes Provider Name and Address Organization Details Recorded Time Essential hypertension 30195456 Active 2021 Caesar Gurrola null, [place] - [facility] - [place] & [place] 4 15:37:50 Drug abuse 81531988 Active 2021 Caesar Gurrola null, [place] - [facility] - [facility] [place] 4 15:37:47 Asthma 273348802 Active 2021 Caesar Gurrola null, [place] - [facility] - [facility] & [place] 4 15:37:43 Heart murmur 96150714 Active 2021 Caesar Gurrola null, [place] - [facility] - [facility] & [place] 4 15:37:52 Problem Notes None recorded. Procedures Surgical History Date Name Laterality Status Provider Name and Address Organization Details Recorded Time 02/12/20 24 Feces-based colorectal cancer DNA screening completed Nadia Garcia [place] - [facility] - [place] & [place] 08/05/2024 13:24:58 07/05/20 23 Date of Last Pap Smear completed Jerry Navarro [place] [facility] - [place] 10/18/2023 15:23:12 01/25/20 23 completed KATALINA VICTOR NP [address] [place] [address], [address], [place] - [facility] - [place] [facility] [place] 06/21/2023 14:24:27 11/20/18 75 Tonsillectomy/ Adenoidectomy completed KATALINA VICTOR NP [address] [place] [address], [address], [place] - [facility] - [facility] & [place] 06/21/2023 14:24:34 Cancer Surgery completed KATALINA VICTOR NP [address] [place] [address], [phone], [place] - [facility] - [facility] & [place] 03/28/2023 10:33:23 section completed Caroline Hebert [place] - [facility] - [place] 09/07/2022 07:13:02 Imaging Results Imaging Date Name Status LastModified by Organization Details LastModified Time 05/20/2024 US, echocardiogram, transthoracic, complete, w/ color flow completed [facility] (Scheduling) [address] [place], [address], 05/21/2024 12:33:35 05/20/2024 pharmacologic nuclear stress test active [facility] (Scheduling) [address] [place], [address], 05/22/2024 13:14:29 06/18/2024 US, thyroid completed [facility] (Radiology) [address] [place], [address], 06/24/2024 08:47:27 2025 XR, chest, 2 view completed [address] (Radiology) [address] [place], [address], 01/16/2025 09:39:56 01/22/2025 US, breast, unilateral, limited completed [id number] (Radiology) [address] [place], [address], 01/23/2025 12:13:44 01/22/2025 MAMMO, diagnostic, digital, bilateral completed [email or web address] (Radiology) [address] [place], [address], 01/23/2025 12:13:38 01/22/2025 XR, chest, 2 view completed [address] (Radiology) [address] [place], [address], 01/23/2025 12:13:38 01/22/2025 LDCT, chest, for lung cancer screening completed [facility] (Radiology) [address] [place], [address], 01/24/2025 14:51:37 01/22/2025 complete PFT w/ post bronchodilator spirometry* completed [facility] (Sleep Lab) [address] [place], [address], 02/04/2025 16:50:57 02/22/2025 imaging interpretation completed [facility] [address], [place], [place], [address], 02/24/2025 08:26:14 02/22/2025 imaging interpretation completed [facility] [address], [place], [address], 02/24/2025 08:26:03 02/22/2025 imaging interpretation completed [email or web address] [facility] [address], [place], [place], [address], 02/24/2025 08:26:00 03/10/2025 CT, abdomen + pelvis, w/o contrast completed [facility] (Radiology) [address] , [place], [address], 03/16/2025 14:58:31 Procedure Notes None recorded. Medical Equipment None Reported. Allergies Allergen ID Allergen Name Allergen Category Reaction Reaction Severity Criticality Documentation Date Start Date Code Code System Note Provider Name and Address Organization Details Recorded Time 717510 penicilli n V Not available rash Not available Not available 03/03/2025 7984 RxNorm Caesar Mastersonjuli taylor [facility] & [place] 5 09:24:21 63181 Product containin g penicilli n (product) medicatio n rash Not available Not available 09/07/2022 16673 8001 SNOMED Caroline Shahnatasha taylor [facility] & [place] 2 07:11:27 59350 lisinopri l medicatio n Not available Not available Not available 09/07/2022 52318 RxNorm Other react ions and sever ities : 'Adve rse react ion to subst ance' . Caesar Gurrola brandon [facility] & [place] 5 09:24:21 98762 penicilli n G Not available flushing rash moderate moderate Not available 09/10/2022 7980 RxNorm KATALINA VICTOR NP [address] [place] [address], [phone] [place] [address] - [place] & [place] 2 22:12:08 Medications Name Sig [...] Updated DateTime 4 154.94 cm 41.4 kg/m2 22903.7 3 g 97.5 [degF] 91 % 91 % 79 /min 105 mm[Hg] 55 mm[Hg] Jerry alejandro [place] - [facility] & [place] 4 15:00:06 Date Recorded Body height Body mass index (BMI) Body weight Body temperature Oxygen saturation Oxygen saturation in Arterial blood by Pulse oximetry Heart rate Respiratory rate Systolic blood pressure Diastolic blood pressure Provider Name and Address Organization Details Last Updated DateTime 4 154.94 cm 40.4 kg/m2 28799.7 7 g 97.1 [degF] 95 % 95 % 85 /min 18 /min 115 mm[Hg] 82 mm[Hg] Caesar Gurrola [place] [facility] & [place] 4 10:53:46 Date Recorded Body height Body mass index (BMI) Body weight Body temperature Oxygen saturation Oxygen saturation in Arterial blood by Pulse oximetry Heart rate Respiratory rate Systolic blood pressure Diastolic blood pressure Provider Name and Address Organization Details Last Updated DateTime 5 154.94 cm 39.5 kg/m2 00209.8 1 g 98.3 [degF] 93 % 93 % 104 /min 18 /min 122 mm[Hg] 81 mm[Hg] Caesar KELLY - [facility] & [place] 5 15:52:36 Date Recorded Body height Body mass index (BMI) Body weight Body temperature Oxygen saturation Oxygen saturation in Arterial blood by Pulse oximetry Heart rate Systolic blood pressure Diastolic blood pressure Provider Name and Address Organization Details Last Updated DateTime 5 154.94 cm 39.7 kg/m2 40733.4 g 97.2 [degF] 93 % 93 % 71 /min 126 mm[Hg] 82 mm[Hg] Jerry alejandro [place] - [facility] & [place] 5 12:01:24 Date Recorded Body height Body mass index (BMI) Body weight Body temperature Oxygen saturation Oxygen saturation in Arterial blood by Pulse oximetry Heart rate Respiratory rate Systolic blood pressure Diastolic blood pressure Provider Name and Address Organization Details Last Updated DateTime 5 154.94 cm 39.7 kg/m2 90076.4 g 98.2 [degF] 94 % 94 % 82 /min 18 /min 117 mm[Hg] 83 mm[Hg] Caesar KELLY [facility] & [place] 5 09:24:03 Social History Question Answer Notes LastModified by Organizat ion Details LastModified Time Tobacco Smoking Status Current Every Day Smoker KATALINA VICTOR NP [address] [place] [address], [id number] [place] [address] & [place] 09/10/2022 22:12:22 Do You Have An Advance Directive? Yes Information not available 03/28/2023 What Is Your Level Of Alcohol Consumption? Occasional Information not available 06/21/2023 Do You Wear A Helmet When Biking? Yes [email or web address] Information not available 04/16/2024 Are You Blind Or Do You Have Difficulty Seeing? Yes Information not available 09/10/2022 What Is Your Level Of Caffeine Consumption? Moderate [email or web address] Information not available 01/09/2024 In The 14 Days Before Symptom Onset, Have You Had Close Contact With A [facility] COVID-19 While That Case Was Ill? No Information not available 04/16/2024 In The 14 Days Before Symptom Onset, Have You Had Close Contact With A Person Who Is Under Investigation For COVID-19 While That Person Was Ill? No [email or web address] Information not available 04/16/2024 Have You Been To An Area Known To Be High Risk For COVID-19? No Information not available 04/16/2024 Are You Currently Employed? Yes [email or web address] Information not available 04/16/2024 Are You Deaf Or Do You Have Serious Difficulty Hearing? No [email or web address] Information not available 04/16/2024 What Type Of Diet Are You Following? REGULAR [email or web address] Information not available 10/15/2024 Have You Processed Blood Or Body Fluids From An Ebola Virus Disease Patient Without Appropriate PPE? No [email or web address] Information not available 04/16/2024 Do You Reside In Or Have You Traveled To An Area Where Ebola Virus Transmission Is Active? No [email or web address] Information not available 04/16/2024 Do You Or Have You Ever Used E-cigarettes Or Vape? 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 No [email or web address] Information no t available 04/16/2024 What Is The Fluoride Status Of Your Home? Unknown [email or web address] Information not available 04/16/2024 Are There Any Guns Present In Your Home? No Information not available 04/16/2024 Have You Recently Or Are You Planning To Travel To An Area With Zika Virus? No [email or web address] Information not available 04/16/2024 Do You Use Insect Repellent Routinely? Yes [email or web address] Information not available 04/16/2024 Do You Feel Safe At Home? Yes [email or web address] Information not available 04/16/2024 Do You Have A Medical Power Of Button Machine Operator? Yes Information not available 04/16/2024 What Was The Date Of Your Most Recent Tobacco Screening? 2025 Information not available 2025 Do You Have Any Pets? No Information not available 04/16/2024 Do You Use Your Seat Belt Or Car Seat Routinely? Yes [email or web address] Information not available 04/16/2024 Do You Have Smoke And Carbon Monoxide Detectors In Your Home? Yes [email or web address] Information not available 04/16/2024 At What Age Did You Start Smoking Tobacco? 19 [email or web address] Information not available 01/09/2024 Are You Passively Exposed To Smoke? Yes Information no t available 09/10/2022 Do You Or Have You Ever Used Smokeless Tobacco? Never Used Smokeless Tobacco Information not available 09/10/2022 How Much Tobacco Do You Smoke? 1 PPD Information not available 03/28/2023 Do You Feel Stressed (tense, Restless, Nervous, Or Anxious, Or Unable To Sleep At Night)? [id number] [email or web address] Information not available 10/18/2023 Do You Use Any Illicit Or Recreational Drugs? No Information not available 09/07/2022 Do You Use Sunscreen Routinely? Yes [email or web address] Information not available 04/16/2024 Has Tobacco Cessation Counseling Been Provided? Yes Information not available 04/16/2024 On What Date Was Tobacco Cessation Counseling Provided? 2025 [email or web address] Information not available 2025 How Many Years Have You Smoked Tobacco? 35 Information not available 03/28/2023 Are You Currently In School? No [email or web address] Information not available 04/16/2024 Do You Or Have You Ever Used Any Other Forms Of Tobacco Or Nicotine? Yes [email or web address] Information not available 01/09/2024 Sex: Female Functional Status Question Answer Note LastModified by Organizat ion Details LastModified Time Do you have difficulty walking or climbing stairs? No [email or web address] Information not available 04/16/2024 Do you have transportation difficulties? No Information not available 04/16/2024 Are you able to walk? YESWOREST [email or web address] Information not available 04/16/2024 Do you have difficulty doing errands alone? No [email or web address] Information not available 04/16/2024 Are you able to care for yourself? Yes [email or web address] Information n ot available 04/16/2024 Do you have difficulty dressing or bathing? No [email or web address] Information not available 04/16/2024 What is your exercise level? Occasional Information not available 01/25/2023 Mental Status Question Answer Note LastModified by Organization D etails LastModified Time Do you have difficulty concentrating, remembering or making decisions? No [email or web address] Information no t available 04/16/2024 Family History [...] or Hearing Problems Y Back Problems Y Asthma Y COPD Y Substance Abuse Y Anemia Y Reflux/GERD Y Hypertension Y Obstructive Sleep Apnea Y Gynecological History Statement/Question Response Abnormal Pap [...] mcg/0.25mL dose 1 completed KATALINA VICTOR NP [address] [place] [address], [address] [place] [address], [place] - [facility] & [place] 09/10/2022 22:12:32 Td (adult), 2 Lf tetanus toxoid, preservative free, adsorbed 1 completed KATALINA VICTOR NP [address] [place] [address], [phone], [place] - [facility] & [place] 09/10/2022 22:12:32 Hep A, adult 8 completed KATALINA VICTOR NP [address] [place] [address], [phone], [place] - [facility] & [place] 09/10/2022 22:12:32 COVID-19, mRNA, LNP-S, PF, 100 mcg/0.5mL dose or 50 mcg/0.25mL dose 1 completed KATALINA VICTOR NP [address] [place] [address], [phone], [place] - [facility] - [place] & [place] 09/10/2022 22:12:32 Hep A, adult 9 completed KATALINA VICTOR NP [address] [place] [address], [phone], [place] - [facility] & [place] 09/10/2022 22:12:32 COVID-19, mRNA, LNP-S, PF, 100 mcg/0.5mL dose or 50 mcg/0.25mL dose completed KATALINA VICTOR NP [address] [place] [address], [id number], [facility] & [place] 09/10/2022 22:12:32 Past Encounters Encounter ID Performer Location Encounter Start Date Encounter Closed Date Diagnosis/Indication Diagnosis SNOMED-CT Code Diagnosis ICD10 Code Diagnosis Note [id number] KATALINA VICTOR NP [address] [address] 09/07/2022 09:29:54 09/07/2022 11:20:31 Cough 23254054 R05.1 J45.21 medication s as prescribed stay well hydratedf/ u if symptoms persistER if any urgent signs or symptoms arise Essential hypertension 03661442 I10 educated on goal of less than 130/90advi sed low sodium diet, healthy lifestyle including exercise as ablecontin ue current medication regimenER if any symptoms such as chest pain, shortness of breath Asthma 430345658 J45.90 9 Cobalamin deficiency 190 902603 E53.8 recheck today Anemia 084429255 D64.9 recheck lab work today Prediabetes 143852635 R7 3.03 awaiting [id number] forced diet and lifestyle changes Mixed hyperlipidemia 267 127068 E78.2 [id number] KATALINA VICTOR NP [address] [address] 10/25/2022 11:15:32 10/25/2022 11:52:45 Essential hypertension 70579200 I10 educated on goal of less than 130/90advi sed low sodium diet, healthy lifestyle including exercise as ablecontin ue current medication regimenER if any symptoms such as chest pain, shortness of breath Spasm of back muscles 20 1453815 M62.830 discussed limited use of NSAIDSpt requested refills Chronic ob structive pulmonary disease 95415277 J44.9 step up from breorinse mouth out after usesmoking cessation [id number] KATALINA VICTOR NP [address] [address] 01/25/2023 10:25:47 01/25/2023 17:00:39 Essential hypertension 05656460 I10 has been taking current RX twice a day so will increaseed ucated on goal of less than 130/90heal thy lifestyle including exercise as ablecontin ue current medication regimenER if any symptoms such as chest pain, shortness of breath Pain of mu ltiple joints 93304571 M25.50 awaiting lab work given today Crying ass ociated with mood 213731071 R45.89 continue with meseret ies alcohol or drug usedenies SI/HIverba lizes understand ing of making appt with therapist jessi [id number] KATALINA VICTOR NP [facility] [address] [place] [address] 03/28/2023 10:14:18 03/28/2023 10:53:09 Essential hypertension 19390570 I10 educated on goal of less than 130/90meet in goaladvise d low sodium diet, healthy lifestyle including exercise as ablecontin ue current medication regimenER if any symptoms such as chest pain, shortness of breath Osteoarthritis 661946475 M19.90 avoid use of motrin, ibuprophen , aleve, naproxen with medication prescribed exercisewe ight Screening for malignant neoplasm of breast 791958289 Z12.39 Screening for malignant neoplasm of colon 403356438 Z12.11 [id number] KATALINA VICTOR NP [facility] [address] [facility] [place] [address] 06/21/2023 12:17:01 06/21/2023 15:09:16 Screening for malignant neoplasm of colon 470544157 Z12.11 Adult [facility] th examination 263827256 Z00.00 Patient presented to office today for [...] health risks and promote healthy living. Anemia 719575535 D64.9 recheck lab work todayfatig ue- sleep hygiene education Body mass index 30+ - obesity 211636942 Z68.30 lipid panel checked 08/2022 normal Essential hypertension 33585305 I10 educated on goal of less than 130/90meet ing goaladvise d low sodium diet, healthy lifestyle including exercise as ablecontin ue current medication regimenER if any symptoms such as chest pain, shortness of breath Hyperglycemia 34577576 R 73.9 awaiting swuh8pmafy forced diet and lifestyle changes Osteoarthritis 872713753 M19.90 diclofenac made sick Fatigue 08435647 R53.83 Advised good sleep habits and patterns [...] bedtime. Screening for malignant neoplasm of cervix 213932055 Z12.4 Vaginitis 94647371 N76.0 [id number] Dale Skinner MD [place] [address] [facility] [place] [address] 10/18/2023 15:05:32 10/18/2023 15:53:28 Fatigue 46377317 R53.83 awaiting lab worksleep hygienerec ommend therapylif estyle changes Mood disorder 40728692 F 40 denies SI/HIrecom mend therapy Mixed anxi ety and depressive disorder 298473845 F41.8 denies SI/HIstart wellbutrin to adjunct vraylar therapyver balizes understand ing of starting with twice daily then moving into extended release version if tolerates wellf/u in 4 weeks [id number] Dale Skinner MD [facility] [address] [facility] [place] [address] 10/31/2023 11:56:29 10/31/2023 12:31:32 Respiratory tract congestion and cough 824759608 R05.1 Influenza caused by Influenza B virus 78435520 J10.1 patient tested positive for influenza type B. Will treat with Tamiflu. I have discussed symptomati c relief. Patient expresses understand ing. [id number] KATALINA VICTOR NP [address] [place] [address] 01/09/2024 15:26:05 01/09/2024 15:54:28 Screening for malignant neoplasm of colon 061473614 Z12.11 Decreased renal function 95510779 R94.4 recheck lab work today, avoid NSAIDs, stay hydrated Weight gain 8967087 R63. 5 awaiting lab workreinfo rced lifestyle changes Body mass index 30+ - obesity 722218050 Z68.30 reinforced lifestyle changesdue to drug use, heart murmur not candidate for phentermin e Apnea 6927775 R06.81 witnessed apnea per her [id number] Dale Skinner MD [address] [place] [address] 02/12/2024 15:25:25 02/12/2024 16:03:17 Allergic rhinitis 26606633 J30.9 Controlled refill provided Decreased renal function 11644151 R94.4 avoid NSAIDs, stay hydrated Body mass index 30+ - obesity 777221409 Z68.39 reinforced lifestyle changesdue to drug use, heart murmur not candidate for phentermin e [id number] DO Cecilio [facility] [place] - [address] [place] [address] [place] [address] 03/20/2024 14:31:33 03/20/2024 15:07:35 Cholelithiasis without obstruction 36393184 K80.80 - Discussed signs and symptoms of [...] this time as she is asymptomat ic. [id number] KATALINA VICTOR NP [facility] [address] [facility] [place] [address] 04/16/2024 15:30:27 04/16/2024 15:46:57 Dyspnea on exertion 93799096 R06.09 awaiting chest xrayER if any changes/ur gent signs or symptoms arise Heart murmur 26128955 R0 1.1 referral to cardiology has been at least 2 yrs since seen by cardiologi [facility] exac erbation of chronic obstructive pulmonary disease 871726152 J44.1 smoking cessationr escue vs maintenanc e inhaler educationu se of inhalers Swelling o f bilateral lower limbs 712138640 M79.89 comes and goescompre ssion sockseleva tionsalt intake discussedt aking HCTZ [id number] Daja Norton MD [address] [place] [address] 04/22/2024 14:57:36 04/22/2024 15:25:26 Swelling of bilateral lower limbs 892441094 M79.89 worsening for the last two weeks, follow up venous US of the lower extremitie s and echocardio gram with blood work. she is on HCTZ, will switch to Lasix after the work up if needed. Dyspnea on exertion 6084 5006 R06.09 follow up echocardio grma. Likely COPD. Cigarette smoker 3777293 7 F17.210 strongly encouraged to quit. and offered help. Hyperlipid emia screening 135859744 Z13.220 follow up fasting lipid profile. Chest discomfort 6001945 09 R07.89 chest discomfort with exertion in patient with mutliple risk factors, follow up stress test. Obesity 192777028 E66.9 BMI Sleep apnea 20048347 G47 .30 on CPAP. [id number] KATALINA VICTOR NP [facility] [address] [place] [address] 05/01/2024 09:15:11 05/03/2024 03:56:43 Mixed hyperlipidemia 755467494 E78.2 [id number] Daja Norton MD [address] [place] [address] 05/07/2024 14:48:31 05/07/2024 15:24:49 Swelling of bilateral lower limbs 201334994 M79.89 Improved since the last visit venous ultrasound showed no DVT. Blood work was discussed with the patient. We will continue same medical treatment for now.Follow up echocardio gram. Dyspnea on exertion 6084 5006 R06.09 follow up echocardio graphy. Likely COPD. Cigarette smoker 7786523 7 F17.210 strongly encouraged to quit. and offered help. Hyperlipid emia screening 922640618 Z13.220 Controlled continue medication s. Chest discomfort 1510304 09 R07.89 chest discomfort with exertion in patient with mutliple risk factors, follow up stress test. Obesity 519360970 E66.9 BMI 40.3. Recommend weight loss. Sleep apnea 15478313 G47 .30 on CPAP. [id number] KATALINA VICTOR NP [address] [place] [address] 06/10/2024 14:49:21 06/10/2024 16:47:44 Prediabetes 284652201 R73.03 awaiting kfvx6kyafk forced diet and lifestyle changes Weight gain 1667248 R63. 5 awaiting lab workreinfo rced lifestyle changes Acute pharyngitis 857140 003 J02.9 warm salt water garglescha nge toothbrush hydrations ymptomatic management f/u if symptoms persist or worsen [id number] KATALINA VICTOR NP [place] [address] [facility] [place] [address] 10/15/2024 10:46:33 10/15/2024 12:28:23 Thyroid stimulating hormone level above reference range 273332256 R94.6 Repeat thyroid lab work today Prediabetes 221069663 R7 3.03 awaiting molz3rlwyk forced diet and lifestyle changes Essential hypertension 32948599 I10 educated on goal of less than 130/90meet ing goaladvise d low sodium diet, healthy lifestyle including exercise as ablecontin ue current medication regimenER if any symptoms such as chest pain, shortness of breathrefi lls provided Acute exac erbation of chronic obstructive pulmonary disease 329324669 J44.1 smoking cessationr escue vs maintenanc e inhaler educationu se of inhalers Moderate r ecurrent major depression 67549271 F33.1 denies SI/ HI, controlled Mood disorder 48883691 F 39 denies SI/HIrecom mend therapy [id number] KATALINA VICTOR NP [address] [place] [address] 12/27/2024 15:34:46 01/10/2025 09:04:53 Cough 73527531 R05.1 medication s as prescribed stay well hydratedf/ u if symptoms persistER if any urgent signs or symptoms arise Wheeze - rhonchi 7328132 1 R09.89 Discuss chest x-ray medication s as prescribed , ER if any urgent signs or symptoms arise. When symptoms are improved she needs updated pulmonary function test and low-dose CT screening Mastodynia of bilateral breasts 3674738503 8584374 N64.4 awaiting imaging Mild inter mittent asthma 629210510 J45.20 needs updated PFT; no current maintenanc e inhaleruse s rescue inhaler as needed, usually doesnt have to use unless sick; has been increased use over the past 2 weeks Tobacco de pendence caused by cigarettes 1943097205 8945018 F17.797 [id number] KATALINA VICTOR NP [address] [place] [address] 2025 11:56:03 2025 12:27:31 Dyspnea on exertion 63782645 R06.09 awaiting chest xrayER if any changes/ur gent signs or symptoms arise Asthma 872940967 J45.90 9 Poor historian, last office visit pulmonary function test was ordered to get more accurate diagnosis of asthma versus COPD, smoking sensation, has albuterol inhaler, likely needs pulmonary referral, make sure she gets imaging done that was sent last office visit [id number] KATALINA VICTOR NP [address] [place] [address] 03/03/2025 09:15:48 03/03/2025 10:39:40 Diverticular disease 854403352 K57.90 awaiting ER records to review her lab work and imagingdis cussed diverticul ar disease and what that meansrecom mend MiraLax, fiber in a.m., discussed dosing and [...] start medication s, CT scan ordered Dysuria 07920680 R30.0 urine sent for culture and office [...] ID Guarantor Name 06/10/2024 1 [employer] - [place] (MEDICAID REPLACEMENT - HMO) Angella Stephenson Dony [id number] Angella Dony 10/15/2024 1 [employer] - [facility] (MEDICAID REPLACEMENT - HMO) Angella Stephenson Dony [id number] Angella Dony 12/27/2024 1 [employer] - [facility] (MEDICAID REPLACEMENT - HMO) Angella Stephenson Dony [id number] Angella Dony 2025 1 [employer] - [facility] (MEDICAID REPLACEMENT - HMO) Angella Stephenson Dony [id number] Angella Dony 03/03/2025 1 [employer] - [facility] (MEDICAID REPLACEMENT - HMO) Angella Stephenson Dony [id number] Angella Dony Notes Date Note Type Note Provider Name and Address Organization Details Recorded Time 06/10/2024 text/html 54-year-old femshai rangel who presents with complaints of persistent weight gain. Has decreased what she is eating but continues to gain weight. 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 He also complains of sore throat. Denies any fever, chills, nausea, vomiting. Sore throat started within the past couple days. Denies any known exposure to illness. KATALINA VICTOR NP [address] [place], [address], [facility] & [place] 06/10/2024 15:23:52 10/15/2024 text/html 53-year-old bertram rangel [...] exposure to illness. KATALINA VICTOR NP [address] [place], [address], [facility] & [place] 10/16/2024 19:18:43 12/27/2024 text/html 54-year-old bertram rangel who presents for follow-up reports breast lump need repeat imaging. Has been having left lung congestion for approximately 2 weeks. She also has fatigue no appetite possible fever. She reports cough is tight, some wheezing, unable to really get productive mucus. KATALINA VICTOR NP [address] [place], [address], [facility] & [place] 01/10/2025 09:00:16 2025 text/html 55-year-old bertram rangel who presents for follow-up. Has not completed imaging or pulmonary function test that was sent with last office visit. Reports wheezing and coughing often. She uses Ventolin inhaler. Taking all of her medications as prescribed. Reports mood is controlled. Blood pressure is normal. She does smoke. Cigarettes. KATALINA VICTOR NP [address] [place], [address], [facility] & [place] 01/16/2025 09:58:51 03/03/2025 text/html 55-year-old bertram rangel [...] of lower abdomen KATALINA VICTOR NP [address] [place], [address], [facility] 03/03/2025 09:47:23 OBGyn Episode No OBEpisode recorded.
--- OUTSIDE RECORDS SUMMARY | 2025-03-19 14:21 | XMS_ITS | Continuity of Care Document ---
Author Organization [facility] Address [address] [address] Care Team Providers Care Manager Data Name Role Phone KATALINA VICTOR Primary Care Provider Assessment No assessment recorded. Plan of Treatment Reminders Order Date Submit Date Provider Last Modified By Organization Details Last Modified Time Details Appointments FOLLOW UP 30 2024 03:00P Monae VICTOR NP Not available Not available Not available Lab culture, urine 2024 025 [facility] (Laboratory), [address] [place] [address] [place], [address], 03/04/2025 07:03:40 urinalysi s, dipstick [address] [facility], [address] [place], [address], 03/03/2025 09:47:00 CBC w/ auto diff 2024 025 [facility], [address], 03/03/2025 13:24:46 CMP, serum or plasma 2024 025 [facility] (Laboratory), [address] [place], [address], 03/03/2025 13:32:14 Referral None recorded. Procedures None recorded. Surgeries None recorded. Imaging CT, abdomen + pelvis, w/o contrast 04/14/ 2025 04/14/2 025 [facility] ([facility]), [address] [place], [address], 03/10/2025 16:58:14 Medication Orders Miralax 17 gram/dose oral powder 2024 025 [id number], [address], [place], [id number], 03/03/2025 09:41:32 Citrucel 500 mg tablet 2024 025 [facility] #[id number], [address], [place], [id number], 03/03/2025 09:41:33 senna 8.6 mg capsule 2024 025 [facility] #[id number], [address], [place], [id number], 03/03/2025 09:41:31 Patient TargetsNo targets recorded. Patient InstructionsNo instructions recorded. Reason for Referral None Reported. Results Created Date Observation Date Name Description Value Unit Range Abnormal Flag Note LastModifiedBy Organization Detail LastModifiedTime 03/03/2003/03/2025 urina lysis , dipst ick Leukocytes (reference range) negati ve Not Available [address] [place], [address], 03/03/2025 09:37:42 03/03/2003/03/2025 urina lysis , dipst ick Nitrite (reference range:) negati ve Not Available [address] [place], [address], 03/03/2025 09:37:42 03/03/2003/03/2025 urina lysis , dipst ick Urobilinogen (reference range) 0.2 Not Available [address] [place], [address], 03/03/2025 09:37:42 03/03/20 25 03/03/2025 urina lysis , dipst ick Protein (reference range) negati ve Not Available [address] [place], [address], 03/03/2025 09:37:42 03/03/20 25 03/03/2025 urina lysis , dipst ick pH (reference range 5-8.5) 6.0 Not Available [address] [place], [address], 03/03/2025 09:37:42 03/03/20 25 03/03/2025 urina lysis , dipst ick Blood (reference range:) non-He molyze d: Trace Not Available [address] [place], [address], 03/03/2025 09:37:42 03/03/20 25 03/03/2025 urina lysis , dipst ick Specific Russell (reference range) 1.025 Not Available [address] [place], [address], 03/03/2025 09:37:42 03/03/20 25 03/03/2025 urina lysis , dipst ick Ketone (reference range) negati ve Not Available [address] [place], [address], 03/03/2025 09:37:42 03/03/20 25 03/03/2025 urina lysis , dipst ick Bilirubin (reference range) negati ve Not Available [address] [place], [address], 03/03/2025 09:37:42 03/03/20 25 03/03/2025 urina lysis , dipst ick Glucose (reference range) negati ve Not Available [address] [place], [address], 03/03/2025 09:37:42 03/03/20 25 03/03/2025 urina lysis , dipst ick Color (reference range: yellow-brown ) Yellow Not Available [facility] [address] [place], [address], 03/03/2025 09:37:42 02/05/20 25 01/22/2025 [facility] * No observ ation record ed. [facility] (Sleep Lab) [address] [place], [address], 02/04/2025 16:50:57 02/23/20 25 02/22/2025 imagi ng inter preta tion No observ ation record ed. [address], [place], [address], 02/24/2025 08:26:14 02/23/20 25 02/22/2025 imagi ng inter preta tion No observ ation record ed. [place] [id number] [facility] [place], [address], 02/24/2025 08:26:03 02/23/20 25 02/22/2025 imagi ng inter preta tion No observ ation record ed. [address], [place], [address], 02/24/2025 08:26:00 03/10/20 25 03/10/2025 CT, abdom en + pelvi s, w/o contr ast [facility] [address] [place] [address] Phone: Fax: Name: STEVAN CORTES NAI Exam Date: 025 : 971 Age 55 years Gender : F Access ion: [id number] Physic hilda: AM[facility]G EY, TAFFAN Y Facili ty: [place] Fac[place] HSV: Outpat ient Exam: CT ABD/PE LVIS W/O PROCED URE: CT ABDOME N PELVIS WITHOU T IV CONTRA ST CLINIC AL INDICA TION: Divert iculos is of intest ric part unspec ified withou t prefer ence or absces s withou t bleed, lower abdomi nal pain. COMPAR LIZZETH: None. TECHNI QUE: Helica l CT acquis [...] No suspic ious bone lesion . IMPRES PRIYA: Legall y authen ticate d by BHUPINDER [...] for [facility]err ing [facility] Legall y authen ticate d by BHUPINDER DAILY MD 03-10 15:37: 31 CC'ed Logic: Orderi ng Provid er: AMBURG RAYRAY SWIFT Y CC Provid er: AM[facility]G EY TAFLONDON Y Attend ing Provid er: GOALMA RAYRAY HERBLONDON Y Referr ing Provid er: GOALMA RAYRAY SWIFT Y Admitt ing Provid er: GOALMA RAYRAY HERBLONDON Y [facility] (Radiology) [address] , [place], [address], 03/16/2025 14:58:31 Result Notes None recorded. Problems Name Problem SNOMED Code Status Onset Date Resolution Date Notes Provider Name and Address Organization Details Recorded Time Essential hypertension 76351017 Active 2021 Caesar Gurrola null, [place] - [facility] - [place] & [place] 4 15:37:50 Drug abuse 04909146 Active 2021 Caesar Gurrola null, [place] [facility] [place] 4 15:37:47 Asthma 184424968 Active 2021 Caesar Gurrola null, [place] [facility] [place] 4 15:37:43 Heart murmur 03051967 Active 2021 Caesar Gurrola null, [place] [facility] [place] 4 15:37:52 Problem Notes None recorded. Procedures Surgical History Date Name Laterality Status Provider Name and Address Organization Details Recorded Time 02/12/20 24 Feces-based colorectal cancer DNA screening completed Nadia Garcia [place] [facility] [place] 08/05/2024 13:24:58 07/05/20 23 Date of Last Pap Smear completed Jerry Navarro [place] [facility] [place] 10/18/2023 15:23:12 01/25/20 23 completed KATALINA VICTOR NP [address] [place], [address], [place] [facility] [place] 06/21/2023 14:24:27 11/20/18 75 Tonsillectomy/ Adenoidectomy completed KATALINA VICTOR NP [address] [place], [address], [place] [facility] [place] 06/21/2023 14:24:34 Cancer Surgery completed KATALINA VICTOR NP [address] [place], [address], [facility] & [place] 03/28/2023 10:33:23 section completed Caroline KELLY [facility] & [place] 09/07/2022 07:13:02 Imaging Results None recorded. Procedure Notes None recorded. Medical Equipment None Reported. Allergies Allergen ID Allergen Name Allergen Category Reaction Reaction Severity Criticality Documentation Date Start Date Code Code System Note Provider Name and Address Organization Details Recorded Time 160295 penicilli n V Not available rash Not available Not available 03/03/2025 7984 RxNorm Caesar taylor [facility] & [place] 5 09:24:21 08039 Product containin g penicilli n (product) medicatio n rash Not available Not available 09/07/2022 20270 8001 SNOMED Caroline taylor [facility] & [place] 2 07:11:27 36558 lisinopri l medicatio n Not available Not available Not available 09/07/2022 82732 RxNorm Other react ions and sever ities : 'Adve rse react ion to subst ance' . Caesar taylor [facility] & [place] 5 09:24:21 25982 penicilli n G Not available flushing rash moderate moderate Not available 09/10/2022 7980 RxNorm KATALINA VICTOR NP [address] [place] [address], [address], [facility] & [place] 2 22:12:08 Medications Name Sig Start Date [...] Updated DateTime 5 154.94 cm 39.7 kg/m2 56865.4 g 98.2 [degF] 94 % 94 % 82 /min 18 /min 117 mm[Hg] 83 mm[Hg] [facility] & [place] 5 09:24:03 Social History Question Answer Notes LastModified by Organizat ion Details LastModified Time Tobacco Smoking Status Current Every Day Smoker KATALINA VICTOR NP [address] [place] [address], [address] & [place] 09/10/2022 22:12:22 Do You Have An Advance Directive? Yes Information not available 03/28/2023 What Is Your Level Of Alcohol Consumption? Occasional Information not available 06/21/2023 Do You Wear A Helmet When Biking? Yes Information not available 04/16/2024 Are You Blind Or Do You Have Difficulty Seeing? Yes Information not available 09/10/2022 What Is Your Level Of Caffeine Consumption? Moderate [email or web address] Information not available 01/09/2024 In The 14 Days Before Symptom Onset, Have You Had Close Contact With A Laboratory-confir med COVID-19 While That Case Was Ill? No [email or web address] Information not available 04/16/2024 In The 14 Days Before Symptom Onset, Have You Had Close Contact With A Person Who Is Under Investigation For COVID-19 While That Person Was Ill? No Information not available 04/16/2024 Have You Been To An Area Known To Be High Risk For COVID-19? No [email or web address] Information not available 04/16/2024 Are You Currently Employed? Yes [email or web address] Information not available 04/16/2024 Are You Deaf Or Do You Have Serious Difficulty Hearing? No [email or web address] Information not available 04/16/2024 What Type Of Diet Are You Following? REGULAR Information not available 10/15/2024 Have You Processed Blood Or Body Fluids From An Ebola Virus Disease Patient Without Appropriate PPE? No Information not available 04/16/2024 Do You Reside In Or Have You Traveled To An Area Where Ebola Virus Transmission Is Active? No [email or web address] Information not available 04/16/2024 Do You Or Have You Ever Used E-cigarettes Or Vape? 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 No [email or web address] Information no t available 04/16/2024 What Is The Fluoride Status Of Your Home? Unknown [email or web address] Information not available 04/16/2024 Are There Any Guns Present In Your Home? No [email or web address] Information not available 04/16/2024 Have You Recently Or Are You Planning To Travel To An Area With Zika Virus? No Information not available 04/16/2024 Do You Use Insect Repellent Routinely? Yes [email or web address] Information not available 04/16/2024 Do You Feel Safe At Home? Yes [email or web address] Information not available 04/16/2024 Do You Have A Medical Power Of Medical Imaging Director? Yes [email or web address] Information not available 04/16/2024 What Was The Date Of Your Most Recent Tobacco Screening? 2025 [email or web address] Information not available 2025 Do You Have Any Pets? No [email or web address] Information not available 04/16/2024 Do You Use Your Seat Belt Or Car Seat Routinely? Yes [email or web address] Information not available 04/16/2024 Do You Have Smoke And Carbon Monoxide Detectors In Your Home? Yes [email or web address] Information not available 04/16/2024 At What Age [...] Anxious, Or Unable To Sleep At Night)? [id number] [email or web address] Information not available 10/18/2023 Do You Use Any Illicit Or Recreational Drugs? No Information not available 09/07/2022 Do You Use Sunscreen Routinely? Yes [email or web address] Information not available 04/16/2024 Has Tobacco Cessation Counseling Been Provided? Yes [email or web address] Information not available 04/16/2024 On What Date Was Tobacco Cessation Counseling Provided? 2025 [email or web address] Information not available 2025 How Many Years Have You Smoked Tobacco? 35 Information not available 03/28/2023 Are You Currently In School? No [email or web address] Information not available 04/16/2024 Do You Or Have You Ever Used Any Other Forms Of Tobacco Or Nicotine? Yes [email or web address] Information not available 01/09/2024 Sex: Female Functional Status Question Answer Note LastModified by Organizat ion Details LastModified Time Do you have difficulty walking or climbing stairs? No [email or web address] Information not available 04/16/2024 Do you have transportation difficulties? No [email or web address] Information not available 04/16/2024 Are you able to walk? YESWOREST [email or web address] Information not available 04/16/2024 Do you have difficulty doing errands alone? No [email or web address] Information not available 04/16/2024 Are you able to care for yourself? Yes [email or web address] Information n ot available 04/16/2024 Do you have difficulty dressing or bathing? No [email or web address] Information not available 04/16/2024 What is your exercise level? Occasional Information not available 01/25/2023 Mental Status Question Answer Note LastModified by Organization D etails LastModified Time Do you have difficulty concentrating, remembering or making decisions? No [email or web address] Information no t available 04/16/2024 Family History [...] mcg/0.25mL dose 1 completed KATALINA VICTOR NP [address] [place] [address], [address], [place] [facility] [place] & [place] 09/10/2022 22:12:32 Td (adult), 2 Lf tetanus toxoid, preservative free, adsorbed 1 completed KATALINA VICTOR NP [address] [place] [address], [address], [place] [facility] [place] 09/10/2022 22:12:32 Hep A, adult 8 completed KATALINA VICTOR NP [address] [place] [address], [address], [place] [facility] [place] 09/10/2022 22:12:32 COVID-19, mRNA, LNP-S, PF, 100 mcg/0.5mL dose or 50 mcg/0.25mL dose 1 completed KATALINA VICTOR NP [address] [place] [address], [address], [place] [facility] [place] 09/10/2022 22:12:32 Hep A, adult 9 completed KATALINA VICTOR NP [address] [place] [address], [address], [place] [facility] [place] 09/10/2022 22:12:32 COVID-19, mRNA, LNP-S, PF, 100 mcg/0.5mL dose or 50 mcg/0.25mL dose 1 completed KATALINA VICTOR NP [address] [place] [address], [address], [place] [facility] [place] & [place] 09/10/2022 22:12:32 Past Encounters Encounter ID Performer Location Encounter Start Date Encounter Closed Date Diagnosis/Indication Diagnosis SNOMED-CT Code Diagnosis ICD10 Code Diagnosis Note [id number] KATALINA VICTOR NP [facility] [address] [facility] [address] [address] 03/03/2025 09:15:48 03/03/2025 10:39:40 Diverticular disease 685380773 K57.90 awaiting ER records to review her [...] start medication s, CT scan ordered Dysuria 07879311 R30.0 urine sent for culture and office [...] Member ID Natarajan Member ID Guarantor Name 03/03/2025 1 [employer] (MEDICAID REPLACEMENT - HMO) Angella Napoles [id number] Angella Napoles Notes Date Note Type Note Provider Name and Address Organization Details Recorded Time 03/03/2025 text/html 55-year-old bertram rangel who presents [...] of lower abdomen KATALINA VICTOR NP [address] [place], [address], [facility] & [place] 03/03/2025 09:47:23 OBGyn Episode No OBEpisode recorded.
[2025-03-19 14:49] LABS: Basophils % 0.4 % (0.1-2.0); Eosinophils # 0.2 Kmm3 (0.0-0.4); Eosinophils % 2.7 % (0.1-12.0); Hematocrit 46.1 % (37.0-47.0); Hemoglobin 14.8 g/dL (12.2-16.2); Lymphocytes # 2.4 K/mm3 (0.7-4.5); Lymphocytes % 32.9 % (10-50); Mean Corpuscular HGB Conc 32.1 g/dL (31.8-35.4); Mean Corpuscular Hemoglobin 27.8 pg (27.0-31.2); Mean Corpuscular Volume 86.7 fl (81-99); Mean Platelet Volume 9.2 fl (7.4-10.4); Monocytes # 0.8 K/mm3 (0.1-1.0); Neutrophils # 3.8 K/mm3 (1.8-7.8); Nucleated Red Blood Cells # 0 10^3/uL; Nucleated Red Blood Cells % 0 %; Platelet Count 219 K/mm3 (142-424); Red Blood Count 5.32 M/mm3 (4.20-5.40); Red Cell Distribution Width 14.6 % (11.5-17.5); Red Cell Distribution Width-SD 46.8 fL; White Blood Count 7.4 K/mm3 (4.8-10.8)
== END 2025-03-19 23:59 | disposition home or self-care (01) ==
LOC: LAB 14:19
PROVIDERS: PCP Nurse Practitioner Family; Visit Provider Surgery
DX: K57.92 Diverticulitis of intestine, part unspecified, without perforation or abscess without bleeding (principal)
CPT/HCPCS: 36415; 85025

== ENCOUNTER 2025-04-02 13:44 | Outpatient (CLI) | payer MEDICAID, SELFPAY ==
--- OUTSIDE RECORDS SUMMARY | 2025-04-02 13:47 | XMS_ITS | Continuity of Care Document ---
Author Organization [facility] Address [address] [address] Care Team Providers Care Gameroom Technician Name Role Phone KATALINA VICTOR Primary Care Provider [phone] Assessment No assessment recorded. Plan of Treatment Reminders Order Date Submit Date Provider Last Modified By Organization Details Last Modified Time Details Appointments FOLLOW UP 30 2024 03:00P Monae VICTOR NP Not available Not available Not available Lab culture, urine 2024 025 [facility] (Laboratory), [address] [place] [address] [place], [address], 03/04/2025 07:03:40 urinalysi s, dipstick 2024 025 [facility], [address] [place], [address], 03/03/2025 09:47:00 CBC w/ auto diff 2024 025 [facility] [place], [address], 03/03/2025 13:24:46 CMP, serum or plasma 2024 025 [facility] (Laboratory), [address] [place], [address], 03/03/2025 13:32:14 Referral None recorded. Procedures None recorded. Surgeries None recorded. Imaging CT, abdomen + pelvis, w/o contrast 04/14/ 2025 04/14/2 025 [facility] ([facility]), [address] [place], [address], 03/10/2025 16:58:14 Medication Orders Miralax 17 gram/dose oral powder 2024 025 [facility][id number], [address], [place], [id number], 03/03/2025 09:41:32 Citrucel 500 mg tablet 2024 025 [facility] #[id number], [address], [place], [id number], 03/03/2025 09:41:33 senna 8.6 mg capsule 2024 025 [facility] #[id number], [address], [place], [id number], 03/03/2025 09:41:31 Patient TargetsNo targets recorded. Patient InstructionsNo instructions recorded. Reason for Referral None Reported. Results Created Date Observation Date Name Description Value Unit Range Abnormal Flag Note LastModifiedBy Organization Detail LastModifiedTime 03/03/2003/03/2025 urina lysis , dipst ick Leukocytes (reference range) negati ve Not Available [address] [place], [address], 03/03/2025 09:37:42 03/03/2003/03/2025 urina lysis , dipst ick Nitrite (reference range:) negati ve Not Available [address] [place], [address], 03/03/2025 09:37:42 03/03/2003/03/2025 urina lysis , dipst ick Urobilinogen (reference range) 0.2 Not Available [address] [place], [address], 03/03/2025 09:37:42 03/03/20 25 03/03/2025 urina lysis , dipst ick Protein (reference range) negati ve Not Available [address] [place], [address], 03/03/2025 09:37:42 03/03/20 25 03/03/2025 urina lysis , dipst ick pH (reference range 5-8.5) 6.0 Not Available [address] [place], [address], 03/03/2025 09:37:42 03/03/20 25 03/03/2025 urina lysis , dipst ick Blood (reference range:) non-He molyze d: Trace Not Available [address] [place], [address], 03/03/2025 09:37:42 03/03/20 25 03/03/2025 urina lysis , dipst ick Specific [place] (reference range) 1.025 Not Available [address] [place], [address], 03/03/2025 09:37:42 03/03/20 25 03/03/2025 urina lysis , dipst ick Ketone (reference range) negati ve Not Available [address] [place], [address], 03/03/2025 09:37:42 03/03/20 25 03/03/2025 urina lysis , dipst ick Bilirubin (reference range) negati ve Not Available [address] [place], [address], 03/03/2025 09:37:42 03/03/20 25 03/03/2025 urina lysis , dipst ick Glucose (reference range) negati ve Not Available [address] [place], [address], 03/03/2025 09:37:42 03/03/20 25 03/03/2025 urina lysis , dipst ick Color (reference range: yellow-brown ) Yellow Not Available [facility] [address] [place], [address], 03/03/2025 09:37:42 02/05/20 25 01/22/2025 compl ete PFT w/ post [facility] hodil ator ventura metry * No observ ation record ed. [facility] (Sleep Lab) [address] [place], [address], 02/04/2025 16:50:57 02/23/20 25 02/22/2025 imagi ng inter preta tion No observ ation record ed. [address], [place], [address], 02/24/2025 08:26:14 02/23/20 25 02/22/2025 imagi ng inter preta tion No observ ation record ed. [place] [id number], [place], [address], 02/24/2025 08:26:03 02/23/20 25 02/22/2025 imagi ng inter preta tion No observ ation record ed. [address], [place], [address], 02/24/2025 08:26:00 03/10/20 25 03/10/2025 CT, abdom en + pelvi s, w/o contr ast [facility] [address] [place] [address] Phone: Fax: Name: STEVAN CORTES NAI Exam Date: 025 : 971 Age 55 years Gender : F Access ion: [id number] Physic hilda: AMBURG EY, TAFFAN Y [...] for referr ing [facility] Legall y authen ticate d by BHUPINDER DAILY MD 03-10 15:37: 31 CC'ed Logic: Orderi ng Provid er: AMBURG RAYRAY SIWFT Y CC Provid er: AMBURG EY TAFLONDON Y Attend ing Provid er: GOALMA RAYRAY HERBLONDON Y Referr ing Provid er: GOALMA RAYRAY SWIFT Y Admitt ing Provid er: GOALMA RAYRAY HERBLONDON Y [facility] (Radiology) [address] , [place], [address], 03/16/2025 14:58:31 Result Notes None recorded. Problems Name Problem SNOMED Code Status Onset Date Resolution Date Notes Provider Name and Address Organization Details Recorded Time Essential hypertension 40869671 Active 2021 Caesar Gurrola null, [place] [facility] [place] & [place] 4 15:37:50 Drug abuse 94464844 Active 2021 Caesar Gurrola null, [place] [facility] [place] 4 15:37:47 Asthma 127388898 Active 2021 Caesar Gurrola null, [place] [facility] [place] 4 15:37:43 Heart murmur 02387876 Active 2021 Caesar Gurrola null, [place] [facility] [place] 4 15:37:52 Problem Notes None recorded. Procedures Surgical History Date Name Laterality Status Provider Name and Address Organization Details Recorded Time 02/12/20 24 Feces-based colorectal cancer DNA screening completed Nadia Garcia [place] [facility] [place] & [place] 08/05/2024 13:24:58 07/05/20 23 Date of Last Pap Smear completed Jerry Navarro [place] [facility] [place] 10/18/2023 15:23:12 01/25/20 23 completed KATALINA VICTOR NP [address] [place], [address], [place] [facility] [place] 06/21/2023 14:24:27 11/20/18 75 Tonsillectomy/ Adenoidectomy completed KATALINA VICTOR NP [address] [place], [address], [place] [facility] [place] 06/21/2023 14:24:34 Cancer Surgery completed KATALINA VICTOR NP [address] [place], [address], [facility] & [place] 03/28/2023 10:33:23 section completed Caroline KELLY [facility] & [place] 09/07/2022 07:13:02 Imaging Results None recorded. Procedure Notes None recorded. Medical Equipment None Reported. Allergies Allergen ID Allergen Name Allergen Category Reaction Reaction Severity Criticality Documentation Date Start Date Code Code System Note Provider Name and Address Organization Details Recorded Time 106421 penicilli n V Not available rash Not available Not available 03/03/2025 7984 RxNorm Caesar taylor [facility] & [place] 5 09:24:21 62458 Product containin g penicilli n (product) medicatio n rash Not available Not available 09/07/2022 69319 8001 SNOMED Caroline taylor [facility] & [place] 2 07:11:27 26484 lisinopri l medicatio n Not available Not available Not available 09/07/2022 29978 RxNorm Other react ions and sever ities : 'Adve rse react ion to subst ance' . Caesar taylor [facility] & [place] 5 09:24:21 22524 penicilli n G Not available flushing rash moderate moderate Not available 09/10/2022 7980 RxNorm KATALINA VICTOR NP [address] [place] [address], [address], [facility] & [place] 2 22:12:08 Medications Name Sig Start Date [...] Updated DateTime 5 154.94 cm 39.7 kg/m2 89491.4 g 98.2 [degF] 94 % 94 % 82 /min 18 /min 117 mm[Hg] 83 mm[Hg] Caesar Gurrola [facility] & [place] 5 09:24:03 Social History Question Answer Notes LastModified by Organizat ion Details LastModified Time Tobacco Smoking Status Current Every Day Smoker KATALINA VICTOR NP [address] [place] [address], [address] & [place] 09/10/2022 22:12:22 Do You Have An Advance Directive? Yes Information n ot available 03/28/2023 Do You Wear A Helmet When Biking? Yes [email or web address] Information not available 04/16/2024 Are You Blind Or Do You Have Difficulty Seeing? Yes Information n ot available 09/10/2022 What Is Your Level Of Caffeine Consumption? Moderate [email or web address] Information not available 01/09/2024 In The 14 Days Before Symptom Onset, Have You Had Close Contact With A Laboratory-confirm ed COVID-19 While That Case Was Ill? No Information n ot available 04/16/2024 In The 14 Days Before Symptom Onset, Have You Had Close Contact With A Person Who Is Under Investigation For COVID-19 While That Person Was Ill? No [email or web address] Information not available 04/16/2024 Have You Been To An Area Known To Be High Risk For COVID-19? No [email or web address] Information not available 04/16/2024 Are You Deaf Or Do You Have Serious Difficulty Hearing? No [email or web address] Information not available 04/16/2024 What Type Of Diet Are You Following? REGULAR [email or web address] Information n ot available 10/15/2024 Have You Processed Blood Or Body Fluids From An Ebola Virus Disease Patient Without Appropriate PPE? No [email or web address] Information not available 04/16/2024 Do You Reside In Or Have You Traveled To An Area Where Ebola Virus Transmission Is Active? No [email or web address] Information not available 04/16/2024 Have There Been Any Changes To Your Family Or Social Situation? No [email or web address] Information no t available 04/16/2024 What Is The Fluoride Status Of Your Home? Unknown [email or web address] Information not available 04/16/2024 Are There Any Guns Present In Your Home? No [email or web address] Information not available 04/16/2024 Have You Recently Or Are You Planning To Travel To An Area With Zika Virus? No [email or web address] Information not available 04/16/2024 Do You Use Insect Repellent Routinely? Yes [email or web address] Information not available 04/16/2024 Do You Feel Safe At Home? Yes [email or web address] Information not available 04/16/2024 Do You Have A Medical Power Of Senior Communications Engineer? Yes Information not available 04/16/2024 What Was The Date Of Your Most Recent Tobacco Screening? 2025 [email or web address] Information not available 2025 Do You Have Any Pets? No [email or web address] Information not available 04/16/2024 Do You Use Your Seat Belt Or Car Seat Routinely? Yes [email or web address] Information not available 04/16/2024 Do You Have Smoke And Carbon Monoxide Detectors In Your Home? Yes [email or web address] Information not available 04/16/2024 At What Age Did You Start Smoking Tobacco? 19 [email or web address] Information not available 01/09/2024 Are You Passively Exposed To Smoke? Yes Information no t available 09/10/2022 How Much Tobacco Do You Smoke? 1 PPD Information not available 03/28/2023 Do You Use Sunscreen Routinely? Yes [email or web address] Information not available 04/16/2024 Has Tobacco Cessation Counseling Been Provided? Yes [email or web address] Information not available 04/16/2024 On What Date Was Tobacco Cessation Counseling Provided? 2025 [email or web address] Information not available 2025 How Many Years Have You Smoked Tobacco? 35 Information not available 03/28/2023 Do You Have Difficulty Walking Or Climbing Stairs? No [email or web address] Information not available 04/16/2024 Are You Currently In School? No [email or web address] Information not available 04/16/2024 Sex: Female Functional Status Question Answer Note LastModified by Organizat [employer] Details LastModified Time Do you or have you ever used smokeless tobacco? Never used smokeless tobacco Information not available 09/10/2022 Are you currently employed? Yes [email or web address] Information not available 04/16/2024 Do you have transportation difficulties? No [email or web address] Information not available 04/16/2024 Are you able to care for yourself? Yes [email or web address] Information n ot available 04/16/2024 Do you have difficulty dressing or bathing? No [email or web address] Information not available 04/16/2024 Do you or have you ever used e-cigarettes or vape? Current user of electronic cigarettes [email or web address] Information not available 01/09/2024 What is your exercise level? Occasional Information not available 01/25/2023 Do you use any illicit or recreational drugs? No Information not available 09/07/2022 Do you or have you ever used any other forms of tobacco or nicotine? Yes [email or web address] Information not available 01/09/2024 What is your level of alcohol consumption? Occasional Information not available 06/21/2023 Are you able to walk? YESWOREST Information not available 04/16/2024 Do you have difficulty doing errands alone? 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 [id number] [email or web address] Information not available 10/18/2023 Do you have difficulty concentrating, remembering or making decisions? No [email or web address] Information no t available 04/16/2024 Family History [...] dose 1 completed KATALINA VICTOR NP [address] [place], [address], [place] [facility] [place] & [place] 09/10/2022 22:12:32 Td (adult), 2 Lf tetanus toxoid, preservative free, adsorbed 1 completed KATALINA VICTOR NP [address] [place], [address], [place] [facility] [place] & [place] 09/10/2022 22:12:32 Hep A, adult 8 completed KATALINA VICTOR NP [address] [place] [address], [address], [place] [facility] [place] & [place] 09/10/2022 22:12:32 COVID-19, mRNA, LNP-S, PF, 100 mcg/0.5mL dose or 50 mcg/0.25mL dose 1 completed KATALINA VICTOR NP [address] [place], [address], [place] [facility] [place] 09/10/2022 22:12:32 Hep A, adult 9 completed KATALINA VICTOR NP [address] [place] [address], [address], [place] [facility] [place] & [place] 09/10/2022 22:12:32 COVID-19, mRNA, LNP-S, PF, 100 mcg/0.5mL dose or 50 mcg/0.25mL dose 1 completed KATALINA VICTOR NP [address] [place] [address], [address], [place] [facility] [place] & [place] 09/10/2022 22:12:32 Past Encounters Encounter ID Performer Location Encounter Start Date Encounter Closed Date Diagnosis/Indication Diagnosis SNOMED-CT Code Diagnosis ICD10 Code Diagnosis Note [id number] KATALINA VICTOR NP [facility] [address] [facility] [address] [address] 03/03/2025 09:15:48 03/03/2025 10:39:40 Diverticular disease 623240019 K57.90 awaiting ER records to review her [...] start medication s, CT scan ordered Dysuria 82797885 R30.0 urine sent for culture and office [...] Natarajan Member ID Guarantor Name 03/03/[address] [facility] (MEDICAID REPLACEMENT - HMO) Angella Napoles [id number] Angella Napoles Notes Date Note Type Note [...] of lower abdomen KATALINA VICTOR NP [address] [place], [address], [facility] & [place] 03/03/2025 09:47:23 OBGyn Episode No OBEpisode recorded.
--- OUTSIDE RECORDS SUMMARY | 2025-04-02 13:48 | XMS_ITS | Data Portability ---
Author Organization [facility] [place] Address [address] [place] [address] Care Team Providers Care Barrel Rifler Button Name Role Phone KATALINA VICTOR Primary Care Provider Assessment No assessment recorded. Plan of Treatment Reminders Order Date Submit Date Provider Last Modified By Organization Details Last Modified Time Details Appointments FOLLOW UP 30 2024 03:00P Monae VICTOR NP Not available Not available Not available Lab culture, urine 2024 025 [facility] ([facility]), [address] [place], [address], 03/04/2025 07:03:40 urinalysi s, dipstick [address] [facility], [address] [place], [address], 03/03/2025 09:47:00 CBC w/ auto diff 2024 025 [facility] (Laboratory), [address] [place], [address], 03/03/2025 13:24:46 CMP, serum or plasma 2024 025 [facility] (Laboratory), [address] [place], [address], 03/03/2025 13:32:14 influenza virus A + B + SARS-CoV- 2 (COVID19) Ag panel, rapid IA, upper respirato ry specimen 2024 025 [facility], [address] [place], [address], 12/27/2024 17:05:03 HbA1c (hemoglob in A1c), blood 2023 024 [facility] (Laboratory), [address] [place], [address], 10/15/2024 13:11:54 CMP, serum or plasma 2023 024 [facility] (Laboratory), [address] [place], [address], 10/15/2024 13:15:11 TSH + free T4, serum 2023 024 [facility] (Laboratory), [address] [place], [address], 10/22/2024 07:57:12 TSH + free T4, serum [address] [place] [address] (Laboratory), [address] [place], [address], 06/17/2024 08:15:54 CMP, serum or plasma 2023 024 [facility] (Laboratory), [address] [place], [address], 06/10/2024 17:09:39 HbA1c (hemoglob in A1c), blood 2023 024 [facility] (Laboratory), [address] [place], [address], 06/10/2024 16:51:59 Referral None recorded. Procedures None recorded. Surgeries None recorded. Imaging CT, abdomen + pelvis, w/o contrast 2024 025 [facility] (Scheduling), [address] [place], [address], 03/10/2025 16:58:14 XR, chest, 2 view 2024 [facility] (Scheduling), [address] [place], [address], 2025 14:26:25 MAMMO, diagnosti c, digital, bilateral [address] [place] [address] (Scheduling), [address] [place], [address], 2025 12:28:29 US, breast, bilateral [address] [place] [address] (Scheduling), [address] [place], [address], 2025 12:28:30 XR, chest, 2 view [address] [place] [address] (Scheduling), [address] [place], [address], 2025 12:28:30 LDCT, chest, for lung cancer screening [address] [place] [address] (Scheduling), [address] [place], [address], 01/17/2025 08:24:11 Medication Orders Miralax 17 gram/dose oral powder 2024 [facility]34, [address], [place], [id number], 03/03/2025 09:41:32 Citrucel 500 mg tablet 2024 [facility] #01762, [address], [place], [id number], 03/03/2025 09:41:33 senna 8.6 mg capsule 2024 [facility] #16046, [address], [place], [id number], 03/03/2025 09:41:31 prednison e 5 mg tablets in a dose pack 2024 [facility]38915, [address], [place], [id number], 2025 12:01:58 doxycycli ne hyclate 100 mg capsule 2024 025 [facility] #63763, [address], [place], [id number], 2025 12:01:56 Ventolin HFA 90 mcg/actua tion aerosol inhaler 2023 024 [facility]06099, [address], [place], [id number], 10/15/2024 11:09:19 Medrol (Adam) 4 mg tablets in a dose pack 2023 025 [facility] #64341, [address], [place], [id number], 12/27/2024 15:53:49 azithromy mulu 250 mg tablet 2023 025 [facility] #53341, [address] [place], [id number], 12/27/2024 15:53:37 losartan 100 mg-hydroc hlorothia zide 25 mg tablet 2023 024 [facility] #23961, [address] [place], [id number], 10/15/2024 11:09:20 metoprolo l succinate ER 50 mg tablet,ex tended release 24 hr 2023 024 [facility] #34502, [address], [id number], 10/15/2024 11:09:20 Vraylar 1.5 mg capsule 2023 024 [facility] #44943, [address] [place], [id number], 10/15/2024 11:09:22 azithromy mulu 250 mg tablet 2023 024 [email or web address] #54041, [address] [place], [id number], 12/27/2024 15:53:06 Patient TargetsNo targets recorded. Patient Instructions Encounter Date Encounter Id Patient Instructions Last Modified By Organization Details Last Modified Time 12/27/2024 [id number] complete PFT w/ post bronchodilator spirometry* [email or web address] Not available 01/24/2025 08:15:57 Reason for Referral None Reported. Results Created Date Observation Date Name Description Value Unit Range Abnormal Flag Note LastModifiedBy Organization Detail LastModifiedTime 06/10/20 24 06/10/2024 HEMOG LOBIN A1C glycosylated hemoglobin A1C 5.8 % 4.5-6. 2 Not Available [facility] (Lab Registration) [address] [place], [address], 06/10/2024 16:51:59 06/10/20 24 06/10/2024 HEMOG LOBIN A1C estimated average glucose 120 mg/dL 82-131 Not Available [facility] (Lab Registration) [address] [place], [address], 06/10/2024 16:51:59 06/10/20 24 06/10/2024 HEMOG LOBIN A1C note Unles s other george noted testi ng perfo rmed at: [facility] [address] [place] [address] [phone] Deandre villegas MD CLIA: [id number] Not Available [facility] (Lab Registration) [address] [place], [address], 06/10/2024 16:51:59 06/10/20 24 06/10/2024 THYRO ID STIMU LATIN G HORMO NE thyroid stimulating hormone 6.29 mIU/m L 0.34-4 .80 high Not Available [facility] (Lab Registration) [address] [place], [address], 06/10/2024 17:09:37 06/10/20 24 06/10/2024 THYRO ID STIMU LATIN G HORMO NE note Unles s other george noted testi ng perfo rmed at: [facility] [address] [place] [address] [phone] Deandre villegas MD CLIA: [id number] Not Available [facility] (Lab Registration) [address], [place], [address], 06/10/2024 17:09:37 06/10/20 24 06/10/2024 T4 FREE T4,free 0.94 NG/dL 0.76-1 .46 Effec tive today 013 new Refer ence Range . Not Available [facility] (Lab Registration) [address] [place], [address], 06/10/2024 17:09:38 06/10/20 24 06/10/2024 T4 FREE note Unles s other george noted testi ng perfo rmed at: [facility] [address] [place] [address] [phone] Deandre villegas MD CLIA: [id number] Not Available [facility] (Lab Registration) [address] [place], [address], 06/10/2024 17:09:38 06/10/20 24 06/10/2024 COMP METAB OLIC PANEL sodium 143 mmol/ L 136-14 5 Not Available [facility] (Lab Registration) [address] [place], [address], 06/10/2024 17:09:39 06/10/20 24 06/10/2024 COMP METAB OLIC PANEL potassium 4.1 mmol/ L 3.5-5. 1 Not Available [facility] (Lab Registration) [address] [place], [address], 06/10/2024 17:09:39 06/10/20 24 06/10/2024 COMP METAB OLIC PANEL chloride 104 mmol/ L 98-107 Not Available [facility] (Lab Registration) [address] [place], [address], 06/10/2024 17:09:39 06/10/20 24 06/10/2024 COMP METAB OLIC PANEL carbon dioxide 35 mmol/ L 21-32 high Not Available [facility] (Lab Registration) [address] [place], [address], 06/10/2024 17:09:39 06/10/20 24 06/10/2024 COMP METAB OLIC PANEL anion gap 4.0 Not Available [facility] (Lab Registration) [address] [place], [address], 06/10/2024 17:09:39 06/10/20 24 06/10/2024 COMP METAB OLIC PANEL glucose 85 mg/dL 70-110 Not Available [facility] (Lab Registration) [address] [place], [address], 06/10/2024 17:09:39 06/10/20 24 06/10/2024 COMP METAB OLIC PANEL blood urea nitrogen 17 mg/dL 7-18 Not Available [facility] (Lab Registration) [address] [place], [address], 06/10/2024 17:09:39 06/10/20 24 06/10/2024 COMP METAB OLIC PANEL creatinine 0.9 mg/dL 0.6-1. 0 Not Available [facility] (Lab Registration) [address] [place], [address], 06/10/2024 17:09:39 06/10/20 24 06/10/2024 COMP METAB OLIC PANEL BUN/creatini ne ratio 18.9 ratio 9-21 Not Available [facility] (Lab Registration) [address] [place], [address], 06/10/2024 17:09:39 06/10/20 24 06/10/2024 COMP METAB OLIC PANEL estimated glom filtration rate 76 mL/mi n >60- Not Available [facility] (Lab Registration) [address] [place], [address], 06/10/2024 17:09:39 06/10/20 24 06/10/2024 COMP METAB OLIC PANEL total protein 6.6 g/dL 6.4-8. 2 Not Available [facility] (Lab Registration) [address] [place], [address], 06/10/2024 17:09:39 06/10/20 24 06/10/2024 COMP METAB OLIC PANEL albumin 3.7 g/dL 3.4-5. 0 Not Available [facility] (Lab Registration) [address] [place], [address], 06/10/2024 17:09:39 06/10/20 24 06/10/2024 COMP METAB OLIC PANEL calcium 9.6 mg/dL 8.5-10 .1 Not Available [facility] (Lab Registration) [address] [place], [address], 06/10/2024 17:09:39 06/10/20 24 06/10/2024 COMP METAB OLIC PANEL corrected calcium 9.8 mg/dL 8.5-10 .1 Not Available [facility] (Lab Registration) [address] [place], [address], 06/10/2024 17:09:39 06/10/20 24 06/10/2024 COMP METAB OLIC PANEL bilirubin total 0.3 mg/dL 0.4-1. 5 low Not Available [facility] (Lab Registration) [address] [place], [address], 06/10/2024 17:09:39 06/10/20 24 06/10/2024 COMP METAB OLIC PANEL AST (SGOT) 18 U/L 15-37 Not Available [facility] (Lab Registration) [address] [place], [address], 06/10/2024 17:09:39 06/10/20 24 06/10/2024 COMP METAB OLIC PANEL ALT (SGPT) 34 U/L 12-78 Not Available [facility] (Lab Registration) [address] [place], [address], 06/10/2024 17:09:39 06/10/20 24 06/10/2024 COMP METAB OLIC PANEL alk phosphatase 83 U/L 50-120 Not Available [facility] (Lab Registration) [address] [place], [address], 06/10/2024 17:09:39 06/10/20 24 06/10/2024 COMP METAB OLIC PANEL note Unles s other george noted testi ng perfo rmed at: [facility] [address] [place] [address] [phone] Deandre villegas MD CLIA: [id number] Not Available [facility] (Lab Registration) [address] [place], [address], 06/10/2024 17:09:39 10/15/20 24 10/15/2024 HEMOG LOBIN A1C glycosylated hemoglobin A1C 5.6 % 4.5-6. 2 Not Available [facility] (Lab Registration) [address] [place], [address], 10/15/2024 13:11:53 10/15/20 24 10/15/2024 HEMOG LOBIN A1C estimated average glucose 114 mg/dL 82-131 Not Available [facility] (Lab Registration) [address], [place], [address], 10/15/2024 13:11:53 10/15/20 24 10/15/2024 HEMOG LOBIN A1C note Judsones s other george noted testi ng perfo rmed at: [facility] [address] [place] [address] [phone] Deandre villegas MD CLIA: [id number] Not Available [facility] (Lab Registration) [address] [place], [address], 10/15/2024 13:11:53 10/15/20 24 10/15/2024 THYRO ID STIMU LATIN G HORMO NE thyroid stimulating hormone 4.22 mIU/m L 0.34-4 .80 Not Available [facility] (Lab Registration) [address], [place], [address], 10/15/2024 13:15:08 10/15/20 24 10/15/2024 THYRO ID STIMU LATIN G HORMO NE note Renee s other george noted testi ng perfo rmed at: [facility] [address] [place] [address] [phone] Deandre villegas MD CLIA: [id number] Not Available [facility] (Lab Registration) [address], [place], [address], 10/15/2024 13:15:08 10/15/20 24 10/15/2024 T4 FREE T4,free 0.92 NG/dL 0.76-1 .46 Effec tive today 013 new Refer ence Range . Not Available [facility] (Lab Registration) [address] [place], [address], 10/15/2024 13:15:10 10/15/20 24 10/15/2024 T4 FREE note Judsones s other george noted testi ng perfo rmed at: [facility] [address] [place] [address] [phone] Deandre villegas MD CLIA: [id number] Not Available [facility] (Lab Registration) [address], [place], [address], 10/15/2024 13:15:10 10/15/20 24 10/15/2024 COMP METAB OLIC PANEL sodium 142 mmol/ L 136-14 5 Not Available [facility] (Lab Registration) [address], [place], [address], 10/15/2024 13:15:11 10/15/2010/15/2024 COMP METAB OLIC PANEL potassium 3.9 mmol/ L 3.5-5. 1 Not Available [facility] (Lab Registration) [address] [place], [address], 10/15/2024 13:15:11 10/15/20 24 10/15/2024 COMP METAB OLIC PANEL chloride 102 mmol/ L 98-107 Not Available [facility] (Lab Registration) [address] [place], [address], 10/15/2024 13:15:11 10/15/20 24 10/15/2024 COMP METAB OLIC PANEL carbon dioxide 32 mmol/ L 21-32 Not Available [facility] (Lab Registration) [address] [place], [address], 10/15/2024 13:15:11 10/15/20 24 10/15/2024 COMP METAB OLIC PANEL anion gap 8.0 Not Available [facility] (Lab Registration) [address] [place], [address], 10/15/2024 13:15:11 10/15/20 24 10/15/2024 COMP METAB OLIC PANEL glucose 95 mg/dL 70-110 Not Available [facility] (Lab Registration) [address] [place], [address], 10/15/2024 13:15:11 10/15/20 24 10/15/2024 COMP METAB OLIC PANEL blood urea nitrogen 20 mg/dL 7-18 high Not Available [facility] (Lab Registration) [address], [place], [address], 10/15/2024 13:15:11 10/15/20 24 10/15/2024 COMP METAB OLIC PANEL creatinine 0.9 mg/dL 0.6-1. 0 Not Available [facility] (Lab Registration) [address], [place], [address], 10/15/2024 13:15:11 10/15/2010/15/2024 COMP METAB OLIC PANEL BUN/creatini ne ratio 22.2 9-21 high Not Available [facility] (Lab Registration) [address], [place], [address], 10/15/2024 13:15:11 10/15/20 24 10/15/2024 COMP METAB [...] staley ing kiney funct ion. Not Available [facility] (Lab Registration) [address], [place], [address], 10/15/2024 13:15:11 10/15/20 24 10/15/2024 COMP METAB OLIC PANEL total protein 7.3 g/dL 6.4-8. 2 Not Available [facility] (Lab Registration) [address] [place], [address], 10/15/2024 13:15:11 11/26/10/15/2024 COMP METAB OLIC PANEL albumin 3.9 g/dL 3.4-5. 0 Not Available [facility] (Lab Registration) [address] [place], [address], 10/15/2024 13:15:11 10/15/2010/15/2024 COMP METAB OLIC PANEL calcium 9.9 mg/dL 8.5-10 .1 Not Available [facility] (Lab Registration) [address] [place], [address], 10/15/2024 13:15:11 10/15/20 24 10/15/2024 COMP METAB OLIC PANEL corrected calcium 10.0 mg/dL 8.5-10 .1 Not Available [facility] (Lab Registration) [address] [place], [address], 10/15/2024 13:15:11 10/15/2010/15/2024 COMP METAB OLIC PANEL bilirubin total 0.4 mg/dL 0.4-1. 5 Not Available [facility] (Lab Registration) [address] [place], [address], 10/15/2024 13:15:11 10/15/20 24 10/15/2024 COMP METAB OLIC PANEL AST (SGOT) 21 U/L 15-37 Not Available [facility] (Lab Registration) [address] [place], [address], 10/15/2024 13:15:11 10/15/20 24 10/15/2024 COMP METAB OLIC PANEL ALT (SGPT) 33 U/L 12-78 Not Available [facility] (Lab Registration) [address] [place], [address], 10/15/2024 13:15:11 10/15/20 24 10/15/2024 COMP METAB OLIC PANEL alk phosphatase 93 U/L 50-120 Not Available [facility] (Lab Registration) [address] [place], [address], 10/15/2024 13:15:11 10/15/20 24 10/15/2024 COMP METAB OLIC PANEL note Unles s other george noted testi ng perfo rmed at: [facility] [address] [place] [address] [phone] Deandre villegas MD CLIA: [id number] Not Available [facility] (Lab Registration) [address] [place], [address], 10/15/2024 13:15:11 12/27/19 25 12/27/2024 influ ki virus A + B + SARS- CoV-2 (COVI D19) Ag panel , rapid IA, upper respi rator y speci men FLU A negati ve Not Available [address] [place], [address], 12/27/2024 15:52:29 12/27/19 25 12/27/2024 influ ki virus A + B + SARS- CoV-2 (COVI D19) Ag panel , rapid IA, upper respi rator y speci men FLU B negati ve Not Available [address] [place], [address], 12/27/2024 15:52:29 12/27/19 25 12/27/2024 influ ki virus A + B + SARS- CoV-2 (COVI D19) Ag panel , rapid IA, upper respi rator y speci men SARS COV + SARS OV 2 negati ve Not Available [place] [address] [place], [address], 12/27/2024 15:52:29 03/03/20 25 03/03/2025 CBC AUTO W DIFF WBC 13.5 10 4.5-11 .5 high Not Available [facility] (Lab Registration) [address] [place], [address], 03/03/2025 13:24:46 03/03/20 25 03/03/2025 CBC AUTO W DIFF RBC 5.44 10 4.25-5 .57 Not Available [facility] (Lab Registration) [address] [place], [address], 03/03/2025 13:24:46 03/03/20 25 03/03/2025 CBC AUTO W DIFF HGB 15.2 g/dL 12.0-1 5.7 Not Available [facility] (Lab Registration) [address] [place], [address], 03/03/2025 13:24:46 03/03/20 25 03/03/2025 CBC AUTO W DIFF HCT 47.8 % 36.0-4 7.0 high Not Available [facility] (Lab Registration) [address] [place], [address], 03/03/2025 13:24:46 03/03/20 25 03/03/2025 CBC AUTO W DIFF MCV 87.9 fL 80-95 Not Available [facility] (Lab Registration) [address] [place], [address], 03/03/2025 13:24:46 03/03/20 25 03/03/2025 CBC AUTO W DIFF MCH 27.9 pg 27.0-3 4.0 Not Available [facility] (Lab Registration) [address] [place], [address], 03/03/2025 13:24:46 03/03/20 25 03/03/2025 CBC AUTO W DIFF MCHC 31.8 g/dL 32.0-3 6.0 low Not Available [facility] (Lab Registration) [address] [place], [address], 03/03/2025 13:24:46 03/03/20 25 03/03/2025 CBC AUTO W DIFF platelet count 348 10 150-45 0 Not Available [facility] (Lab Registration) [address] [place], [address], 03/03/2025 13:24:46 03/03/20 25 03/03/2025 CBC AUTO W DIFF RDW 14.0 % 12.3-1 5.1 Not Available [facility] (Lab Registration) [address], [place], [address], 03/03/2025 13:24:46 03/03/20 25 03/03/2025 CBC AUTO W DIFF MPV 9.5 fL 7.4-10 .4 Not Available [facility] (Lab Registration) [address], [place], [address], 03/03/2025 13:24:46 03/03/20 25 03/03/2025 CBC AUTO W DIFF granulocyte% 70.5 % 40-75 Not Available [facility] (Lab Registration) [address] [place], [address], 03/03/2025 13:24:46 03/03/20 25 03/03/2025 CBC AUTO W DIFF lymphocyte% 19.9 % 15-57 Not Available [facility] (Lab Registration) [address] [place], [address], 03/03/2025 13:24:46 03/03/20 25 03/03/2025 CBC AUTO W DIFF monocyte% 7.2 % 4.0-12 .0 Not Available [facility] (Lab Registration) [address] [place], [address], 03/03/2025 13:24:46 03/03/20 25 03/03/2025 CBC AUTO W DIFF eosinophil% 1.2 % 0.0-4. 0 Not Available [facility] (Lab Registration) [address] [place], [address], 03/03/2025 13:24:46 03/03/20 25 03/03/2025 CBC AUTO W DIFF basophil% 0.2 % 0.0-1. 0 Not Available [facility] (Lab Registration) [address] [place], [address], 03/03/2025 13:24:46 03/03/20 25 03/03/2025 CBC AUTO W DIFF immature granulocytes % 1.0 % 0.0-0. 8 high Not Available [facility] (Lab Registration) [address], [place], [address], 03/03/2025 13:24:46 03/03/20 25 03/03/2025 CBC AUTO W DIFF granulocyte# 9.52 10 Not Available [facility] (Lab Registration) [address] [place], [address], 03/03/2025 13:24:46 03/03/20 25 03/03/2025 CBC AUTO W DIFF lymphocyte# 2.69 10 Not Available [facility] (Lab Registration) [address] [place], [address], 03/03/2025 13:24:46 03/03/20 25 03/03/2025 CBC AUTO W DIFF monocyte# 0.97 10 Not Available [facility] (Lab Registration) [address] [place], [address], 03/03/2025 13:24:46 03/03/20 25 03/03/2025 CBC AUTO W DIFF eosinophil# 0.16 10 Not Available [facility] (Lab Registration) [address] [place], [address], 03/03/2025 13:24:46 03/03/20 25 03/03/2025 CBC AUTO W DIFF basophil# 0.03 10 Not Available [facility] (Lab Registration) [address] [place], [address], 03/03/2025 13:24:46 03/03/20 25 03/03/2025 CBC AUTO W DIFF immature granulocytes # 0.13 10 Not Available [facility] (Lab Registration) [address] [place], [address], 03/03/2025 13:24:46 03/03/20 25 03/03/2025 CBC AUTO W DIFF manual differential NO Not Available [facility] (Lab Registration) [address], [place], [address], 03/03/2025 13:24:46 03/03/20 25 03/03/2025 CBC AUTO W DIFF note Unles s other george noted testi ng perfo rmed at: [facility] [address] [facility] [place] [address] [phone] Deandre villegas MD CLIA: [id number] Not Available [facility] (Lab Registration) [address], [place], [address], 03/03/2025 13:24:46 03/03/20 25 03/03/2025 COMP METAB OLIC PANEL sodium 133 mmol/ L 136-14 5 low Not Available [facility] (Lab Registration) [address] [place], [address], 03/03/2025 13:32:14 03/03/20 25 03/03/2025 COMP METAB OLIC PANEL potassium 4.3 mmol/ L 3.5-5. 1 Not Available [facility] (Lab Registration) [address], [place], [address], 03/03/2025 13:32:14 03/03/20 25 03/03/2025 COMP METAB OLIC PANEL chloride 95 mmol/ L 98-107 low Not Available [facility] (Lab Registration) [address] [place], [address], 03/03/2025 13:32:14 03/03/20 25 03/03/2025 COMP METAB OLIC PANEL carbon dioxide 31 mmol/ L 21-32 Not Available [facility] (Lab Registration) [address] [place], [address], 03/03/2025 13:32:14 03/03/20 25 03/03/2025 COMP METAB OLIC PANEL anion gap 7.0 Not Available [facility] (Lab Registration) [address], [place], [address], 03/03/2025 13:32:14 03/03/20 25 03/03/2025 COMP METAB OLIC PANEL glucose 85 mg/dL 70-110 Not Available [facility] (Lab Registration) [address], [place], [address], 03/03/2025 13:32:14 03/03/20 25 03/03/2025 COMP METAB OLIC PANEL blood urea nitrogen 19 mg/dL 7-18 high Not Available [facility] (Lab Registration) [address], [place], [address], 03/03/2025 13:32:14 03/03/20 25 03/03/2025 COMP METAB OLIC PANEL creatinine 0.6 mg/dL 0.6-1. 0 Not Available [facility] (Lab Registration) [address], [place], [address], 03/03/2025 13:32:14 03/03/20 25 03/03/2025 COMP METAB OLIC PANEL BUN/creatini ne ratio 31.7 9-21 high Not Available [facility] (Lab Registration) [address], [place], [address], 03/03/2025 13:32:14 03/03/20 25 03/03/2025 COMP METAB [...] staley ing kiney funct ion. Not Available [facility] (Lab Registration) [address], [place], [address], 03/03/2025 13:32:14 04/14/20 25 03/03/2025 COMP METAB OLIC PANEL osmolality (calculated) 279 mOsm/ kg 275-30 1 OSMOL ALITY IS A CALCU LATIO N UTILI ZING THE SERUM /PLAS MA SODIU M, GLUCO SE AND UREA NITRO GEN (BUN) LEVEL S. FOR THE MOST ACCUR ATE RESUL T A MEASU RED SERUM OSMOL ALITY IS SUGGE STED. Not Available [facility] (Lab Registration) [address], [place], [address], 03/03/2025 13:32:14 03/03/20 25 03/03/2025 COMP METAB OLIC PANEL total protein 7.0 g/dL 6.4-8. 2 Not Available [facility] (Lab Registration) [address], [place], [address], 03/03/2025 13:32:14 03/03/20 25 03/03/2025 COMP METAB OLIC PANEL albumin 3.5 g/dL 3.4-5. 0 Not Available [facility] (Lab Registration) [address], [place], [address], 03/03/2025 13:32:14 03/03/20 25 03/03/2025 COMP METAB OLIC PANEL calcium 10.1 mg/dL 8.5-10 .1 Not Available [facility] (Lab Registration) [address] [place], [address], 03/03/2025 13:32:14 03/03/20 25 03/03/2025 COMP METAB OLIC PANEL corrected calcium 10.5 mg/dL 8.5-10 .1 high Not Available [facility] (Lab Registration) [address] [place], [address], 03/03/2025 13:32:14 03/03/20 25 03/03/2025 COMP METAB OLIC PANEL bilirubin total 0.1 mg/dL 0.4-1. 5 low Not Available [facility] (Lab Registration) [address] [place], [address], 03/03/2025 13:32:14 03/03/20 25 03/03/2025 COMP METAB OLIC PANEL AST (SGOT) 34 U/L 15-37 Not Available [facility] (Lab Registration) [address], [place], [address], 03/03/2025 13:32:14 03/03/20 25 03/03/2025 COMP METAB OLIC PANEL ALT (SGPT) 75 U/L 12-78 Not Available [facility] (Lab Registration) [address] [place], [address], 03/03/2025 13:32:14 03/03/20 25 03/03/2025 COMP METAB OLIC PANEL alk phosphatase 109 U/L 50-120 Not Available [facility] (Lab Registration) [address] [place], [address], 03/03/2025 13:32:14 03/03/20 25 03/03/2025 COMP METAB OLIC PANEL note Unles s other george noted testi ng perfo rmed at: [facility] [address] [place] [address] [phone] Deandre villegas MD CLIA: [id number] Not Available [facility] (Lab Registration) [address] [place], [address], 03/03/2025 13:32:14 03/03/20 25 03/03/2025 CULTU RE URINE results [facility] 03-04 702 No Signi figan t Growt h at Day 1 [facility] 03-05 715 No Signi fican t Growt h at Day 2 Not Available [facility] (Lab Registration) [address] [place], [address], 03/05/2025 07:16:48 03/03/20 25 03/03/2025 CULTU RE URINE note Unles s other george noted testi ng perfo rmed at: [facility] 9 [place] [address] [phone] Deandre villegas MD CLIA: [id number] Not Available [facility] (Lab Registration) [address] [place], [address], 03/05/2025 07:16:48 03/03/20 25 03/03/2025 urina lysis , dipst ick Leukocytes (reference range) negati ve Not Available [address] [place], [address], 03/03/2025 09:37:42 03/03/20 25 03/03/2025 urina lysis , dipst ick Nitrite (reference range:) negati ve Not Available [address] [place], [address], 03/03/2025 09:37:42 03/03/20 25 03/03/2025 urina lysis , dipst ick Urobilinogen (reference range) 0.2 Not Available [address] [place], [address], 03/03/2025 09:37:42 03/03/20 25 03/03/2025 urina lysis , dipst ick Protein (reference range) negati ve Not Available [address] [place], [address], 03/03/2025 09:37:42 03/03/20 25 03/03/2025 urina lysis , dipst ick pH (reference range 5-8.5) 6.0 Not Available [address] [place], [address], 03/03/2025 09:37:42 03/03/20 25 03/03/2025 urina lysis , dipst ick Blood (reference range:) non-He molyze d: Trace Not Available [address] [place], [address], 03/03/2025 09:37:42 03/03/20 25 03/03/2025 urina lysis , dipst ick Specific Marcus (reference range) 1.025 Not Available [address] [place], [address], 03/03/2025 09:37:42 03/03/20 25 03/03/2025 urina lysis , dipst ick Ketone (reference range) negati ve Not Available [address] [place], [address], 03/03/2025 09:37:42 03/03/20 25 03/03/2025 urina lysis , dipst ick Bilirubin (reference range) negati ve Not Available [address] [place], [address], 03/03/2025 09:37:42 03/03/20 25 03/03/2025 urina lysis , dipst ick Glucose (reference range) negati ve Not Available [address] [place], [address], 03/03/2025 09:37:42 03/03/20 25 03/03/2025 urina lysis , dipst ick Color (reference range: yellow-brown ) Yellow Not Available [address] [place], [address], 03/03/2025 09:37:42 05/21/20 24 05/20/2024 US, echoc ardio gram, trans thora cic, compl ete, w/ color flow [facility] [address] [place] [address] Phone: Fax: Name: STEVAN CORTES NAI Exam Date: 05/20/20 24 : 9[birth year] Age 54 years Gender : F Access ion: [id number] Physic hilda: ABENA LUCAS Facili ty: [facility] Facili ty HSV: Outpat ient [...] Pulmon ic Valve Report for STEVAN Zhou [id number] on 05/20/24 Dictat ed By: ABENA LUCAS Transc ribed By: [facility] Michelle ibrahim Transc ribed On: 05/21/20 6:29 AM Electr onical ly signed by: ABENA LUCAS 05/21/20 Thank you for referr STEVAN Farmer to [facility] al. Legall y authen jey d by TEVIN Stephenson MD 05-21 06:32: 09 CC'ed Logic: Orderi ng Provid er: TEVIN Stephenson CC Provid er: AMBURG EY TAFFAN Y Attend ing Provid er: TEVIN Stephenson Referr ing Provid er: TEVIN Stephenson Admitt ing Provid er: TEVIN Stephenson [facility] ([facility]) [address] [place], [address], 05/21/2024 12:33:35 05/22/20 24 05/20/2024 pharm acolo gic nucle ar stres s test [facility] [address] [place] [address] Phone: Fax: Name: STEVAN CORTES IE Exam Date: 05/20/20 24 : 9[birth year] Age 54 years Gender : F Access ion: [id number] Physic hilda: ABENA LUCAS Facili ty: [facility] Facili ty HSV: Outpat ient Exam: NM MYOCAR D SPEC 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 Test was comple aidan. No compli [...] for referr ing STEVAN CORTES IE to [facility]. Legall y authen ticate d by TEVIN Stephenson MD 05-22 07:58: 01 CC'ed Logic: Orderi ng Provid er: TEVIN Stephenson CC Provid er: MAURICIO Talbert Attend ing Provid er: TEVIN Stephenson Referr ing Provid er: TEVIN Stephenson Admitt ing Provid er: TEVIN Stephenson [facility] ([facility]) [address] [place], [address], 03/30/2025 22:16:17 06/18/20 24 06/18/2024 US, thyro id [facility] 9 [facility] [place] [address] Phone: Fax: Name: STEVAN CORTES Exam Date: 024 : 9[birth year] Age 54 years Gender : F Access ion: [id number] Physic hilda: AMBURG EY, TAFFAN Y Facili ty: [facility] Facili ty HSV: Outpat ient [...] for referr ing STEVAN CORTES IE to [facility]. Legall y authen ticate d by SYDNIE MAC MD 2023-06-18 15:06: 59 CC'ed Logic: Orderi ng Provid er: AMBURG EY TAFFAN Y CC Provid er: AM[place] EY TAFFAN Y Attend ing Provid er: AMBURG EY TAFFAN Y Referr ing Provid er: AMBURG EY TAFFAN Y Admitt ing Provid er: AMBALMA SWIFT Y [facility] (Radiology) [address] [place], [address], 06/24/2024 08:47:27 01/14/20 25 2025 XR, chest , 2 view [facility] [address] [place] [address] Phone: Fax: Name: STEVAN CORTES Exam Date: 025 : 9[birth year] Age 55 years Gender : F Access ion: [id number] Physic hilda: AMBURG EY, TAFFAN Y Facili ty: [facility] Facili ty HSV: Outpat ient [...] for referr ing STEVAN CORTES IE to [facility] Hospit al. Legall y authen ticate d by GURPREET SHAH MD 0 01-14 12:50: 00 CC'ed Logic: Orderi ng Provid er: AMBURG EY TAFFAN Y CC Provid er: AMBURG EY TAFFAN Y Attend ing Provid er: AMBURG EY TAFFAN Y Referr ing Provid er: AMBURG EY TAFFAN Y Admitt ing Provid er: AMBURG EY TAFFAN Y [email or web address] [facility] (Radiology) [address] [place], [address], 01/16/2025 09:39:56 01/23/20 25 01/22/2025 US, alex bang , limit ed [facility] 9 [facility] [place] [address] Phone: Fax: Name: STEVAN CORTES Exam Date: 01/23/20 25 : [birth year] Age 55 years Gender : F Access ion: [id number] Physic hilda: AMBURG EY, TAFFAN Y [...] you [facility] Legall y authen ticate d by ROSE MEDINA MD 01-22 14:30: 00 CC'ed Logic: Orderi ng Provid er: AMBURG EY TAFFAN Y CC Provid er: AMBURG EY TAFFAN Y Attend ing Provid er: AMBURG EY TAFFAN Y Referr ing Provid er: AMBURG EY TAFFAN Y Admitt ing Provid er: AMBURG EY TAFFAN Y [email or web address] [facility] (Radiology) [address] [place], [address], 01/23/2025 12:13:44 01/23/2001/22/2025 MAMMO , diagn ostic , digit al, bilat eral [facility] [place] [address] Phone: Fax: Name: DENICE Serena STEVAN TRIMBLE Exam Date: 01/23/20 : 9[birth year] Age 55 years Gender : F Access ion: [id number] Physic hilda: AMBURG EY, TAFFAN Y Facili ty: [facility] Facili ty HSV: Outpat ient [...] perfor med.Ta rgeted ultras ound assess ing ocncepcion-s naa and color flow perfor med. BREAST [...] correl ation. Electr onical ly signed by: tSevan Dunn MD 2024 02:37 PM EST RP Workst ation: [id number] Dictat ed By: Stevan Dunn Transc ribed By: Transc ribed On: 01/23/20 1:55 PM Legall y authen ticate d by ROSE MEDINA MD 01-22 13:55: 00 Electr onical ly signed by: Stevan Dunn 01/23/20 Thank you for referr ing DENICE SerenaSTEVAN IE to [facility]. Legall y authen ticate d by ROSE MEDINA MD 01-22 13:55: 00 CC'ed Logic: Orderi ng Provid er: AMBURG EY TA[place]ON Y CC Provid er: AMBURG EY TAFFAN Y Attend ing Provid er: AMBURG EY TAFFAN Y Referr ing Provid er: AMBURG EY TAFFAN Y Admitt ing Provid er: AMBURG EY TAFFAN Y [email or web address] [facility] (Radiology) [address] [place], [address], 01/23/2025 12:13:38 01/23/2001/22/2025 XR, chest , 2 view [facility] 9 [facility] [place] [address] Phone: Fax: Name: STEVAN CORTES Exam Date: 01/23/20 : 9[birth year] Age 55 years Gender : F Access ion: [id number] Physic hilda: JAMISON ESPAÑA Y Facili ty: [facility] Facili ty HSV: Outpat ient [...] 03:44 PM EST RP Workst ation: [id number] Dictat ed By: Neelam Randle Transc ribed By: Transc ribed On: 01/23/20 2:49 PM Electr onical ly signed by: Neelam Randle as 01/23/20 Thank you for referr ing STEVAN CORTES IE to [facility]. Legall y authen ticate d by THNOY DUENAS MD 01-22 14:49: 00 CC'ed Logic: Orderi ng Provid er: AMBURG EY TAFFAN Y CC Provid er: AMBURG EY TAFFAN Y Attend ing Provid er: AMBURG EY TAFFAN Y Referr ing Provid er: AMBURG EY TAFFAN Y Admitt ing Provid er: AMBURG EY TAFFAN Y [email or web address] [facility] (Radiology) [address] [place], [address], 01/23/2025 12:13:38 01/24/2001/22/2025 LDCT, chest , for lung fatoumata daley [facility] 9 [facility] [place] [address] Phone: Fax: Name: SLADESTEVAN DOUGLAS NAI Exam Date: 01/23/20 : 9[birth year] Age 55 years Gender : F Access ion: [id number] Physic hilda: MAURICIO BALES [place] Y Facili ty: [facility] Facili ty HSV: Outpat ient Exam: CT CHEST LOW DOSE CT CHEST WITHOU T IV CONTRA [facility] AL: 55-yea r-old Female patien t curren [...] 08:41 AM EST RP Workst ation: [id number] Dictat ed By: Neelam Randle Transc ribed By: Transc ribed On: 01/23/20 2:21 PM Electr onical ly signed by: Neelam Randle as 01/23/20 Thank you for referr ing STEVAN CORTES IE to [facility]. Legall y authen ticate d by THONY DUENAS MD 2024-01-22 14:21: 06 CC'ed Logic: Orderi ng Provid er: MAURICIO SWIFT Y CC Provid er: AMBURG NII SWIFT Y Attend ing Provid er: AMBURG NII SWIFT Y Referr ing Provid er: AMBURG EY TAFLONDON Y Admitt ing Provid er: AMBURG NII SWIFT Y [email or web address] [facility] (Radiology) [address] , [place], [address], 01/24/2025 14:51:37 02/05/20 25 01/22/2025 compl ete PFT w/ post [facility] hodil ator ventura metry * No observ ation record ed. [facility] ([facility]) [address] [place], [address], 02/04/2025 16:50:57 02/23/20 25 02/22/2025 imagi ng inter preta tion No observ ation record ed. [address], [place], [address], 02/24/2025 08:26:14 02/23/20 25 02/22/2025 imagi ng inter preta tion No observ ation record ed. [address], [place], [address], 02/24/2025 08:26:03 02/23/20 25 02/22/2025 imagi ng inter preta tion No observ ation record ed. [address], [place], [address], 02/24/2025 08:26:00 03/10/20 25 03/10/2025 CT, abdom en + pelvi s, w/o contr ast [facility] 9 [facility] [place] [address] Phone: Fax: Name: STEVAN CORTES IE Exam Date: 025 : 9[birth year] Age 55 years Gender : F Access ion: [id number] Physic hilda: AMBURG NII, TAFLONDON Y [facility]ili [facility] Facili ty HSV: Outpat ient Exam: CT [...] ing Provid er: AMBURG EY TAFFAN Y [facility] (Radiology) [address] , [place], [address], 03/16/2025 14:58:31 Result Notes None recorded. Problems Name Problem SNOMED Code Status Onset Date Resolution Date Notes Provider Name and Address Organization Details Recorded Time Essential hypertension 14601028 Active 2021 Caesar Gurrola null, [place] - [facility] - [place] & [place] 4 15:37:50 Drug abuse 71843001 Active 2021 Caesar Gurrola [place], [place] [facility] - [facility] & [place] 4 15:37:47 Asthma 636604591 Active 2021 Caesar Gurrola null, [place] [facility] - [facility] & [place] 4 15:37:43 Heart murmur 90035327 Active 2021 Caesar Gurrola null[place] [facility] - [facility] & [place] 4 15:37:52 Problem Notes None recorded. Procedures Surgical History Date Name Laterality Status Provider Name and Address Organization Details Recorded Time 02/12/20 24 Feces-based colorectal cancer DNA screening completed Nadia Garcia [place] [facility] - [place] & [place] 08/05/2024 13:24:58 07/05/20 23 Date of Last Pap Smear completed Jerry Navarro [place] [facility] [place] & [place] 10/18/2023 15:23:12 01/25/20 23 completed KATALINA VICTOR NP [address] [place] [address], [address], [place] [facility] [place] & [place] 06/21/2023 14:24:27 11/20/18 75 Tonsillectomy/ Adenoidectomy completed KATALNIA VICTOR NP [address] [place] [address], [address], [place] - [facility] [place] & [place] 06/21/2023 14:24:34 Cancer Surgery completed KATALINA VICTOR NP [address] [place] [address], [address], [place] - [facility] - [facility] & [place] 03/28/2023 10:33:23 section completed Caroline Hebert [place] - [facility] [place] & [place] 09/07/2022 07:13:02 Imaging Results Imaging Date Name Status LastModified by Organization Details LastModified Time 05/20/2024 US, echocardiogram, transthoracic, complete, w/ color flow completed [facility] (Scheduling) [address] [place], [address], 05/21/2024 12:33:35 05/20/2024 pharmacologic nuclear stress test completed [facility] ([facility]uling) [address] [place], [address], 03/30/2025 22:16:17 06/18/2024 US, thyroid completed [facility] (Radiology) [address] [place], [address], 06/24/2024 08:47:27 2025 XR, chest, 2 view [address] (Radiology) [address] [place], [address], 01/16/2025 09:39:56 01/22/2025 US, breast, unilateral, limited completed [email or web address] (Radiology) [address] [place], [address], 01/23/2025 12:13:44 01/22/2025 MAMMO, diagnostic, digital, bilateral completed [email or web address] (Radiology) [address] [place], [address], 01/23/2025 12:13:38 01/22/2025 XR, chest, 2 view completed [address] (Radiology) [address] [place], [address], 01/23/2025 12:13:38 01/22/2025 LDCT, chest, for lung cancer screening completed [facility] (Radiology) [address] [place], [address], 01/24/2025 14:51:37 01/22/2025 complete PFT w/ post bronchodilator spirometry* completed [facility] (Sleep Lab) [address] [place], [address], 02/04/2025 16:50:57 02/22/2025 imaging interpretation completed [facility] [address], [place], [address], 02/24/2025 08:26:14 02/22/2025 imaging interpretation completed [email or web address] [facility] [address], [place], [place], [address], 02/24/2025 08:26:03 02/22/2025 imaging interpretation completed [email or web address] [facility] [address], [place], [place], [address], 02/24/2025 08:26:00 03/10/2025 CT, abdomen + pelvis, w/o contrast completed [facility] (Radiology) [address] [place] [address], [place], [address], 03/16/2025 14:58:31 Procedure Notes None recorded. Medical Equipment None Reported. Allergies Allergen ID Allergen Name Allergen Category Reaction Reaction Severity Criticality Documentation Date Start Date Code Code System Note Provider Name and Address Organization Details Recorded Time 455303 penicilli n V Not available rash Not available Not available 03/03/2025 7984 RxNorm Caesar Gurrola brandon [facility] & [place] 5 09:24:21 51048 Product containin g penicilli n (product) medicatio n rash Not available Not available 09/07/2022 47299 8001 SNOMED Caroline Shahnatasha taylor [facility] & [place] 2 07:11:27 09742 lisinopri l medicatio n Not available Not available Not available 09/07/2022 15794 RxNorm Other react ions and sever ities : 'Adve rse react ion to subst ance' . Caesar taylor [facility] & [place] 5 09:24:21 06835 penicilli n G Not available flushing rash moderate moderate Not available 09/10/2022 7980 RxNorm KATALINA VICTOR NP [address] [place] [address], [phone] [place], [place] [address] & [place] 2 22:12:08 Medications Name Sig Start Date [...] Updated DateTime 4 154.94 cm 41.4 kg/m2 96524.7 3 g 97.5 [degF] 91 % 91 % 79 /min 105 mm[Hg] 55 mm[Hg] Jerry alejandro [place] - [facility] & [place] 4 15:00:06 Date Recorded Body height Body mass index (BMI) Body weight Body temperature Oxygen saturation Oxygen saturation in Arterial blood by Pulse oximetry Heart rate Respiratory rate Systolic blood pressure Diastolic blood pressure Provider Name and Address Organization Details Last Updated DateTime 4 154.94 cm 40.4 kg/m2 22714.7 7 g 97.1 [degF] 95 % 95 % 85 /min 18 /min 115 mm[Hg] 82 mm[Hg] Caesar Gurrola [place] - [facility] & [place] 4 10:53:46 Date Recorded Body height Body mass index (BMI) Body weight Body temperature Oxygen saturation Oxygen saturation in Arterial blood by Pulse oximetry Heart rate Respiratory rate Systolic blood pressure Diastolic blood pressure Provider Name and Address Organization Details Last Updated DateTime 5 154.94 cm 39.5 kg/m2 93093.8 1 g 98.3 [degF] 93 % 93 % 104 /min 18 /min 122 mm[Hg] 81 mm[Hg] Caesar KELLY [facility] & [place] 5 15:52:36 Date Recorded Body height Body mass index (BMI) Body weight Body temperature Oxygen saturation Oxygen saturation in Arterial blood by Pulse oximetry Heart rate Systolic blood pressure Diastolic blood pressure Provider Name and Address Organization Details Last Updated DateTime 5 154.94 cm 39.7 kg/m2 99173.4 g 97.2 [degF] 93 % 93 % 71 /min 126 mm[Hg] 82 mm[Hg] Jerry alejandro [place] - [facility] & [place] 5 12:01:24 Date Recorded Body height Body mass index (BMI) Body weight Body temperature Oxygen saturation Oxygen saturation in Arterial blood by Pulse oximetry Heart rate Respiratory rate Systolic blood pressure Diastolic blood pressure Provider Name and Address Organization Details Last Updated DateTime 5 154.94 cm 39.7 kg/m2 32522.4 g 98.2 [degF] 94 % 94 % 82 /min 18 /min 117 mm[Hg] 83 mm[Hg] Caesar KELLY [facility] & [place] 5 09:24:03 Social History Question Answer Notes LastModified by Organizat ion Details LastModified Time Tobacco Smoking Status Current Every Day Smoker KATALINA VICTOR, EVELINE [address] [place] [address], [id number] [place] [address] & [place] 09/10/2022 22:12:22 Do You Have An Advance Directive? Yes Information n ot available 03/28/2023 Do You Wear A Helmet When Biking? Yes [email or web address] Information not available 04/16/2024 Are You Blind Or Do You Have Difficulty Seeing? Yes Information n ot available 09/10/2022 What Is Your Level Of Caffeine Consumption? Moderate Information not available 01/09/2024 In The 14 Days Before Symptom Onset, Have You Had Close Contact With A Laboratory-confirm ed COVID-19 While That Case Was Ill? No [email or web address] Information n ot available 04/16/2024 In The 14 Days Before Symptom Onset, Have You Had Close Contact With A Person Who Is Under Investigation For COVID-19 While That Person Was Ill? No Information not available 04/16/2024 Have You Been To An Area Known To Be High Risk For COVID-19? No [email or web address] Information not available 04/16/2024 Are You Deaf Or Do You Have Serious Difficulty Hearing? No [email or web address] Information not available 04/16/2024 What Type Of Diet Are You Following? REGULAR [email or web address] Information n ot available 10/15/2024 Have You Processed Blood Or Body Fluids From An Ebola Virus Disease Patient Without Appropriate PPE? No [email or web address] Information not available 04/16/2024 Do You Reside In Or Have You Traveled To An Area Where Ebola Virus Transmission Is Active? No [email or web address] Information not available 04/16/2024 Have There Been Any Changes To Your Family Or Social Situation? No [email or web address] Information no t available 04/16/2024 What Is The Fluoride Status Of Your Home? Unknown [email or web address] Information not available 04/16/2024 Are There Any Guns Present In Your Home? No Information not available 04/16/2024 Have You Recently Or Are You Planning To Travel To An Area With Zika Virus? No [email or web address] Information not available 04/16/2024 Do You Use Insect Repellent Routinely? Yes [email or web address] Information not available 04/16/2024 Do You Feel Safe At Home? Yes Information not available 04/16/2024 Do You Have A Medical Power Of Preschool Teacher Aide? Yes [email or web address] Information not available 04/16/2024 What Was The Date Of Your Most Recent Tobacco Screening? 2025 [email or web address] Information not available 2025 Do You Have Any Pets? No [email or web address] Information not available 04/16/2024 Do You Use Your Seat Belt Or Car Seat Routinely? Yes [email or web address] Information not available 04/16/2024 Do You Have Smoke And Carbon Monoxide Detectors In Your Home? Yes [email or web address] Information not available 04/16/2024 At What Age Did You Start Smoking Tobacco? 19 [email or web address] Information not available 01/09/2024 Are You Passively Exposed To Smoke? Yes [email or web address] Information no t available 09/10/2022 How Much Tobacco Do You Smoke? 1 PPD Information not available 03/28/2023 Do You Use Sunscreen Routinely? Yes [email or web address] Information not available 04/16/2024 Has Tobacco Cessation Counseling Been Provided? Yes [email or web address] Information not available 04/16/2024 On What Date Was Tobacco Cessation Counseling Provided? 2025 [email or web address] Information not available 2025 How Many Years Have You Smoked Tobacco? 35 Information not available 03/28/2023 Do You Have Difficulty Walking Or Climbing Stairs? No [email or web address] Information not available 04/16/2024 Are You Currently In School? No [email or web address] Information not available 04/16/2024 Sex: Female Functional Status Question Answer Note LastModified by Organizat ion Details LastModified Time Do you or have you ever used smokeless tobacco? Never used smokeless tobacco Information not available 09/10/2022 Are you currently employed? Yes [email or web address] Information not available 04/16/2024 Do you have transportation difficulties? No [email or web address] Information not available 04/16/2024 Are you able to care for yourself? Yes [email or web address] Information n ot available 04/16/2024 Do you have difficulty dressing or bathing? No [email or web address] Information not available 04/16/2024 Do you or have you ever used e-cigarettes or vape? Current user of electronic cigarettes Information not available 01/09/2024 What is your exercise level? Occasional Information not available 01/25/2023 Do you use any illicit or recreational drugs? No Information not available 09/07/2022 Do you or have you ever used any other forms of tobacco or nicotine? Yes [email or web address] Information not available 01/09/2024 What is your level of alcohol consumption? Occasional Information not available 06/21/2023 Are you able to walk? YESWOREST [email or web address] Information not available 04/16/2024 Do you have difficulty doing errands alone? No Information not available 04/16/2024 What is your occupation? [employer] Information not available 01/09/2024 Mental Status Question Answer Note LastModified by Organizat ion Details LastModified Time Do you feel stressed (tense, restless, nervous, or anxious, or unable to sleep at night)? [id number] [email or web address] Information not available 10/18/2023 Do you have difficulty concentrating, remembering or making decisions? No [email or web address] Information no t available 04/16/2024 Family History [...] Maternal Aunt Heart disease lsidwell Not available 06/03/ 2024 15:06:47 Medical History Condition Response Ear or Hearing Problems Y COPD Y Anemia Y Obstructive Sleep Apnea Y Obesity Y Vision or Eye Problems Y Arthritis Y Back Problems Y Asthma Y Substance [...] mcg/0.25mL dose 1 completed KATALINA VICTOR NP [address] [place] [address], [address] [place] [address], [place] - [facility] & [place] 09/10/2022 22:12:32 Td (adult), 2 Lf tetanus toxoid, preservative free, adsorbed 1 completed KATALINA VICTOR NP [address] [place] [address], [id number], [place] - [facility] & [place] 09/10/2022 22:12:32 Hep A, adult 8 completed KATALINA VICTOR NP [address] [place] [address], [address], [place] - [facility] [place] 09/10/2022 22:12:32 COVID-19, mRNA, LNP-S, PF, 100 mcg/0.5mL dose or 50 mcg/0.25mL dose 1 completed KATALINA VICTOR NP [address] [place], [address], [place] - [facility] & [place] 09/10/2022 22:12:32 Hep A, adult 9 completed KATALINA VICTOR NP [address] [place] [address], [phone], [place] - [facility] [place] 09/10/2022 22:12:32 COVID-19, mRNA, LNP-S, PF, 100 mcg/0.5mL dose or 50 mcg/0.25mL dose 1 completed KATALINA VICTOR NP [address] [place] [address], [address], [facility] & [place] 09/10/2022 22:12:32 Past Encounters Encounter ID Performer Location Encounter Start Date Encounter Closed Date Diagnosis/Indication Diagnosis SNOMED-CT Code Diagnosis ICD10 Code Diagnosis Note [id number] KATALINA VICTOR NP [address] [address] 09/07/2022 09:29:54 09/07/2022 11:20:31 Cough 52963760 R05.1 J45.21 medication s as prescribed stay well hydratedf/ u if symptoms persistER if any urgent signs or symptoms arise Essential hypertension 86921675 I10 educated on goal of less than 130/90advi sed low sodium diet, healthy lifestyle including exercise as ablecontin ue current medication regimenER if any symptoms such as chest pain, shortness of breath Asthma 433451661 J45.90 9 Cobalamin deficiency 190 687887 E53.8 recheck today Anemia 665763510 D64.9 recheck lab work today Prediabetes 554196738 R7 3.03 awaiting oopj4tnnyz forced diet and lifestyle changes Mixed hyperlipidemia 267 135599 E78.2 [id number] KATALINA VICTOR NP [address] [address] 10/25/2022 11:15:32 10/25/2022 11:52:45 Essential hypertension 64163873 I10 educated on goal of less than 130/90advi sed low sodium diet, healthy lifestyle including exercise as ablecontin ue current medication regimenER if any symptoms such as chest pain, shortness of breath Spasm of back muscles 20 1657474 M62.830 discussed limited use of NSAIDSpt requested refills Chronic ob structive pulmonary disease 13474138 J44.9 step up from breorinse mouth out after usesmoking cessation [id number] KATALINA VICTOR NP [address] [address] 01/25/2023 10:25:47 01/25/2023 17:00:39 Essential hypertension 02712188 I10 has been taking current RX twice a day so will increaseed ucated on goal of less than 130/90heal thy lifestyle including exercise as ablecontin ue current medication regimenER if any symptoms such as chest pain, shortness of breath Pain of mu ltiple joints 12764568 M25.50 awaiting lab work given today Crying ass ociated with mood 496858957 R45.89 continue with vraylatrevor ies alcohol or drug usedenies SI/HIverba lizes understand ing of making appt with therapist jessi [id number] KATALINA VICTOR NP [facility] [address] [place] [address] 03/28/2023 10:14:18 03/28/2023 10:53:09 Essential hypertension 35169977 I10 educated on goal of less than 130/90meet in goaladvise d low sodium diet, healthy lifestyle including exercise as ablecontin ue current medication regimenER if any symptoms such as chest pain, shortness of breath Osteoarthritis 030987402 M19.90 avoid use of motrin, ibuprophen , aleve, naproxen with medication prescribed exercisewe ight Screening for malignant neoplasm of breast 627717979 Z12.39 Screening for malignant neoplasm of colon 542911825 Z12.11 [id number] KATALINA VICTOR NP [facility] [address] [place] [address] 06/21/2023 12:17:01 06/21/2023 15:09:16 Screening for malignant neoplasm of colon 426431636 Z12.[address] [facility] th examination 970862243 Z00.00 Patient presented to office today for [...] health risks and promote healthy living. Anemia 457878245 D64.9 recheck lab work todayfatig ue- sleep hygiene education Body mass index 30+ - obesity 651814949 Z68.30 lipid panel checked 08/2022 normal Essential hypertension 08003598 I10 educated on goal of less than 130/90meet ing goaladvise d low sodium diet, healthy lifestyle including exercise as ablecontin ue current medication regimenER if any symptoms such as chest pain, shortness of breath Hyperglycemia 11346028 R 73.9 awaiting yutv4zjmkm forced diet and lifestyle changes Osteoarthritis 490867226 M19.90 diclofenac made sick Fatigue 16291249 R53.83 Advised good sleep habits and patterns [...] bedtime. Screening for malignant neoplasm of cervix 174634755 Z12.4 Vaginitis 05083104 N76.0 [id number] Dale Skinner MD [address] [place] [address] 10/18/2023 15:05:32 10/18/2023 15:53:28 Fatigue 96547418 R53.83 awaiting lab worksleep hygienerec ommend therapylif estyle changes Mood disorder 86018063 F 40 denies SI/HIrecom mend therapy Mixed anxi ety and depressive disorder 565886651 F41.8 denies SI/HIstart wellbutrin to adjunct vraylar therapyver balizes understand ing of starting with twice daily then moving into extended release version if tolerates wellf/u in 4 weeks [id number] Dale Skinner MD [address] [place] [address] 10/31/2023 11:56:29 10/31/2023 12:31:32 Respiratory tract congestion and cough 161990922 R05.1 Influenza caused by Influenza B virus 42596012 J10.1 patient tested positive for influenza type B. Will treat with Tamiflu. I have discussed symptomati c relief. Patient expresses understand ing. [id number] KATALINA VICTOR NP [address] [place] [address] 01/09/2024 15:26:05 01/09/2024 15:54:28 Screening for malignant neoplasm of colon 497054604 Z12.11 Decreased renal function 86047054 R94.4 recheck lab work today, avoid NSAIDs, stay hydrated Weight gain 3572542 R63. 5 awaiting lab workreinfo rced lifestyle changes Body mass index 30+ - obesity 287123255 Z68.30 reinforced lifestyle changesdue to drug use, heart murmur not candidate for phentermin e Apnea 2331641 R06.81 witnessed apnea per her [id number] Dale Skinner MD [address] [place] [address] 02/12/2024 15:25:25 02/12/2024 16:03:17 Allergic rhinitis 41512272 J30.9 Controlled refill provided Decreased renal function 57201556 R94.4 avoid NSAIDs, stay hydrated Body mass index 30+ - obesity 750314300 Z68.39 reinforced lifestyle changesdue to drug use, heart murmur not candidate for phentermin e [id number] DO Mihir MEDELLIN General Surgery [place] - [address] [facility], [facility] [place] [address] 03/20/2024 14:31:33 03/20/2024 15:07:35 Cholelithiasis without obstruction 44520178 K80.80 - Discussed signs and symptoms of [...] this time as she is asymptomat ic. [id number] KATALINA VICTOR NP [facility] [address] [place] [address] 04/16/2024 15:30:27 04/16/2024 15:46:57 Dyspnea on exertion 28462743 R06.09 awaiting chest xrayER if any changes/ur gent signs or symptoms arise Heart murmur 89639490 R0 1.1 referral to cardiology has been at least 2 yrs since seen by cardiologi [facility] exac erbation of chronic obstructive pulmonary disease 153852614 J44.1 smoking cessationr escue vs maintenanc e inhaler educationu se of inhalers Swelling o f bilateral lower limbs 357478482 M79.89 comes and goescompre ssion sockseleva tionsalt intake discussedt aking HCTZ [id number] Daja Norton MD [address] [place] [address] 04/22/2024 14:57:36 04/22/2024 15:25:26 Swelling of bilateral lower limbs 453048821 M79.89 worsening for the last two weeks, follow up venous US of the lower extremitie s and echocardio gram with blood work. she is on HCTZ, will switch to Lasix after the work up if needed. Dyspnea on exertion 6084 5006 R06.09 follow up echocardio grma. Likely COPD. Cigarette smoker 5664448 7 F17.210 strongly encouraged to quit. and offered help. Hyperlipid emia screening 667079522 Z13.220 follow up fasting lipid profile. Chest discomfort 1903809 09 R07.89 chest discomfort with exertion in patient with mutliple risk factors, follow up stress test. Obesity 141842735 E66.9 BMI Sleep apnea 73073730 G47 .30 on CPAP. [id number] KATALINA VICTOR NP [facility] [address] [place] [address] 05/01/2024 09:15:11 05/03/2024 03:56:43 Mixed hyperlipidemia 756827231 E78.2 [id number] Daja Norton MD [address] [place] [address] 05/07/2024 14:48:31 05/07/2024 15:24:49 Swelling of bilateral lower limbs 646600100 M79.89 Improved since the last visit venous ultrasound showed no DVT. Blood work was discussed with the patient. We will continue same medical treatment for now.Follow up echocardio gram. Dyspnea on exertion 6084 5006 R06.09 follow up echocardio graphy. Likely COPD. Cigarette smoker 7270803 7 F17.210 strongly encouraged to quit. and offered help. Hyperlipid emia screening 587786286 Z13.220 Controlled continue medication s. Chest discomfort 7709185 09 R07.89 chest discomfort with exertion in patient with mutliple risk factors, follow up stress test. Obesity 364557680 E66.9 BMI 40.3. Recommend weight loss. Sleep apnea 95619169 G47 .30 on CPAP. [id number] KATALINA VICTOR NP [address] [place] [address] 06/10/2024 14:49:21 06/10/2024 16:47:44 Prediabetes 009662177 R73.03 awaiting ghwg5pcctd forced diet and lifestyle changes Weight gain 2055465 R63. 5 awaiting lab workreinfo rced lifestyle changes Acute pharyngitis 068961 003 J02.9 warm salt water garglescha nge toothbrush hydrations ymptomatic management f/u if symptoms persist or worsen [id number] KATALINA VICTOR NP [address] [place] [address] 10/15/2024 10:46:33 10/15/2024 12:28:23 Thyroid stimulating hormone level above reference range 050943713 R94.6 Repeat thyroid lab work today Prediabetes 009409506 R7 3.03 awaiting gzvq7tkdcn forced diet and lifestyle changes Essential hypertension 48761221 I10 educated on goal of less than 130/90meet ing goaladvise d low sodium diet, healthy lifestyle including exercise as ablecontin ue current medication regimenER if any symptoms such as chest pain, shortness of breathrefi lls provided Acute exac erbation of chronic obstructive pulmonary disease 482720235 J44.1 smoking cessationr escue vs maintenanc e inhaler educationu se of inhalers Moderate r ecurrent major depression 28407947 F33.1 denies SI/ HI, controlled Mood disorder 03072974 F 39 denies SI/HIrecom mend therapy [id number] KATALINA VICTOR NP [address] [place] [address] 12/27/2024 15:34:46 01/10/2025 09:04:53 Cough 53481174 R05.1 medication s as prescribed stay well hydratedf/ u if symptoms persistER if any urgent signs or symptoms arise Wheeze - rhonchi 3132000 1 R09.89 Discuss chest x-ray medication s as prescribed , ER if any urgent signs or symptoms arise. When symptoms are improved she needs updated pulmonary function test and low-dose CT screening Mastodynia of bilateral breasts 6293814831 8349471 N64.4 awaiting imaging Mild inter mittent asthma 808610074 J45.20 needs updated PFT; no current maintenanc e inhaleruse s rescue inhaler as needed, usually doesnt have to use unless sick; has been increased use over the past 2 weeks Tobacco de pendence caused by cigarettes 3585334942 5112196 F17.735 [id number] KATALINA VICTOR NP [address] [place] [address] 2025 11:56:03 2025 12:27:31 Dyspnea on exertion 65002277 R06.09 awaiting chest xrayER if any changes/ur gent signs or symptoms arise Asthma 473610458 J45.90 9 Poor historian, last office visit pulmonary function test was ordered to get more accurate diagnosis of asthma versus COPD, smoking sensation, has albuterol inhaler, likely needs pulmonary referral, make sure she gets imaging done that was sent last office visit [id number] KATALINA VICTOR NP [address] [place] [address] 03/03/2025 09:15:48 03/03/2025 10:39:40 Diverticular disease 885739163 K57.90 awaiting ER records to review her [...] start medication s, CT scan ordered Dysuria 77284078 R30.0 urine sent for culture and office [...] None Recorded Advance Directives Directive Y: Payers Insurance Date Sequence Insurance Name Policy Number Policy Natarajan Covered Member ID Natarajan Member ID Guarantor Name 03/10/2025 1 [facility] (MEDICAID REPLACEMENT - HMO) Angella Kirant [id number] Angella Dony 09/03/2024 1 [employer] Angella Dony [id number] Angella Dony 08/21/2023 1 UNSPECIFIED REMIT PAYOR Angella Napoles Notes Date Note Type Note Provider Name and Address Organization Details Recorded Time 06/10/2024 text/html 54-year-old bertram rangel who presents with complaints of persistent weight gain. Has decreased what she is eating but continues to gain weight. 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 He also complains of sore throat. Denies any fever, chills, nausea, vomiting. Sore throat started within the past couple days. Denies any known exposure to illness. KATALINA VICTOR NP [address] [place], [address], [facility] & [place] 06/10/2024 15:23:52 10/15/2024 text/html 53-year-old bertram rangel [...] exposure to illness. KATALINA VICTOR NP [address] [place], [address], [facility] & [place] 10/16/2024 19:18:43 12/27/2024 text/html 54-year-old bertram rangel who presents for follow-up reports breast lump need repeat imaging. Has been having left lung congestion for approximately 2 weeks. She also has fatigue no appetite possible fever. She reports cough is tight, some wheezing, unable to really get productive mucus. KATALINA VICTOR NP [address] [place], [address], [facility] & [place] 01/10/2025 09:00:16 2025 text/html 55-year-old bertram rangel who presents for follow-up. Has not completed imaging or pulmonary function test that was sent with last office visit. Reports wheezing and coughing often. She uses Ventolin inhaler. Taking all of her medications as prescribed. Reports mood is controlled. Blood pressure is normal. She does smoke. Cigarettes. KATALINA VICTOR NP [address] [place], [address], [facility] & [place] 01/16/2025 09:58:51 03/03/2025 text/html 55-year-old bertram rangel [...] of lower abdomen KATALINA VICTOR NP [address] [place], [address], [facility] & [place] 03/03/2025 09:47:23 OBGyn Episode No OBEpisode recorded.
[2025-04-02 14:51] LABS: Basophils # 0.1 K/mm3 (0-0.2); Basophils % 0.6 % (0.1-2.0); Eosinophils # 0.2 Kmm3 (0.0-0.4); Eosinophils % 2.2 % (0.1-12.0); Hematocrit 47.6 % (37.0-47.0); Hemoglobin 15.4 g/dL (12.2-16.2); Immature Granulocytes # 0.02 10^3uL; Immature Granulocytes % 0.2 %; Lymphocytes # 2.3 K/mm3 (0.7-4.5); Lymphocytes % 26.5 % (10-50); Mean Corpuscular HGB Conc 32.4 g/dL (31.8-35.4); Mean Corpuscular Hemoglobin 28.3 pg (27.0-31.2); Mean Corpuscular Volume 87.5 fl (81-99); Mean Platelet Volume 9.5 fl (7.4-10.4); Monocytes # 0.8 K/mm3 (0.1-1.0); Monocytes % 9.2 % (1.7-9.3); Neutrophils # 5.3 K/mm3 (1.8-7.8); Neutrophils % 61.3 % (37.0-80.0); Nucleated Red Blood Cells # 0 10^3/uL; Nucleated Red Blood Cells % 0 %; Platelet Count 207 K/mm3 (142-424); Red Blood Count 5.44 M/mm3 (4.20-5.40); Red Cell Distribution Width 15.2 % (11.5-17.5); Red Cell Distribution Width-SD 48.5 fL; White Blood Count 8.6 K/mm3 (4.8-10.8)
== END 2025-04-02 23:59 | disposition home or self-care (01) ==
LOC: LAB 13:45
PROVIDERS: PCP Nurse Practitioner Family; Visit Provider Surgery
DX: K57.92 Diverticulitis of intestine, part unspecified, without perforation or abscess without bleeding (principal)
CPT/HCPCS: 36415; 85025